=== PATIENT | male | born 1950 | race Caucasian/White ===

== ENCOUNTER 2018-04-30 07:44 | Outpatient (CLI) | payer MEDICARE, SELFPAY | END 2018-04-30 07:45 | PROVIDERS: PCP Family Medicine; Visit Provider Family Medicine | DX: Z47.81 Encounter for orthopedic aftercare following surgical amputation (principal); Z89.422 Acquired absence of other left toe(s); Z89.421 Acquired absence of other right toe(s); I73.9 Peripheral vascular disease, unspecified; I25.10 Atherosclerotic heart disease of native coronary artery without angina pectoris | CPT/HCPCS: 99305 ==

== ENCOUNTER 2018-05-03 16:43 | Outpatient (REF) | payer MEDICARE, SELFPAY ==
[2018-05-03 17:37] LABS: Anion Gap 10.6 mmol/L (3-11); BUN 41 mg/dL (7-18); CO2 25.4 mmol/L (21.0-32.0); CREATININE 2.85 mg/dL (0.70-1.30); Calcium 8.3 mg/dL (8.5-10.1); Chloride 103 mmol/L (98-107); Estimated GFR 22.32 (mL/min/1.73m2); Glucose 168 mg/dL (70-100); Potassium 4.8 mmol/L (3.5-5.1); Sodium 139 mmol/L (136-145)
== END 2018-05-03 16:44 ==
LOC: LBN 16:43
PROVIDERS: PCP Family Medicine; Visit Provider Family Medicine
DX: N18.9 Chronic kidney disease, unspecified (principal); I10 Essential (primary) hypertension; I25.10 Atherosclerotic heart disease of native coronary artery without angina pectoris; E11.9 Type 2 diabetes mellitus without complications; E78.5 Hyperlipidemia, unspecified
CPT/HCPCS: 80048

== ENCOUNTER 2018-06-05 12:42 | Outpatient (REF) | payer MEDICARE, SELFPAY ==
[2018-06-05 14:29] LABS: Anion Gap 7.8 mmol/L (3-11); BUN 31 mg/dL (7-18); CO2 29.2 mmol/L (21.0-32.0); CREATININE 1.83 mg/dL (0.70-1.30); Calcium 8.5 mg/dL (8.5-10.1); Chloride 101 mmol/L (98-107); Estimated GFR 37.22 (mL/min/1.73m2); Glucose 164 mg/dL (70-100); Potassium 4.5 mmol/L (3.5-5.1); Sodium 138 mmol/L (136-145)
[2018-06-05 14:30] LABS: Absolute Basophil Count 0.01 k/cumm (0.0-0.2); Absolute Lymphocyte Count 0.57 k/cumm (1.2-3.4); Absolute Monocyte Count 0.28 k/cumm (0.11-0.7); Basophils % 0.3; Eosinophils % 2.9; HCT 21.3 % (40.0-50.0); Lymphocytes % 16.5; Mean Corp. HGB Concentration 28.2 g/dL (32.0-36.0); Mean Corpuscular Hemoglobin 21.1 pg (27.0-33.0); Mean Platelet Volume 8.6 fL (8.0-11.0); Monocytes % 8.1; Neutrophils % 72.2; Platelet Count 292 x1000/uL (130-400); RBC 2.84 m/cumm (4.50-6.00); RBC Distribution Width 16.3 % (11.8-14.1); White Blood Cell Count 3.46 k/cumm (4.4-10.8)
[2018-06-05 15:04] LABS: Diff Comment RBC Morph Reviewed; Hypochromasia 2+; Polychromasia Present
== END 2018-06-05 13:02 ==
LOC: LBN 12:42
PROVIDERS: PCP Family Medicine; Visit Provider Family Medicine
DX: I10 Essential (primary) hypertension (principal); E78.5 Hyperlipidemia, unspecified; E11.9 Type 2 diabetes mellitus without complications; I48.91 Unspecified atrial fibrillation; N18.3 Chronic kidney disease, stage 3 (moderate)
CPT/HCPCS: 80048; 85025

== ENCOUNTER 2018-06-05 14:59 | Outpatient (CLI) | payer MEDICARE, SELFPAY ==
--- NOTE | 2018-06-05 14:04 | DI.RAD_ITS ---
SYMPTOMS/DIAGNOSIS: HYPOXEMIA, ? PNEUMONIA CHEST X-RAY, FRONTAL AND LATERAL VIEWS: Comparison is 03/13/18. There is increased opacity in the right lung base compared to the prior examination. In addition, there are linear opacities in the left lung base not present on the prior examination. These areas may represent atelectasis or pneumonia. No gross effusions are identified. The lungs are hyperinflated with flattened diaphragm suggesting underlying COPD. The heart size is within normal limits. Sternal wires are present. Degenerative changes are seen in the spine. IMPRESSION: Bilateral basilar infiltrates suspicious for atelectasis or pneumonia.
== END 2018-06-05 15:19 ==
PROVIDERS: PCP Family Medicine; Visit Provider Family Medicine
DX: R91.8 Other nonspecific abnormal finding of lung field (principal); R09.02 Hypoxemia; J44.9 Chronic obstructive pulmonary disease, unspecified
CPT/HCPCS: 71046

== ENCOUNTER 2018-06-05 16:07 | Inpatient (IN) | payer MEDICARE, MEDICAID, SELFPAY ==
[2018-06-05] VITALS (49 sets, daily range): BP systolic 107–188; BP diastolic 53–86; PULSE 58–73; RESP 13–22; TEMP 36–36.9; O2SAT 91–98
--- NOTE | 2018-06-05 16:27 | W.ED.GENAD ---
Discharge Plan Disposition Condition: Improving Discharge Details Chief Complaint: SOB Reason For Visit: ANEMIA, PNA Admit Date/Time: 06/05/18 18:52 Admit Provider: Cristian Mathis Attending Provider: Cristian Mathis Primary Care Provider: Kory Sierra ED Provider: Idania Warner Discharge Instructions Activity:: Activity as Tolerated Equipment/Supplies:: No Equipment Needed Diet:: Low-sodium, carbohydrate Discharge Orders Discharge Orders: Discharge Order (Routine); Ordered 06/10/18 Ordered By: Cristian Mathis Discharge Data Discharge Date/Time-TO BE ENTERED AT DEPARTURE: 06/05/18 20:09 Medical Decision Making MDM Narrative Medical decision making narrative: Manan Phillip is a 67 y/o man with h/o multiple medical problems who is currently living at [facility] presenting to the emergency department with cough and SOB for the past 5 days, found to have PNA and anemia with Hgb 6 on outpt studies. Pt is chronically-ill appearing with nl WOB on exam. Concern for symptomatic anemia, PNA. Exam/hx not c/w sepsis, PE at this time. Plan for EKG, HCAP abx, blood transfusion, labs drawn this am as outpt, will add blood cxs and further screening labs, plan for admission. Clinical Impression: PNA, anemia Disposition: [facility] inpatient Medical Records Medical records reviewed: Yes I reviewed the patient's medical records. Lab Data Lab results reviewed: Yes I reviewed the patient's lab results. ECG Data Attestation: I personally reviewed and interpreted this ECG (s) as follows: Interpretation: EKG shows NSR at 61 with left axis, RBBB and LAFB, PRWP, non-specific ST changes, no STEMI HPI - General Adult General Mode of arrival: EMS. Date/Time Provider Initiated Documentation: 06/05/18 16:15. Limitations to Documentation: no limitations. Information obtained by: patient, RN notes reviewed and old records reviewed. HPI Narrative: Manan Phillip is a 67 y/o man with h/o CKD, DM, pulm HTN, afib, CHF, HTN, PVD presenting to the emergency department with PNA and symptomatic anemia. Pt reports that he has been living in a healthcare facility more or less continuously since 10/11 for necrotic toes, b/l partial foot amputations and subsequent complications. Pt reports that he has had cough and SOB for the past five days, and [facility]. CXR showed PNA and labs showed Hgb 6. Pt denies new pain, fever, vomiting/diarrhea. Per physician at [facility], serial hemoccults negative, anemia thought 2/2 CKD. Related Data Home Medications Medication Instructions Recorded Confirmed amiodarone [Cordarone] 200 mg PO QAM 09/27/17 06/05/18 amlodipine 10 mg PO QAM 09/27/17 06/05/18 aspirin 81 mg PO QAM 09/27/17 06/05/18 atorvastatin [Lipitor] 40 mg PO HS 09/27/17 06/05/18 fluoxetine 40 mg PO BID 09/27/17 06/05/18 furosemide 120 mg PO BID 09/27/17 06/05/18 apixaban [Eliquis] 5 mg PO BID 03/07/18 06/05/18 insulin glargine [Lantus Solostar 10 unit SUB-Q HS 03/07/18 06/06/18 U-100 Insulin] potassium chloride 40 meq PO QAM 03/07/18 06/06/18 melatonin 6 mg PO HS 03/13/18 06/06/18 gabapentin 4 cap PO QID 03/14/18 06/05/18 glucagon (human recombinant) 1 mg IM Q15M PRN 03/14/18 06/05/18 [Glucagon Emergency Kit (human)] acetaminophen 650 mg PO Q6H 06/05/18 06/05/18 albuterol sulfate 2.5 mg INHALATION Q4H PRN 06/05/18 06/05/18 bisacodyl [Dulcolax (bisacodyl)] 10 mg MN DIRECTED PRN 06/05/18 06/05/18 hydromorphone 2 mg PO Q4H PRN 06/05/18 06/05/18 isosorbide mononitrate 30 mg PO DAILY 06/05/18 06/05/18 lorazepam 0.5 mg PO Q8H PRN PRN 06/05/18 06/05/18 losartan 25 mg PO DAILY 06/05/18 06/05/18 magnesium hydroxide [Milk of 30 ml PO PRN PRN 06/05/18 06/06/18 Magnesia] metoclopramide HCl [Reglan] 10 mg PO QID 06/05/18 06/05/18 multivitamin [Multiple Vitamins] 1 tab PO QAM 06/05/18 06/06/18 sodium phosphates [Fleet Enema] 197 ml MN DIRECTED PRN 06/05/18 06/05/18 Previous Rx's Medication Instructions Recorded carvedilol [Coreg] 50 mg PO BID #120 tab 06/10/18 hydralazine 100 mg PO TID #120 tab 06/10/18 omeprazole 40 mg PO DAILY #30 cap 06/10/18 sulfamethoxazole-trimethoprim 1 tab PO Q12H 7 Days #14 tab 06/10/18 Allergies Allergy/AdvReac Type Severity Reaction Status Date / Time enalaprilat [From Vasotec] Allergy Severe Hives Unverified 06/05/18 18:14 Latex, Natural Rubber Allergy Intermediate Skin Rash Unverified 06/05/18 18:14 sertraline AdvReac Severe pychosis Unverified 06/05/18 18:14 codeine AdvReac Nausea Unverified 06/05/18 18:14 General Stated Complaint: SOB VIKASH: 2 Review of Systems Review of Systems Constitutional: denies fevers, reports fatigue Eyes: denies eye pain ENT: denies facial pain, dental pain, sore throat Cardiovascular: denies chest pain, edema Respiratory: reports SOB, cough GI: denies abdominal pain, vomiting, diarrhea : denies flank pain MSK: denies back pain, neck pain, arthralgias, myalgias Skin: denies rash Neuro: denies headaches, lightheadedness, weakness PFSH Social History Smoking/Tobacco Use Status: Never Exam Narrative Exam Narrative: Constitutional: well and [id number], pleasant, conversing normally HENT: head atraumatic, normocephalic normal inspection, mucous membranes moist Eyes: conjunctiva normal, sclera normal, pupils 3mm b/l Neck: no stridor, normal ROM, trachea midline Chest: normal inspection Resp: normal work of breathing, b/l rales Cardio: normal rate, normal rhythm GI: abdomen soft, non-tender, non-distended Back: normal inspection, no rash Skin: warm, dry, normal color, no rash Neuro: alert, not altered, grossly non-focal, normal tone Ext: no edema, partial foot amputations b/l, dressed today, dressing clean and dry, removal of dressing deferred Psych: normal mood, normal affect, normal behavior Course Vital Signs Temperature 36.9 C 06/05/18 16:17 Pulse 60 06/05/18 16:17 Respiratory Rate 06/05/18 16:17 Blood Pressure 142/53 H 06/05/18 16:17 Pulse Oximetry 95 06/05/18 16:17 Temperature 36.9 C 06/05/18 16:17 Pulse 60 06/05/18 16:17 Respiratory Rate 06/05/18 16:17 Blood Pressure 142/53 H 06/05/18 16:17 Pulse Oximetry 95 06/05/18 16:17
[2018-06-05 16:59] LABS: Lactate-non-spesis 0.6 mmol/L (0.6-1.4)
[2018-06-05 17:17] LABS: Troponin I 0.05 ng/mL (0.00-0.06)
[2018-06-05] MEDS: CEFEPIME 2 GM in Normal Saline 100 ML IVPB (17:26)
[2018-06-05] MEDS: AZITHROMYCIN 500 MG in Normal Saline 250 ML 250 MG IVPB (18:07)
--- NOTE | 2018-06-05 19:06 | NUR.NOTE ---
unable to complete med reconciliation due to lack of MAR - 3 phone calls made to [facility]. Nursing Note:
[2018-06-05] MEDS: VANCOMYCIN 2,000 MG in Normal Saline 500 ML 250 MG IVPB (19:50)
[2018-06-05] MEDS: Normal Saline Flush 10 ML SYR IVP (19:53)
[2018-06-05 21:23] LABS: Troponin I 0.05 ng/mL (0.00-0.06)
--- NOTE | 2018-06-05 22:50 | HPE_ITS ---
Date of service: 06/05/18 Time of Service: 22:50 Assessment and Plan (1) Healthcare-associated pneumonia: Current visit: Yes Status: Acute cont. Cefepime and Vancomcyin; check blood cultures and sputum cultures; cont. aerosolized bronchodilators, use IS and Acapella to mobilize sputum (2) Chronic renal disease: Current visit: Yes Status: Chronic cont. iv fluid hydration; monitor U.O. and daily BMP; avoid NSAID's and adjust his meds for his CKD (3) Paroxysmal A-fib: Current visit: No Status: Chronic cont. amiodarone, apixaban (4) Anemia: Current visit: No Status: Chronic the presumption is that his anemia is that of his CKD and due to his chronic wound infections however he may need further GI workup. I did a digital rectal exam and he was heme negative. However he has significant anemia and had to be transfused during his last admission. I will repeat his CBC in the a.m. and if his Hb does not come up above 7 gm then he will need further transfusions. History of Present Illness Chief Complaint: Dyspnea Narrative: 67 yr old male w/ PMH of CAD (s/p 3 vessel CABG), CVA, severe PAD (s/ p bilateral transmetatarsal resection), CKD, HLD, PAF, anemia of chronic disease (baseline Hb 8.6 GM) who was undergoing rehabilitation at [facility] after bilateral transmetatarsal resection for gangrenous toes when he developed increased dyspnea over the past few days along w/ productive cough. Workup in the ER revealed that he has bibasilar lower lobe consolidation and worsening anemia (Hb 6.0) He denies any rigors but admits to some productive mucous. He is afebrile and has no leukocytosis. He also denies any melena nor any hematochezia. Workup in the ER included routine labs, CXR, EKG, and treatment consisted of transfusion of 1 unit of PRBC, and initiation of parenteral antibiotics per HCAP recommendations including cefepime, vancomycin and azithromycin. Cefepime and Vancomycin have been continued at renal adjusted doses. Because the patient is on amiodarone for afib, the azithromycin was not continued but he was put on doxycycline. Review of Systems Review of Systems All systems reviewed & are unremarkable except as noted in HPI and below Cardiovascular Reports as per HPI Respiratory Reports as per HPI Gastrointestinal Reports system reviewed and no additional complaints, except as docu Genitourinary Reports system reviewed and no additional complaints, except as docu Musculoskeletal Reports system reviewed and no additional complaints, except as docu Integumentary/Breasts Reports system reviewed and no additional complaints, except as docu Neurologic Reports system reviewed and no additional complaints, except as docu Psychiatric Reports system reviewed and no additional complaints, except as docu Endocrine Reports system reviewed and no additional complaints, except as docu Hematologic/Lymphatic Reports system reviewed and no additional complaints, except as docu Allergic/Immunologic Reports system reviewed and no additional complaints, except as docu PFS Social History Smoking/Tobacco Use Status: Never Meds Home Medications Medication Instructions Recorded Confirmed Type amiodarone [Cordarone] 200 mg PO QAM 09/27/17 06/05/18 History amlodipine 10 mg PO QAM 09/27/17 06/05/18 History aspirin 81 mg PO QAM 09/27/17 06/05/18 History atorvastatin [Lipitor] 40 mg PO HS 09/27/17 06/05/18 History fluoxetine 40 mg PO BID 09/27/17 06/05/18 History furosemide 120 mg PO BID 09/27/17 06/05/18 History apixaban [Eliquis] 5 mg PO BID 03/07/18 06/05/18 History insulin glargine [Lantus Solostar 10 unit SUB-Q HS 03/07/18 06/06/18 History U-100 Insulin] potassium chloride 40 meq PO QAM 03/07/18 06/06/18 History melatonin 6 mg PO HS 03/13/18 06/06/18 History carvedilol 12.5 mg PO BID 03/14/18 06/05/18 History gabapentin 4 cap PO QID 03/14/18 06/05/18 History glucagon (human recombinant) 1 mg IM Q15M PRN 03/14/18 06/05/18 History [Glucagon Emergency Kit (human)] hydralazine 3 tab PO TID 03/14/18 06/05/18 History acetaminophen 650 mg PO Q6H 06/05/18 06/05/18 History albuterol sulfate 2.5 mg INHALATION Q4H PRN 06/05/18 06/05/18 History bisacodyl [Dulcolax (bisacodyl)] 10 mg ME DIRECTED PRN 06/05/18 06/05/18 History hydromorphone 2 mg PO Q4H PRN 06/05/18 06/05/18 History isosorbide mononitrate 30 mg PO DAILY 06/05/18 06/05/18 History lorazepam 0.5 mg PO Q8H PRN PRN 06/05/18 06/05/18 History losartan 25 mg PO DAILY 06/05/18 06/05/18 History magnesium hydroxide [Milk of 30 ml PO PRN PRN 06/05/18 06/06/18 History Magnesia] metoclopramide HCl [Reglan] 10 mg PO QID 06/05/18 06/05/18 History multivitamin [Multiple Vitamins] 1 tab PO QAM 06/05/18 06/06/18 History sodium phosphates [Fleet Enema] 197 ml ME DIRECTED PRN 06/05/18 06/05/18 History Allergies Allergy/AdvReac Type Severity Reaction Status Date / Time enalaprilat [From Vasotec] Allergy Severe Hives Unverified 06/05/18 18:14 Latex, Natural Rubber Allergy Intermediate Skin Rash Unverified 06/05/18 18:14 sertraline AdvReac Severe pychosis Unverified 06/05/18 18:14 codeine AdvReac Nausea Unverified 06/05/18 18:14 Exam Narrative Exam Narrative: Middle age male who apears older than his stated age HEENT: AT/NC, PERRLA, EOMI, anicteric NECK: supple, no overt JVD, bilateral carotid bruits w/ brisk upstroke, no LN, nor thyromegaly Lungs: bibasilar rales; no wheezes or rhonchi Heart: regular w/ grade 2/6 systolic murmur over apex w/out thrill or gallop or rub Abd: soft, nontender, no HSM, no bruits, no masses Rectal: soft light brown stool in rectal vault w/out melena nor hematochezia; stool is heme negative extremities: poor pedal pulses w/out cyanosis; both feet bandaged over metatarsal amputation sites; no discharge or drainage on bandages Neuro: No focal deficits; reports residual decreased sensation in his left hand and has 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
[2018-06-06] VITALS (33 sets, daily range): BP systolic 110–207; BP diastolic 44–98; PULSE 59–79; RESP 1–22; TEMP 35.9–36.6; O2SAT 94–99
[2018-06-06] MEDS: Gabapentin 100 MG CAP 200 MG (00:58)
[2018-06-06] MEDS: Normal Saline Flush 10 ML SYR IVP ×6 (01:00→21:38)
[2018-06-06] MEDS: hydrALAZINE 25 MG TAB 75 MG (01:02)
[2018-06-06] MEDS: Melatonin 3 MG TAB 6 MG PO ×2 (01:03→21:39)
[2018-06-06] MEDS: Carvedilol 25 MG TAB (01:03)
[2018-06-06] MEDS: Apixaban 5 MG TAB (01:03)
[2018-06-06] MEDS: Atorvastatin 40 MG TAB PO ×2 (01:06→21:39)
[2018-06-06] MEDS: Albuterol/Ipratropium 3 ML UPD VIAL UPD ×4 (01:08→16:34)
[2018-06-06] MEDS: DOXYCYCLINE 100 MG in Normal Saline 100 ML IVPB ×2 (01:38→14:55)
[2018-06-06] MEDS: Insulin Glargine 300 UNITS/3 ML PEN 10 UNITS SC ×2 (01:45→21:48)
[2018-06-06] MEDS: oxyCODONE 5 MG TAB PO ×3 (02:17→17:49)
[2018-06-06] MEDS: Acetaminophen 325 MG TAB PO (02:44)
[2018-06-06 07:02] LABS: Anion Gap 7.6 mmol/L (3-11); BUN 31 mg/dL (7-18); CO2 29.4 mmol/L (21.0-32.0); CREATININE 1.77 mg/dL (0.70-1.30); Calcium 8.5 mg/dL (8.5-10.1); Chloride 99 mmol/L (98-107); Estimated GFR 38.68 (mL/min/1.73m2); Potassium 3.8 mmol/L (3.5-5.1); Sodium 136 mmol/L (136-145)
[2018-06-06 07:08] LABS: Absolute Basophil Count 0.02 k/cumm (0.0-0.2); Absolute Eosinophil Count 0.19 k/cumm (0.0-0.7); Absolute Lymphocyte Count 0.73 k/cumm (1.2-3.4); Absolute Monocyte Count 0.31 k/cumm (0.11-0.7); Absolute Neutrophil Count 2.35 k/cumm (1.2-6.7); Basophils % 0.6; Eosinophils % 5.3; Lymphocytes % 20.3; Mean Corp. HGB Concentration 28.7 g/dL (32.0-36.0); Mean Corpuscular Hemoglobin 21.8 pg (27.0-33.0); Mean Corpuscular Volume 75.9 fL (80-95); Mean Platelet Volume 8.5 fL (8.0-11.0); Monocytes % 8.6; Neutrophils % 65.2; Platelet Count 267 x1000/uL (130-400); RBC 3.03 m/cumm (4.50-6.00); RBC Distribution Width 17.1 % (11.8-14.1)
[2018-06-06 07:12] LABS: Glucose 93 mg/dL (70-100)
[2018-06-06 07:23] LABS: HGB 6.6 g/dL (13.5-17.5)
[2018-06-06] MEDS: Amiodarone 200 MG TAB PO (09:02)
[2018-06-06] MEDS: amLODIPine 10 MG TAB PO (09:02)
[2018-06-06] MEDS: Gabapentin 100 MG CAP 200 MG PO ×3 (09:02→19:39)
[2018-06-06] MEDS: hydrALAZINE 25 MG TAB 75 MG PO ×3 (09:02→19:39)
[2018-06-06] MEDS: FLUoxetine 20 MG CAP 40 MG PO ×2 (09:02→19:40)
[2018-06-06] MEDS: Aspirin E.C. 81 MG TABEC PO (09:02)
[2018-06-06] MEDS: Apixaban 5 MG TAB PO ×2 (09:03→19:40)
[2018-06-06] MEDS: CARVEDILOL 12.5 MG TAB PO ×2 (09:03→19:39)
[2018-06-06] MEDS: Insulin Aspart 300 UNITS/3 ML PEN SC ×3 (09:04→17:21)
[2018-06-06] MEDS: CEFEPIME 2 GM in Normal Saline 100 ML IVPB ×2 (09:05→21:10)
[2018-06-06] MEDS: VANCOMYCIN 1,000 MG in Normal Saline 250 ML 166.667 MG IV (10:15)
[2018-06-06] MEDS: Acetaminophen 325 MG TAB 650 MG PO (10:57)
[2018-06-06] MEDS: diphenhydrAMINE 25 MG CAP PO (10:58)
--- NOTE | 2018-06-06 11:23 | PHARADMIT ---
Addendum entered by Nerissa Vail 06/08/18 14:02: Pharmacy Note Subjective Objective BP-170/67 other VS okay SCr-1.70(down) h/h-8.5/28.0 Assessment doxycycline, cefepime and vanco continue apixaban and aspirin still on hold potassium chloride scheduled 40 mEq QAM and 20 mEq QPM Plan vanco trough tomorrow morning @0700 Original Note: Addendum entered by Nerissa Vail 06/07/18 16:09: Pharmacy Note Subjective possible GI bleed? aspirin and apixaban on hold Objective BP-174/71 other VS-okay K+3.2 WBC-4.26 SCr-1.83(up) h/h-8.4/28.0 Assessment doxycycline changed to PO, vanco and cefepime continue blood cultures no growth at 24 hours, MRSA negative, sputum prelim grew scant gram negative rods Plan watch for possible change to po abx tomorrow Original Note: Admission Pharmacy Clinical Review ANEMIA,PNA Code Status Full Code Current Weight 98.7 kg Renally Cleared and Narrow Therapeutic Index Meds CRCL ~42ML/MIN QTc Value / Action Taken BP Control, Fever 195/84 AFEBRILE Electrolytes reviewed OK DVT Prophylaxis pt on apixaban Opiate Usage / Scheduled Bowel Regimen Ordered prn/prn Plt/SCr for Heparin / Enoxaparin 267/1.77 INR for Warfarin na H/H stable, WBC/Bands 6.6/23.0 wbc 3.60 Antibiotic appropriateness cefepime, doxy IV(instead of azithromycin due to pt on amiodarone), vancomycin IV Cultures and Sensitivities BC and sputum pending Surgical ABX d/c within 24 hr na DM control / Insulin Dosing FS 115, insulin aspart and glargine Heart Failure (Check EF%) (LATASHA's, B-Block, Diuretics) carvdilol, furosemide(home med), amlodipine IV to PO Switch Home Meds Reviewed Home Meds Not Ordered furosemide 120 mg PO BID 09/27/17 [History Confirmed 06/05/18] potassium chloride 40 meq PO QAM 03/07/18 [History Confirmed 06/06/18] bisacodyl [Dulcolax (bisacodyl)] 10 mg AK DIRECTED PRN 06/05/18 hydromorphone 2 mg PO Q4H PRN 06/05/18 [History Confirmed 06/05/18] isosorbide mononitrate 30 mg PO DAILY 06/05/18 lorazepam 0.5 mg PO Q8H PRN PRN 06/05/18 [History Confirmed 06/05/18] losartan 25 mg PO DAILY 06/05/18 [History Confirmed 06/05/18] metoclopramide HCl [Reglan] 10 mg PO QID 06/05/18 multivitamin [Multiple Vitamins] 1 tab PO QAM 06/05/18 sodium phosphates [Fleet Enema] 197 ml AK DIRECTED PRN 06/05/18 Comments blood transfusion ordered
--- NOTE | 2018-06-06 11:32 | PDOC.CMIN ---
- If Service Date Differs Date of service: 06/06/18 Time of Service: 11:32 Care Management Initial Assess REASON FOR HOSPITALIZATION:: Dyspnea PAST MEDICAL HISTORY/PAST SURGICAL HISTORY:: CAD, CVA, Severe PAD, S/P bilateral transmetatarsal resection for gangrenous toes, CKD, HLD, PAF, Anemia of chronic disease PREVIOUS FUNCTIONAL STATUS/SOCIAL/FAMILY SUPPORTS:: Manan resides at [facility]. He previously resided in [place] and moved to [place] to be nearer his son Last and REVA Sykes. 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 CURRENT FUNCTIONAL STATUS:: Manan is lying in bed this morning. He is pleasant and open to discussion. ADVANCE DIRECTIVES:: none on file Has patient been provided with information about the portal?: Yes Did the patient sign up for the portal?: Yes (Already signed up) CODE STATUS:: Full Code INSURANCE COVERAGE / FINANCIAL ISSUES:: Medicare CURRENT HOME/COMMUNITY SERVICES/EQUIPMENT:: Currently receives all care through [facility]. Uses a W/C and is independent with W/C usage. PRIMARY CARE PHYSICIAN:: Dr. Sierra POTENTIAL DISCHARGE NEEDS:: Return to [facility]. Transportation - [facility]& w/c van PATIENT/FAMILY EDUCATION NEEDS:: Review DC instructions any limitations, and ongoing DC planning discussion. ANTICIPATED BARRIERS TO DISCHARGE:: None identified at this time. TRANSPORTATION:: Via [facility]& w/c van if available PLAN:: Manan will return to [facility] once medically cleared. He will transport via [facility]& w/c van if available.
--- NOTE | 2018-06-06 12:57 | INITIAL_ITS ---
- If Service Date Differs Date of service: 06/06/18 Time of Service: 11:32 Care Management Initial Assess REASON FOR HOSPITALIZATION:: Dyspnea PAST MEDICAL HISTORY/PAST SURGICAL HISTORY:: CAD, CVA, Severe PAD, S/P bilateral transmetatarsal resection for gangrenous toes, CKD, HLD, PAF, Anemia of chronic disease PREVIOUS FUNCTIONAL STATUS/SOCIAL/FAMILY SUPPORTS:: Manan resides at [facility]. He previously resided in [place] and moved to [place] to be nearer his son Last and REVA Sykes. 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 CURRENT FUNCTIONAL STATUS:: Manan is lying in bed this morning. He is pleasant and open to discussion. ADVANCE DIRECTIVES:: none on file Has patient been provided with information about the portal?: Yes Did the patient sign up for the portal?: Yes (Already signed up) CODE STATUS:: Full Code INSURANCE COVERAGE / FINANCIAL ISSUES:: Medicare CURRENT HOME/COMMUNITY SERVICES/EQUIPMENT:: Currently receives all care through [facility]. Uses a W/C and is independent with W/C usage. PRIMARY CARE PHYSICIAN:: Dr. Sierra POTENTIAL DISCHARGE NEEDS:: Return to [facility]. Transportation - [facility]& w/c van PATIENT/FAMILY EDUCATION NEEDS:: Review DC instructions any limitations, and ongoing DC planning discussion. ANTICIPATED BARRIERS TO DISCHARGE:: None identified at this time. TRANSPORTATION:: Via [facility]& w/c van if available PLAN:: Manan will return to [facility] once medically cleared. He will transport via [facility]& w/c van if available.
[2018-06-06] MEDS: Furosemide 100 MG/10 ML VIAL 80 MG IVP (17:31)
[2018-06-06 18:24] LABS: HCT 30.4 % (40.0-50.0); HGB 9.4 g/dL (13.5-17.5)
[2018-06-06] MEDS: LORazepam 1 MG TAB PO ×2 (18:59→23:15)
--- NOTE | 2018-06-06 19:04 | W.PM.PROGNOT ---
Date of service: 06/06/18 Time of Service: 19:04 Assessment and Plan (1) Heart failure with preserved ejection fraction: Current visit: Yes Status: Chronic Worsening dyspnea after the blood products were infused. As needed dose of furosemide seems to be helping with diuresis. Continue usual outpatient dose of furosemide 120 mg twice daily. (2) Diabetes mellitus: Current visit: No Status: Chronic Blood sugars well controlled. Continue present meds (3) Anxiety: Current visit: No Status: Chronic Increasing anxiety with dyspnea. Started lorazepam 1 mg 4 times daily as needed. Morphine available for dyspnea related discomfort. (4) Paroxysmal A-fib: Current visit: No Status: Chronic Continue anticoagulation. Rate well controlled currently. (5) Healthcare-associated pneumonia: Current visit: Yes Status: Acute On cefepime. (6) Anemia: Current visit: No Status: Chronic Required 3 units of packed red cells. Posttransfusion hemoglobin greater than 9. Monitor for any ongoing signs or symptoms of bleeding. (7) Discharge planning issues: Current visit: Yes Status: Acute Full code in acute care status. Continue to monitor. Possible discharge in the next 24-48 hours if improving. Subjective Interval history since last seen: Patient admitted overnight with anemia and hospital-acquired pneumonia. He received 1 unit of packed cells overnight and required 2 more units of packed red cells during the day today. At the end of the transfusion he was feeling short of breath and panicky. He got a dose of IV Lasix and some lorazepam. No problems with chest pain. Breathing has been otherwise stable. Exam Narrative Exam Narrative: He has been quite mobile today getting up to the side of the bed and to the chair. Minimal cough. His lung exam demonstrates some rales at the right base otherwise good air movement. Heart regular. Abdomen quite large soft nontender. Lower extremities trace edema. Objective Objective Clinical Data: Abnormal lab results 06/05/18 06/06/18 06/06/18 Range/Units 16:35 06:35 06:35 WBC 3.60 L (4.4-10.8) k/cumm RBC 3.03 L (4.50-6.00) m/cumm Hgb 6.6 L* (13.5-17.5) g/dL Hct 23.0 L (40.0-50.0) % MCV 75.9 L (80-95) fL MCH 21.8 L (27.0-33.0) pg MCHC 28.7 L (32.0-36.0) g/dL RDW 17.1 H (11.8-14.1) % Absolute Lymphocytes 0.73 L (1.2-3.4) k/cumm BUN 31 H (7-18) mg/dL Creatinine 1.77 H (0.70-1.30) mg/dL Crossmatch See Detail 06/06/18 Range/Units 18:15 WBC (4.4-10.8) k/cumm RBC (4.50-6.00) m/cumm Hgb 9.4 L D (13.5-17.5) g/dL Hct 30.4 L D (40.0-50.0) % MCV (80-95) fL MCH (27.0-33.0) pg MCHC (32.0-36.0) g/dL RDW (11.8-14.1) % Absolute Lymphocytes (1.2-3.4) k/cumm BUN (7-18) mg/dL Creatinine (0.70-1.30) mg/dL Crossmatch Vital Signs Temp 36.3 C L 06/06/18 15:59 Pulse 64 06/06/18 16:34 Resp 20 06/06/18 15:59 BP 189/82 H 06/06/18 15:59 Pulse Ox 94 L 06/06/18 16:34 Intake & Output 06/05/18 06/06/18 06/06/18 23:59 11:59 23:59 Intake Total 1450 / 1450 1470 / 1470 960 / 960 Output Total 475 / 475 1660 / 1660 2450 / 2450 Balance 975 / 975 -190 / -190 -1490 / -1490 Weight 97.7 kg 98.7 kg Intake: IV 750 / 750 240 / 240 250 / 250 Oral 1230 / 1230 360 / 360 Blood Product 700 / 700 350 / 350 Rbc Leuko Reduced Unit 700 / 700 [id number] Rbc Leuko Reduced Unit 350 / 350 [id number] Output: Urine 475 / 475 1660 / 1660 2450 / 2450 Other: Urine Color Yellow Yellow Pale Urine Appearance Clear Clear Clear Urine Odor Normal Normal None Voiding Methods Urinal Urinal Urinal Laboratory Results WBC 3.60 k/cumm (4.4-10.8) L 06/06/18 06:35 RBC 3.03 m/cumm (4.50-6.00) L 06/06/18 06:35 Hgb 9.4 g/dL (13.5-17.5) L D 06/06/18 18:15 Hct 30.4 % (40.0-50.0) L D 06/06/18 18:15 MCV 75.9 fL (80-95) L 06/06/18 06:35 MCH 21.8 pg (27.0-33.0) L 06/06/18 06:35 MCHC 28.7 g/dL (32.0-36.0) L 06/06/18 06:35 RDW 17.1 % (11.8-14.1) H 06/06/18 06:35 Plt Count 267 x1000/uL (130-400) 06/06/18 06:35 MPV 8.5 fL (8.0-11.0) 06/06/18 06:35 Immature Gran % 0.0 06/06/18 06:35 Neutrophils % 65.2 06/06/18 06:35 Lymphocytes % 20.3 06/06/18 06:35 Monocytes % 8.6 06/06/18 06:35 Eosinophils % 5.3 06/06/18 06:35 Basophils % 0.6 06/06/18 06:35 Absolute Neutrophils 2.35 k/cumm (1.2-6.7) 06/06/18 06:35 Absolute Lymphocytes 0.73 k/cumm (1.2-3.4) L 06/06/18 06:35 Absolute Monocytes 0.31 k/cumm (0.11-0.7) 06/06/18 06:35 Absolute Eosinophils 0.19 k/cumm (0.0-0.7) 06/06/18 06:35 Absolute Basophils 0.02 k/cumm (0.0-0.2) 06/06/18 06:35 Sodium 136 mmol/L (136-145) 06/06/18 06:35 Potassium 3.8 mmol/L (3.5-5.1) 06/06/18 06:35 Chloride 99 mmol/L (98-107) 06/06/18 06:35 Carbon Dioxide 29.4 mmol/L (21.0-32.0) 06/06/18 06:35 Anion Gap 7.6 mmol/L (3-11) 06/06/18 06:35 BUN 31 mg/dL (7-18) H 06/06/18 06:35 Creatinine 1.77 mg/dL (0.70-1.30) H 06/06/18 06:35 Estimated GFR/1.73 m2 38.68 (mL/min/1.73m2) 06/06/18 06:35 Glucose 93 mg/dL (70-100) D 06/06/18 06:35 Lactate 0.6 mmol/L (0.6-1.4) 06/05/18 16:35 Calcium 8.5 mg/dL (8.5-10.1) 06/06/18 06:35 Troponin I 0.05 ng/mL (0.00-0.06) 06/05/18 20:55 Patient ABO/Rh A Positive 06/05/18 16:35 Antibody Screen Negative 06/05/18 16:35 Crossmatch See Detail 06/05/18 16:35
--- NOTE | 2018-06-06 21:21 | NUR.NOTE ---
Reported BP's since 1899 and scheduled intervention with no result. Requested hospitalist be notified as pt has no prn medications on nov.
[2018-06-06] MEDS: Labetalol 100 MG/20 ML VIAL 20 MG IVP (22:32)
[2018-06-07] VITALS (8 sets, daily range): BP systolic 144–193; BP diastolic 67–78; PULSE 60–75; RESP 1–20; TEMP 36.4–37.3; O2SAT 92–98
[2018-06-07] MEDS: VANCOMYCIN 1,000 MG in Normal Saline 250 ML 166 MG IV ×2 (00:01→14:07)
[2018-06-07] MEDS: oxyCODONE 5 MG TAB PO (00:01)
[2018-06-07] MEDS: Albuterol/Ipratropium 3 ML UPD VIAL UPD ×4 (00:02→23:30)
[2018-06-07] MEDS: DOXYCYCLINE 100 MG in Normal Saline 100 ML IVPB (02:49)
[2018-06-07] MEDS: LORazepam 1 MG TAB PO (05:24)
[2018-06-07 07:09] LABS: Abs Immature Grans 0.01 k/cumm (0.0-0.09); Absolute Basophil Count 0.01 k/cumm (0.0-0.2); Absolute Eosinophil Count 0.13 k/cumm (0.0-0.7); Absolute Lymphocyte Count 0.53 k/cumm (1.2-3.4); Absolute Monocyte Count 0.38 k/cumm (0.11-0.7); Basophils % 0.2; Eosinophils % 3.1; HGB 8.4 g/dL (13.5-17.5); Immature Grans % 0.2; Lymphocytes % 12.4; Mean Corpuscular Volume 76.7 fL (80-95); Mean Platelet Volume 8.5 fL (8.0-11.0); Monocytes % 8.9; Neutrophils % 75.2; Platelet Count 264 x1000/uL (130-400); RBC 3.65 m/cumm (4.50-6.00); RBC Distribution Width 18.7 % (11.8-14.1); White Blood Cell Count 4.26 k/cumm (4.4-10.8)
[2018-06-07 07:13] LABS: Anion Gap 9.5 mmol/L (3-11); BUN 33 mg/dL (7-18); CO2 27.5 mmol/L (21.0-32.0); CREATININE 1.83 mg/dL (0.70-1.30); Calcium 8.5 mg/dL (8.5-10.1); Chloride 101 mmol/L (98-107); Estimated GFR 37.22 (mL/min/1.73m2); Glucose 83 mg/dL (70-100); Potassium 3.2 mmol/L (3.5-5.1); Sodium 138 mmol/L (136-145)
[2018-06-07] MEDS: amLODIPine 10 MG TAB PO (08:46)
[2018-06-07] MEDS: Amiodarone 200 MG TAB PO (08:46)
[2018-06-07] MEDS: Docusate Sodium 100 MG CAP PO (08:46)
[2018-06-07] MEDS: CARVEDILOL 12.5 MG TAB 25 MG PO ×2 (08:46→22:20)
[2018-06-07] MEDS: CEFEPIME 2 GM in Normal Saline 100 ML IVPB ×2 (08:46→22:20)
[2018-06-07] MEDS: Gabapentin 100 MG CAP 200 MG PO ×3 (08:46→22:22)
[2018-06-07] MEDS: FLUoxetine 20 MG CAP 40 MG PO ×2 (08:46→22:22)
[2018-06-07] MEDS: hydrALAZINE 25 MG TAB 75 MG PO ×3 (08:46→22:22)
[2018-06-07] MEDS: Insulin Aspart 300 UNITS/3 ML PEN SC ×2 (08:47→17:47)
--- NOTE | 2018-06-07 10:15 | PDOC.CMPRO ---
- If Service Date Differs Date of service: 06/07/18 Time of Service: 10:15 Care Management Progress Note S/O: Manan is lying in bed when this newspaper writer visits this morning. He is sleeping when this newspaper writer visits and easily arouses to name. Manan states he's doing pretty good when this newspaper writer discusses how his night was and how he is currently feeling. CM reviewed DC plan with Manan which remains unchanged at this time. A: 67 y/o male admitted 06/05/18 for Dyspnea P: Manan will return to [facility] once medically cleared. He will transport via [facility] w/c van if available. SNF forms on the front of the chart for completion.
--- NOTE | 2018-06-07 10:29 | CMPROGNOTE_ITS ---
- If Service Date Differs Date of service: 06/07/18 Time of Service: 10:15 Care Management Progress Note S/O: Manan is lying in bed when this bid writer visits this morning. He is sleeping when this bid writer visits and easily arouses to name. Manan states he' s doing pretty good when this bid writer discusses how his night was and how he is currently feeling. CM reviewed DC plan with Manan which remains unchanged at this time. A: 67 y/o male admitted 06/05/18 for Dyspnea P: Manan will return to [facility] once medically cleared. He will transport via [facility] w/c van if available. SNF forms on the front of the chart for completion.
--- NOTE | 2018-06-07 12:44 | W.PM.PROGNOT ---
Date of service: 06/07/18 Time of Service: 12:47 Assessment and Plan (1) Healthcare-associated pneumonia: Current visit: Yes Status: Acute He continues on cefepime, vancomycin, doxycycline. White count is normal. He has had no further fevers. Continues to have a modest O2 requirement. Continue IV antibiotics for 1 more day. (2) Anemia: Current visit: No Status: Chronic Unclear source for his anemia. There does not appear to be acute blood loss. He transfused up to a hemoglobin of 9.4 yesterday but it has dropped again to 8.4 today. It would seem if there was acute GI blood loss it would be more clinically apparent. He is requesting medication to help him have a bowel movement. Will check his stools for evidence of blood and continue to monitor for signs of ongoing bleeding. We will hold his anticoagulants, apixaban and aspirin. Recheck H&H at 4 PM and again in the AM. (3) Atrial fibrillation: Current visit: Yes Status: Chronic Rate control has been excellent. We are holding on anticoagulants because of ongoing problems with anemia. (4) CAD (coronary artery disease), bypass graft transplanted heart: Current visit: No Status: Chronic No evidence of acute coronary syndrome. No recurrent chest pain. (5) Discharge planning issues: Current visit: Yes Status: Acute He remains a full code. Continue IV antibiotics for another day. Continue to trend his labs and blood cell counts. Subjective Interval history since last seen: Patient's breathing is much better today. He was transferring from the bed to the chair independently today when he slipped and landed on his buttocks. No significant injury. He received 3 units of packed red cells yesterday. He received Lasix after the transfusions and had a significant diuresis. Denies any problems with chest pain he has not had a bowel movement since 06/04/2018. No source of bleeding that he is aware of. Exam Narrative Exam Narrative: He sitting up on the side of the bed. He looks overall comfortable. His lung exam is clear on the right and left. Heart rate is regular, no significant murmur. Abdomen quite rotund but soft and nontender. The lower extremities trace edema bilaterally Objective Objective Clinical Data: Abnormal lab results 06/05/18 06/06/18 06/07/18 Range/Units 16:35 18:15 06:12 WBC (4.4-10.8) k/cumm RBC (4.50-6.00) m/cumm Hgb 9.4 L D (13.5-17.5) g/dL Hct 30.4 L D (40.0-50.0) % MCV (80-95) fL MCH (27.0-33.0) pg MCHC (32.0-36.0) g/dL RDW (11.8-14.1) % Absolute Lymphocytes (1.2-3.4) k/cumm Potassium 3.2 L (3.5-5.1) mmol/L BUN 33 H (7-18) mg/dL Creatinine 1.83 H (0.70-1.30) mg/dL Crossmatch See Detail 06/07/18 Range/Units 06:12 WBC 4.26 L (4.4-10.8) k/cumm RBC 3.65 L (4.50-6.00) m/cumm Hgb 8.4 L (13.5-17.5) g/dL Hct 28.0 L (40.0-50.0) % MCV 76.7 L (80-95) fL MCH 23.0 L (27.0-33.0) pg MCHC 30.0 L (32.0-36.0) g/dL RDW 18.7 H (11.8-14.1) % Absolute Lymphocytes 0.53 L (1.2-3.4) k/cumm Potassium (3.5-5.1) mmol/L BUN (7-18) mg/dL Creatinine (0.70-1.30) mg/dL Crossmatch Vital Signs Temp 36.4 C L 06/07/18 10:04 Pulse 70 06/07/18 10:04 Resp 20 06/07/18 10:04 BP 185/70 H 06/07/18 10:04 Pulse Ox 98 06/07/18 10:04 Intake & Output 06/06/18 06/07/18 06/07/18 23:59 11:59 23:59 Intake Total 1160 / 1160 400 / 400 Output Total 2450 / 2450 1225 / 1225 Balance -1290 / -1290 -825 / -825 Intake: IV 450 / 450 Oral 360 / 360 400 / 400 Blood Product 350 / 350 Rbc Leuko Reduced Unit 350 / 350 [id number] Output: Urine 2450 / 2450 1225 / 1225 Other: Urine Color Pale Yellow Urine Appearance Clear Clear Urine Odor None None Comment pT stated half asleep, could not aim for urinal, spilled urinal over bed, floor. Bed linens changed at this time. Voiding Methods Urinal Urinal Laboratory Results WBC 4.26 k/cumm (4.4-10.8) L 06/07/18 06:12 RBC 3.65 m/cumm (4.50-6.00) L 06/07/18 06:12 Hgb 8.4 g/dL (13.5-17.5) L 06/07/18 06:12 Hct 28.0 % (40.0-50.0) L 06/07/18 06:12 MCV 76.7 fL (80-95) L 06/07/18 06:12 MCH 23.0 pg (27.0-33.0) L 06/07/18 06:12 MCHC 30.0 g/dL (32.0-36.0) L 06/07/18 06:12 RDW 18.7 % (11.8-14.1) H 06/07/18 06:12 Plt Count 264 x1000/uL (130-400) 06/07/18 06:12 MPV 8.5 fL (8.0-11.0) 06/07/18 06:12 Immature Gran % 0.2 06/07/18 06:12 Neutrophils % 75.2 06/07/18 06:12 Lymphocytes % 12.4 06/07/18 06:12 Monocytes % 8.9 06/07/18 06:12 Eosinophils % 3.1 06/07/18 06:12 Basophils % 0.2 06/07/18 06:12 Absolute Neutrophils 3.20 k/cumm (1.2-6.7) 06/07/18 06:12 Absolute Lymphocytes 0.53 k/cumm (1.2-3.4) L 06/07/18 06:12 Absolute Monocytes 0.38 k/cumm (0.11-0.7) 06/07/18 06:12 Absolute Eosinophils 0.13 k/cumm (0.0-0.7) 06/07/18 06:12 Absolute Basophils 0.01 k/cumm (0.0-0.2) 06/07/18 06:12 Sodium 138 mmol/L (136-145) 06/07/18 06:12 Potassium 3.2 mmol/L (3.5-5.1) L 06/07/18 06:12 Chloride 101 mmol/L (98-107) 06/07/18 06:12 Carbon Dioxide 27.5 mmol/L (21.0-32.0) 06/07/18 06:12 Anion Gap 9.5 mmol/L (3-11) 06/07/18 06:12 BUN 33 mg/dL (7-18) H 06/07/18 06:12 Creatinine 1.83 mg/dL (0.70-1.30) H 06/07/18 06:12 Estimated GFR/1.73 m2 37.22 (mL/min/1.73m2) 06/07/18 06:12 Glucose 83 mg/dL (70-100) 06/07/18 06:12 Lactate 0.6 mmol/L (0.6-1.4) 06/05/18 16:35 Calcium 8.5 mg/dL (8.5-10.1) 06/07/18 06:12 Troponin I 0.05 ng/mL (0.00-0.06) 06/05/18 20:55 Patient ABO/Rh A Positive 06/05/18 16:35 Antibody Screen Negative 06/05/18 16:35 Crossmatch See Detail 06/05/18 16:35
--- NOTE | 2018-06-07 13:28 | PT.INIE ---
Date of service: 06/07/18 Time of Service: 13:29 PT Notes Inpatient Physical Therapy Evaluation Date: 06/07/18 Referring Doctor: Delmy Francis PT Orders: PT CONSULT: PNA, anemia, generalized weakness, hx multiple toe amputations Precautions: Fall precautions Patient Profile/Admitting Diagnosis: Pt is a 67 yr old male admitted from [facility] with pneumonia PMHX: obesity, severe peripheral artery disease, s/p bilateral transmetatarsal resections, vascular neuropathy, diabetes with diabetic neuropathy, anemia, atrial fibrillation, coronary artery disease s/p coronary artery bypass graft x 3, cerebrovascular accident with left hemiparesis, hypertension, chronic obstructive pulmonary disease, chronic kidney disease, anxiety, depression, chronic pain Social History/Home Situation: Living with son, but currently a resident at [facility] after toe amputations. Pt states his baseline mobility is independent gait with FWW. Reports he has not been walking much at the rehab. Equipment Owned/DME: FWW, cane, wheelchair, shower chair Subjective: Pt lying in bed, agreeable to PT Consult. Reports frustration that he is not allowed to get up and walk in his room after falling on the floor this morning when he attempted to get up by himself. They don't want me to get up. Objective: General Observation: 2 liters 02 NC, telemetry Mental Status: A& O x3 Pain: no c/o pain Bed Mobility/Transfers: Supine-sit: HOB 40 degrees independent Sit-stand: CGA with FWW Stand-sit: SBA Sit-supine: HOB flat independent Gait: CGA with FWW 3 side steps right. Further gait witheld as patient does not have shoes or post op shoes in room for gait stability with toe amputations. Sp[facility] with RN [facility] patient was wearing post ooperatively. Pt positioned back in bed after standing and taking steps, once lying flat he wanted to sit up on the edge of the bed to use the urinal. Pt frustrated the therapist was in room and he was supervised for safety to prevent another fall. Pt refused to get back to bed after urinating, RAIL SWITCH OPERATOR called to room to sit with patient at end of session. Balance: Static Sitting: normal Dynamic Sitting: normal Static Standing: fair Dynamic Standing: fair Special Tests: Mobility Limitations Standardized Measure [facility] AM-PAC 6 clicks Basic Mobility Inpatient Short Form: Raw Score:18 Standardized Score: 43.63 CMS Score: 46.58% [facility] Modifier: CK Informed Consent/Education: Patient instructed in purpose of PT consult and plan of care. Assessment: Pt is a 67 yr old male admitted from [facility] with pneumonia in setting of obesity, severe peripheral artery disease, s/p bilateral transmetatarsal resections, vascular neuropathy, diabetes with diabetic neuropathy, anemia, atrial fibrillation, coronary artery disease s/p coronary artery bypass graft x 3, cerebrovascular accident with left hemiparesis, hypertension, chronic obstructive pulmonary disease, chronic kidney disease, anxiety, depression, chronic pain. Patient presents with the following impairment level findings: decreased static and dynamic standing balance due to bilateral toe resections putting him at high risk for falls, decreased strength with standing transfers, gait mobility requiring one person assist and FWW for gait stabiltiy. Pt needs post op shoes or diabetic shoes to safely perform ambulation. Recommend return to rehab facility when medically stable. Impairments are contributing to the following functional limitations: AMPAC score CMS Score: 46.58% Patient is assessed as a Moderate 25299 complexity based on the following: History: see above Examination: see above Presentation: evolving Decision Making: AMPAC score CMS Score: 46.58% Goals: Goals X1 week 1. Supine-Sit independent 2. Sit-Supine independent 3. Sit-Stand SBA with FWW 4. Stand-Sit SBA 5. Bed-Chair CGA with FWW 6. Chair-Bed CGA with FWW 7. Gait CGA with FWW [id number] Plan of Care/Treatment Plan: 1-2x/day, 7 days/week x 1 week. Plan of care has been reviewed with the STIFF LEG DERRICK OPERATOR providing the service under Physical Therapy direction. Initiate Physical Therapy intervention for strengthening, bed mobility, transfers, gait, stairs, balance training, use of assistive device. DISCHARGE RECOMMENDATIONS: Rerturn to [facility] TREATMENT CODE/TIME: 25min IE 1330 G Codes in the area mobility of walking and moving around: current status [id number] CK; projected status GP G8979 CK Discharge status (if discharging) GP G8980 CK based on AMPAC score CMS Score: 46.58% Netta Maya PT
[2018-06-07] MEDS: Potassium Chloride 20 MEQ TABCR 40 MEQ PO (14:07)
[2018-06-07] MEDS: Normal Saline Flush 10 ML SYR IVP ×2 (14:08→22:24)
[2018-06-07] MEDS: Furosemide 40 MG TAB 120 MG PO (15:55)
[2018-06-07 16:12] LABS: HCT 27.4 % (40.0-50.0); HGB 8.4 g/dL (13.5-17.5)
[2018-06-07] MEDS: LORazepam 0.5 MG TAB PO (17:47)
[2018-06-07] MEDS: Doxycycline Hyclate 100 MG CAP PO (22:21)
[2018-06-07] MEDS: Atorvastatin 40 MG TAB PO (22:22)
[2018-06-07] MEDS: Melatonin 3 MG TAB 6 MG PO (22:23)
[2018-06-07] MEDS: Insulin Glargine 300 UNITS/3 ML PEN 10 UNITS SC (22:23)
[2018-06-08] VITALS (11 sets, daily range): BP systolic 155–196; BP diastolic 55–84; PULSE 60–76; RESP 17–20; TEMP 36.2–37.4; O2SAT 93–97
[2018-06-08] MEDS: oxyCODONE 5 MG TAB PO ×3 (03:25→21:28)
[2018-06-08] MEDS: VANCOMYCIN 1,000 MG in Normal Saline 250 ML 167 MG IV ×2 (04:27→17:46)
[2018-06-08] MEDS: Normal Saline Flush 10 ML SYR IVP ×3 (04:28→20:03)
[2018-06-08 07:23] LABS: Absolute Basophil Count 0.01 k/cumm (0.0-0.2); Absolute Eosinophil Count 0.16 k/cumm (0.0-0.7); Absolute Lymphocyte Count 0.65 k/cumm (1.2-3.4); Absolute Neutrophil Count 2.76 k/cumm (1.2-6.7); Basophils % 0.3; HGB 8.5 g/dL (13.5-17.5); Lymphocytes % 16.3; Mean Corp. HGB Concentration 30.4 g/dL (32.0-36.0); Mean Corpuscular Hemoglobin 23.5 pg (27.0-33.0); Mean Corpuscular Volume 77.3 fL (80-95); Mean Platelet Volume 8.7 fL (8.0-11.0); Monocytes % 10.1; Neutrophils % 69.3; Platelet Count 249 x1000/uL (130-400); RBC 3.62 m/cumm (4.50-6.00); RBC Distribution Width 19.2 % (11.8-14.1); White Blood Cell Count 3.98 k/cumm (4.4-10.8)
[2018-06-08 07:31] LABS: BUN 34 mg/dL (7-18); CREATININE 1.64 mg/dL (0.70-1.30); Calcium 8.5 mg/dL (8.5-10.1); Chloride 101 mmol/L (98-107); Estimated GFR 42.24 (mL/min/1.73m2); Glucose 107 mg/dL (70-100); Potassium 3.4 mmol/L (3.5-5.1); Sodium 139 mmol/L (136-145)
[2018-06-08] MEDS: Gabapentin 100 MG CAP 200 MG PO ×3 (07:48→20:02)
[2018-06-08] MEDS: CEFEPIME 2 GM in Normal Saline 100 ML IVPB ×2 (07:48→20:11)
[2018-06-08] MEDS: hydrALAZINE 25 MG TAB 75 MG PO ×2 (07:49→13:30)
[2018-06-08] MEDS: Doxycycline Hyclate 100 MG CAP PO ×2 (07:49→20:02)
[2018-06-08] MEDS: FLUoxetine 20 MG CAP 40 MG PO ×2 (07:49→20:02)
[2018-06-08] MEDS: Potassium Chloride 20 MEQ TABCR 40 MEQ PO (07:49)
[2018-06-08] MEDS: Amiodarone 200 MG TAB PO (07:49)
[2018-06-08] MEDS: amLODIPine 10 MG TAB PO (07:49)
[2018-06-08] MEDS: CARVEDILOL 12.5 MG TAB 25 MG PO (07:49)
[2018-06-08] MEDS: Furosemide 40 MG TAB 120 MG PO ×2 (07:49→15:08)
[2018-06-08] MEDS: Insulin Aspart 300 UNITS/3 ML PEN SC ×4 (08:21→17:29)
--- NOTE | 2018-06-08 10:45 | DI.RAD_ITS ---
SYMPTOM/DIAGNOSIS: F/U PNEUMONIA AP AND LATERAL CHEST: Comparison is made with 06/05/18. Heart size is stable. Sternal wires are in place. There has been interval increase in size of the small to moderate sized right pleural effusion. There is an infiltrate in the right lung base. This may represent atelectasis or pneumonia. No other infiltrates are seen. No pneumothoraces are identified. Degenerative changes are seen in the spine. The lungs appear hyperinflated suggesting underlying COPD. IMPRESSION: Interval increase in size of the small to moderate sized right pleural effusion. Right basilar infiltrate which may represent atelectasis or pneumonia.
--- NOTE | 2018-06-08 11:23 | PT.INTREAT ---
Date of service: 06/08/18 Time of Service: 08:45 PT Notes Inpatient Physical Therapy Treatment Note Date: 06/08/18 SUBJECTIVE: Manan states that he is very tired. He feels like he has not slept in two days. OBJECTIVE: [] BED MOBILITY/TRANSFERS pt was sitting in recliner. He is due to go to xray later this AM, and he refused to move around too much. THEREX: performed a global LE strength and stabilization routine while seated in recliner. See flowsheet for details. ASSESSMENT: tolerated ex well. Had some difficulties staying alert in the beginning but came into it eventually. Pt still does not have shoes, which makes standing and transfers difficult. PLAN: need to get his shoes here to work on transfers safely. Will continue POC, progressing his strengthening as tolerated. TREATMENT CODE/TIME: 15 min TPx1.
[2018-06-08] MEDS: LORazepam 0.5 MG TAB PO ×2 (11:28→17:57)
--- NOTE | 2018-06-08 11:30 | PTTR_ITS ---
Date of service: 06/08/18 Time of Service: 08:45 PT Notes Inpatient Physical Therapy Treatment Note Date: 06/08/18 SUBJECTIVE: Manan states that he is very tired. He feels like he has not slept in two days. OBJECTIVE: [] BED MOBILITY/TRANSFERS pt was sitting in recliner. He is due to go to xray later this AM, and he refused to move around too much. THEREX: performed a global LE strength and stabilization routine while seated in recliner. See flowsheet for details. ASSESSMENT: tolerated ex well. Had some difficulties staying alert in the beginning but came into it eventually. Pt still does not have shoes, which makes standing and transfers difficult. PLAN: need to get his shoes here to work on transfers safely. Will continue POC , progressing his strengthening as tolerated. TREATMENT CODE/TIME: 15 min TPx1.
[2018-06-08 11:31] LABS: Anion Gap 7.4 mmol/L (3-11); BUN 35 mg/dL (7-18); CO2 30.6 mmol/L (21.0-32.0); Calcium 8.7 mg/dL (8.5-10.1); Chloride 101 mmol/L (98-107); Estimated GFR 40.53 (mL/min/1.73m2); Glucose 181 mg/dL (70-100); Potassium 3.5 mmol/L (3.5-5.1); Sodium 139 mmol/L (136-145)
--- NOTE | 2018-06-08 11:32 | DI.VRAD_ITS ---
EXAM: XR Chest, 2 Views CLINICAL HISTORY: 67 years old, male; Signs and symptoms; Other: Follow up pneumonia TECHNIQUE: Frontal and lateral views of the chest. COMPARISON: CR - XR CHEST 2V PA LATERAL 06/05/2018 1:54 PM FINDINGS: Interval increase in right pleural effusion which is still mild to moderate. Prior median sternotomy for coronary artery bypass grafting. Right basilar consolidation atelectasis versus pneumonia. Diffuse interstitial lung scarring. IMPRESSION: Interval slight increase in a right pleural effusion and right basilar consolidation atelectasis versus pneumonia. Dictated and Authenticated by: Brad Hair MD. Ordering:[facility] NINFA PALMA MD
[2018-06-08] MEDS: Albuterol/Ipratropium 3 ML UPD VIAL UPD ×3 (11:40→22:20)
--- NOTE | 2018-06-08 13:38 | PDOC.CMPRO ---
Care Management Progress Note S/O: Manan was sitting up in his chair when CM met with him. He was pleasant in interaction and fully engaged with this telegraphic typewriter operator chief. CM called [facility] to provide clinical update and faxed clinicals to [facility] for review. LJ spoke with Noel CORONA who reported she would reach out to her boiler house supervisor and respond to this telegraphic typewriter operator chief with determination regarding possibility of weekend admissions in the event Manan is ready to return to [facility]. [place] phoned this telegraphic typewriter operator chief shortly thereafter to notify the facility would be willing to accept Manan back today or tomorrow as long as he remained stable and updated clinicals were available for review. CM faxed clinical updates and will determine method of transportation in the event MD reports discharge readiness. A: 67 y/o male admitted 06/05/18 for Dyspnea P: [facility] when medically ready per provider. CM has faxed updated clinicals to service director at [facility], and will determine transportation when appropriate. CM to continue to provide support to patient and care team ongoing discharge planning.
--- NOTE | 2018-06-08 13:41 | CMPROGNOTE_ITS ---
Care Management Progress Note S/O: Manan was sitting up in his chair when CM met with him. He was pleasant in interaction and fully engaged with this technical report writer. CM called [facility] to provide clinical update and faxed clinicals to [facility] for review. LJ spoke with Noel CORONA who reported she would reach out to her foundry supervisor and respond to this technical report writer with determination regarding possibility of weekend admissions in the event Manan is ready to return to [facility]. [place] phoned this technical report writer shortly thereafter to notify the facility would be willing to accept Manan back today or tomorrow as long as he remained stable and updated clinicals were available for review. CM faxed clinical updates and will determine method of transportation in the event MD reports discharge readiness. A: 67 y/o male admitted 06/05/18 for Dyspnea P: Manan will return to [facility] when medically ready per provider. CM has faxed updated clinicals to activity director at [facility], and will determine transportation when appropriate. CM to continue to provide support to patient and care team ongoing discharge planning.
--- NOTE | 2018-06-08 15:36 | W.PM.PROGNOT ---
Date of service: 06/08/18 Time of Service: 15:37 Assessment and Plan (1) Healthcare-associated pneumonia: Current visit: No Status: Acute continue cefepime pending sputum c&s results, cont. bronchodilators and acapella and IS (2) Congestive heart failure (CHF): Current visit: No Status: Chronic lasix has been resumed (3) Discharge planning issues: Current visit: No Status: Acute (4) Diabetes mellitus: Current visit: No Status: Chronic glucose levels are fairly well controlled on his current regimen which includes Lantus 10 units nightly along w/ novolog sliding scale per moderate dose along w/ carb coverage at 1 unit per 10 grams of carbohydrates (5) Hypertension: Current visit: No Status: Chronic poorly controlled. currently is on amlodipine 10 mg daily and carvedilol 25 mg bid. I am going to incr. his carvedilol to 50 mg bid (6) Paroxysmal A-fib: Current visit: No Status: Chronic rate is well controlled. As his hemoglobin has been stable post transfusion, I am going to restart his Apixaban but withold his ASA for now. If he remains stable then consider restarting his ASA given his hx of CAD/ S/P CABG (7) Anemia: Current visit: No Status: Chronic currently stable w/ no overt signs of GI bleeding. However the etiology of his anemia remain cryptogenic. He ought to have upper and lower endoscopy to evaluate for any GI source. I will discuss w/ him further in the a.m. as to whether or not anyone has performed endoscopy at [facility]. If not then he ought to be set up w/ our surgeons for EGD and colonoscopy (8) Chronic renal disease: Current visit: No Status: Chronic stable. avoid nephrotoxins/NSAIDs. monitor u.o. and BMP Subjective Patient reports: no new complaints; denies shortness of breath Interval history since last seen: Patient has had no fevers and his anemia is stable and he has no leukocytosis. Last night he had three falls out of bed. Nursing reports that he rolls out of bed and lands on the floor. The patient states that he was not trying to get out of bed and that the bed rolled him out onto the floor. Other than some mild bruising on his arms and legs he has had no injuries. His cough is better and less productive. Currently he is not on any oxygen. Repeat CXR demonstrates worsening left pleural effusion and atelectasis. Sputum cultures are growing gram negative rods. I am going to withold transfer back to the [place] [facility] pending identification and sensitivity of his sputum culture. Exam Const General: cooperative and no acute distress Nutritional Appearance: average body habitus Orientation: alert, awake and oriented x3 Resp Effort & Inspection: normal respiratory effort and able to speak in complete sentences Auscultation: diminished lung sounds on the right Cardio Jugular venous pressure: JVD present Palpation: normal PMI Rate: regular rate Rhythm: regular rhythm Heart Sounds: S1 normal, S2 normal and murmur systolic early, soft, II/ and at the apex GI Inspection: normal to inspection Palpation: soft and nontender Auscultation: normal bowel sounds Psych Appearance: grossly normal Mental Status: mental status grossly normal Speech and Movement: speech and movement normal Mood: irritable mood Affect: irritable affect Attitude: cooperative Thought Process: normal Thought Content: normal Insight: limited Judgment: limited Objective Objective Clinical Data: Abnormal lab results 06/07/18 06/08/18 06/08/18 Range/Units 16:00 07:00 07:00 WBC 3.98 L (4.4-10.8) k/cumm RBC 3.62 L (4.50-6.00) m/cumm Hgb 8.4 L 8.5 L (13.5-17.5) g/dL Hct 27.4 L 28.0 L (40.0-50.0) % MCV 77.3 L (80-95) fL MCH 23.5 L (27.0-33.0) pg MCHC 30.4 L (32.0-36.0) g/dL RDW 19.2 H (11.8-14.1) % Absolute Lymphocytes 0.65 L (1.2-3.4) k/cumm Potassium 3.4 L (3.5-5.1) mmol/L BUN 34 H (7-18) mg/dL Creatinine 1.64 H (0.70-1.30) mg/dL Glucose 107 H (70-100) mg/dL 06/08/18 Range/Units 11:15 WBC (4.4-10.8) k/cumm RBC (4.50-6.00) m/cumm Hgb (13.5-17.5) g/dL Hct (40.0-50.0) % MCV (80-95) fL MCH (27.0-33.0) pg MCHC (32.0-36.0) g/dL RDW (11.8-14.1) % Absolute Lymphocytes (1.2-3.4) k/cumm Potassium (3.5-5.1) mmol/L BUN 35 H (7-18) mg/dL Creatinine 1.70 H (0.70-1.30) mg/dL Glucose 181 H (70-100) mg/dL Vital Signs Temp 36.4 C L 06/08/18 11:13 Pulse 60 06/08/18 11:13 Resp 17 06/08/18 11:13 BP 170/67 H 06/08/18 11:13 Pulse Ox 97 06/08/18 11:13 Intake & Output 06/07/18 06/08/18 06/08/18 23:59 11:59 23:59 Intake Total 1680 / 1680 720 / 720 Output Total 1500 / 1500 3050 / 3050 730 / 730 Balance 180 / 180 -2330 / -2330 -730 / -730 Intake: IV 600 / 600 360 / 360 Oral 1080 / 1080 360 / 360 Output: Urine 1500 / 1500 3050 / 3050 730 / 730 Other: Urine Color Pale Pale Pale Yellow Yellow Yellow Urine Appearance Clear Clear Clear Urine Odor Strong Normal Stool Size Large Stool Characteristics Formed Voiding Methods Urinal Urinal Urinal Laboratory Results WBC 3.98 k/cumm (4.4-10.8) L 06/08/18 07:00 RBC 3.62 m/cumm (4.50-6.00) L 06/08/18 07:00 Hgb 8.5 g/dL (13.5-17.5) L 06/08/18 07:00 Hct 28.0 % (40.0-50.0) L 06/08/18 07:00 MCV 77.3 fL (80-95) L 06/08/18 07:00 MCH 23.5 pg (27.0-33.0) L 06/08/18 07:00 MCHC 30.4 g/dL (32.0-36.0) L 06/08/18 07:00 RDW 19.2 % (11.8-14.1) H 06/08/18 07:00 Plt Count 249 x1000/uL (130-400) 06/08/18 07:00 MPV 8.7 fL (8.0-11.0) 06/08/18 07:00 Immature Gran % 0.0 06/08/18 07:00 Neutrophils % 69.3 06/08/18 07:00 Lymphocytes % 16.3 06/08/18 07:00 Monocytes % 10.1 06/08/18 07:00 Eosinophils % 4.0 06/08/18 07:00 Basophils % 0.3 06/08/18 07:00 Absolute Neutrophils 2.76 k/cumm (1.2-6.7) 06/08/18 07:00 Absolute Lymphocytes 0.65 k/cumm (1.2-3.4) L 06/08/18 07:00 Absolute Monocytes 0.40 k/cumm (0.11-0.7) 06/08/18 07:00 Absolute Eosinophils 0.16 k/cumm (0.0-0.7) 06/08/18 07:00 Absolute Basophils 0.01 k/cumm (0.0-0.2) 06/08/18 07:00 Sodium 139 mmol/L (136-145) 06/08/18 11:15 Potassium 3.5 mmol/L (3.5-5.1) 06/08/18 11:15 Chloride 101 mmol/L (98-107) 06/08/18 11:15 Carbon Dioxide 30.6 mmol/L (21.0-32.0) 06/08/18 11:15 Anion Gap 7.4 mmol/L (3-11) 06/08/18 11:15 BUN 35 mg/dL (7-18) H 06/08/18 11:15 Creatinine 1.70 mg/dL (0.70-1.30) H 06/08/18 11:15 Estimated GFR/1.73 m2 40.53 (mL/min/1.73m2) 06/08/18 11:15 Glucose 181 mg/dL (70-100) H 06/08/18 11:15 Lactate 0.6 mmol/L (0.6-1.4) 06/05/18 16:35 Calcium 8.7 mg/dL (8.5-10.1) 06/08/18 11:15 Magnesium 2.0 mg/dL (1.8-2.4) 06/08/18 07:00 Troponin I 0.05 ng/mL (0.00-0.06) 06/05/18 20:55 Patient ABO/Rh A Positive 06/05/18 16:35 Antibody Screen Negative 06/05/18 16:35 Crossmatch See Detail 06/05/18 16:35 chest xray from 06/08/2018 IMPRESSION: Interval slight increase in a right pleural effusion and right basilar consolidation atelectasis versus pneumonia.
[2018-06-08] MEDS: Potassium Chloride 10 MEQ CAPCR 20 MEQ PO (20:02)
[2018-06-08] MEDS: CARVEDILOL 12.5 MG TAB 50 MG PO (20:02)
[2018-06-08] MEDS: Apixaban 5 MG TAB PO (20:03)
[2018-06-08] MEDS: hydrALAZINE 25 MG TAB 100 MG PO (20:03)
[2018-06-08] MEDS: Acetaminophen 325 MG TAB 650 MG PO (21:27)
[2018-06-08] MEDS: Atorvastatin 40 MG TAB PO (21:34)
[2018-06-08] MEDS: Insulin Glargine 300 UNITS/3 ML PEN 10 UNITS SC (21:39)
[2018-06-08] MEDS: Melatonin 3 MG TAB 6 MG PO (22:20)
[2018-06-09] MEDS: Albuterol/Ipratropium 3 ML UPD VIAL UPD ×3 (06:07→22:00)
[2018-06-09 06:24] VITALS: BP 160/69; PULSE 55; RESP 16; TEMP 35.9; O2SAT 96
[2018-06-09 07:20] VITALS: BP 170/73; PULSE 55; RESP 19; TEMP 36.1; O2SAT 98
[2018-06-09 07:37] LABS: Vancomycin, Trough 26.5 ug/mL (10.0-20.0)
[2018-06-09] MEDS: CEFEPIME 2 GM in Normal Saline 100 ML IVPB (08:30)
[2018-06-09] MEDS: Normal Saline Flush 10 ML SYR IVP (08:30)
[2018-06-09] MEDS: Apixaban 5 MG TAB PO ×2 (08:31→20:00)
[2018-06-09] MEDS: hydrALAZINE 25 MG TAB 100 MG PO ×2 (08:31→13:24)
[2018-06-09] MEDS: Doxycycline Hyclate 100 MG CAP PO ×2 (08:31→20:00)
[2018-06-09] MEDS: Gabapentin 100 MG CAP 200 MG PO ×3 (08:31→20:02)
[2018-06-09] MEDS: CARVEDILOL 12.5 MG TAB 50 MG PO ×2 (08:31→19:59)
[2018-06-09] MEDS: Potassium Chloride 20 MEQ TABCR 40 MEQ PO (08:31)
[2018-06-09] MEDS: FLUoxetine 20 MG CAP 40 MG PO ×2 (08:31→20:01)
[2018-06-09] MEDS: Amiodarone 200 MG TAB PO (08:32)
[2018-06-09] MEDS: amLODIPine 10 MG TAB PO (08:32)
[2018-06-09] MEDS: Furosemide 40 MG TAB 120 MG PO ×2 (08:32→15:14)
[2018-06-09] MEDS: Insulin Aspart 300 UNITS/3 ML PEN SC ×5 (08:34→17:08)
--- NOTE | 2018-06-09 08:53 | CMPROGNOTE_ITS ---
Care Management Progress Note S/O: Manan was sitting up in his chair when CM met with him. He was pleasant in interaction and fully engaged with this press writer. Per MD, Manan is not yet medically ready for discharge-CM updated [facility], and will continue to follow. A: 67 y/o male admitted 06/05/18 for Dyspnea P: Manan will return to [facility] when medically ready per provider. CM has faxed updated clinicals to substance abuse services director at [facility], and will determine transportation when appropriate. CM to continue to provide support to patient and care team ongoing discharge planning.
[2018-06-09] MEDS: LORazepam 0.5 MG TAB PO ×2 (09:44→22:01)
--- NOTE | 2018-06-09 10:55 | PT.INTREAT ---
Date of service: 06/09/18 Time of Service: 09:40 PT Notes Inpatient Physical Therapy Treatment Note Date: 06/09/18 SUBJECTIVE: I'm not walking. I do not have permission from the doctor yet. My balance is not good, and I do not have my shoes. I'm getting really anxious about getting on my feet. OBJECTIVE: [] pt refused to work on sit to stand transfers due to reasons given in subjective column. THEREX: performed a global LE strength and stabilization routine while seated in recliner. Please refer to flowsheet for specific ex details. ASSESSMENT: tolerated ther ex well, but I was unable to get him to participate in working on sit to stand transfers. Talking about it increased his anxiety. PLAN: will continue PT POC. Possible d/c to [facility] tomorrow. TREATMENT CODE/TIME: 20 min TPx1.
[2018-06-09] MEDS: Sulfameth/Trimeth DS TAB 1 TAB PO ×2 (10:58→22:00)
[2018-06-09 11:30] VITALS: BP 162/70; PULSE 53; RESP 19; TEMP 36; O2SAT 98
--- NOTE | 2018-06-09 14:31 | W.PM.PROGNOT ---
Date of service: 06/09/18 Time of Service: 13:00 Assessment and Plan (1) Discharge planning issues: Current visit: No Status: Acute case management following, will likely be discharged to rehab tomorrow if he remains medically stable after downstep of antibiotics (2) Healthcare-associated pneumonia: Current visit: No Status: Acute respiratory status has been stable. will step down antibioitics based on sputum culture which grew serratia Marcescens sensitive to bactrim. continue bronchodilators acapella and IS (3) Chronic renal disease: Current visit: No Status: Chronic creatinine has been stable, will avoid nephrotoxic drugs and check kidney functions in am. (4) Atrial fibrillation: Current visit: No Status: Chronic rate is controlled. no active bleeding noted on apixaban, continue amiodarone, carvedolol, aspirin is on hold (5) Diabetes mellitus: Current visit: No Status: Chronic blood sugars controlled, continue diabetic diet and current regimen. no adjustments hemoglobin A1C in february 2018 7.6 (6) Congestive heart failure (CHF): Current visit: No Status: Chronic stable back on lasix, check electrolytes and kidney function in am echocardiogram November 2017: 1. Left ventricle: The cavity size was normal. Wall thickness was increased in a pattern of moderate LVH. Systolic function was normal. The estimated ejection fraction was 55-60%. Wall motion was normal; there were no regional wall motion abnormalities. Findings consistent with diastolic dysfunction. Doppler parameters are consistent with elevated mean left atrial filling pressure. 2. Mitral valve: Mildly calcified annulus. Mildly thickened leaflets. There was mild regurgitation. 3. Left atrium: The atrium was mildly dilated. 4. Right ventricle: The cavity size was normal. Wall thickness was normal. Systolic function was normal. 5. Right atrium: The atrium was moderately dilated. 6. Tricuspid valve: There was mild-moderate regurgitation. 7. Pulmonary arteries: Pulmonary systolic pressure was increased, in the range of 40mm Hg to 45mm Hg (7) Anemia: Current visit: No Status: Chronic stable h&H, recheck labs in am. no bleeding noted on apixaban, asa continues to be on hold. will need upper and lower endoscopy at some point. Subjective Patient reports: nausea, shortness of breath and other (malaise) Interval history since last seen: This is a 67 year old male patient who was admitted through the emergency department for health care associated pneumonia treated with cefepime and vancomycin. His sputum did grow serratia marcescens which is sensitive to bactrim. His blood cultures have been negative to date. He is oxgenating in high 90's on NC at 2L. He is reporting ongoing shortness of breath but does not have any signs of respiratory distress or compromise. He refused to ambulate with PT today, stating to staff he was not cleared by MD yet. His white count remains low, he has been afebrile and hemodynamically stable. Case management is following and plan is to discharge to rehab tomorrow if he remains medically stable. Exam Const General: cooperative, no acute distress, disheveled and frail appearing Nutritional Appearance: average body habitus Orientation: alert, awake and oriented x3 Limitations: behavioral limitations HENMT Head: normal to inspection and atraumatic Mouth: moist mucous membranes (slightly dry) Resp Effort & Inspection: normal respiratory effort, able to speak in complete sentences, normal respiratory pattern, cough, not labored and no respiratory distress Auscultation: diminished lung sounds bilaterally in the lower lung rubi, no rhonchi and no wheezes Cardio Rate: regular rate Rhythm: regular rhythm Skin General skin exam: ecchymosis (various small bruises to bilateral upper extremities) Rashes: rashes noted (left thigh, red rash consistent with contact dermatitis, from ? tape or dressing) Neuro General: alert, awake and oriented x3 Extrem General: normal to inspection, full ROM and no pedal edema Psych Speech and Movement: agitated Affect: labile affect and anxious affect Attitude: guarded Insight: limited Judgment: limited Objective Objective Clinical Data: Abnormal lab results 06/09/18 Range/Units 07:00 Vancomycin Trough 26.5 H* (10.0-20.0) ug/mL Vital Signs Temp 36 C L 06/09/18 11:30 Pulse 53 L 06/09/18 11:30 Resp 19 06/09/18 11:30 BP 162/70 H 06/09/18 11:30 Pulse Ox 98 06/09/18 11:30 Intake & Output 06/08/18 06/09/18 06/09/18 23:59 11:59 23:59 Intake Total 1080 / 1080 460 / 460 Output Total 2130 / 2130 500 / 500 Balance -1050 / -1050 -40 / -40 Intake: IV 360 / 360 110 / 110 Oral 720 / 720 350 / 350 Output: Urine 2130 / 2130 500 / 500 Other: Urine Color Yellow Yellow Urine Appearance Clear Clear Urine Odor Normal Normal Stool Size Copious Stool Characteristics Formed Brown Voiding Methods Urinal Urinal Laboratory Results WBC 3.98 k/cumm (4.4-10.8) L 06/08/18 07:00 RBC 3.62 m/cumm (4.50-6.00) L 06/08/18 07:00 Hgb 8.5 g/dL (13.5-17.5) L 06/08/18 07:00 Hct 28.0 % (40.0-50.0) L 06/08/18 07:00 MCV 77.3 fL (80-95) L 06/08/18 07:00 MCH 23.5 pg (27.0-33.0) L 06/08/18 07:00 MCHC 30.4 g/dL (32.0-36.0) L 06/08/18 07:00 RDW 19.2 % (11.8-14.1) H 06/08/18 07:00 Plt Count 249 x1000/uL (130-400) 06/08/18 07:00 MPV 8.7 fL (8.0-11.0) 06/08/18 07:00 Immature Gran % 0.0 06/08/18 07:00 Neutrophils % 69.3 06/08/18 07:00 Lymphocytes % 16.3 06/08/18 07:00 Monocytes % 10.1 06/08/18 07:00 Eosinophils % 4.0 06/08/18 07:00 Basophils % 0.3 06/08/18 07:00 Absolute Neutrophils 2.76 k/cumm (1.2-6.7) 06/08/18 07:00 Absolute Lymphocytes 0.65 k/cumm (1.2-3.4) L 06/08/18 07:00 Absolute Monocytes 0.40 k/cumm (0.11-0.7) 06/08/18 07:00 Absolute Eosinophils 0.16 k/cumm (0.0-0.7) 06/08/18 07:00 Absolute Basophils 0.01 k/cumm (0.0-0.2) 06/08/18 07:00 Sodium 139 mmol/L (136-145) 06/08/18 11:15 Potassium 3.5 mmol/L (3.5-5.1) 06/08/18 11:15 Chloride 101 mmol/L (98-107) 06/08/18 11:15 Carbon Dioxide 30.6 mmol/L (21.0-32.0) 06/08/18 11:15 Anion Gap 7.4 mmol/L (3-11) 06/08/18 11:15 BUN 35 mg/dL (7-18) H 06/08/18 11:15 Creatinine 1.70 mg/dL (0.70-1.30) H 06/08/18 11:15 Estimated GFR/1.73 m2 40.53 (mL/min/1.73m2) 06/08/18 11:15 Glucose 181 mg/dL (70-100) H 06/08/18 11:15 Lactate 0.6 mmol/L (0.6-1.4) 06/05/18 16:35 Calcium 8.7 mg/dL (8.5-10.1) 06/08/18 11:15 Magnesium 2.0 mg/dL (1.8-2.4) 06/08/18 07:00 Troponin I 0.05 ng/mL (0.00-0.06) 06/05/18 20:55 Vancomycin Trough 26.5 ug/mL (10.0-20.0) H* 06/09/18 07:00 Patient ABO/Rh A Positive 06/05/18 16:35 Antibody Screen Negative 06/05/18 16:35 Crossmatch See Detail 06/05/18 16:35
[2018-06-09 15:30] VITALS: BP 144/66; PULSE 53; RESP 20; TEMP 36.3; O2SAT 95
[2018-06-09] MEDS: oxyCODONE 5 MG TAB PO ×2 (16:28→22:01)
[2018-06-09] MEDS: hydrALAZINE 10 MG TAB 100 MG PO (19:58)
[2018-06-09] MEDS: Potassium Chloride 10 MEQ CAPCR 20 MEQ PO (20:01)
[2018-06-09] MEDS: Acetaminophen 325 MG TAB PO (20:01)
[2018-06-09 20:03] VITALS: BP 181/72; PULSE 60; RESP 18; TEMP 36.5; O2SAT 94
[2018-06-09] MEDS: Melatonin 3 MG TAB 6 MG PO (22:00)
[2018-06-09] MEDS: Atorvastatin 40 MG TAB PO (22:01)
[2018-06-09] MEDS: Insulin Glargine 300 UNITS/3 ML PEN 10 UNITS SC (22:05)
[2018-06-09 23:56] VITALS: BP 175/74; PULSE 61; RESP 18; TEMP 36.6; O2SAT 95
[2018-06-10 03:35] VITALS: BP 113/72; PULSE 62; RESP 20; TEMP 36.4; O2SAT 94
[2018-06-10] MEDS: oxyCODONE 5 MG TAB PO (04:07)
[2018-06-10] MEDS: LORazepam 0.5 MG TAB PO (04:07)
[2018-06-10] MEDS: Albuterol 2.5 MG/3 ML INH SOLN VIAL UPD (05:31)
[2018-06-10] MEDS: Albuterol/Ipratropium 3 ML UPD VIAL UPD ×2 (05:42→12:52)
[2018-06-10 07:02] LABS: Absolute Basophil Count 0.03 k/cumm (0.0-0.2); Absolute Eosinophil Count 0.22 k/cumm (0.0-0.7); Absolute Lymphocyte Count 0.96 k/cumm (1.2-3.4); Absolute Monocyte Count 0.42 k/cumm (0.11-0.7); Absolute Neutrophil Count 3.07 k/cumm (1.2-6.7); Basophils % 0.6; Eosinophils % 4.7; HCT 30.1 % (40.0-50.0); HGB 9.1 g/dL (13.5-17.5); Lymphocytes % 20.4; Mean Corp. HGB Concentration 30.2 g/dL (32.0-36.0); Mean Corpuscular Hemoglobin 23.5 pg (27.0-33.0); Mean Corpuscular Volume 77.8 fL (80-95); Mean Platelet Volume 8.8 fL (8.0-11.0); Monocytes % 8.9; Neutrophils % 65.4; Platelet Count 266 x1000/uL (130-400); RBC 3.87 m/cumm (4.50-6.00); RBC Distribution Width 19.9 % (11.8-14.1)
[2018-06-10 07:05] LABS: Anion Gap 6.1 mmol/L (3-11); BUN 39 mg/dL (7-18); CO2 31.9 mmol/L (21.0-32.0); Calcium 9.3 mg/dL (8.5-10.1); Chloride 99 mmol/L (98-107); Estimated GFR 37.94 (mL/min/1.73m2); Glucose 95 mg/dL (70-100); Potassium 3.8 mmol/L (3.5-5.1); Sodium 137 mmol/L (136-145)
[2018-06-10 07:29] LABS: Anisocytosis 1+; Basophilic Stippling Present; Diff Comment RBC Morph Reviewed; Hypochromasia 2+; Polychromasia Present
[2018-06-10 07:40] VITALS: BP 152/66; PULSE 56; RESP 18; TEMP 36.7; O2SAT 97
[2018-06-10] MEDS: hydrALAZINE 10 MG TAB 100 MG PO (07:41)
[2018-06-10] MEDS: Apixaban 5 MG TAB PO (07:41)
[2018-06-10] MEDS: amLODIPine 10 MG TAB PO (07:42)
[2018-06-10] MEDS: Potassium Chloride 20 MEQ TABCR 40 MEQ PO (07:42)
[2018-06-10] MEDS: Gabapentin 100 MG CAP 200 MG PO (07:42)
[2018-06-10] MEDS: Amiodarone 200 MG TAB PO (07:42)
[2018-06-10] MEDS: CARVEDILOL 12.5 MG TAB 50 MG PO (07:42)
[2018-06-10] MEDS: FLUoxetine 20 MG CAP 40 MG PO (07:42)
[2018-06-10] MEDS: Furosemide 40 MG TAB 120 MG PO (07:42)
[2018-06-10] MEDS: Doxycycline Hyclate 100 MG CAP PO (07:42)
--- NOTE | 2018-06-10 09:03 | PT.INDS ---
Date of service: 06/10/18 Time of Service: 09:03 PT Notes Inpatient Physical Therapy Discharge Summary Date: 06/10/18 Dates of Service: 06/07/18-06/09/18 SUBJECTIVE: NT OBJECTIVE: 06/07/18-06/09/18 Bed Mobility/Transfers: Supine-sit: independent Sit-stand: CGA with FWW Stand-sit: SBA Sit-supine: independent Gait: CGA with FWW 3 side steps right. Balance: Static Sitting: normal Dynamic Sitting: normal Static Standing: fair Dynamic Standing: fair Assessment: Pt is a 67 yr old male admitted from [facility] with pneumonia in setting of obesity, severe peripheral artery disease, s/p bilateral transmetatarsal resections, vascular neuropathy, diabetes with diabetic neuropathy, anemia, atrial fibrillation, coronary artery disease s/p coronary artery bypass graft x 3, cerebrovascular accident with left hemiparesis, hypertension, chronic obstructive pulmonary disease, chronic kidney disease, anxiety, depression, chronic pain. Patient was seen for 3 PT visits. Did not make progress with therapy intervention due to refusal to participate in functional mobility. Pt is being transferred back to rehab facility today, recommend continued therapy. Goals: Goals X1 week 1. Supine-Sit independent 2. Sit-Supine independent 3. Sit-Stand SBA with FWW 4. Stand-Sit SBA 5. Bed-Chair CGA with FWW 6. Chair-Bed CGA with FWW 7. Gait CGA with FWW 40ftx2 Pt did not meet therapy goals due to refusal to participate in therapy sessions and return to [facility] DISCHARGE RECOMMENDATIONS: Rerturn to [facility] G Codes in the area mobility of walking and moving around; projected status GP [id number] CK Discharge status (if discharging) GP G8980 CK based on AMPA score CMS Score: 46.58% Netta Maya PT
--- NOTE | 2018-06-10 09:06 | INDS_ITS ---
Date of service: 06/10/18 Time of Service: 09:03 PT Notes Inpatient Physical Therapy Discharge Summary Date: 06/10/18 Dates of Service: 06/07/18-06/09/18 SUBJECTIVE: NT OBJECTIVE: 06/07/18-06/09/18 Bed Mobility/Transfers: Supine-sit: independent Sit-stand: CGA with FWW Stand-sit: SBA Sit-supine: independent Gait: CGA with FWW 3 side steps right. Balance: Static Sitting: normal Dynamic Sitting: normal Static Standing: fair Dynamic Standing: fair Assessment: Pt is a 67 yr old male admitted from [facility] with pneumonia in setting of obesity, severe peripheral artery disease, s/p bilateral transmetatarsal resections, vascular neuropathy, diabetes with diabetic neuropathy, anemia, atrial fibrillation, coronary artery disease s/p coronary artery bypass graft x 3, cerebrovascular accident with left hemiparesis , hypertension, chronic obstructive pulmonary disease, chronic kidney disease, anxiety, depression, chronic pain. Patient was seen for 3 PT visits. Did not make progress with therapy intervention due to refusal to participate in functional mobility. Pt is being transferred back to rehab facility today, recommend continued therapy. Goals: Goals X1 week 1. Supine-Sit independent 2. Sit-Supine independent 3. Sit-Stand SBA with FWW 4. Stand-Sit SBA 5. Bed-Chair CGA with FWW 6. Chair-Bed CGA with FWW 7. Gait CGA with FWW 40ftx2 Pt did not meet therapy goals due to refusal to participate in therapy sessions and return to [facility] DISCHARGE RECOMMENDATIONS: Rerturn to [facility] G Codes in the area mobility of walking and moving around; projected status GP [id number] CK Discharge status (if discharging) GP G8980 CK based on AMPA score CMS Score: 46.58% Netta Maya PT
[2018-06-10] MEDS: Sulfameth/Trimeth DS TAB 1 TAB PO (09:44)
--- NOTE | 2018-06-10 10:09 | CMDISCH_ITS ---
- If Service Date Differs Date of service: 06/10/18 Time of Service: 10:07 LACE Index Scoring Tool - Questions: Length of Stay (in days): 4 - 6 Acuity (Admit via E.D.?): Yes E.D. Visits: 6 - Answers: Total Score: 11 Risk of Readmission: High Risk Care Management Discharge Reason for Hospitalization: Dyspnea Discharge Plan: Manan will return to [facility] today at 1300 via [facility] w/c van. LJ spoke with Mag ROACH to arrange transportation. LJ spoke with Elder [facility] , whom is aware of time and mode of transport. LJ also notified NICK, front office secretary, whom will notify RN CC and RN of time and mode of transport. Maria Victoria Sykes is aware of time and mode of transport. Patient/Family Education Needs: Review DC instructions, any limitations, and discuss Ask Me Three Services Needed at Discharge: Long-Term Facility ([facility]), Transportation (DOC w/c liz)
[2018-06-10 11:30] VITALS: BP 169/65; PULSE 51; RESP 20; TEMP 36; O2SAT 97
[2018-06-10] MEDS: Insulin Aspart 300 UNITS/3 ML PEN SC ×2 (12:06→12:07)
[2018-06-10 12:52] VITALS: O2SAT 98
--- NOTE | 2018-06-10 13:06 | DIABASSESS_ITS ---
DESCRIPTION/ASSESSMENT: Appreciate consult for diabetes for Mr. Phillip who is hospitalized with dyspnea. He has comprbidities of CVA and renal disease. He is managed with 10u Lantus and mealtime insulin at 1 unit covers 10grams carbohydrate and moderate insulin correction. Blood sugars 112-235, however elevated blood sugars are consistently before lunch and recovers by supper over the past few days. Last A1c 6.7 6 months ago. INTERVENTION: Given his reasonable glycemic control and desire to prevent hypoglycemia, with chronic renal condition, not intervention suggested at this time. PLAN: Follow blood sugars and f/u as indicated.
--- NOTE | 2018-06-10 13:15 | W.PM.DS.N ---
Date of service: 06/10/18 Time of Service: 13:05 DS: Diagnosis Discharge Diagnosis (1) Discharge planning issues: Status: Acute (2) Healthcare-associated pneumonia: Status: Acute Asessment and Plan: patient will continue Bactrim DS twice a day for another 7 days w/ monitoring of his CBC, bmp and a follow up CXR next week (3) Chronic renal disease: Status: Chronic Asessment and Plan: patients renal function should be closely monitored while on bactrim DS and follow up BMP done next week. His blood pressure needs tighter control in order to prevent worsening renal function (4) Atrial fibrillation: Status: Chronic Asessment and Plan: atrial fibrillation has remained under control in SR with use of amiodarone. His apixaban has been resumed however he needs close monitoring of his anemia (5) Diabetes mellitus: Status: Chronic Asessment and Plan: blood sugars have been under variable control but seems to have responded to adjustment in his insulin dosing. This will also require further adjustment on an outpatient basis. (6) Congestive heart failure (CHF): Status: Chronic Asessment and Plan: based upon his last echocardiogram he has diastolic LV dysfunction (echo 12/19/2017 showed moderate LVH w/ LVEF of 55-60%) (7) Anemia: Status: Chronic Asessment and Plan: patient presented w/ severe anemia w/ Hb of 6 gm and was transfused a total of 3 units w/ a rise of his Hb to 8.5 to 9 gm and this has remained steady over the last 4 days of his hospitalization Discharge Plan Disposition Patient Disposition: SNF (LEVEL [facility]) [facility] Condition: Improving Discharge Details Reason For Visit: ANEMIA, PNA Admit Date/Time: 06/05/18 20:33 Admit Provider: Cristian Mathis Attending Provider: Cristian Mathis Primary Care Provider: Kory [facility] Hospital Course: Mr. Doe presented to the hospital emergency room from [facility] with complaints of increasing shortness of breath along with a cough productive of purulent sputum. Admission CBC failed to show a leukocytosis. He had no fevers on admission but chest x-ray showed bibasilar atelectasis versus infiltrates. He was empirically started on broad-spectrum antibiotics for coverage of healthcare acquired pneumonia and was placed on cefepime, vancomycin, doxycycline. Sputum eventually was obtained and grew Serratia marcescens. After 4 days of broad-spectrum antibiotics he was de-escalated to Bactrim DS. He is remained afebrile. As part of his workup he was found to be severely anemic with a hemoglobin of 6 g on admission he was transfused 1 unit packed red cells on admission which only brought his hemoglobin up to 6.7 g. He was then given 2 more units of packed red blood cells and his anemia corrected To 9.4 g and is remained stable at around 9 g. He has had no evidence of acute GI bleeding during his hospitalization. It is recommended that he have further GI consultation as an outpatient for an elective EGD and colonoscopy. With transfusion of his blood his congestive heart failure worsened and he required IV Lasix to help him diurese afterwards he was put back on his usual dose of Lasix 120 mg twice a day. Follow-up chest x-ray showed worsening right-sided pleural effusion. It is recommended that he have a follow-up chest x-ray upon completion of his oral antibiotics. His blood pressures got out of control during his hospitalization probably secondary to volume overload and worsening CHF. Systolic blood pressures hiram to the 180-120 range. However with diuresis and adjustment of his carvedilol and losartan his blood pressures have improved and come down into the systolic readings in the 150s.Patient was switched the Bactrim DS on June 09, 2018. He should continue on another week's course of oral antibiotics afterwards he should have follow-up CBC, BMP, chest x-ray. Home Meds and New Rx's Prescriptions: New carvedilol [Coreg] 12.5 mg Tablet 50 mg PO BID Qty: 120 RF: 0 hydralazine 25 mg Tablet 100 mg PO TID Qty: 120 RF: 0 sulfamethoxazole-trimethoprim 800-160 mg Tablet 1 tab PO Q12H 7 Days Qty: 14 RF: 0 omeprazole 40 mg capsule,delayed release(DR/EC) 40 mg PO DAILY Qty: 30 RF: 0 Continue fluoxetine 40 MG capsule 40 mg PO BID RF: 0 furosemide 40 MG tablet 120 mg PO BID RF: 0 atorvastatin [Lipitor] 80 MG tablet 40 mg PO HS RF: 0 amiodarone [Cordarone] 200 MG tablet 200 mg PO QAM RF: 0 aspirin 81 MG tablet,delayed release (DR/EC) 81 mg PO QAM RF: 0 amlodipine 10 MG tablet 10 mg PO QAM RF: 0 acetaminophen 325 mg Tablet 650 mg PO Q6H RF: 0 albuterol sulfate 2.5 mg /3 mL (0.083 %) Solution For Nebulization 2.5 mg INHALATION Q4H PRNRF: 0 bisacodyl [Dulcolax (bisacodyl)] 10 mg Suppository 10 mg WA DIRECTED PRNRF: 0 sodium phosphates [Fleet Enema] 19-7 gram/118 mL Enema 197 ml WA DIRECTED PRNRF: 0 multivitamin [Multiple Vitamins] Tablet 1 tab PO QAM RF: 0 isosorbide mononitrate 30 mg Tablet Extended Release 24 Hr 30 mg PO DAILY RF: 0 hydromorphone 2 mg Tablet 2 mg PO Q4H PRNRF: 0 lorazepam 0.5 mg Tablet 0.5 mg PO Q8H PRN PRNRF: 0 magnesium hydroxide [Milk of Magnesia] 400 mg/5 mL Suspension 30 ml PO PRN PRNRF: 0 losartan 25 mg Tablet 25 mg PO DAILY RF: 0 metoclopramide HCl [Reglan] 10 mg Tablet 10 mg PO QID RF: 0 insulin glargine [Lantus Solostar U-100 Insulin] 100 UNIT/ML insulin pen 10 unit Sub-Q HS RF: 0 apixaban [Eliquis] 5 MG tablet 5 mg PO BID RF: 0 potassium chloride 20 MEQ tablet extended release 40 meq PO QAM RF: 0 melatonin 3 MG tablet 6 mg PO HS RF: 0 glucagon (human recombinant) [Glucagon Emergency Kit (human)] 1 MG kit 1 mg IM Q15M PRN (Reason: Severe hypoglycemia) RF: 0 gabapentin 100 MG capsule 4 cap PO QID RF: 0 Discontinued carvedilol 12.5 MG tablet 12.5 mg PO BID RF: 0 hydralazine 25 MG tablet 3 tab PO TID RF: 0 Discharge Instructions Instructions: Heart Failure (DC), Anemia (DC) Additional Instructions: Get a follow-up CBC, BMP labs in 1 week. Get a repeat chest x-ray in 1 week or upon completion of your antibiotics Stand Alone Forms: Nursing Discharge Form Activity:: Activity as Tolerated Equipment/Supplies:: No Equipment Needed Diet:: Low-sodium, carbohydrate Discharge Orders Discharge Orders: Discharge Order (Routine); Ordered 06/10/18 Ordered By: Cristian Mathis Other Ambulatory Orders: Basic Metabolic Panel (Routine) Timeframe: 1 Week Facility: [facility] - Location: Laboratory Ordered By: Cristian Mathis Complete Blood Count No Diff (Routine) Timeframe: 1 Week Location: Determined by Patient Ordered By: Cristian Mathis XR chest 2V PA & lateral (Routine) Timeframe: 1 Week Location: Determined by Patient Ordered By: Cristian Mathis Discharge Data Discharge Date/Time-TO BE ENTERED AT DEPARTURE: 06/10/18 13:25 DS: Summary Status at Discharge Cognitive/behavioral status at discharge: cognitively intact Functional status at discharge: uses cane/walker (CGA w/ FWW but did not meet P.T. goals d/t refusal to participate in prescribed therapy) Overall status at discharge: patient is progressing back to baseline Time Spent with Patient Greater than 30 minutes Exam Const General: cooperative, comfortable, well developed and well groomed Nutritional Appearance: average body habitus and obese Orientation: alert, awake and oriented x3 Eyes General: appearance normal, both eyes and all related structures Visual Gruber: normal visual gruber by confrontation Sclera: sclerae normal Cornea: corneas normal Pupils: PERRL EOM: EOM intact bilaterally Neck Neck: normal visual inspection, full ROM, no lymphadenopathy, trachea midline, supple and no JVD Thyroid: thyroid normal Carotids: normal carotid upstroke Lymphatic: no lymphadenopathy noted Chest Chest: normal inspection of the chest and normal palpation of entire chest wall Resp Effort & Inspection: normal respiratory effort and able to speak in complete sentences Auscultation: breath sounds absent (right base) on the right and crackles on the right at the base Cardio Jugular venous pressure: no JVD Rate: regular rate Rhythm: regular rhythm GI Inspection: normal to inspection Palpation: soft and no hepatosplenomegaly Percussion: normal to percussion Auscultation: normal bowel sounds Extrem Right lower extremity: foot Details: other (s/p transmetatarsal amputation) Left lower extremity: foot Details: other (s/p transmetatarsal amputation) Psych Appearance: grossly normal and well kempt Mental Status: mental status grossly normal Speech and Movement: speech and movement normal Mood: congruent mood Affect: normal affect Attitude: cooperative Thought Process: normal Thought Content: normal Insight: insight good Judgment: judgment good DS: Data Vitals/I&O Vitals and I&O: Vital Signs Temp 36.0 C L 06/10/18 11:30 Pulse 51 L 06/10/18 11:30 Resp 20 06/10/18 11:30 BP 169/65 H 06/10/18 11:30 Pulse Ox 98 06/10/18 12:52 Intake & Output 06/09/18 06/10/18 06/10/18 23:59 11:59 23:59 Intake Total 250 / 250 250 / 250 Output Total 775 / 775 1275 / 1275 Balance -775 / -775 -1025 / -1025 250 / 250 Weight 94.8 kg Intake: Oral 250 / 250 250 / 250 Output: Urine 775 / 775 1275 / 1275 Other: Urine Color Yellow Yellow Urine Appearance Clear Clear Urine Odor Normal None Voiding Methods Urinal Urinal Completed studies during hospitalization [Text1]: serial chest xrays 06/06 and 06/09 labs CMP, bmp, CBC Pending studies at discharge: none Labs on day of discharge: Labs from last 24 hours 06/10/18 06/10/18 06:30 06:30 WBC 4.70 RBC 3.87 L Hgb 9.1 L Hct 30.1 L MCV 77.8 L MCH 23.5 L MCHC 30.2 L RDW 19.9 H Plt Count 266 MPV 8.8 Immature Gran % 0.0 Neutrophils % 65.4 Lymphocytes % 20.4 Monocytes % 8.9 Eosinophils % 4.7 Basophils % 0.6 Absolute Neutrophils 3.07 Absolute Lymphocytes 0.96 L Absolute Monocytes 0.42 Absolute Eosinophils 0.22 Absolute Basophils 0.03 Differential Comment Rbc morph reviewed RBC Morphology See below Polychromasia Present Hypochromasia 2+ Basophilic Stippling Present Anisocytosis 1+ Sodium 137 Potassium 3.8 Chloride 99 Carbon Dioxide 31.9 Anion Gap 6.1 BUN 39 H Creatinine 1.80 H Estimated GFR/1.73 m2 37.94 Glucose 95 D Calcium 9.3 Preliminary micro results at discharge 06/05/18 17:30 Blood Culture - Preliminary Blood NO GROWTH 96 HOURS 06/05/18 16:35 Blood Culture - Preliminary Blood NO GROWTH 96 HOURS Imaging Chest x-ray: Radiologist's impression: Patient Name: MANNIE DOEUnit #: [id number]: MS Ordering Provider: Cristian Mathis : ADM IN Primary Care Provider: Kory Sierra Date of Exam: 06/08/18ex: M Admission Date: 06/05/18 : 1950 Age: 67 Exam(s) a RAD:XR chest 2V PA & lateral SYMPTOM/DIAGNOSIS: F/U PNEUMONIA AP AND LATERAL CHEST: Comparison is made with 06/05/18. Heart size is stable. Sternal wires are in place. There has been interval increase in size of the small to moderate sized right pleural effusion. There is an infiltrate in the right lung base. This may represent atelectasis or pneumonia. No other infiltrates are seen. No pneumothoraces are identified. Degenerative changes are seen in the spine. The lungs appear hyperinflated suggesting underlying COPD. IMPRESSION: Interval increase in size of the small to moderate sized right pleural effusion. Right basilar infiltrate which may represent atelectasis or pneumonia. Ordered By: Cristian Mathis CC: Dictated By: Ishan Tabor M.D. 06/09/18 0843 Transcribed By: Irene Brooke 06/09/18 1618 Lab and Radiology Reports: Patient Name: Capo DOE #: [id number]: DI Ordering Provider: Salma Mary : REG CLI Primary Care Provider: Kory Sierra Date of Exam: 06/05/18ex: M Admission Date: 06/05/18 : 1950 Age: 67 Exam(s) a RAD:XR chest 2V PA & lateral SYMPTOMS/DIAGNOSIS: HYPOXEMIA, ? PNEUMONIA CHEST X-RAY, FRONTAL AND LATERAL VIEWS: Comparison is 03/13/18. There is increased opacity in the right lung base compared to the prior examination. In addition, there are linear opacities in the left lung base not present on the prior examination. These areas may represent atelectasis or pneumonia. No gross effusions are identified. The lungs are hyperinflated with flattened diaphragm suggesting underlying COPD. The heart size is within normal limits. Sternal wires are present. Degenerative changes are seen in the spine. IMPRESSION: Bilateral basilar infiltrates suspicious for atelectasis or pneumonia. Ordered By: Salma Mary CC: [facility] Dictated By: Ishan Tabor M.D. 06/05/18 1416 <Electronically signed by Ishan Tabor M.D.> 06/06/18 1125 Transcribed By: Rambo Tapia 06/05/18 1448 Additional Comments repeat labs including CBC, BMP AND CXR should be done next week to monitor renal function, anemia and resolution of his pneumonia and chf
--- NOTE | 2018-06-10 13:24 | DSE_ITS ---
Date of service: 06/10/18 Time of Service: 13:05 DS: Diagnosis Discharge Diagnosis (1) Discharge planning issues: Status: Acute (2) Healthcare-associated pneumonia: Status: Acute Asessment and Plan: patient will continue Bactrim DS twice a day for another 7 days w/ monitoring of his CBC, bmp and a follow up CXR next week (3) Chronic renal disease: Status: Chronic Asessment and Plan: patients renal function should be closely monitored while on bactrim DS and follow up BMP done next week. His blood pressure needs tighter control in order to prevent worsening renal function (4) Atrial fibrillation: Status: Chronic Asessment and Plan: atrial fibrillation has remained under control in SR with use of amiodarone. His apixaban has been resumed however he needs close monitoring of his anemia (5) Diabetes mellitus: Status: Chronic Asessment and Plan: blood sugars have been under variable control but seems to have responded to adjustment in his insulin dosing. This will also require further adjustment on an outpatient basis. (6) Congestive heart failure (CHF): Status: Chronic Asessment and Plan: based upon his last echocardiogram he has diastolic LV dysfunction (echo 12/19/2017 showed moderate LVH w/ LVEF of 55-60%) (7) Anemia: Status: Chronic Asessment and Plan: patient presented w/ severe anemia w/ Hb of 6 gm and was transfused a total of 3 units w/ a rise of his Hb to 8.5 to 9 gm and this has remained steady over the last 4 days of his hospitalization Discharge Plan Disposition Patient Disposition: SNF (LEVEL 1) [facility] Condition: Improving Discharge Details Reason For Visit: ANEMIA, PNA Admit Date/Time: 06/05/18 20:33 Admit Provider: Cristian Mathis Attending Provider: Cristian Mathis Primary Care Provider: Kory Sierra [facility] Hospital Course: Mr. Doe presented to the hospital emergency room from [facility] with complaints of increasing shortness of breath along with a cough productive of purulent sputum. Admission CBC failed to show a leukocytosis. He had no fevers on admission but chest x-ray showed bibasilar atelectasis versus infiltrates. He was empirically started on broad-spectrum antibiotics for coverage of healthcare acquired pneumonia and was placed on cefepime, vancomycin, doxycycline. Sputum eventually was obtained and grew Serratia marcescens. After 4 days of broad-spectrum antibiotics he was de- escalated to Bactrim DS. He is remained afebrile. As part of his workup he was found to be severely anemic with a hemoglobin of 6 g on admission he was transfused 1 unit packed red cells on admission which only brought his hemoglobin up to 6.7 g. He was then given 2 more units of packed red blood cells and his anemia corrected To 9.4 g and is remained stable at around 9 g. He has had no evidence of acute GI bleeding during his hospitalization. It is recommended that he have further GI consultation as an outpatient for an elective EGD and colonoscopy. With transfusion of his blood his congestive heart failure worsened and he required IV Lasix to help him diurese afterwards he was put back on his usual dose of Lasix 120 mg twice a day. Follow-up chest x-ray showed worsening right- sided pleural effusion. It is recommended that he have a follow-up chest x-ray upon completion of his oral antibiotics. His blood pressures got out of control during his hospitalization probably secondary to volume overload and worsening CHF. Systolic blood pressures hiram to the 180-120 range. However with diuresis and adjustment of his carvedilol and losartan his blood pressures have improved and come down into the systolic readings in the 150s.Patient was switched the Bactrim DS on June 09, 2018. He should continue on another week's course of oral antibiotics afterwards he should have follow-up CBC, BMP, chest x-ray. Home Meds and New Rx's Prescriptions: New carvedilol [Coreg] 12.5 mg Tablet 50 mg PO BID Qty: 120 RF: 0 hydralazine 25 mg Tablet 100 mg PO TID Qty: 120 RF: 0 sulfamethoxazole-trimethoprim 800-160 mg Tablet 1 tab PO Q12H 7 Days Qty: 14 RF: 0 omeprazole 40 mg capsule,delayed release(DR/EC) 40 mg PO DAILY Qty: 30 RF: 0 Continue fluoxetine 40 MG capsule 40 mg PO BID RF: 0 furosemide 40 MG tablet 120 mg PO BID RF: 0 atorvastatin [Lipitor] 80 MG tablet 40 mg PO HS RF: 0 amiodarone [Cordarone] 200 MG tablet 200 mg PO QAM RF: 0 aspirin 81 MG tablet,delayed release (DR/EC) 81 mg PO QAM RF: 0 amlodipine 10 MG tablet 10 mg PO QAM RF: 0 acetaminophen 325 mg Tablet 650 mg PO Q6H RF: 0 albuterol sulfate 2.5 mg /3 mL (0.083 %) Solution For Nebulization 2.5 mg INHALATION Q4H PRNRF: 0 bisacodyl [Dulcolax (bisacodyl)] 10 mg Suppository 10 mg MT DIRECTED PRNRF: 0 sodium phosphates [Fleet Enema] 19-7 gram/118 mL Enema 197 ml MT DIRECTED PRNRF: 0 multivitamin [Multiple Vitamins] Tablet 1 tab PO QAM RF: 0 isosorbide mononitrate 30 mg Tablet Extended Release 24 Hr 30 mg PO DAILY RF: 0 hydromorphone 2 mg Tablet 2 mg PO Q4H PRNRF: 0 lorazepam 0.5 mg Tablet 0.5 mg PO Q8H PRN PRNRF: 0 magnesium hydroxide [Milk of Magnesia] 400 mg/5 mL Suspension 30 ml PO PRN PRNRF: 0 losartan 25 mg Tablet 25 mg PO DAILY RF: 0 metoclopramide HCl [Reglan] 10 mg Tablet 10 mg PO QID RF: 0 insulin glargine [Lantus Solostar U-100 Insulin] 100 UNIT/ML insulin pen 10 unit Sub-Q HS RF: 0 apixaban [Eliquis] 5 MG tablet 5 mg PO BID RF: 0 potassium chloride 20 MEQ tablet extended release 40 meq PO QAM RF: 0 melatonin 3 MG tablet 6 mg PO HS RF: 0 glucagon (human recombinant) [Glucagon Emergency Kit (human)] 1 MG kit 1 mg IM Q15M PRN (Reason: Severe hypoglycemia) RF: 0 gabapentin 100 MG capsule 4 cap PO QID RF: 0 Discontinued carvedilol 12.5 MG tablet 12.5 mg PO BID RF: 0 hydralazine 25 MG tablet 3 tab PO TID RF: 0 Discharge Instructions Instructions: Heart Failure (DC), Anemia (DC) Additional Instructions: Get a follow-up CBC, BMP labs in 1 week. Get a repeat chest x-ray in 1 week or upon completion of your antibiotics Stand Alone Forms: Nursing Discharge Form Activity:: Activity as Tolerated Equipment/Supplies:: No Equipment Needed Diet:: Low-sodium, carbohydrate Discharge Orders Discharge Orders: Discharge Order (Routine); Ordered 06/10/18 Ordered By: Cristian Mathis Other Ambulatory Orders: Basic Metabolic Panel (Routine) Timeframe: 1 Week Facility: [facility] - Location: Laboratory Ordered By: Cristian Mathis Complete Blood Count No Diff (Routine) Timeframe: 1 Week Location: Determined by Patient Ordered By: Cristian Mathis XR chest 2V PA & lateral (Routine) Timeframe: 1 Week Location: Determined by Patient Ordered By: Cristian Mathis Discharge Data Discharge Date/Time-TO BE ENTERED AT DEPARTURE: 06/10/18 13:25 DS: Summary Status at Discharge Cognitive/behavioral status at discharge: cognitively intact Functional status at discharge: uses cane/walker (CGA w/ FWW but did not meet P.T. goals d/t refusal to participate in prescribed therapy) Overall status at discharge: patient is progressing back to baseline Time Spent with Patient Greater than 30 minutes Exam Const General: cooperative, comfortable, well developed and well groomed Nutritional Appearance: average body habitus and obese Orientation: alert, awake and oriented x3 Eyes General: appearance normal, both eyes and all related structures Visual Gruber: normal visual gruber by confrontation Sclera: sclerae normal Cornea: corneas normal Pupils: PERRL EOM: EOM intact bilaterally Neck Neck: normal visual inspection, full ROM, no lymphadenopathy, trachea midline, supple and no JVD Thyroid: thyroid normal Carotids: normal carotid upstroke Lymphatic: no lymphadenopathy noted Chest Chest: normal inspection of the chest and normal palpation of entire chest wall Resp Effort & Inspection: normal respiratory effort and able to speak in complete sentences Auscultation: breath sounds absent (right base) on the right and crackles on the right at the base Cardio Jugular venous pressure: no JVD Rate: regular rate Rhythm: regular rhythm GI Inspection: normal to inspection Palpation: soft and no hepatosplenomegaly Percussion: normal to percussion Auscultation: normal bowel sounds Extrem Right lower extremity: foot Details: other (s/p transmetatarsal amputation) Left lower extremity: foot Details: other (s/p transmetatarsal amputation) Psych Appearance: grossly normal and well kempt Mental Status: mental status grossly normal Speech and Movement: speech and movement normal Mood: congruent mood Affect: normal affect Attitude: cooperative Thought Process: normal Thought Content: normal Insight: insight good Judgment: judgment good DS: Data Vitals/I&O Vitals and I&O: Vital Signs Temp 36.0 C L 06/10/18 11:30 Pulse 51 L 06/10/18 11:30 Resp 20 06/10/18 11:30 BP 169/65 H 06/10/18 11:30 Pulse Ox 98 06/10/18 12:52 Intake & Output 06/09/18 06/10/18 06/10/18 23:59 11:59 23:59 Intake Total 250 / 250 250 / 250 Output Total 775 / 775 1275 / 1275 Balance -775 / -775 -1025 / -1025 250 / 250 Weight 94.8 kg Intake: Oral 250 / 250 250 / 250 Output: Urine 775 / 775 1275 / 1275 Other: Urine Color Yellow Yellow Urine Appearance Clear Clear Urine Odor Normal None Voiding Methods Urinal Urinal Completed studies during hospitalization [Text1]: serial chest xrays 06/06 and labs CMP, bmp, CBC Pending studies at discharge: none Labs on day of discharge: Labs from last 24 hours 06/10/18 06/10/18 06:30 06:30 WBC 4.70 RBC 3.87 L Hgb 9.1 L Hct 30.1 L MCV 77.8 L MCH 23.5 L MCHC 30.2 L RDW 19.9 H Plt Count 266 MPV 8.8 Immature Gran % 0.0 Neutrophils % 65.4 Lymphocytes % 20.4 Monocytes % 8.9 Eosinophils % 4.7 Basophils % 0.6 Absolute Neutrophils 3.07 Absolute Lymphocytes 0.96 L Absolute Monocytes 0.42 Absolute Eosinophils 0.22 Absolute Basophils 0.03 Differential Comment Rbc morph reviewed RBC Morphology See below Polychromasia Present Hypochromasia 2+ Basophilic Stippling Present Anisocytosis 1+ Sodium 137 Potassium 3.8 Chloride 99 Carbon Dioxide 31.9 Anion Gap 6.1 BUN 39 H Creatinine 1.80 H Estimated GFR/1.73 m2 37.94 Glucose 95 D Calcium 9.3 Preliminary micro results at discharge 06/05/18 17:30 Blood Culture - Preliminary Blood NO GROWTH 96 HOURS 06/05/18 16:35 Blood Culture - Preliminary Blood NO GROWTH 96 HOURS Imaging Chest x-ray: Radiologist's impression: Patient Name: MANNIE DOEUnit #: [id number] : MS Ordering Provider: Cristian Mathis : ADM IN Primary Care Provider: Kory Sierra Date of Exam: 06/08/18ex: M Admission Date: 06/05/18 : 1950 Age: 67 Exam(s) a RAD:XR chest 2V PA & lateral SYMPTOM/DIAGNOSIS: F/U PNEUMONIA AP AND LATERAL CHEST: Comparison is made with 06/05/18. Heart size is stable. Sternal wires are in place. There has been interval increase in size of the small to moderate sized right pleural effusion. There is an infiltrate in the right lung base. This may represent atelectasis or pneumonia. No other infiltrates are seen. No pneumothoraces are identified. Degenerative changes are seen in the spine. The lungs appear hyperinflated suggesting underlying COPD. IMPRESSION: Interval increase in size of the small to moderate sized right pleural effusion. Right basilar infiltrate which may represent atelectasis or pneumonia. Ordered By: Cristian Mathis CC: Dictated By: Ishan Tabor M.D. 06/09/18 0843 Transcribed By: Irene Brooke 06/09/18 1618 Lab and Radiology Reports: Patient Name: Capo DOE #: [id number] : DI Ordering Provider: Salma Mary : REG CLI Primary Care Provider: Kory Sierra Date of Exam: 06/05/18ex: M Admission Date: 06/05/18 : 1950 Age: 67 Exam(s) a RAD:XR chest 2V PA & lateral SYMPTOMS/DIAGNOSIS: HYPOXEMIA, ? PNEUMONIA CHEST X-RAY, FRONTAL AND LATERAL VIEWS: Comparison is 03/13/18. There is increased opacity in the right lung base compared to the prior examination. In addition, there are linear opacities in the left lung base not present on the prior examination. These areas may represent atelectasis or pneumonia. No gross effusions are identified. The lungs are hyperinflated with flattened diaphragm suggesting underlying COPD. The heart size is within normal limits. Sternal wires are present. Degenerative changes are seen in the spine. IMPRESSION: Bilateral basilar infiltrates suspicious for atelectasis or pneumonia. Ordered By: Salma Mary CC: [facility] Dictated By: Ishan Tabor M.D. 06/05/18 1416 <Electronically signed by Ishan Tabor M.D.> 06/06/18 1125 Transcribed By: Rambo Tapia 06/05/18 1443 Additional Comments repeat labs including CBC, BMP AND CXR should be done next week to monitor renal function, anemia and resolution of his pneumonia and chf
--- NOTE | 2018-06-11 10:35 | ED.GENADUL_ITS ---
Discharge Plan Disposition Condition: Improving Discharge Details Chief Complaint: SOB Reason For Visit: ANEMIA, PNA Admit Date/Time: 06/05/18 18:52 Admit Provider: Cristian Mathis Attending Provider: Cristian Mathis Primary Care Provider: Kory Sierra ED Provider: Idania Warner Discharge Instructions Activity:: Activity as Tolerated Equipment/Supplies:: No Equipment Needed Diet:: Low-sodium, carbohydrate Discharge Orders Discharge Orders: Discharge Order (Routine); Ordered 06/10/18 Ordered By: Cristian Mathis Discharge Data Discharge Date/Time-TO BE ENTERED AT DEPARTURE: 06/05/18 20:09 Medical Decision Making MDM Narrative Medical decision making narrative: Manan Phillip is a 67 y/o man with h/o multiple medical problems who is currently living at [facility] presenting to the emergency department with cough and SOB for the past 5 days, found to have PNA and anemia with Hgb 6 on outpt studies. Pt is chronically-ill appearing with nl WOB on exam. Concern for symptomatic anemia, PNA. Exam/hx not c/w sepsis, PE at this time. Plan for EKG, HCAP abx, blood transfusion, labs drawn this am as outpt, will add blood cxs and further screening labs, plan for admission. Clinical Impression: PNA, anemia Disposition: [facility] inpatient Medical Records Medical records reviewed: Yes I reviewed the patient's medical records. Lab Data Lab results reviewed: Yes I reviewed the patient's lab results. ECG Data Attestation: I personally reviewed and interpreted this ECG (s) as follows: Interpretation: EKG shows NSR at 61 with left axis, RBBB and LAFB, PRWP, non- specific ST changes, no STEMI HPI - General Adult General Mode of arrival: EMS . Date/Time Provider Initiated Documentation: 06/05/18 16:15 . Limitations to Documentation: no limitations . Information obtained by: patient, RN notes reviewed and old records reviewed . HPI Narrative: Manan Phillip is a 67 y/o man with h/o CKD, DM, pulm HTN, afib , CHF, HTN, PVD presenting to the emergency department with PNA and symptomatic anemia. Pt reports that he has been living in a healthcare facility more or less continuously since 10/11 for necrotic toes, b/l partial foot amputations and subsequent complications. Pt reports that he has had cough and SOB for the past five days, and had [facility]. CXR showed PNA and labs showed Hgb 6. Pt denies new pain, fever, vomiting/diarrhea. Per physician at [facility], serial hemoccults negative, anemia thought 2/2 CKD. Related Data Home Medications Medication Instructions Recorded Confirmed amiodarone [Cordarone] 200 mg PO QAM 09/27/17 06/05/18 amlodipine 10 mg PO QAM 09/27/17 06/05/18 aspirin 81 mg PO QAM 09/27/17 06/05/18 atorvastatin [Lipitor] 40 mg PO HS 09/27/17 06/05/18 fluoxetine 40 mg PO BID 09/27/17 06/05/18 furosemide 120 mg PO BID 09/27/17 06/05/18 apixaban [Eliquis] 5 mg PO BID 03/07/18 06/05/18 insulin glargine [Lantus Solostar 10 unit SUB-Q HS 03/07/18 06/06/18 U-100 Insulin] potassium chloride 40 meq PO QAM 03/07/18 06/06/18 melatonin 6 mg PO HS 03/13/18 06/06/18 gabapentin 4 cap PO QID 03/14/18 06/05/18 glucagon (human recombinant) 1 mg IM Q15M PRN 03/14/18 06/05/18 [Glucagon Emergency Kit (human)] acetaminophen 650 mg PO Q6H 06/05/18 06/05/18 albuterol sulfate 2.5 mg INHALATION Q4H PRN 06/05/18 06/05/18 bisacodyl [Dulcolax (bisacodyl)] 10 mg MA DIRECTED PRN 06/05/18 06/05/18 hydromorphone 2 mg PO Q4H PRN 06/05/18 06/05/18 isosorbide mononitrate 30 mg PO DAILY 06/05/18 06/05/18 lorazepam 0.5 mg PO Q8H PRN PRN 06/05/18 06/05/18 losartan 25 mg PO DAILY 06/05/18 06/05/18 magnesium hydroxide [Milk of 30 ml PO PRN PRN 06/05/18 06/06/18 Magnesia] metoclopramide HCl [Reglan] 10 mg PO QID 06/05/18 06/05/18 multivitamin [Multiple Vitamins] 1 tab PO QAM 06/05/18 06/06/18 sodium phosphates [Fleet Enema] 197 ml MA DIRECTED PRN 06/05/18 06/05/18 Previous Rx's Medication Instructions Recorded carvedilol [Coreg] 50 mg PO BID #120 tab 06/10/18 hydralazine 100 mg PO TID #120 tab 06/10/18 omeprazole 40 mg PO DAILY #30 cap 06/10/18 sulfamethoxazole-trimethoprim 1 tab PO Q12H 7 Days #14 tab 06/10/18 Allergies Allergy/AdvReac Type Severity Reaction Status Date / Time enalaprilat [From Vasotec] Allergy Severe Hives Unverified 06/05/18 18:14 Latex, Natural Rubber Allergy Intermediate Skin Rash Unverified 06/05/18 18:14 sertraline AdvReac Severe pychosis Unverified 06/05/18 18:14 codeine AdvReac Nausea Unverified 06/05/18 18:14 General Stated Complaint: SOB VIKASH: 2 Review of Systems Review of Systems Constitutional: denies fevers, reports fatigue Eyes: denies eye pain ENT: denies facial pain, dental pain, sore throat Cardiovascular: denies chest pain, edema Respiratory: reports SOB, cough GI: denies abdominal pain, vomiting, diarrhea : denies flank pain MSK: denies back pain, neck pain, arthralgias, myalgias Skin: denies rash Neuro: denies headaches, lightheadedness, weakness PFSH Social History Smoking/Tobacco Use Status: Never Exam Narrative Exam Narrative: Constitutional: well and [id number], pleasant, conversing normally HENT: head atraumatic, normocephalic normal inspection, mucous membranes moist Eyes: conjunctiva normal, sclera normal, pupils 3mm b/l Neck: no stridor, normal ROM, trachea midline Chest: normal inspection Resp: normal work of breathing, b/l rales Cardio: normal rate, normal rhythm GI: abdomen soft, non-tender, non-distended Back: normal inspection, no rash Skin: warm, dry, normal color, no rash Neuro: alert, not altered, grossly non-focal, normal tone Ext: no edema, partial foot amputations b/l, dressed today, dressing clean and dry, removal of dressing deferred Psych: normal mood, normal affect, normal behavior Course Vital Signs Temperature 36.9 C 06/05/18 16:17 Pulse 60 06/05/18 16:17 Respiratory Rate 06/05/18 16:17 Blood Pressure 142/53 H 06/05/18 16:17 Pulse Oximetry 95 06/05/18 16:17 Temperature 36.9 C 06/05/18 16:17 Pulse 60 06/05/18 16:17 Respiratory Rate 06/05/18 16:17 Blood Pressure 142/53 H 06/05/18 16:17 Pulse Oximetry 95 06/05/18 16:17
== END 2018-06-10 13:25 | disposition skilled nursing facility (03) | DRG 177 ==
LOC: ER 19:21 → MS 06-06 08:58
PROVIDERS: Family Medicine; Admitting Provider Internal Medicine; Emergency Provider Student in an Organized Health Care Education/Training Program; PCP Family Medicine; Visit Provider Internal Medicine
DX: J15.6 Pneumonia due to other Gram-negative bacteria (principal); I50.33 Acute on chronic diastolic (congestive) heart failure; I13.0 Hypertensive heart and chronic kidney disease with heart failure and stage 1 through stage 4 chronic kidney disease, or unspecified chronic kidney disease; I25.810 Atherosclerosis of coronary artery bypass graft(s) without angina pectoris; I69.354 Hemiplegia and hemiparesis following cerebral infarction affecting left non-dominant side; Y95 Nosocomial condition; N18.9 Chronic kidney disease, unspecified; E11.22 Type 2 diabetes mellitus with diabetic chronic kidney disease; Z79.4 Long term (current) use of insulin; I48.0 Paroxysmal atrial fibrillation; D64.9 Anemia, unspecified; Z79.01 Long term (current) use of anticoagulants; Z47.81 Encounter for orthopedic aftercare following surgical amputation; Z89.422 Acquired absence of other left toe(s); Z89.421 Acquired absence of other right toe(s); I25.10 Atherosclerotic heart disease of native coronary artery without angina pectoris; E11.51 Type 2 diabetes mellitus with diabetic peripheral angiopathy without gangrene; Z16.19 Resistance to other specified beta lactam antibiotics; F41.9 Anxiety disorder, unspecified
CPT/HCPCS: 36415; 36430; 80048; 86850; 86900; 86901; 86920; 87040; 87077; 87081; 94640; 96365; 96367; 97110; 97162; 99222; 99232; 99233; 99239; 99285; 71046; 80202; 83605; 83735; 84484; 85014; 85018; 85025; 87070; 87186; 87205; 99284; J0456; J1940; J3490; J7613; J7620; P9016

== ENCOUNTER → 2018-06-17 00:18 | Outpatient (CLI) | payer MEDICARE, SELFPAY ==
--- NOTE | 2018-06-17 08:08 | DI.RAD_ITS ---
SYMPTOM/DIAGNOSIS: F/U PNEUMONIA, J18.9, HEART FAILURE, I50.30 PA AND LATERAL CHEST: Comparison is made with 03/06/18 and 06/08/18. Heart size and pulmonary vasculature appear stable. Sternal wires are in place. There is a persistent small right pleural effusion. No infiltrates are seen. No pneumothorax is identified. The lungs are hyperinflated consistent with underlying COPD. IMPRESSION: Persistent very small right pleural effusion.
== END ==
PROVIDERS: PCP Family Medicine; Visit Provider Internal Medicine
DX: J18.9 Pneumonia, unspecified organism (principal); J90 Pleural effusion, not elsewhere classified; I50.9 Heart failure, unspecified; J44.9 Chronic obstructive pulmonary disease, unspecified
CPT/HCPCS: 71046

== ENCOUNTER 2018-06-17 16:30 | Outpatient (REF) | payer MEDICARE, SELFPAY ==
[2018-06-17 17:29] LABS: Anion Gap 8.5 mmol/L (3-11); BUN 45 mg/dL (7-18); CO2 30.5 mmol/L (21.0-32.0); CREATININE 2.37 mg/dL (0.70-1.30); Calcium 8.6 mg/dL (8.5-10.1); Chloride 102 mmol/L (98-107); Estimated GFR 27.62 (mL/min/1.73m2); Glucose 121 mg/dL (70-100); Potassium 4.6 mmol/L (3.5-5.1); Sodium 141 mmol/L (136-145)
[2018-06-17 17:36] LABS: HCT 26.2 % (40.0-50.0); HGB 7.7 g/dL (13.5-17.5); Mean Corp. HGB Concentration 29.4 g/dL (32.0-36.0); Mean Corpuscular Hemoglobin 23.3 pg (27.0-33.0); Mean Corpuscular Volume 79.2 fL (80-95); Platelet Count 277 x1000/uL (130-400); RBC 3.31 m/cumm (4.50-6.00); RBC Distribution Width 19.4 % (11.8-14.1); White Blood Cell Count 3.73 k/cumm (4.4-10.8)
== END 2018-06-17 16:50 ==
LOC: LBN 16:30
PROVIDERS: PCP Family Medicine; Visit Provider Family Medicine
DX: D64.9 Anemia, unspecified (principal); J18.9 Pneumonia, unspecified organism; E11.9 Type 2 diabetes mellitus without complications; E78.5 Hyperlipidemia, unspecified; I10 Essential (primary) hypertension; I25.10 Atherosclerotic heart disease of native coronary artery without angina pectoris
CPT/HCPCS: 80048; 85027

== ENCOUNTER 2018-06-18 13:29 | Outpatient (CLI) | payer MEDICARE, SELFPAY | END 2018-06-18 13:49 | PROVIDERS: PCP Family Medicine; Visit Provider Family Medicine | DX: N18.3 Chronic kidney disease, stage 3 (moderate) (principal); D64.9 Anemia, unspecified; I13.0 Hypertensive heart and chronic kidney disease with heart failure and stage 1 through stage 4 chronic kidney disease, or unspecified chronic kidney disease; E11.9 Type 2 diabetes mellitus without complications; I10 Essential (primary) hypertension | CPT/HCPCS: 36415; 86850; 86900; 86901; 86920 ==

== ENCOUNTER 2018-06-19 02:15 | Outpatient (RCR) | payer MEDICARE, SELFPAY ==
[2018-06-19] MEDS: Acetaminophen 325 MG TAB 650 MG PO (08:26)
[2018-06-19 08:30] VITALS: BP 140/57; PULSE 67; RESP 18; TEMP 36.9; O2SAT 99
[2018-06-19 08:58] VITALS: BP 140/52; PULSE 63; RESP 18; TEMP 37.2; O2SAT 95
[2018-06-19 09:13] VITALS: BP 139/54; PULSE 60; RESP 18; TEMP 37.1; O2SAT 95
[2018-06-19 09:43] VITALS: BP 151/64; PULSE 62; RESP 18; TEMP 37.3; O2SAT 100
[2018-06-19 10:43] VITALS: BP 158/69; PULSE 61; RESP 18; TEMP 37.1; O2SAT 96
[2018-06-19 11:49] VITALS: BP 143/54; PULSE 69; RESP 17; TEMP 37; O2SAT 95
== END 2018-06-23 23:59 | disposition home or self-care (01) ==
LOC: INF 02:15
PROVIDERS: PCP Family Medicine; Visit Provider Family Medicine
DX: N18.9 Chronic kidney disease, unspecified (principal); D64.9 Anemia, unspecified
CPT/HCPCS: 36415; 36430; 86850; 86900; 86901; 86920; P9016

== ENCOUNTER 2018-06-23 15:03 | Outpatient (REF) | payer MEDICARE, SELFPAY ==
[2018-06-23 15:21] LABS: Abs Immature Grans 0.01 k/cumm (0.0-0.09); Absolute Basophil Count 0.02 k/cumm (0.0-0.2); Absolute Eosinophil Count 0.15 k/cumm (0.0-0.7); Absolute Lymphocyte Count 1.08 k/cumm (1.2-3.4); Absolute Monocyte Count 0.49 k/cumm (0.11-0.7); Basophils % 0.4; Eosinophils % 2.9; HCT 27.9 % (40.0-50.0); HGB 8.4 g/dL (13.5-17.5); Immature Grans % 0.2; Mean Corp. HGB Concentration 30.1 g/dL (32.0-36.0); Mean Corpuscular Hemoglobin 23.7 pg (27.0-33.0); Mean Corpuscular Volume 78.6 fL (80-95); Mean Platelet Volume 8.7 fL (8.0-11.0); Monocytes % 9.5; Platelet Count 303 x1000/uL (130-400); RBC 3.55 m/cumm (4.50-6.00); RBC Distribution Width 19.7 % (11.8-14.1); White Blood Cell Count 5.15 k/cumm (4.4-10.8)
[2018-06-23 15:33] LABS: Anion Gap 7.9 mmol/L (3-11); BUN 51 mg/dL (7-18); CO2 29.1 mmol/L (21.0-32.0); Calcium 7.9 mg/dL (8.5-10.1); Chloride 100 mmol/L (98-107); Estimated GFR 22.79 (mL/min/1.73m2); Glucose 173 mg/dL (70-100); Potassium 4.5 mmol/L (3.5-5.1); Sodium 137 mmol/L (136-145)
[2018-06-23 16:02] LABS: Anisocytosis 1+; Diff Comment RBC Morph Reviewed; Hypochromasia 2+; Microcytosis 1+; Polychromasia Present
== END 2018-06-23 15:23 ==
LOC: LBN 15:03
PROVIDERS: PCP Family Medicine; Visit Provider Family Medicine
DX: D64.9 Anemia, unspecified (principal)
CPT/HCPCS: 80048; 85025

== ENCOUNTER 2018-06-27 13:58 | Outpatient (REF) | payer MEDICARE, SELFPAY ==
[2018-06-27 14:19] LABS: Absolute Basophil Count 0.02 k/cumm (0.0-0.2); Absolute Eosinophil Count 0.13 k/cumm (0.0-0.7); Absolute Lymphocyte Count 0.68 k/cumm (1.2-3.4); Basophils % 0.5; Eosinophils % 3.1; HCT 30.3 % (40.0-50.0); HGB 9.1 g/dL (13.5-17.5); Lymphocytes % 16.1; Mean Corpuscular Hemoglobin 23.8 pg (27.0-33.0); Mean Corpuscular Volume 79.1 fL (80-95); Mean Platelet Volume 9.2 fL (8.0-11.0); Monocytes % 9.5; Neutrophils % 70.8; Platelet Count 265 x1000/uL (130-400); RBC 3.83 m/cumm (4.50-6.00); RBC Distribution Width 18.5 % (11.8-14.1); White Blood Cell Count 4.23 k/cumm (4.4-10.8)
[2018-06-27 14:22] LABS: Anion Gap 9.2 mmol/L (3-11); BUN 32 mg/dL (7-18); CO2 26.8 mmol/L (21.0-32.0); CREATININE 1.56 mg/dL (0.70-1.30); Calcium 8.3 mg/dL (8.5-10.1); Chloride 101 mmol/L (98-107); Estimated GFR 44.75 (mL/min/1.73m2); Glucose 206 mg/dL (70-100); Potassium 4.3 mmol/L (3.5-5.1); Sodium 137 mmol/L (136-145)
[2018-06-27 14:23] LABS: Absolute Neutrophil Count 2.99 k/cumm (1.2-6.7)
[2018-06-27 14:41] LABS: Diff Comment RBC Morph Reviewed
[2018-06-27 14:42] LABS: Anisocytosis 2+; Hypochromasia 2+; Microcytosis 2+; Poikilocytes 1+
== END 2018-06-27 14:18 ==
LOC: LBN 13:58
PROVIDERS: PCP Family Medicine; Visit Provider Family Medicine
DX: D64.9 Anemia, unspecified (principal); I10 Essential (primary) hypertension; N18.9 Chronic kidney disease, unspecified; E11.9 Type 2 diabetes mellitus without complications; E78.5 Hyperlipidemia, unspecified
CPT/HCPCS: 80048; 85025

== ENCOUNTER 2018-07-02 10:58 | Inpatient (IN) | payer MEDICARE, MEDICAID, SELFPAY ==
[2018-07-02] VITALS (26 sets, daily range): BP systolic 136–188; BP diastolic 57–79; PULSE 63–72; RESP 8–22; TEMP 35.9–36.8; O2SAT 93–99
--- NOTE | 2018-07-02 11:16 | DI.RAD_ITS ---
SYMPTOMS/DIAGNOSIS: CHEST PAIN CHEST X-RAY, AP AND LATERAL: Comparison is 06/17/18. The heart is mildly enlarged but stable. Pulmonary vasculature is within normal limits. There are small bilateral pleural effusions present. The lungs are otherwise clear. No pneumothorax is identified. Sternal wires are in place. 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 Degenerative changes are seen in the spine. The lungs appear hyperinflated with flattened diaphragm suggesting underlying COPD. IMPRESSION: 1. Small bilateral pleural effusions. 2. COPD.
--- NOTE | 2018-07-02 11:19 | W.ED.GENAD ---
Discharge Plan Disposition Patient Disposition: [facility] INPATIENT Condition: Serious Discharge Details Chief Complaint: Chest Pain Clinical Impression: Anemia, Chest pain Reason For Visit: ANEMIA, CHEST PAIN,CHF Admit Date/Time: 07/02/18 13:18 Admit Provider: Daria Griffin Attending Provider: Daria Griffin Primary Care Provider: Kory Sierra ED Provider: [place] [facility] Decision Making 11:25 --67-year-old male with multiple medical problems including prior history of coronary artery disease status post CABG, recently treated for healthcare acquired pneumonia and anemia with positive Hemoccult requiring transfusion, here from senior living with right central chest pain intermittent over the past 2 days and more constant today, also with vague generalized weakness and discomfort. Differential is broad at this point. Consider ACS. Consider worsening pneumonia or CHF. Consider worsening anemia. ECG reviewed and interpreted by me: Sinus rhythm 71 bpm, right bundle branch block is present, left axis noted no STEMI, nondiagnostic. Plan to check trop. -- Consider gerd or ulcer. Will give pepcid. 13:15 --CT of the chest interpreted by radiology: No pulmonary embolus him, no dissection, bilateral small pleural effusions with adjacent infiltrates thought to be atelectasis versus pneumonia. Patient is afebrile without cough. Labs reviewed. BNP elevated. Consider CHF. Hb low. Not critical but given dizziness, will give PRBC 1U. Hemoccult positive again today with melena on exam - no BRBPR or bleeding. Spoke with Dr. Griffin. Plan to admit to floor as observation. Bridging orders to be placed as requested. 14:00 -- Updated Dr. Griffin re: course. She request lasix 20mg IV be administered post blood transfusion - I will place this bridging order. HPI General Date/Time Provider Initiated Documentation: 07/02/18 11:01. Limitations to Documentation: other (poor historian). Information obtained by: patient and RN notes reviewed. HPI Narrative: 67-year-old male with multiple medical problems including history of CVA with residual left-sided weakness, coronary artery disease status post CABG, atrial fibrillation, CHF, diabetes, chronic kidney disease, COPD, recently diagnosed and treated inpatient for healthcare associate pneumonia and anemia with positive stool guaiac, presents today from [facility] facility with chief complaint of chest pain. Patient notes that he has had intermittent chest pain over the past couple days. Pain is been more constant and present for the past 1 hour today. Pain feels like heartburn. Pain is localized to his right parasternal area. He also notes some associated pain in his right arm. He did have some shortness of breath this morning but that has resolved. Patient also states that some increased pain in his left hand which has been chronically affected by prior CVA. PAtient has been dizzy recently. Related Data Home Medications Medication Instructions Recorded Confirmed amiodarone [Cordarone] 200 mg PO QAM 09/27/17 07/02/18 amlodipine 10 mg PO QAM 09/27/17 07/02/18 aspirin 81 mg PO QAM 09/27/17 07/02/18 atorvastatin [Lipitor] 40 mg PO HS 09/27/17 07/02/18 fluoxetine 40 mg PO BID 09/27/17 07/02/18 furosemide 40 mg PO DAILY 09/27/17 07/02/18 apixaban [Eliquis] 5 mg PO BID 03/07/18 07/02/18 insulin glargine [Lantus Solostar 10 unit SUB-Q HS 03/07/18 07/02/18 U-100 Insulin] potassium chloride 40 meq PO QAM 03/07/18 07/02/18 melatonin 3 mg PO HS 03/13/18 07/02/18 gabapentin 4 cap PO QID 03/14/18 07/02/18 glucagon (human recombinant) 1 mg IM Q15M PRN 03/14/18 07/02/18 [Glucagon Emergency Kit (human)] acetaminophen 650 mg PO Q6H 06/05/18 07/02/18 albuterol sulfate 2.5 mg INHALATION Q4H PRN 06/05/18 07/02/18 bisacodyl [Dulcolax (bisacodyl)] 10 mg MS DIRECTED PRN 06/05/18 07/02/18 hydromorphone 2 mg PO Q4H PRN 06/05/18 07/02/18 isosorbide mononitrate 30 mg PO DAILY 06/05/18 07/02/18 lorazepam 0.5 mg PO Q8H PRN PRN 06/05/18 07/02/18 losartan 25 mg PO DAILY 06/05/18 07/02/18 magnesium hydroxide [Milk of 30 ml PO PRN PRN 06/05/18 07/02/18 Magnesia] metoclopramide HCl [Reglan] 10 mg PO QID 06/05/18 07/02/18 multivitamin [Multiple Vitamins] 1 tab PO QAM 06/05/18 07/02/18 sodium phosphates [Fleet Enema] 197 ml MS DIRECTED PRN 06/05/18 07/02/18 omeprazole 40 mg PO DAILY #30 cap 06/10/18 07/02/18 alum-mag hydroxide-simeth [Maalox 30 ml PO QID PRN 07/02/18 07/02/18 Advanced] carvedilol [Coreg] 12.5 mg PO BID 07/02/18 07/02/18 hydralazine 75 mg PO TID 07/02/18 07/02/18 Previous Rx's Medication Instructions Recorded omeprazole 40 mg PO DAILY #30 cap 06/10/18 Allergies Allergy/AdvReac Type Severity Reaction Status Date / Time enalaprilat [From Vasotec] Allergy Severe Hives Unverified 06/05/18 18:14 Latex, Natural Rubber Allergy Intermediate Skin Rash Unverified 06/05/18 18:14 sertraline AdvReac Severe pychosis Unverified 06/05/18 18:14 codeine AdvReac Nausea Unverified 06/05/18 18:14 General Stated Complaint: Chest Pain VIKASH: 2 Review of Systems Review of Systems All systems reviewed & are unremarkable except as noted in HPI and below Constitutional Reports weakness (Generally more weak than usual) Cardiovascular Reports as per HPI Respiratory Reports as per HPI Neurologic Reports focal weakness (Chronic left ) and Reports weakness (Generally more weak than usual) Exam Const General: cooperative and no acute distress Orientation: alert and awake [facility] Head: normocephalic and atraumatic Mouth: moist mucous membranes Eyes Conjunctivae: conjunctivae normal EOM: EOM intact bilaterally Neck Neck: normal visual inspection, trachea midline and No JVD Chest Chest: no tenderness Resp Effort & Inspection: normal respiratory effort Auscultation: diminished lung sounds on the left in the lower lung rubi, no rales, no rhonchi and no wheezes Cardio Rate: regular rate Rhythm: regular rhythm Heart Sounds: no gallops, no murmurs and no rubs GI Palpation: soft and nontender Auscultation: normal bowel sounds Skin General skin exam: dry skin Other: warm Neuro General: alert, awake, tone normal and other (Weak left upper) Extrem General: no calf tenderness bilaterally and other Psych Appearance: grossly normal Mental Status: mental status grossly normal Affect: normal affect Course Vital Signs Temperature 36.5 C 07/02/18 11:11 Pulse 68 07/02/18 11:11 Respiratory Rate 16 07/02/18 11:11 Pulse Oximetry 99 07/02/18 11:11 Temperature 36.5 C 07/02/18 11:11 Temperature Source Skin 07/02/18 11:11 Pulse 68 07/02/18 11:11 Respiratory Rate 18 07/02/18 11:16 Respiratory Effort 07/02/18 11:16 Pulse Oximetry 99 07/02/18 11:11 Oxygen Delivery Method Room Air 07/02/18 11:11 Oxygen Flow Rate 0 07/02/18 11:11 Pain Level 6 07/02/18 11:11
--- NOTE | 2018-07-02 11:27 | ED.GENADUL_ITS ---
Discharge Plan Disposition Patient Disposition: [facility] INPATIENT Condition: Serious Discharge Details Chief Complaint: Chest Pain Clinical Impression: Anemia, Chest pain Reason For Visit: ANEMIA, CHEST PAIN,CHF Admit Date/Time: 07/02/18 13:18 Admit Provider: Daria Griffin Attending Provider: Daria Griffin Primary Care Provider: Kory Sierra ED Provider: [place] [facility] Medical Decision Making 11:25 --67-year-old male with multiple medical problems including prior history of coronary artery disease status post CABG, recently treated for healthcare acquired pneumonia and anemia with positive Hemoccult requiring transfusion, here from long term with right central chest pain intermittent over the past 2 days and more constant today, also with vague generalized weakness and discomfort. Differential is broad at this point. Consider ACS. Consider worsening pneumonia or CHF. Consider worsening anemia. ECG reviewed and interpreted by me: Sinus rhythm 71 bpm, right bundle branch block is present, left axis noted no STEMI, nondiagnostic. Plan to check trop. -- Consider gerd or ulcer. Will give pepcid. 13:15 --CT of the chest interpreted by radiology: No pulmonary embolus him, no dissection, bilateral small pleural effusions with adjacent infiltrates thought to be atelectasis versus pneumonia. Patient is afebrile without cough. Labs reviewed. BNP elevated. Consider CHF. Hb low. Not critical but given dizziness, will give PRBC 1U. Hemoccult positive again today with melena on exam - no BRBPR or bleeding. Spoke with Dr. Griffin. Plan to admit to floor as observation. Bridging orders to be placed as requested. 14:00 -- Updated Dr. Griffin re: course. She request lasix 20mg IV be administered post blood transfusion - I will place this bridging order. HPI General Date/Time Provider Initiated Documentation: 07/02/18 11:01 . Limitations to Documentation: other (poor historian) . Information obtained by: patient and RN notes reviewed . HPI Narrative: 67-year-old male with multiple medical problems including history of CVA with residual left-sided weakness, coronary artery disease status post CABG, atrial fibrillation, CHF, diabetes, chronic kidney disease, COPD, recently diagnosed and treated inpatient for healthcare associate pneumonia and anemia with positive stool guaiac, presents today from [facility] facility with chief complaint of chest pain. Patient notes that he has had intermittent chest pain over the past couple days. Pain is been more constant and present for the past 1 hour today. Pain feels like heartburn. Pain is localized to his right parasternal area. He also notes some associated pain in his right arm. He did have some shortness of breath this morning but that has resolved. Patient also states that some increased pain in his left hand which has been chronically affected by prior CVA. PAtient has been dizzy recently. Related Data Home Medications Medication Instructions Recorded Confirmed amiodarone [Cordarone] 200 mg PO QAM 09/27/17 07/02/18 amlodipine 10 mg PO QAM 09/27/17 07/02/18 aspirin 81 mg PO QAM 09/27/17 07/02/18 atorvastatin [Lipitor] 40 mg PO HS 09/27/17 07/02/18 fluoxetine 40 mg PO BID 09/27/17 07/02/18 furosemide 40 mg PO DAILY 09/27/17 07/02/18 apixaban [Eliquis] 5 mg PO BID 03/07/18 07/02/18 insulin glargine [Lantus Solostar 10 unit SUB-Q HS 03/07/18 07/02/18 U-100 Insulin] potassium chloride 40 meq PO QAM 03/07/18 07/02/18 melatonin 3 mg PO HS 03/13/18 07/02/18 gabapentin 4 cap PO QID 03/14/18 07/02/18 glucagon (human recombinant) 1 mg IM Q15M PRN 03/14/18 07/02/18 [Glucagon Emergency Kit (human)] acetaminophen 650 mg PO Q6H 06/05/18 07/02/18 albuterol sulfate 2.5 mg INHALATION Q4H PRN 06/05/18 07/02/18 bisacodyl [Dulcolax (bisacodyl)] 10 mg [place] DIRECTED PRN 06/05/18 07/02/18 hydromorphone 2 mg PO Q4H PRN 06/05/18 07/02/18 isosorbide mononitrate 30 mg PO DAILY 06/05/18 07/02/18 lorazepam 0.5 mg PO Q8H PRN PRN 06/05/18 07/02/18 losartan 25 mg PO DAILY 06/05/18 07/02/18 magnesium hydroxide [Milk of 30 ml PO PRN PRN 06/05/18 07/02/18 Magnesia] metoclopramide HCl [Reglan] 10 mg PO QID 06/05/18 07/02/18 multivitamin [Multiple Vitamins] 1 tab PO QAM 06/05/18 07/02/18 sodium phosphates [Fleet Enema] 197 ml [place] DIRECTED PRN 06/05/18 07/02/18 omeprazole 40 mg PO DAILY #30 cap 06/10/18 07/02/18 alum-mag hydroxide-simeth [Maalox 30 ml PO QID PRN 07/02/18 07/02/18 Advanced] carvedilol [Coreg] 12.5 mg PO BID 07/02/18 07/02/18 hydralazine 75 mg PO TID 07/02/18 07/02/18 Previous Rx's Medication Instructions Recorded omeprazole 40 mg PO DAILY #30 cap 06/10/18 Allergies Allergy/AdvReac Type Severity Reaction Status Date / Time enalaprilat [From Vasotec] Allergy Severe Hives Unverified 06/05/18 18:14 Latex, Natural Rubber Allergy Intermediate Skin Rash Unverified 06/05/18 18:14 sertraline AdvReac Severe pychosis Unverified 06/05/18 18:14 codeine AdvReac Nausea Unverified 06/05/18 18:14 General Stated Complaint: Chest Pain VIKASH: 2 Review of Systems Review of Systems All systems reviewed & are unremarkable except as noted in HPI and below Constitutional Reports weakness (Generally more weak than usual) Cardiovascular Reports as per HPI Respiratory Reports as per HPI Neurologic Reports focal weakness (Chronic left ) and Reports weakness (Generally more weak than usual) Exam Const General: cooperative and no acute distress Orientation: alert and awake [facility] Head: normocephalic and atraumatic Mouth: moist mucous membranes Eyes Conjunctivae: conjunctivae normal EOM: EOM intact bilaterally Neck Neck: normal visual inspection, trachea midline and No JVD Chest Chest: no tenderness Resp Effort & Inspection: normal respiratory effort Auscultation: diminished lung sounds on the left in the lower lung rubi, no rales, no rhonchi and no wheezes Cardio Rate: regular rate Rhythm: regular rhythm Heart Sounds: no gallops, no murmurs and no rubs GI Palpation: soft and nontender Auscultation: normal bowel sounds Skin General skin exam: dry skin Other: warm Neuro General: alert, awake, tone normal and other (Weak left upper) Extrem General: no calf tenderness bilaterally and other Psych Appearance: grossly normal Mental Status: mental status grossly normal Affect: normal affect Course Vital Signs Temperature 36.5 C 07/02/18 11:11 Pulse 68 07/02/18 11:11 Respiratory Rate 16 07/02/18 11:11 Pulse Oximetry 99 07/02/18 11:11 Temperature 36.5 C 07/02/18 11:11 Temperature Source Skin 07/02/18 11:11 Pulse 68 07/02/18 11:11 Respiratory Rate 18 07/02/18 11:16 Respiratory Effort 07/02/18 11:16 Pulse Oximetry 99 07/02/18 11:11 Oxygen Delivery Method Room Air 07/02/18 11:11 Oxygen Flow Rate 0 07/02/18 11:11 Pain Level 6 07/02/18 11:11
[2018-07-02 11:36] LABS: Abs Immature Grans 0.01 k/cumm (0.0-0.09); Absolute Basophil Count 0.01 k/cumm (0.0-0.2); Absolute Eosinophil Count 0.08 k/cumm (0.0-0.7); Absolute Lymphocyte Count 0.74 k/cumm (1.2-3.4); Absolute Monocyte Count 0.31 k/cumm (0.11-0.7); Absolute Neutrophil Count 3.14 k/cumm (1.2-6.7); Basophils % 0.2; Eosinophils % 1.9; HCT 25.3 % (40.0-50.0); HGB 7.7 g/dL (13.5-17.5); Immature Grans % 0.2; Lymphocytes % 17.2; Mean Corp. HGB Concentration 30.4 g/dL (32.0-36.0); Mean Corpuscular Hemoglobin 23.8 pg (27.0-33.0); Mean Corpuscular Volume 78.3 fL (80-95); Mean Platelet Volume 8.2 fL (8.0-11.0); Monocytes % 7.2; Neutrophils % 73.3; Platelet Count 254 x1000/uL (130-400); RBC 3.23 m/cumm (4.50-6.00); RBC Distribution Width 18.6 % (11.8-14.1); White Blood Cell Count 4.29 k/cumm (4.4-10.8)
[2018-07-02 11:45] LABS: Prothrombin Time 10.1 sec (9.3-10.8)
[2018-07-02 11:55] LABS: ALT 33 U/L (12-78); AST 19 U/L (15-37); Alkaline Phosphatase 107 U/L (46-116); Anion Gap 9.1 mmol/L (3-11); BUN 31 mg/dL (7-18); Bilirubin, Direct 0.08 mg/dL (0.00-0.20); Bilirubin, Total 0.3 mg/dL (0.2-1.0); CO2 27.9 mmol/L (21.0-32.0); CREATININE 1.53 mg/dL (0.70-1.30); Calcium 8.2 mg/dL (8.5-10.1); Chloride 102 mmol/L (98-107); Estimated GFR 45.77 (mL/min/1.73m2); Glucose 171 mg/dL (70-100); Magnesium 2.2 mg/dL (1.8-2.4); NT-proBNP 2857 pg/mL; Potassium 4.1 mmol/L (3.5-5.1); Sodium 139 mmol/L (136-145); Total Protein 6.5 g/dL (6.4-8.2); Troponin I 0.06 ng/mL (0.00-0.06)
--- NOTE | 2018-07-02 12:07 | DI.CT_ITS ---
SYMPTOMS/DIAGNOSIS: CHEST PAIN, SHORTNESS OF BREATH, IMMOBILE CT SCAN OF THE CHEST: CT angiography was performed with multi slice acquisition and multi planar and 3D reconstruction. CT scan of the chest was performed according to the pulmonary embolus protocol. There is no evidence of a pulmonary embolus. There is atherosclerosis of the thoracic aorta but no aneurysmal dissection is seen. The heart is at the upper limits of normal in size, but no pericardial effusion is seen. No findings to suggest right ventricular dysfunction are present. Sternal wires are in place. No significant mediastinal or hilar adenopathy is present. There are bilateral moderate pleural effusions with subjacent infiltrates, which may represent atelectasis or pneumonia. The tracheobronchial tree is unremarkable. No pneumothorax is identified. There are degenerative changes seen in the spine. IMPRESSION: 1. No evidence of a pulmonary embolus, thoracic aortic dissection or aneurysm. 2. Moderate bilateral pleural effusions with subjacent infiltrates, which may represent atelectasis or pneumonia. 3. Mild cardiomegaly. These findings were discussed with the Emergency Department on the date of the examination.
[2018-07-02] MEDS: Omnipaque 350 MG/ML 100 ML BTL IJ (12:33)
--- NOTE | 2018-07-02 14:08 | NUR.NOTE ---
Nursing Note: verbal handoff given to CJ Go from med surg and pt was transported to inpatient unit.
[2018-07-02] MEDS: FAMOTIDINE 20 MG/50 ML BAG 100 MG IVPB (16:40)
[2018-07-02] MEDS: Furosemide 20 MG/2 ML VIAL IVP (17:12)
[2018-07-02] MEDS: Normal Saline Flush 10 ML SYR (17:12)
--- NOTE | 2018-07-02 18:17 | HPE_ITS ---
Date of service: 07/02/18 Time of Service: 18:16 Assessment and Plan (1) Chest pain: Current visit: Yes Status: Acute R/o ACS. Repeat EKG, perform serial troponins, monitor on tele. Possibly due to demand ischemia due to anemia. No antiplatelet tx at this time due to GI bleeding. (2) Bilateral pleural effusion: Current visit: Yes Status: Acute Diurese, monitoring strict I/O's, daily weights. Likely due to Acute exacerbation of CHF (3) Congestive heart failure (CHF): Current visit: No Status: Chronic EF 55-60% on echo 11/2017, Diastolic dysfunction. As above - diurese, monitoring kidney function, strict I/O's, daily weights. (4) Symptomatic anemia: Current visit: Yes Status: Acute Transfused 1 unit pRBC's - awaiting repeat H/H. Hold anticoagluation for Afib. Needs investigation of GI bleed. (5) GI bleed: Current visit: Yes Status: Chronic IV PPI BID ordered. Surgery consulted for EGD and colonoscopy. (6) Atrial fibrillation: Current visit: No Status: Chronic Continue outpatient management with the exception of anticoagulation. (7) CVA, old, alterations of sensations: Current visit: No Status: Chronic Stable. Will be evaluated by PT/OT when here. (8) CAD (coronary artery disease), bypass graft transplanted heart: Current visit: No Status: Chronic r/o ACS (9) Insulin dependent diabetes mellitus: Current visit: Yes Status: Chronic Continue outpatient glargine; add SSI for now (10) Urinary frequency: Current visit: Yes Status: Acute r/o UTI and urinary retention History of Present Illness Chief Complaint: Shortness of breath and chest pain; dark stools Narrative: Mr Phillip is a 67 year old with PMHx of CAD s/p ND/CABG x3, CVA with residual L-sided facial and extremity weakness, Chronic Afib on eliquis, Anemia, previously requiring transfusions, who was brought to [facility] ED from [facility] facility with complains of chest pain and shortness of breath. The patient states that the chest pain started on Sunday, feels like heartburn, and has been going on all weekend. It feels better now. Patient felt short of breath this morning. He has been dizzy for a week, even when sitting up. He gets nauseated every time he lays down, but has not had any vomiting. He denies any abdominal pain. His nausea and dizziness are not associated with each other, he thinks. He noticed a dark bowel movement two days ago. He reports urinary frequency but low volumes when he urinates. He complains of insomnia. In the ED, he was found to be anemic with Hgb of 7.7. He was written for 1 unit of pRBC's. Review of Systems Review of Systems 12 systems were reviewed. Pertinent positives and negatives are as per HPI. Additionally, patient describes his normal cough. Meds Home Medications Medication Instructions Recorded Confirmed Type amiodarone [Cordarone] 200 mg PO QAM 09/27/17 07/02/18 History amlodipine 10 mg PO QAM 09/27/17 07/02/18 History aspirin 81 mg PO QAM 09/27/17 07/02/18 History atorvastatin [Lipitor] 40 mg PO HS 09/27/17 07/02/18 History fluoxetine 40 mg PO BID 09/27/17 07/02/18 History furosemide 40 mg PO DAILY 09/27/17 07/02/18 History apixaban [Eliquis] 5 mg PO BID 03/07/18 07/02/18 History insulin glargine [Lantus Solostar 10 unit SUB-Q HS 03/07/18 07/02/18 History U-100 Insulin] potassium chloride 40 meq PO QAM 03/07/18 07/02/18 History melatonin 3 mg PO HS 03/13/18 07/02/18 History gabapentin 4 cap PO QID 03/14/18 07/02/18 History glucagon (human recombinant) 1 mg IM Q15M PRN 03/14/18 07/02/18 History [Glucagon Emergency Kit (human)] acetaminophen 650 mg PO Q6H 06/05/18 07/02/18 History albuterol sulfate 2.5 mg INHALATION Q4H PRN 06/05/18 07/02/18 History bisacodyl [Dulcolax (bisacodyl)] 10 mg [place] DIRECTED PRN 06/05/18 07/02/18 History hydromorphone 2 mg PO Q4H PRN 06/05/18 07/02/18 History isosorbide mononitrate 30 mg PO DAILY 06/05/18 07/02/18 History lorazepam 0.5 mg PO Q8H PRN PRN 06/05/18 07/02/18 History losartan 25 mg PO DAILY 06/05/18 07/02/18 History magnesium hydroxide [Milk of 30 ml PO PRN PRN 06/05/18 07/02/18 History Magnesia] metoclopramide HCl [Reglan] 10 mg PO QID 06/05/18 07/02/18 History multivitamin [Multiple Vitamins] 1 tab PO QAM 06/05/18 07/02/18 History sodium phosphates [Fleet Enema] 197 ml [place] DIRECTED PRN 06/05/18 07/02/18 History omeprazole 40 mg PO DAILY #30 cap 06/10/18 07/02/18 Rx alum-mag hydroxide-simeth [Maalox 30 ml PO QID PRN 07/02/18 07/02/18 History Advanced] carvedilol [Coreg] 12.5 mg PO BID 07/02/18 07/02/18 History hydralazine 75 mg PO TID 07/02/18 07/02/18 History Allergies Allergy/AdvReac Type Severity Reaction Status Date / Time enalaprilat [From Vasotec] Allergy Severe Hives Unverified 06/05/18 18:14 Latex, Natural Rubber Allergy Intermediate Skin Rash Unverified 06/05/18 18:14 sertraline AdvReac Severe pychosis Unverified 06/05/18 18:14 codeine AdvReac Nausea Unverified 06/05/18 18:14 Exam Narrative Exam Narrative: General: Very pleasant elderly male, pale, sitting at the side of the bed, does not appear to be in acute distress, but looks uncomfortable Neurological: A&Ox3, L-sided facial weakness and hemiparesis Psychiatric: Appropriate speech pattern and content Skin: B feet (s/p amputation of all toes) dressed, dressing is clean, dry, intact; venous stasis dermatitis. HEENT: EOMI, MMM, clear oropharyns, no submandibular or cervical lymphadenopathy ; no goiter or JVD Cardiovascular: Regularly regular rhythm Lungs: coughing; breath sounds coarse, but no wheezing/rhonchi - clear Gastrointestinal: Abdomen soft, nontender, nondistended Extremities: +1 edema in BLE's; B feet s/p ampuation of all digits; dressed - clean, dry intact, unable to palpate pulses in feet due to dressings Results Labs : 07/02/18 11:25 07/02/18 11:25 Laboratory Results - last 24 hr 07/02/18 07/02/18 07/02/18 11:25 11:25 11:25 WBC 4.29 L RBC 3.23 L Hgb 7.7 L Hct 25.3 L MCV 78.3 L MCH 23.8 L MCHC 30.4 L RDW 18.6 H Plt Count 254 MPV 8.2 Immature Gran % 0.2 Neutrophils % 73.3 Lymphocytes % 17.2 Monocytes % 7.2 Eosinophils % 1.9 Basophils % 0.2 Absolute Neutrophils 3.14 Absolute Lymphocytes 0.74 L Absolute Monocytes 0.31 Absolute Eosinophils 0.08 Absolute Basophils 0.01 PT 10.1 INR 1.0 Sodium 139 Potassium 4.1 Chloride 102 Carbon Dioxide 27.9 Anion Gap 9.1 BUN 31 H Creatinine 1.53 H Estimated GFR/1.73 m2 45.77 Glucose 171 H Calcium 8.2 L Magnesium 2.2 Total Bilirubin 0.3 Conjugated Bilirubin 0.08 AST 19 ALT 33 Alkaline Phosphatase 107 Troponin I 0.06 NT-Pro-B Natriuret Pep 2857 H Total Protein 6.5 Albumin 3.0 L Patient ABO/Rh Antibody Screen Crossmatch 07/02/18 11:25 WBC RBC Hgb Hct MCV MCH MCHC RDW Plt Count MPV Immature Gran % Neutrophils % Lymphocytes % Monocytes % Eosinophils % Basophils % Absolute Neutrophils Absolute Lymphocytes Absolute Monocytes Absolute Eosinophils Absolute Basophils PT INR Sodium Potassium Chloride Carbon Dioxide Anion Gap BUN Creatinine Estimated GFR/1.73 m2 Glucose Calcium Magnesium Total Bilirubin Conjugated Bilirubin AST ALT Alkaline Phosphatase Troponin I NT-Pro-B Natriuret Pep Total Protein Albumin Patient ABO/Rh A Positive Antibody Screen Negative Crossmatch See Detail Last Vital Signs Temp 36.1 C L 07/02/18 17:15 Pulse 65 07/02/18 17:15 Resp 18 07/02/18 17:15 BP 188/79 H 07/02/18 17:15 Pulse Ox 95 07/02/18 17:15 CXR: Small Bilateral Pleural effusions; COPD. CTA chest: 1. No evidence of a pulmonary embolus, thoracic aortic dissection or aneurysm. 2. Moderate bilateral pleural effusions with subjacent infiltrates, which may represent atelectasis or pneumonia. 3. Mild cardiomegaly.
[2018-07-02] MEDS: Pantoprazole 40 MG VIAL IVP (18:45)
[2018-07-02] MEDS: Normal Saline Flush 10 ML SYR IVP ×2 (18:45→20:19)
[2018-07-02] MEDS: Carvedilol 6.25 MG TAB 12.5 MG PO (20:18)
[2018-07-02] MEDS: Metoclopramide 10 MG TAB PO (20:19)
[2018-07-02] MEDS: hydrALAZINE 25 MG TAB 75 MG PO (20:19)
[2018-07-02] MEDS: Gabapentin 400 MG CAP PO (20:19)
[2018-07-02] MEDS: FLUoxetine 20 MG CAP 40 MG PO (20:19)
[2018-07-02] MEDS: LORazepam 0.5 MG TAB PO (20:19)
[2018-07-02 20:32] LABS: HCT 27.3 % (40.0-50.0); HGB 8.3 g/dL (13.5-17.5)
[2018-07-02 20:57] LABS: Troponin I 0.05 ng/mL (0.00-0.06)
[2018-07-02] MEDS: Zolpidem 5 MG TAB PO (22:26)
[2018-07-02] MEDS: Atorvastatin 40 MG TAB PO (22:26)
[2018-07-02] MEDS: Melatonin 3 MG TAB PO (22:26)
[2018-07-02] MEDS: Insulin Glargine 300 UNITS/3 ML PEN 10 UNITS SC (22:28)
[2018-07-03] VITALS (20 sets, daily range): BP systolic 127–192; BP diastolic 55–88; PULSE 34–68; RESP 16–22; TEMP 36–36.6; O2SAT 92–97
[2018-07-03 01:20] LABS: Bilirubin Negative (Negative); Blood Moderate (Negative); Clarity Sl Cloudy; Glucose Negative (Negative); Ketones Negative (Negative); Leukocyte Esterase Negative (Negative); Nitrite Negative (Negative); Specific Gravity 1.015 (1.005-1.025)
[2018-07-03 01:26] LABS: Bacteria Rare HPF (Negative); C & S Indicated? No; Casts Negative LPF (Negative); Crystals Negative HPF (Negative); Epithelial Cells Rare HPF (Negative); Mucus Negative (Negative); RBC >50 (0-2); WBC 0-2 HPF (0-5)
[2018-07-03] MEDS: Metoprolol 5 MG/5 ML VIAL IVP (03:38)
[2018-07-03] MEDS: Pantoprazole 40 MG VIAL IVP ×2 (06:24→18:37)
[2018-07-03] MEDS: Normal Saline Flush 10 ML SYR IVP ×4 (06:25→21:14)
[2018-07-03 06:56] LABS: HCT 28.9 % (40.0-50.0); HGB 8.9 g/dL (13.5-17.5); Mean Corp. HGB Concentration 30.8 g/dL (32.0-36.0); Mean Corpuscular Volume 77.9 fL (80-95); Mean Platelet Volume 8.4 fL (8.0-11.0); Platelet Count 275 x1000/uL (130-400); RBC 3.71 m/cumm (4.50-6.00); RBC Distribution Width 18.2 % (11.8-14.1); White Blood Cell Count 3.87 k/cumm (4.4-10.8)
[2018-07-03 07:15] LABS: ALT 29 U/L (12-78); AST 23 U/L (15-37); Albumin 3.1 g/dL (3.4-5.0); Alkaline Phosphatase 115 U/L (46-116); Bilirubin, Direct 0.15 mg/dL (0.00-0.20); Bilirubin, Total 0.5 mg/dL (0.2-1.0); Total Protein 6.5 g/dL (6.4-8.2)
[2018-07-03 07:22] LABS: Anion Gap 7.4 mmol/L (3-11); BUN 26 mg/dL (7-18); CO2 30.6 mmol/L (21.0-32.0); CREATININE 1.53 mg/dL (0.70-1.30); Calcium 9.1 mg/dL (8.5-10.1); Chloride 100 mmol/L (98-107); Estimated GFR 45.77 (mL/min/1.73m2); Glucose 106 mg/dL (70-100); Magnesium 2.2 mg/dL (1.8-2.4); Potassium 3.6 mmol/L (3.5-5.1); Sodium 138 mmol/L (136-145); Troponin I 0.06 ng/mL (0.00-0.06)
[2018-07-03 07:41] LABS: FREE T4 0.95 ng/dL (0.76-1.46)
[2018-07-03] MEDS: Mylanta Suspension 30 ML CUP PO (08:09)
--- NOTE | 2018-07-03 09:07 | SCONE_ITS ---
Date of service: 07/03/18 Time of Service: 08:56 Assessment and Plan (1) GI bleed: Current visit: Yes Status: Acute Recommend upper endoscopy after patient medically stabilized in regards to his comorbidities. Symptoms strongly suggestive of upper GI bleed and will proceed with this first, if nothing is found on upper endoscopy then can bowel prep patient for colonoscopy in the near future. Further recommendations be pending clinical diagnostic findings. History of Present Illness Chief Complaint: GI bleed Narrative: 67-year-old male resident of [facility] rehab brought to the ER yesterday for chest pain with associated shortness of breath and melanotic stools. He is found to have a hemoglobin 7.7 and was transfused 1 unit of packed cells, and admitted for further workup for his anemia. He has a history of coronary artery disease status post CABG, and A. fib with other comorbidities also. He is on Eliquis for his atrial fibrillation. He reports several days of heartburn over the last weekend that has since improved, but was worse the day of admission. He reports the pain was worse when lying flat. Also had associated nausea this. He reports lightheadedness dizziness when he stands up. Consults Consult date: 07/03/18 Requesting physician: Daria Griffin Review of Systems Review of Systems All systems reviewed & are unremarkable except as noted in HPI and below Exam Const General: cooperative, no acute distress, disheveled, frail appearing and ill appearing Nutritional Appearance: average body habitus Orientation: alert, awake and oriented x3 HENMT Head: normal to inspection, normocephalic and atraumatic General nose exam: external nose normal Face and sinus: normal facial exam Eyes General: appearance normal, both eyes and all related structures Sclera: sclerae normal Pupils: PERRL EOM: EOM intact bilaterally Neck Neck: normal visual inspection, trachea midline and supple Chest Chest: deferred Resp Effort & Inspection: normal respiratory effort, no audible wheezes and not labored Cardio Rate: regular rate Rhythm: abnormal rhythm irregularly irregular GI Inspection: non-distended Palpation: no hernias and nontender Rectal Exam: deferred Neuro General: alert, awake, oriented x3 and moves all extremities Psych Appearance: grossly normal and disheveled Mental Status: mental status grossly normal Judgment: judgment good Results Last Vital Signs Temp 36.2 C L 07/03/18 08:10 Pulse 34 L 07/03/18 08:10 Resp 21 07/03/18 08:10 BP 190/87 H 07/03/18 08:10 Pulse Ox 95 07/03/18 08:10 Labs : 07/03/18 06:25 07/03/18 06:25 Laboratory Results - last 24 hr 07/02/18 07/02/18 07/02/18 08:17 08:17 11:25 WBC RBC Hgb 8.3 L Hct 27.3 L MCV MCH MCHC RDW Plt Count MPV Immature Gran % Neutrophils % Lymphocytes % Monocytes % Eosinophils % Basophils % Absolute Neutrophils Absolute Lymphocytes Absolute Monocytes Absolute Eosinophils Absolute Basophils PT INR Sodium 139 Potassium 4.1 Chloride 102 Carbon Dioxide 27.9 Anion Gap 9.1 BUN 31 H Creatinine 1.53 H Estimated GFR/1.73 m2 45.77 Glucose 171 H Calcium 8.2 L Magnesium 2.2 Total Bilirubin 0.3 Conjugated Bilirubin 0.08 AST 19 ALT 33 Alkaline Phosphatase 107 Troponin I 0.05 0.06 NT-Pro-B Natriuret Pep 2857 H Total Protein 6.5 Albumin 3.0 L TSH Free T4 Urine Color Urine Clarity Urine pH Ur Specific [place] Urine Protein Urine Ketones Urine Blood Urine Nitrite Urine Bilirubin Urine Urobilinogen Ur Leukocyte Esterase Urine RBC Urine WBC Ur Epithelial Cells Urine Crystals Urine Bacteria Urine Casts Urine Mucus Ur Culture Indicated? Urine Glucose Patient ABO/Rh Antibody Screen Crossmatch 07/02/18 07/02/18 07/02/18 11:25 11:25 11:25 WBC 4.29 L RBC 3.23 L Hgb 7.7 L Hct 25.3 L MCV 78.3 L MCH 23.8 L MCHC 30.4 L RDW 18.6 H Plt Count 254 MPV 8.2 Immature Gran % 0.2 Neutrophils % 73.3 Lymphocytes % 17.2 Monocytes % 7.2 Eosinophils % 1.9 Basophils % 0.2 Absolute Neutrophils 3.14 Absolute Lymphocytes 0.74 L Absolute Monocytes 0.31 Absolute Eosinophils 0.08 Absolute Basophils 0.01 PT 10.1 INR 1.0 Sodium Potassium Chloride Carbon Dioxide Anion Gap BUN Creatinine Estimated GFR/1.73 m2 Glucose Calcium Magnesium Total Bilirubin Conjugated Bilirubin AST ALT Alkaline Phosphatase Troponin I NT-Pro-B Natriuret Pep Total Protein Albumin TSH Free T4 Urine Color Urine Clarity Urine pH Ur Specific [place] Urine Protein Urine Ketones Urine Blood Urine Nitrite Urine Bilirubin Urine Urobilinogen Ur Leukocyte Esterase Urine RBC Urine WBC Ur Epithelial Cells Urine Crystals Urine Bacteria Urine Casts Urine Mucus Ur Culture Indicated? Urine Glucose Patient ABO/Rh A Positive Antibody Screen Negative Crossmatch See Detail 07/03/18 07/03/18 07/03/18 00:55 06:25 06:25 WBC 3.87 L RBC 3.71 L Hgb 8.9 L Hct 28.9 L MCV 77.9 L MCH 24.0 L MCHC 30.8 L RDW 18.2 H Plt Count 275 MPV 8.4 Immature Gran % Neutrophils % Lymphocytes % Monocytes % Eosinophils % Basophils % Absolute Neutrophils Absolute Lymphocytes Absolute Monocytes Absolute Eosinophils Absolute Basophils PT INR Sodium 138 Potassium 3.6 Chloride 100 Carbon Dioxide 30.6 Anion Gap 7.4 BUN 26 H Creatinine 1.53 H Estimated GFR/1.73 m2 45.77 Glucose 106 H D Calcium 9.1 Magnesium 2.2 Total Bilirubin Conjugated Bilirubin AST ALT Alkaline Phosphatase Troponin I 0.06 NT-Pro-B Natriuret Pep Total Protein Albumin TSH 4.80 H Free T4 0.95 Urine Color Yellow Urine Clarity Sl cloudy Urine pH 7.[address] [place] 1.015 Urine Protein Trace H Urine Ketones Negative Urine Blood Moderate H Urine Nitrite Negative Urine Bilirubin Negative Urine Urobilinogen 1.0 H Ur Leukocyte Esterase Negative Urine RBC >50 H Urine WBC 0-2 Ur Epithelial Cells Rare Urine Crystals Negative Urine Bacteria Rare Urine Casts Negative Urine Mucus Negative Ur Culture Indicated? No Urine Glucose Negative Patient ABO/Rh Antibody Screen Crossmatch 07/03/18 06:25 WBC RBC Hgb Hct MCV MCH MCHC RDW Plt Count MPV Immature Gran % Neutrophils % Lymphocytes % Monocytes % Eosinophils % Basophils % Absolute Neutrophils Absolute Lymphocytes Absolute Monocytes Absolute Eosinophils Absolute Basophils PT INR Sodium Potassium Chloride Carbon Dioxide Anion Gap BUN Creatinine Estimated GFR/1.73 m2 Glucose Calcium Magnesium Total Bilirubin 0.5 Conjugated Bilirubin 0.15 AST 23 ALT 29 Alkaline Phosphatase 115 Troponin I NT-Pro-B Natriuret Pep Total Protein 6.5 Albumin 3.1 L TSH Free T4 Urine Color Urine Clarity Urine pH Ur Specific [place] Urine Protein Urine Ketones Urine Blood Urine Nitrite Urine Bilirubin Urine Urobilinogen Ur Leukocyte Esterase Urine RBC Urine WBC Ur Epithelial Cells Urine Crystals Urine Bacteria Urine Casts Urine Mucus Ur Culture Indicated? Urine Glucose Patient ABO/Rh Antibody Screen Crossmatch a RAD:XR chest 2V PA & lateral SYMPTOMS/DIAGNOSIS: CHEST PAIN CHEST X-RAY, AP AND LATERAL: Comparison is 06/17/18. The heart is mildly enlarged but stable. Pulmonary vasculature is within normal limits. There are small bilateral pleural effusions present. The lungs are otherwise clear. No pneumothorax is identified. Sternal wires are in place. 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 Degenerative changes are seen in the spine. The lungs appear hyperinflated with flattened diaphragm suggesting underlying COPD. IMPRESSION: 1. Small bilateral pleural effusions. 2. COPD. a CT:CT chest PE CTA SYMPTOMS/DIAGNOSIS: CHEST PAIN, SHORTNESS OF BREATH, IMMOBILE CT SCAN OF THE CHEST: CT angiography was performed with multi slice acquisition and multi planar and 3D reconstruction. CT scan of the chest was performed according to the pulmonary embolus protocol. There is no evidence of a pulmonary embolus. There is atherosclerosis of the thoracic aorta but no aneurysmal dissection is seen. The heart is at the upper limits of normal in size, but no pericardial effusion is seen. No findings to suggest right ventricular dysfunction are present. Sternal wires are in place. No significant mediastinal or hilar adenopathy is present. There are bilateral moderate pleural effusions with subjacent infiltrates, which may represent atelectasis or pneumonia. The tracheobronchial tree is unremarkable. No pneumothorax is identified. There are degenerative changes seen in the spine. IMPRESSION: 1. No evidence of a pulmonary embolus, thoracic aortic dissection or aneurysm. 2. Moderate bilateral pleural effusions with subjacent infiltrates, which may represent atelectasis or pneumonia. 3. Mild cardiomegaly.
[2018-07-03] MEDS: Gabapentin 400 MG CAP PO ×3 (09:15→19:34)
[2018-07-03] MEDS: Losartan 25 MG TAB PO ×2 (09:15→20:33)
[2018-07-03] MEDS: Carvedilol 6.25 MG TAB 12.5 MG PO ×2 (09:15→19:36)
[2018-07-03] MEDS: Amiodarone 200 MG TAB PO (09:15)
[2018-07-03] MEDS: hydrALAZINE 25 MG TAB 75 MG PO ×2 (09:15→19:35)
[2018-07-03] MEDS: Potassium Chloride 20 MEQ TABCR 40 MEQ PO (09:15)
[2018-07-03] MEDS: Multivitamin TAB 1 TAB PO (09:15)
[2018-07-03] MEDS: Isosorbide Mononitrate 30 MG TABCR PO (09:15)
[2018-07-03] MEDS: FLUoxetine 20 MG CAP 40 MG PO ×2 (09:15→19:35)
[2018-07-03] MEDS: Metoclopramide 10 MG TAB PO ×3 (09:15→19:34)
[2018-07-03] MEDS: Aspirin E.C. 81 MG TABEC PO (09:16)
[2018-07-03] MEDS: amLODIPine 10 MG TAB PO (09:16)
[2018-07-03] MEDS: Furosemide 40 MG/4 ML VIAL IV ×2 (09:16→16:24)
[2018-07-03 10:04] LABS: Troponin I 0.05 ng/mL (0.00-0.06)
--- NOTE | 2018-07-03 10:47 | IN_ITS ---
Date of service: 07/03/18 Time of Service: 09:51 PT Notes Date: 07/03/18 Referring Doctor: Daria Griffin PT Orders: PT CONSULT: L hemiparesis Precautions: Fall precautions Patient Profile/Admitting Diagnosis: Pt is a 67 yr old male admitted from [facility] with chest pain, bilateral pleural effusion, anemia PMHX: obesity, severe peripheral artery disease, s/p bilateral transmetatarsal resections, vascular neuropathy, diabetes with diabetic neuropathy, anemia, atrial fibrillation, coronary artery disease s/p coronary artery bypass graft x 3, cerebrovascular accident with left hemiparesis, hypertension, chronic obstructive pulmonary disease, chronic kidney disease, anxiety, depression, chronic pain Social History/Home Situation: Living with son, but currently a resident at [facility] after toe amputations. Pt states his baseline mobility is independent gait with FWW. Reports he has been gait training up to 90ft with therapists at rehab. States he has post op shoes for his feet but left them at the rehab. Equipment Owned/DME: FWW, cane, wheelchair, shower chair, postop shoes bilateral feet Subjective: Pt sitting at edge of bed, reports feeling nauseous. Agreeable to PT Consult. Objective: General Observation: telemetry Mental Status: A& O x3 Pain: no c/o pain Bed Mobility/Transfers: * pt does not have post op shoes in hospital, wanting to wear hospital socks bilateral feet Sit-stand: CGA with FWW Bed-chair: CGA with FWW Stand-sit: SBA Gait: CGA with FWW 20ftx2. Slow step through gait pattern with decreased stride and [place]. Pt demonstrated good strength with use of FWW. Reports mild foot pain but nothing like right after the surgery. Pt wanting to sit up in chair, fall alarm activated. Balance: Static Sitting: normal Dynamic Sitting: normal Static Standing: fair Dynamic Standing: poor requiring FWW for stability Special Tests: Mobility Limitations Standardized Measure [facility] AM-PAC 6 clicks Basic Mobility Inpatient Short Form: Raw Score: 19 Standardized Score: 45.44 CMS Score: 41.77% CMS Modifier: CK Informed Consent/Education: Patient instructed in purpose of PT consult and plan of care. Assessment: Pt is a 67 yr old male admitted from [facility] with chest pain, bilateral pleural effusion, anemia in setting of obesity, severe peripheral artery disease, s/p bilateral transmetatarsal resections, vascular neuropathy, diabetes with diabetic neuropathy, anemia, atrial fibrillation, coronary artery disease s/p coronary artery bypass graft x 3, cerebrovascular accident with left hemiparesis, hypertension, chronic obstructive pulmonary disease, chronic kidney disease, anxiety, depression, chronic pain. Patient presents with the following impairment level findings: decreased static and dynamic standing balance due to bilateral toe resections putting him at high risk for falls, decreased strength with standing transfers, gait mobility requiring FWW for stability. Pt was able to perform transfers to chair today and initiate gait in room with FWW, mobility limited by reported feelings of nausea, RN notified. Recommend return to rehab facility when medically stable. Impairments are contributing to the following functional limitations: AMPAC score CMS Score: 41.77% Patient is assessed as a Moderate [id number] complexity based on the following: History: see above Examination: see above Presentation: evolving Decision Making: AMPAC score CMS Score: 41.77% Goals: Goals X1 week 1. Supine-Sit independent 2. Sit-Supine independent 3. Sit-Stand SBA with FWW 4. Stand-Sit SBA 5. Bed-Chair CGA with FWW 6. Chair-Bed CGA with FWW 7. Gait CGA with FWW 20ftx2 Plan of Care/Treatment Plan: 1-2x/day, 7 days/week x 1 week. Plan of care has been reviewed with the [employer] [facility] providing the service under Physical Therapy direction. Initiate Physical Therapy intervention for strengthening, bed mobility, transfers, gait, stairs, balance training, use of assistive device. DISCHARGE RECOMMENDATIONS: Return to [facility] TREATMENT CODE/TIME: 26min IE 9:50 G Codes in the area mobility of walking and moving around: current status [id number] CK; projected status GP [id number] CK Discharge status (if discharging) GP [id number] CK based on AMPAC score CMS Score: 41.77% Netta Maya PT
--- NOTE | 2018-07-03 11:30 | OT.INIE ---
Occupational Therapy Notes Inpatient Occupational Therapy Evaluation Date: 07/03/18 Referring Doctor:Daria Griffin MD OT Orders: L hemiparesis Precautions: Fall precautions PATIENT PROFILE/ADMITTING DIAGNOSIS: : Pt is a 67 year old male admitted from the [facility] with chest pain, bilateral pleural effusion and anemia. Past Medical History: obesity, severe peripheral artery disease, s/p bilateral transmetatarsal resections, vascular neuropathy, diabetes with diabetic neuropathy, anemia, atrial fibrillation,s/p coronary artery bypass graft x 3, cerebrovascular accident with left hemiparesis, hypertension, chronic obstructive pulmonary disease, chronic kidney disease, anxiety, depression and chronic pain. Social History/Home Situation: Pt reports that he was previously living with son but plans did not work out as planned. Currently a resident at [facility] after multiple toe amputations. Pt states his baseline ADL performance is (I) and receives OT services at the [facility]. Equipment owned/DME: FWW, cane, wheelchair, shower chair SUBJECTIVE: Pt sitting in chair when OT arrived. Pt reports that he isn't feeling well and states, I feel like crap and am not getting better. Pt agreeable to OT session however after performing grooming pt reports that he is (I) in all ADLs and doesn't need OT services, it is what it is. OBJECTIVE: General Observation: Telemetry Mental Status: A&Ox3 Pain: no c/o pain ROM: RUE WFL L UE WFL STRENGTH: RUE 5/5 throughout LUE 5/5 throughout SENSATION: Pt reports no UE numbness or tingling. GROOMING sitting in chair with set up (A) pt able to perform teeth brushing routine (I). BALANCE: Static sitting Normal SPECIAL TESTS: Daily Activity Limitations Standardized Measure [facility] AM -PAC ?6 clicks? Daily Activity Inpatient Short Form: Raw score: 22 Standardized score: 47.10 CMS score: 25.80% CMS modifier: CJ INFORMED CONSENT/EDUCATION: Pt instructed in purpose of OT Consult and plan of care. ASSESSMENT: Patient is a 67-year-old male male admitted from [facility] with chest pain, bilateral pleural effusion, anemia in setting of obesity, severe peripheral artery disease, s/p bilateral transmetatarsal resections, vascular neuropathy, diabetes with diabetic neuropathy, anemia, atrial fibrillation, coronary artery disease s/p coronary artery bypass graft x 3, cerebrovascular accident with left hemiparesis, hypertension, chronic obstructive pulmonary disease, chronic kidney disease, anxiety, depression, chronic pain. Pt denies the need for OT services post OT consult. Recommend that pt be discharged to [facility]. D/C pt from skilled OT services at this time. [facility] score 22, CMS score 25.80% Patient is assessed as a Moderate [id number] complexity based on the following: History: See above Examination: See above Presentation: Evolving Decision Making: [facility] CMS score 25.80% GOALS N/A PLAN OF CARE/TREATMENT PLAN: D/C from skilled OT services at this time. DISCHARGE RECOMMENDATIONS to [facility] when medically cleared. TREATMENT TIME/MINUTES/CODES 19 min, IE, 10:00 G Codes in the area of self- : washing oneself, toileting, dressing, eating and drinking, current status [id number] CJ projected status GP [id number]. Discharge status GP [id number].
--- NOTE | 2018-07-03 12:58 | PHARADMIT ---
Addendum entered by Laura Kaur 07/07/18 13:48: Pharmacy Note Subjective d/c telemetry, on oxygen Objective BP 173/75, no weight, I/O look positive, H/H up 10.5/33.8, Lytes good, SCr 1.75 Assessment Heparin drip stopped, converted to Eliquis today Terazosin added @ low dose 1mg po BID, many other BP meds Lasix daily @ 10am because it interferes w/Sucralfate Last BM 07/03...nursing aware, many bowel med choices SCr creaping up Plan Likely discharge Sunday to [facility] Will need patient weight since starting Lasix, watch SCr, H/H, BP coverage MD mentioned H.Pylori test pending but sample not collected wound consult for biltateral toe amputation Original Note: Addendum entered by Alfredo Herzog III 07/05/18 15:29: Pharmacy Note Subjective Patient complains of dizzzzines and ringing in his ears, Dicesion was may to keep him here over the weekend. Objective VS-OK K+3.2 SCr-1.56 H&H,Plts,WBC-OK, last BM 07/03 Assessment No medication changes Plan Plan was for discharge back to [facility] today, now he is here for the weekend. Original Note: Addendum entered by Laura Kaur 07/04/18 16:04: Pharmacy Note Subjective Observation to acute, Tele sinus in 60's, fell onto floor last evening from chair, no injury Objective VS ok, lyltes good Assessment EGD today for ? GI bleed...results state no active bleeding, duodenitis w/ulcer remains on BID dosing of Protonix IV and Carafate Did receive blood today @ 0300 Plan ? asks for possible sitter if staff permits to prevent falls no anticoagulation at this time Original Note: Admission Pharmacy Clinical Review ANEMIA, CHEST PAIN, CHF (From [facility]) Code Status Full Code Current Weight Wgt_ 101.4 kg Renally Cleared and Narrow Therapeutic Index Meds CrCl~ 49 mL/min Meds-OK QTc Value / Action Taken na BP Control, Fever BP- 190/87 Tmax- 36.4C Electrolytes reviewed Na- 138 K+3.6 Mag-2.2 DVT Prophylaxis ASA-ec, Opiate Usage / Scheduled Bowel Regimen Ordered Yes Yes Plt/SCr for Heparin / Enoxaparin Plts-275 SCr-1.53 INR for Warfarin inr-1.0 H/H stable, WBC/Bands H&H- 8.9/28.9 WBC-3.87 Antibiotic appropriateness none Cultures and Sensitivities Nose: for MRSDA (pennding) Surgical ABX d/c within 24 hr NA DM control / Insulin Dosing BG--106 Aspart Glargine Heart Failure (Check EF%) (LATASHA's, B-Block, Diuretics) Norvasc, Amiodarone, Coeg, Lasix, Hydralazine, Imdur, Losartan, Lopressor IV (prn), NTG IV to PO Switch no Home Meds Reviewed Yes Home Meds Not Ordered Apixaban, Comments
[2018-07-03 13:36] LABS: Troponin I 0.06 ng/mL (0.00-0.06)
[2018-07-03] MEDS: Bacitracin 1 PACKET 2 PACKET (15:10)
--- NOTE | 2018-07-03 15:32 | WOUNDCARE ---
Wound Care Report Pt seen at bedside, agreeable to wound consult. A&Ox3. Vital Signs 07/03/18 08:05 07/03/18 08:10 07/03/18 11:12 Temperature 36.2 C L 36.2 C L 36.1 C L Pulse 64 34 L 52 L Respiratory Rate 21 21 20 Blood Pressure 190/87 H 190/87 H 146/75 H Pulse Oximetry 95 95 94 L Pt has large medical Hx with many factors effecting wound healing including diabetes. Please refer to H&P for complete history. Currently there are no open areas/active wounds on Pt's amputation sites, however there are areas of yellow scabs/escar noted. Sites are healing well, tissue soft and pink. Palpable pedal and tibial pulses. Please refer to pictures for better visual. Call placed to [facility] nursing staff to discuss Pt's current Tx to amputation site. Nurse Diallo reported Pt receiving daily feet washed, bacitracin application to scabbed areas, non-adherent pad to amputation site, secure with gauze roll, per [facility] vascular services. Pt was last seen by vascular services at [facility] on June 20, where Pt was given the go ahead to start ambulating. Nurse Diallo reports they have seen healing progress with current treatment. Recommendation is to continue current treatment based on documented forward progress. Wash bilateral feet with soap and water daily. Apply bacitracin to scabbed areas, cover with telfa, wrap with gauze roll daily. No follow-up appointment scheduled for Pt at [facility] at this time per [facility].
[2018-07-03] MEDS: Insulin Aspart 300 UNITS/3 ML PEN SC (17:31)
[2018-07-03] MEDS: Atorvastatin 40 MG TAB PO (19:34)
[2018-07-03] MEDS: Melatonin 3 MG TAB PO (19:36)
--- NOTE | 2018-07-03 19:44 | W.PM.PROGNOT ---
Assessment and Plan (1) Chest pain: Current visit: Yes Status: Acute Evaluated by cardiology and is felt to be due to symptomatic anemia. 2nd unit of pRBC's is being transfused. No antiplatelet tx at this time due to GI bleeding. (2) Bilateral pleural effusion: Current visit: Yes Status: Acute Continue diuresis. (3) Congestive heart failure (CHF): Current visit: No Status: Chronic EF 55-60% on echo 11/2017, Diastolic dysfunction. Continue to diurese, monitoring kidney function, strict I/O's, daily weights. (4) Symptomatic anemia: Current visit: Yes Status: Acute Transfusing 2nd unit pRBC's today. Continue to monitor H/H. (5) GI bleed: Current visit: Yes Status: Acute Appreicate surgical help - for EGD tomorrow. Continue IV PPI BID; carafate added. (6) Atrial fibrillation: Current visit: No Status: Chronic Paroxysmal, presently in SR. Continue outpatient management with the exception of anticoagulation. (7) CVA, old, alterations of sensations: Current visit: No Status: Chronic Stable. Will be evaluated by PT/OT when here. (8) CAD (coronary artery disease), bypass graft transplanted heart: Current visit: No Status: Chronic No ACS - but target for Hgb is closer to 10 - transfuse 1 more unit. (9) Insulin dependent diabetes mellitus: Current visit: Yes Status: Chronic Continue outpatient glargine; add SSI for now (10) Urinary frequency: Current visit: Yes Status: Acute Monitoring for urinary retention. (11) Hypertensive urgency: Current visit: Yes Status: Acute Increase ARB, hydralazine. Consider increaing imdur as might help with anginal symptoms as well. Subjective Interval history since last seen: The patient complained of chest pain this morning - R-sided with radiation to his R arm. He descirbed it as burning. He denies any dizziness, shortness of breath, nausea, vomiting. It was not at all like the pain he had when he was having a heart attack. Exam Narrative Exam Narrative: General: Very pleasant elderly male, pale, sitting at the side of the bed, uncomfortable Neurological: A&Ox3, L-sided facial weakness and hemiparesis Psychiatric: Appropriate speech pattern and content Skin: B feet (s/p amputation of all toes) dressed, dressing is clean, dry, intact; venous stasis dermatitis. HEENT: EOMI, MMM, clear oropharyns, no submandibular or cervical lymphadenopathy; no goiter or JVD Cardiovascular: Regularly regular rhythm Lungs: coughing; breath sounds coarse, but no wheezing/rhonchi - clear Gastrointestinal: Abdomen soft, nontender, nondistended Extremities: +1 edema in BLE's; B feet s/p ampuation of all digits; dressed - clean, dry intact, unable to palpate pulses in feet due to dressings Objective Objective Clinical Data: Abnormal lab results 07/02/18 07/02/18 07/03/18 Range/Units 08:17 11:25 00:55 WBC (4.4-10.8) k/cumm RBC (4.50-6.00) m/cumm Hgb 8.3 L (13.5-17.5) g/dL Hct 27.3 L (40.0-50.0) % MCV (80-95) fL MCH (27.0-33.0) pg MCHC (32.0-36.0) g/dL RDW (11.8-14.1) % BUN (7-18) mg/dL Creatinine (0.70-1.30) mg/dL Glucose (70-100) mg/dL Albumin (3.4-5.0) g/dL TSH (0.358-3.74) uIU/mL Urine Protein Trace H (Negative) mg/dL Urine Blood Moderate H (Negative) Urine Urobilinogen 1.0 H (Up TO 0.2) EU/dL Urine RBC >50 H (0-2) Crossmatch See Detail 07/03/18 07/03/18 07/03/18 Range/Units 06:25 06:25 06:25 WBC 3.87 L (4.4-10.8) k/cumm RBC 3.71 L (4.50-6.00) m/cumm Hgb 8.9 L (13.5-17.5) g/dL Hct 28.9 L (40.0-50.0) % MCV 77.9 L (80-95) fL MCH 24.0 L (27.0-33.0) pg MCHC 30.8 L (32.0-36.0) g/dL RDW 18.2 H (11.8-14.1) % BUN 26 H (7-18) mg/dL Creatinine 1.53 H (0.70-1.30) mg/dL Glucose 106 H D (70-100) mg/dL Albumin 3.1 L (3.4-5.0) g/dL TSH 4.80 H (0.358-3.74) uIU/mL Urine Protein (Negative) mg/dL Urine Blood (Negative) Urine Urobilinogen (Up TO 0.2) EU/dL Urine RBC (0-2) Crossmatch Vital Signs Temperature 36 C L 07/03/18 15:49 Temperature Source Tympanic 07/03/18 15:49 Pulse 62 07/03/18 15:49 Pulse Rhythm Regular 07/03/18 08:00 Pulse 67 07/02/18 13:20 Respiratory Rate 19 07/03/18 15:49 Respiratory Effort Non-Labored 07/03/18 16:42 Respiratory Depth Normal 07/03/18 16:42 Respiratory Pattern Normal 07/03/18 16:42 Blood Pressure 188/80 H 07/03/18 15:49 Blood Pressure Mean 79 07/02/18 13:18 Pulse Oximetry 96 07/03/18 15:49 Oxygen Delivery Method Room Air 07/03/18 15:49 Oxygen Flow Rate 0 07/03/18 15:49 Pain Level 0 07/03/18 11:12 Comment 07/03/18 08:10 Intake & Output 07/02/18 07/03/18 07/03/18 23:59 11:59 23:59 Intake Total 621 / 621 840 / 840 810 / 810 Output Total 600 / 600 200 / 200 850 / 850 Balance 640 / 640 -40 / -40 Weight 101.4 kg Intake: IV Oral 300 / 300 830 / 830 810 / 810 Blood Product 321 / 321 Rbc Leuko Reduced Unit 321 / 321 [id number] Output: Urine 600 / 600 200 / 200 850 / 850 Other: Urine Color Yellow Yellow Yellow Urine Appearance Clear Clear Clear Urine Odor Normal Normal Comment straight cath soaked the diaper and the bed. then used urinal Stool Size Large Stool Characteristics Soft Formed Voiding Methods Diaper Diaper Urinal Incontinent Incontinent Laboratory Results WBC 3.87 k/cumm (4.4-10.8) L 07/03/18 06:25 RBC 3.71 m/cumm (4.50-6.00) L 07/03/18 06:25 Hgb 8.9 g/dL (13.5-17.5) L 07/03/18 06:25 Hct 28.9 % (40.0-50.0) L 07/03/18 06:25 MCV 77.9 fL (80-95) L 07/03/18 06:25 MCH 24.0 pg (27.0-33.0) L 07/03/18 06:25 MCHC 30.8 g/dL (32.0-36.0) L 07/03/18 06:25 RDW 18.2 % (11.8-14.1) H 07/03/18 06:25 Plt Count 275 x1000/uL (130-400) 07/03/18 06:25 MPV 8.4 fL (8.0-11.0) 07/03/18 06:25 Immature Gran % 0.2 07/02/18 11:25 Neutrophils % 73.3 07/02/18 11:25 Lymphocytes % 17.2 07/02/18 11:25 Monocytes % 7.2 07/02/18 11:25 Eosinophils % 1.9 07/02/18 11:25 Basophils % 0.2 07/02/18 11:25 Absolute Neutrophils 3.14 k/cumm (1.2-6.7) 07/02/18 11:25 Absolute Lymphocytes 0.74 k/cumm (1.2-3.4) L 07/02/18 11:25 Absolute Monocytes 0.31 k/cumm (0.11-0.7) 07/02/18 11:25 Absolute Eosinophils 0.08 k/cumm (0.0-0.7) 07/02/18 11:25 Absolute Basophils 0.01 k/cumm (0.0-0.2) 07/02/18 11:25 PT 10.1 sec (9.3-10.8) 07/02/18 11:25 INR 1.0 (1.0-3.5) 07/02/18 11:25 Sodium 138 mmol/L (136-145) 07/03/18 06:25 Potassium 3.6 mmol/L (3.5-5.1) 07/03/18 06:25 Chloride 100 mmol/L (98-107) 07/03/18 06:25 Carbon Dioxide 30.6 mmol/L (21.0-32.0) 07/03/18 06:25 Anion Gap 7.4 mmol/L (3-11) 07/03/18 06:25 BUN 26 mg/dL (7-18) H 07/03/18 06:25 Creatinine 1.53 mg/dL (0.70-1.30) H 07/03/18 06:25 Estimated GFR/1.73 m2 45.77 (mL/min/1.73m2) 07/03/18 06:25 Glucose 106 mg/dL (70-100) H D 07/03/18 06:25 Calcium 9.1 mg/dL (8.5-10.1) 07/03/18 06:25 Magnesium 2.2 mg/dL (1.8-2.4) 07/03/18 06:25 Total Bilirubin 0.5 mg/dL (0.2-1.0) 07/03/18 06:25 Conjugated Bilirubin 0.15 mg/dL (0.00-0.20) 07/03/18 06:25 AST 23 U/L (15-37) 07/03/18 06:25 ALT 29 U/L (12-78) 07/03/18 06:25 Alkaline Phosphatase 115 U/L (46-116) 07/03/18 06:25 Troponin I 0.06 ng/mL (0.00-0.06) 07/03/18 13:15 NT-Pro-B Natriuret Pep 2857 pg/mL (-299) H 07/02/18 11:25 Total Protein 6.5 g/dL (6.4-8.2) 07/03/18 06:25 Albumin 3.1 g/dL (3.4-5.0) L 07/03/18 06:25 TSH 4.80 uIU/mL (0.358-3.74) H 07/03/18 06:25 Free T4 0.95 ng/dL (0.76-1.46) 07/03/18 06:25 Urine Color Yellow (Yellow) 07/03/18 00:55 Urine Clarity Sl cloudy 07/03/18 00:55 Urine pH 7.0 (5-8) 07/03/18 00:55 Ur Specific [place] 1.015 (1.005-1.025) 07/03/18 00:55 Urine Protein Trace mg/dL (Negative) H 07/03/18 00:55 Urine Ketones Negative mg/dL (Negative) 07/03/18 00:55 Urine Blood Moderate (Negative) H 07/03/18 00:55 Urine Nitrite Negative (Negative) 07/03/18 00:55 Urine Bilirubin Negative (Negative) 07/03/18 00:55 Urine Urobilinogen 1.0 EU/dL (Up TO 0.2) H 07/03/18 00:55 Ur Leukocyte Esterase Negative (Negative) 07/03/18 00:55 Urine RBC >50 (0-2) H 07/03/18 00:55 Urine WBC 0-2 HPF (0-5) 07/03/18 00:55 Ur Epithelial Cells Rare HPF (Negative) 07/03/18 00:55 Urine Crystals Negative HPF (Negative) 07/03/18 00:55 Urine Bacteria Rare HPF (Negative) 07/03/18 00:55 Urine Casts Negative LPF (Negative) 07/03/18 00:55 Urine Mucus Negative (Negative) 07/03/18 00:55 Ur Culture Indicated? No 07/03/18 00:55 Urine Glucose Negative mg/dL (Negative) 07/03/18 00:55 Patient ABO/Rh A Positive 07/02/18 11:25 Antibody Screen Negative 07/02/18 11:25 Crossmatch See Detail 07/02/18 11:25 EKG: HR 65, RBBB with L bifascicular block, dynamic changes with direction of QRS complexes in leads V3-V6.
--- NOTE | 2018-07-03 20:31 | PDOC.CMIN ---
Care Management Initial Assess REASON FOR HOSPITALIZATION:: Anemia, chest pain, CHF PAST MEDICAL HISTORY/PAST SURGICAL HISTORY:: Abdominal aortic aneurysm, bilat foot amputation, AFIB, bilat [place], chronic pain, CAD, chronic renal disease, COPD, CVA, Depression, dystrophic nail, folate deficiency anemia, former smoker, heart failure with preserved ejection fraction, hemiparesis, renal stent(s), mitral regurgitation, peripheral angiopathy due to DM, pneumonia, HCAP, pulmonary hypertension, PVD, recurrent falls, renal artery stenosis, tricuspid regurgitation, Type 2 DM, CABG x3 PREVIOUS FUNCTIONAL STATUS/SOCIAL/FAMILY SUPPORTS:: Manan resides at [facility]. He previously resided in [place] and moved to [place] to be nearer his son Last and REVA Sykes. 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 CURRENT FUNCTIONAL STATUS:: Manan is sitting up in his chair, pleasant in interaction. He is well known to [facility] and has had multiple admissions this year. ADVANCE DIRECTIVES:: On file at [facility]. Has patient been provided with information about the portal?: Yes Did the patient sign up for the portal?: Yes (previously) CODE STATUS:: Full Code INSURANCE COVERAGE / FINANCIAL ISSUES:: Medicare CURRENT HOME/COMMUNITY SERVICES/EQUIPMENT:: Current resident at [facility]; the facility manages his current service and equipment needs. Manan is also followed by Palliative Care. PRIMARY CARE PHYSICIAN:: Kory Sierra M.D. POTENTIAL DISCHARGE NEEDS:: Coordinated return to [facility]&. PATIENT/FAMILY EDUCATION NEEDS:: Review of instructions. ANTICIPATED BARRIERS TO DISCHARGE:: None identified. TRANSPORTATION:: [facility] and [facility] w/c van. PLAN:: Manan will continue to be closely monitored and may have upper endoscopy when medically stable to r/o upper GI bleed. He will return to [facility] when medically ready per MD. He will transport via W/C van provided by the facility. Readmission - Within the Past 30 Days Yes or No: Y - Date of First Admission Date of 1st Admission: 06/05/18 - Date of this Admission Date of Admission: 07/02/18 - Assessment for Readmission Summary of readmission circumstances, based upon interviews: Likely unrelated to previous admission; admitted from [facility] for chest pain with associated shortness of breath and melanotic stools. He was found to have a hemoglobin 7.7 and was transfused 1 unit of packed cells, and admitted for further workup for his anemia. His previous admission was central to HCAP and Anemia; he is chronically anemic, with multiple medical conditions.
[2018-07-03] MEDS: diphenhydrAMINE 25 MG CAP PO (20:32)
[2018-07-03] MEDS: Acetaminophen 325 MG TAB 650 MG PO (20:32)
--- NOTE | 2018-07-03 20:57 | INITIAL_ITS ---
Care Management Initial Assess REASON FOR HOSPITALIZATION:: Anemia, chest pain, CHF PAST MEDICAL HISTORY/PAST SURGICAL HISTORY:: Abdominal aortic aneurysm, bilat foot amputation, AFIB, bilat [place], chronic pain, CAD, chronic renal disease, COPD , CVA, Depression, dystrophic nail, folate deficiency anemia, former smoker, heart failure with preserved ejection fraction, hemiparesis, renal stent(s), mitral regurgitation, peripheral angiopathy due to DM, pneumonia, HCAP, pulmonary hypertension, PVD, recurrent falls, renal artery stenosis, tricuspid regurgitation, Type 2 DM, CABG x3 PREVIOUS FUNCTIONAL STATUS/SOCIAL/FAMILY SUPPORTS:: Manan resides at [facility]. He previously resided in [place] and moved to [place] to be nearer his son Last and REVA Sykes. 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 CURRENT FUNCTIONAL STATUS:: Manan is sitting up in his chair, pleasant in interaction. He is well known to [facility] and has had multiple admissions this year. ADVANCE DIRECTIVES:: On file at [facility]. Has patient been provided with information about the portal?: Yes Did the patient sign up for the portal?: Yes (previously) CODE STATUS:: Full Code INSURANCE COVERAGE / FINANCIAL ISSUES:: Medicare CURRENT HOME/COMMUNITY SERVICES/EQUIPMENT:: Current resident at [facility]; the facility manages his current service and equipment needs. Manan is also followed by Palliative Care. PRIMARY CARE PHYSICIAN:: Kory Sierra M.D. POTENTIAL DISCHARGE NEEDS:: Coordinated return to [facility]&. PATIENT/FAMILY EDUCATION NEEDS:: Review of instructions. ANTICIPATED BARRIERS TO DISCHARGE:: None identified. TRANSPORTATION:: [facility] w[facility]c van. PLAN:: Manan will continue to be closely monitored and may have upper endoscopy when medically stable to r/o upper GI bleed. He will return to [facility] when medically ready per MD. He will transport via W/C van provided by the facility. Readmission - Within the Past 30 Days Yes or No: Y - Date of First Admission Date of 1st Admission: 06/05/18 - Date of this Admission Date of Admission: 07/02/18 - Assessment for Readmission Summary of readmission circumstances, based upon interviews: Likely unrelated to previous admission; admitted from [facility] for chest pain with associated shortness of breath and melanotic stools. He was found to have a hemoglobin 7.7 and was transfused 1 unit of packed cells, and admitted for further workup for his anemia. His previous admission was central to HCAP and Anemia; he is chronically anemic, with multiple medical conditions.
[2018-07-03] MEDS: Insulin Glargine 300 UNITS/3 ML PEN 10 UNITS SC (21:14)
--- NOTE | 2018-07-03 23:39 | W.CARDCONSUL ---
Date of service: 07/03/18 Time of Service: 16:30 Assessment and Plan (1) Chest pain: Current visit: Yes Status: Acute (2) Symptomatic anemia: Current visit: Yes Status: Acute (3) Atrial fibrillation: Current visit: No Status: Chronic (4) Hypertension: Current visit: No Status: Chronic (5) Diabetes mellitus: Current visit: No Status: Chronic (6) CAD (coronary artery disease): Current visit: Yes Status: Chronic (7) GI bleed: Current visit: Yes Status: Acute (8) Epigastric pain: Current visit: Yes Status: Acute 67-year-old man with CAD s/p MD/CABG x3 08/2017 (at [place], [place], Dr. 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 Now presented with acute onset R chest pain/epigastric pain and shortness of breath. Found to have significant anemia with a hemoglobin of 7.7. Troponin remained negative x3. Shortness of breath and subtle T wave changes on EKG resolved with transfusion of 1 unit PRBC. Taken together, this is more consistent with demand ischemia caused by severe anemia rather than an acute coronary syndrome. While part of his chest pain could have been caused by demand ischemia, the persistence of a heartburn-like chest/epigastric discomfort today appears to be more consistent with a GI pathology like erosive gastritis or gastric/duodenal ulcer. In view of his acute bleeding situation, I would recommend holding his Eliquis and also avoid other forms of anticoagulation until the source of his bleeding has been elucidated. In the meantime I would recommend to transfuse at least 1 more unit of PRBC. He appears stable enough to undergo EGD without further cardiac risk stratification. Discussed with Dr. Griffin. 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 He was brought to the [facility] ED from [facility] with acute onset chest pain and shortness of breath. A cardiology consult was requested by Dr. Daria Griffin for management of chest pain. The patient reports that he woke up with chest pain and increased SOB on Sunday, felt like heartburn, which lingered all weekend. Pain is described as achy and burning, R parasternal and epigastric, with some radiation to the R shoulder. Lying down made it worse. He had been recurrently dizzy in the previous week. He also gets nauseated when he lays down, denies vomiting or any abdominal pain. He remembers one dark bowel movement a few days ago. Workup in the ED found him to be anemic with a hemoglobin of 7.7. Troponin was negative. EKG showed sinus rhythm with right bundle branch block, left anterior fascicular block and biphasic T waves in I, V4-V6. He received a transfusion of 1 unit of pRBCs. Troponins remain negative and follow-up EKGs showed normalization of the previously described T wave changes. On evaluation today, he feels much better, with reduced shortness of breath. However, he still has lingering epigastric and right parasternal pain. He points out that this feels quite different from the situation in August 2017, when he had his MD which felt like an elephant falling on my chest. He denies palpitations, syncope, orthopnea, PND, edema, fevers, chills. He reports that his toes turned black a few months after his CABG surgery and required amputation. Subsequent wound healing difficulties required follow-up amputation of metatarsals. Data review: Echocardiogram 11/2017: Normal LVEF, 55-60%, moderate LVH, no regional wall motion abnormalities, findings consistent with diastolic dysfunction and elevated filling pressures, mild MR, mild to moderate TR, mildly elevated PA pressure. Review of Systems Review of Systems All systems reviewed & are unremarkable except as noted in HPI and below [facility] Medical History Chronic renal disease (Chronic) Abdominal aortic aneurysm (Chronic) Peripheral angiopathy due to DM (Chronic) CVA, old, alterations of sensations (Chronic) Pulmonary hypertension (Chronic) Tricuspid regurgitation (Chronic) Mitral regurgitation (Chronic) Atrial fibrillation (Chronic) Heart failure with preserved ejection fraction (Chronic) Anticoagulant long-term use (Acute) Bilateral hearing loss (Acute) Dystrophic nail (Acute) Folate deficiency anemia (Acute) Former smoker (Acute) Hemiparesis affecting left side as late effect of cerebrovascular accident (Acute) History of amputation of great toe of both feet (Acute) Recurrent falls (Acute) CAD (coronary artery disease) (Chronic) COPD (chronic obstructive pulmonary disease) (Chronic) CVA (cerebral vascular accident) (Chronic) Chronic pain (Chronic) Depression (Chronic) PVD (peripheral vascular disease) (Chronic) Renal artery stenosis (Chronic) 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) Amputation foot, bilat (Resolved) History of stent insertion of renal artery (Resolved) Pneumonia (Resolved) Social History 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 Smoking/Tobacco Use Status: Former Tobacco Use how long ago did patient quit smokin alcohol intake: former details: Heavy alcohol use in the past, quit a few years ago substance use type: does not use Surgical History History of amputation of great toe of both feet (Resolved) Hx of CABG (Chronic 2017) S/P CABG x 3 (Resolved) Exam Const General: cooperative, comfortable and no acute distress Orientation: alert, awake and oriented x3 HENMT Head: normal to inspection, normocephalic and atraumatic Ears: hearing grossly normal bilaterally and external ears normal General nose exam: external nose normal Mouth: moist mucous membranes Teeth and gingiva: poor dentition Eyes Eyelids: eyelids normal Conjunctivae: conjunctivae normal Sclera: sclerae normal Neck Neck: normal visual inspection, supple and no JVD Carotids: normal carotid upstroke and no bruits Chest Chest: other Resp Effort & Inspection: normal respiratory effort Auscultation: clear to auscultation bilaterally Cardio Rate: regular rate Rhythm: regular rhythm Heart Sounds: S1 normal, S2 normal, no gallops, no murmurs and no rubs Bruits: no abdominal aortic bruits and no renal bruits Pulses: radial pulses present, popliteal pulses present and posterior tibial pulses present GI Inspection: non-distended Palpation: soft, no guarding, no hepatomegaly and tender in the epigastrum Auscultation: normal bowel sounds Skin General skin exam: no rashes or lesions noted and dry skin Neuro General: alert, awake, oriented x3 and gait normal Cognition: normal cognition Speech: speech normal Extrem General: no clubbing, cyanosis or edema Right lower extremity: foot Details: other (Status post transmetatarsal amputation) Left lower extremity: foot Details: other (Status post transmetatarsal amputation) Psych Mental Status: mental status grossly normal Mood: congruent mood Affect: normal affect Attitude: cooperative Thought Process: normal Thought Content: normal Insight: insight good Results Last Vital Signs Temp 36.1 C L 07/03/18 23:36 Pulse 68 07/03/18 23:36 Resp 21 07/03/18 23:36 BP 142/62 H 07/03/18 23:36 Pulse Ox 96 07/03/18 23:36 Labs : 07/04/18 06:30 07/04/18 06:30 Laboratory Results - last 24 hr 07/02/18 07/03/18 07/03/18 11:25 00:55 06:25 WBC RBC Hgb Hct MCV MCH MCHC RDW Plt Count MPV Sodium 138 Potassium 3.6 Chloride 100 Carbon Dioxide 30.6 Anion Gap 7.4 BUN 26 H Creatinine 1.53 H Estimated GFR/1.73 m2 45.77 Glucose 106 H D Calcium 9.1 Magnesium 2.2 Total Bilirubin Conjugated Bilirubin AST ALT Alkaline Phosphatase Troponin I 0.06 Total Protein Albumin TSH 4.80 H Free T4 0.95 Urine Color Yellow Urine Clarity Sl cloudy Urine pH 7.0 Ur Specific [place] 1.015 Urine Protein Trace H Urine Ketones Negative Urine Blood Moderate H Urine Nitrite Negative Urine Bilirubin Negative Urine Urobilinogen 1.0 H Ur Leukocyte Esterase Negative Urine RBC >50 H Urine WBC 0-2 Ur Epithelial Cells Rare Urine Crystals Negative Urine Bacteria Rare Urine Casts Negative Urine Mucus Negative Ur Culture Indicated? No Urine Glucose Negative Patient ABO/Rh A Positive Antibody Screen Negative Crossmatch See Detail 07/03/18 07/03/18 07/03/18 06:25 06:25 09:38 WBC 3.87 L RBC 3.71 L Hgb 8.9 L Hct 28.9 L MCV 77.9 L MCH 24.0 L MCHC 30.8 L RDW 18.2 H Plt Count 275 MPV 8.4 Sodium Potassium Chloride Carbon Dioxide Anion Gap BUN Creatinine Estimated GFR/1.73 m2 Glucose Calcium Magnesium Total Bilirubin 0.5 Conjugated Bilirubin 0.15 AST 23 ALT 29 Alkaline Phosphatase 115 Troponin I 0.05 Total Protein 6.5 Albumin 3.1 L TSH Free T4 Urine Color Urine Clarity Urine pH Ur Specific [place] Urine Protein Urine Ketones Urine Blood Urine Nitrite Urine Bilirubin Urine Urobilinogen Ur Leukocyte Esterase Urine RBC Urine WBC Ur Epithelial Cells Urine Crystals Urine Bacteria Urine Casts Urine Mucus Ur Culture Indicated? Urine Glucose Patient ABO/Rh Antibody Screen Crossmatch 07/03/18 13:15 WBC RBC Hgb Hct MCV MCH MCHC RDW Plt Count MPV Sodium Potassium Chloride Carbon Dioxide Anion Gap BUN Creatinine Estimated GFR/1.73 m2 Glucose Calcium Magnesium Total Bilirubin Conjugated Bilirubin AST ALT Alkaline Phosphatase Troponin I 0.06 Total Protein Albumin TSH Free T4 Urine Color Urine Clarity Urine pH Ur Specific [place] Urine Protein Urine Ketones Urine Blood Urine Nitrite Urine Bilirubin Urine Urobilinogen Ur Leukocyte Esterase Urine RBC Urine WBC Ur Epithelial Cells Urine Crystals Urine Bacteria Urine Casts Urine Mucus Ur Culture Indicated? Urine Glucose Patient ABO/Rh Antibody Screen Crossmatch Meds Home Medications Medication Instructions Recorded Confirmed Type amiodarone [Cordarone] 200 mg PO QAM 09/27/17 07/02/18 History amlodipine 10 mg PO QAM 09/27/17 07/02/18 History aspirin 81 mg PO QAM 09/27/17 07/02/18 History atorvastatin [Lipitor] 40 mg PO HS 09/27/17 07/02/18 History fluoxetine 40 mg PO BID 09/27/17 07/02/18 History furosemide 40 mg PO DAILY 09/27/17 07/02/18 History apixaban [Eliquis] 5 mg PO BID 03/07/18 07/02/18 History insulin glargine [Lantus Solostar 10 unit SUB-Q HS 03/07/18 07/02/18 History U-100 Insulin] potassium chloride 40 meq PO QAM 03/07/18 07/02/18 History melatonin 3 mg PO HS 03/13/18 07/02/18 History gabapentin 4 cap PO QID 03/14/18 07/02/18 History glucagon (human recombinant) 1 mg IM Q15M PRN 03/14/18 07/02/18 History [Glucagon Emergency Kit (human)] acetaminophen 650 mg PO Q6H 06/05/18 07/02/18 History albuterol sulfate 2.5 mg INHALATION Q4H PRN 06/05/18 07/02/18 History bisacodyl [Dulcolax (bisacodyl)] 10 mg VT DIRECTED PRN 06/05/18 07/02/18 History hydromorphone 2 mg PO Q4H PRN 06/05/18 07/02/18 History isosorbide mononitrate 30 mg PO DAILY 06/05/18 07/02/18 History lorazepam 0.5 mg PO Q8H PRN PRN 06/05/18 07/02/18 History losartan 25 mg PO DAILY 06/05/18 07/02/18 History magnesium hydroxide [Milk of 30 ml PO PRN PRN 06/05/18 07/02/18 History Magnesia] metoclopramide HCl [Reglan] 10 mg PO QID 06/05/18 07/02/18 History multivitamin [Multiple Vitamins] 1 tab PO QAM 06/05/18 07/02/18 History sodium phosphates [Fleet Enema] 197 ml VT DIRECTED PRN 06/05/18 07/02/18 History omeprazole 40 mg PO DAILY #30 cap 06/10/18 07/02/18 Rx alum-mag hydroxide-simeth [Maalox 30 ml PO QID PRN 07/02/18 07/02/18 History Advanced] carvedilol [Coreg] 12.5 mg PO BID 07/02/18 07/02/18 History hydralazine 75 mg PO TID 07/02/18 07/02/18 History Allergies Allergy/AdvReac Type Severity Reaction Status Date / Time enalaprilat [From Vasotec] Allergy Severe Hives Unverified 06/05/18 18:14 Latex, Natural Rubber Allergy Intermediate Skin Rash Unverified 06/05/18 18:14 sertraline AdvReac Severe pychosis Unverified 06/05/18 18:14 codeine AdvReac Nausea Unverified 06/05/18 18:14
[2018-07-04] VITALS (15 sets, daily range): BP systolic 146–184; BP diastolic 58–81; PULSE 60–67; RESP 14–19; TEMP 36.2–37.3; O2SAT 88–99
[2018-07-04] MEDS: hydrALAZINE 25 MG TAB 100 MG PO ×2 (00:17→17:36)
[2018-07-04] MEDS: Normal Saline Flush 10 ML SYR IVP ×7 (02:28→17:35)
[2018-07-04] MEDS: Pantoprazole 40 MG VIAL IVP ×2 (07:29→17:36)
[2018-07-04 07:32] LABS: Anion Gap 5.7 mmol/L (3-11); BUN 25 mg/dL (7-18); CO2 30.3 mmol/L (21.0-32.0); CREATININE 1.56 mg/dL (0.70-1.30); Calcium 8.7 mg/dL (8.5-10.1); Chloride 104 mmol/L (98-107); Estimated GFR 44.75 (mL/min/1.73m2); Glucose 108 mg/dL (70-100); HCT 34.3 % (40.0-50.0); HGB 10.7 g/dL (13.5-17.5); Magnesium 2.2 mg/dL (1.8-2.4); Mean Corp. HGB Concentration 31.2 g/dL (32.0-36.0); Mean Corpuscular Hemoglobin 24.6 pg (27.0-33.0); Mean Corpuscular Volume 78.9 fL (80-95); Mean Platelet Volume 8.7 fL (8.0-11.0); Platelet Count 265 x1000/uL (130-400); Potassium 3.7 mmol/L (3.5-5.1); RBC 4.35 m/cumm (4.50-6.00); RBC Distribution Width 18.4 % (11.8-14.1); Sodium 140 mmol/L (136-145); White Blood Cell Count 3.77 k/cumm (4.4-10.8)
[2018-07-04] MEDS: Metoprolol 5 MG/5 ML VIAL IVP (07:50)
--- NOTE | 2018-07-04 08:40 | DM INPTCON_ITS ---
DESCRIPTION/ASSESSMENT: Appreciate diabetes consult for Mr. Phillip who is hospitalized with GI Bleed. He resides at [facility]. A1c 7.6 BMI 32 GFR 45 Mr. Phillip is medically managed for diabetes with 10u glargine which is continued here. In addition, he is receiving insulin correction at the sensitive level. Blood sugars 115-308. Blood sugars elevated at bedtime, recovered by morning. He was NPO yesterday until supper when he had 48grams carbohydrate. Blood sugars steady at goal of 140-180 during the day on 1 unit insulin. INTERVENTION: Given that he resides at [facility] who oversee his diet and medications, no intervention suggested at this time. If blood sugars increase consistently after a meal, adding mealtime insulin would be prudent at 1 unit to cover 15 grams carbohydrate. PLAN: Will follow blood sugars
[2018-07-04] MEDS: Insulin Aspart 300 UNITS/3 ML PEN SC ×2 (09:01→17:35)
[2018-07-04] MEDS: Bacitracin 1 PACKET TP (09:24)
[2018-07-04] MEDS: Furosemide 40 MG/4 ML VIAL IV ×2 (09:45→17:00)
--- NOTE | 2018-07-04 10:54 | W.PM.PROGNOT ---
Assessment and Plan (1) GI bleed: Current visit: Yes Status: Acute Patient seen by Cardiology. No note in the computer. Per Hospitalist patient cleared by Cardiology for EGD. A\\ High risk patient for EGD today. He has hx of heart burn/GERD. Pain on admission was RUQ/Epigastric. P\\ EGD under MAC sedation Risks, benefits and complications were reviewed with the patient. Complications include but are not limited to bleeding, pain, perforation, aspiration, sore throat, heart attack and . Questions were entertained and answered to the patient's satisfaction and he wished to proceed. No guarantees were given or implied. Subjective Interval history since last seen: Mr. Phillip tells me that he is not feeling well. He feels tired and weak. He denies any chest pain at this time. He is hungry and is asking for food. Exam Const General: comfortable Resp Effort & Inspection: normal respiratory effort Auscultation: diminished lung sounds (bilateral bases) Cardio Rate: regular rate Rhythm: regular rhythm GI Palpation: soft and nontender Objective Objective Clinical Data: Abnormal lab results 07/02/18 07/04/18 07/04/18 Range/Units 11:25 06:30 06:30 WBC 3.77 L (4.4-10.8) k/cumm RBC 4.35 L (4.50-6.00) m/cumm Hgb 10.7 L (13.5-17.5) g/dL Hct 34.3 L (40.0-50.0) % MCV 78.9 L (80-95) fL MCH 24.6 L (27.0-33.0) pg MCHC 31.2 L (32.0-36.0) g/dL RDW 18.4 H (11.8-14.1) % BUN 25 H (7-18) mg/dL Creatinine 1.56 H (0.70-1.30) mg/dL Glucose 108 H (70-100) mg/dL Crossmatch See Detail Vital Signs Temperature 99.1 F 07/04/18 08:07 Temperature Source Tympanic 07/04/18 08:07 Pulse 62 07/04/18 08:20 Pulse Rhythm Regular 07/04/18 09:05 Pulse 67 07/02/18 13:20 Respiratory Rate 19 07/04/18 08:07 Respiratory Effort 07/04/18 09:05 Respiratory Depth Normal 07/04/18 09:05 Respiratory Pattern Normal 07/04/18 09:05 Blood Pressure 168/75 H 07/04/18 08:20 Blood Pressure Mean 79 07/02/18 13:18 Pulse Oximetry 92 L 07/04/18 08:07 Oxygen Delivery Method Nasal Cannula 07/04/18 08:07 Oxygen Flow Rate 1 07/04/18 08:07 Fraction of Inspired Oxygen (FIO2) 91 07/04/18 02:56 Pain Level 0 07/03/18 11:12 Comment 07/03/18 08:10 Intake & Output 07/03/18 07/03/18 07/04/18 11:59 23:59 11:59 Intake Total 840 / 840 1136 / 1136 325 / 325 Output Total 200 / 200 1050 / 1050 700 / 700 Balance 640 / 640 86 / 86 -375 / -375 Weight 211 lb 13.828 oz Intake: IV Oral 830 / 830 810 / 810 Blood Product 326 / 326 315 / 315 Rbc Leuko Reduced Unit 315 / 315 [id number] Rbc Leuko Reduced Unit 326 / 326 [id number] Output: Urine 200 / 200 1050 / 1050 700 / 700 Other: Urine Color Yellow Yellow Pale Yellow Urine Appearance Clear Clear Clear Urine Odor Normal Normal None Comment soaked the diaper and the bed. then used urinal Stool Size Large Stool Characteristics Soft Formed Voiding Methods Diaper Urinal Urinal Incontinent Laboratory Results WBC 3.77 k/cumm (4.4-10.8) L 07/04/18 06:30 RBC 4.35 m/cumm (4.50-6.00) L 07/04/18 06:30 Hgb 10.7 g/dL (13.5-17.5) L 07/04/18 06:30 Hct 34.3 % (40.0-50.0) L 07/04/18 06:30 MCV 78.9 fL (80-95) L 07/04/18 06:30 MCH 24.6 pg (27.0-33.0) L 07/04/18 06:30 MCHC 31.2 g/dL (32.0-36.0) L 07/04/18 06:30 RDW 18.4 % (11.8-14.1) H 07/04/18 06:30 Plt Count 265 x1000/uL (130-400) 07/04/18 06:30 MPV 8.7 fL (8.0-11.0) 07/04/18 06:30 Immature Gran % 0.2 07/02/18 11:25 Neutrophils % 73.3 07/02/18 11:25 Lymphocytes % 17.2 07/02/18 11:25 Monocytes % 7.2 07/02/18 11:25 Eosinophils % 1.9 07/02/18 11:25 Basophils % 0.2 07/02/18 11:25 Absolute Neutrophils 3.14 k/cumm (1.2-6.7) 07/02/18 11:25 Absolute Lymphocytes 0.74 k/cumm (1.2-3.4) L 07/02/18 11:25 Absolute Monocytes 0.31 k/cumm (0.11-0.7) 07/02/18 11:25 Absolute Eosinophils 0.08 k/cumm (0.0-0.7) 07/02/18 11:25 Absolute Basophils 0.01 k/cumm (0.0-0.2) 07/02/18 11:25 PT 10.1 sec (9.3-10.8) 07/02/18 11:25 INR 1.0 (1.0-3.5) 07/02/18 11:25 Sodium 140 mmol/L (136-145) 07/04/18 06:30 Potassium 3.7 mmol/L (3.5-5.1) 07/04/18 06:30 Chloride 104 mmol/L (98-107) 07/04/18 06:30 Carbon Dioxide 30.3 mmol/L (21.0-32.0) 07/04/18 06:30 Anion Gap 5.7 mmol/L (3-11) 07/04/18 06:30 BUN 25 mg/dL (7-18) H 07/04/18 06:30 Creatinine 1.56 mg/dL (0.70-1.30) H 07/04/18 06:30 Estimated GFR/1.73 m2 44.75 (mL/min/1.73m2) 07/04/18 06:30 Glucose 108 mg/dL (70-100) H 07/04/18 06:30 Calcium 8.7 mg/dL (8.5-10.1) 07/04/18 06:30 Magnesium 2.2 mg/dL (1.8-2.4) 07/04/18 06:30 Total Bilirubin 0.5 mg/dL (0.2-1.0) 07/03/18 06:25 Conjugated Bilirubin 0.15 mg/dL (0.00-0.20) 07/03/18 06:25 AST 23 U/L (15-37) 07/03/18 06:25 ALT 29 U/L (12-78) 07/03/18 06:25 Alkaline Phosphatase 115 U/L (46-116) 07/03/18 06:25 Troponin I 0.06 ng/mL (0.00-0.06) 07/03/18 13:15 NT-Pro-B Natriuret Pep 2857 pg/mL (-299) H 07/02/18 11:25 Total Protein 6.5 g/dL (6.4-8.2) 07/03/18 06:25 Albumin 3.1 g/dL (3.4-5.0) L 07/03/18 06:25 TSH 4.80 uIU/mL (0.358-3.74) H 07/03/18 06:25 Free T4 0.95 ng/dL (0.76-1.46) 07/03/18 06:25 Urine Color Yellow (Yellow) 07/03/18 00:55 Urine Clarity Sl cloudy 07/03/18 00:55 Urine pH 7.0 (5-8) 07/03/18 00:55 Ur Specific [place] 1.015 (1.005-1.025) 07/03/18 00:55 Urine Protein Trace mg/dL (Negative) H 07/03/18 00:55 Urine Ketones Negative mg/dL (Negative) 07/03/18 00:55 Urine Blood Moderate (Negative) H 07/03/18 00:55 Urine Nitrite Negative (Negative) 07/03/18 00:55 Urine Bilirubin Negative (Negative) 07/03/18 00:55 Urine Urobilinogen 1.0 EU/dL (Up TO 0.2) H 07/03/18 00:55 Ur Leukocyte Esterase Negative (Negative) 07/03/18 00:55 Urine RBC >50 (0-2) H 07/03/18 00:55 Urine WBC 0-2 HPF (0-5) 07/03/18 00:55 Ur Epithelial Cells Rare HPF (Negative) 07/03/18 00:55 Urine Crystals Negative HPF (Negative) 07/03/18 00:55 Urine Bacteria Rare HPF (Negative) 07/03/18 00:55 Urine Casts Negative LPF (Negative) 07/03/18 00:55 Urine Mucus Negative (Negative) 07/03/18 00:55 Ur Culture Indicated? No 07/03/18 00:55 Urine Glucose Negative mg/dL (Negative) 07/03/18 00:55 Patient ABO/Rh A Positive 07/02/18 11:25 Antibody Screen Negative 07/02/18 11:25 Crossmatch See Detail 07/02/18 11:25
--- NOTE | 2018-07-04 11:20 | PDOC.CMPRO ---
- If Service Date Differs Date of service: 07/04/18 Time of Service: 11:20 Care Management Progress Note S/O: Manan is sitting up in his chair this morning when this narrative writer visits. He is scheduled for an EGD today with Dr. Flores and is NPO at this time. Manan states that he is hungry and wanting to eat. No change in DC plan at this time. A: 67 y/o male admitted 07/02/18 for anemia, chest pain. P: EGD today. Manan will return to [facility] once medically cleared. He will transport via [facility] w/c van.
--- NOTE | 2018-07-04 11:41 | PT.INTREAT ---
Date of service: 07/04/18 Time of Service: 09:31 PT Notes Inpatient Physical Therapy Treatment Note Date: 07/04/18 PRECAUTIONS: Fall precautions SUBJECTIVE: Pt wanting to get up to chair. OBJECTIVE: Pain: no c/o pain Bed Mobility/Transfers: * pt does not have post op shoes in hospital, wanting to wear hospital socks bilateral feet Supine-sit: independent Sit-stand: SBA with FWW Bed-chair: SBA with FWW Stand-sit: SBA Gait: CGA with FWW 15ft. Slow step through gait pattern with decreased stride and [place]. Gait belt used for safety as patient does not have post op shoes at hospital. Pt left up in chair with legs elevated. Balance: Static Sitting: normal Dynamic Sitting: normal Static Standing: fair Dynamic Standing: poor/ fair with FWW ASSESSMENT: Pt with good strength with transfers and gait with FWW short distances. Could progress gait distance, will need to obtain post op shoes for protecting feet to progress gait mobility. PLAN: Progress transfers Progress gait TREATMENT CODE/TIME: 10min TAx1 9:30 Netta Maya PT
--- NOTE | 2018-07-04 11:42 | CMPROGNOTE_ITS ---
- If Service Date Differs Date of service: 07/04/18 Time of Service: 11:20 Care Management Progress Note S/O: Manan is sitting up in his chair this morning when this clinical writer visits. He is scheduled for an EGD today with Dr. Flores and is NPO at this time. Manan states that he is hungry and wanting to eat. No change in DC plan at this time. A: 67 y/o male admitted 07/02/18 for anemia, chest pain. P: EGD today. Manan will return to [facility] once medically cleared. He will transport via [facility] w/c van.
[2018-07-04] MEDS: Lactated Ringers 1,000 ML 100 ML IV ×2 (13:41→22:23)
--- NOTE | 2018-07-04 14:20 | ROE_ITS ---
Operative Note DATE OF PROCEDURE: 07/04/18 PRE-OP DIAGNOSIS: GI bleed on anticoagulation POST-OP DIAGNOSIS: other (Duodnitis with duodenal ulcer, no active bleeding) PROCEDURE: EGD SURGEON: Melyssa Flores ANESTHESIA: MAC ESTIMATED BLOOD LOSS: 0 PATHOLOGY: none sent COMPLICATIONS: None Patient was transported to: PACU Patient's condition: stable Indications: Mr. Phillip was admitted with chest pain and history of dark stool. HAs a history of GERD. EGD was requested and patient was cleared by anesthesia. Findings: peptic duodenitis and small duodenal ulcers. No active bleeding Procedure Description: After informed consent was obtained the patient was taken to the procedure room and monitors were applied. The patients name, , allergies, metal in his body, procedure to be done, fire risk and patient co- morbidities and anesthesia concerns were reviewed. A bit block was placed and the patient was sedated. Once sedated and comfortable the gastroscope was introduced and advanced through the oropharyn which was grossly intact into the esophagus. The esophagus was normal. Z line was at 35 cm. There was no hiatal hernia noted. The scope was advanced into the stomach, through the pylori to the 3rd portion of the duodenum. The 3rd and 2nd portion were normal. In the 1st portion there was inflammation as well as 2 small ulcers. There was no active bleeding. The scope was retracted into the stomach. There was minimal inflammation of the stomach. No ulcers noted in the stomach. The scope was retroflexed and the cardia and fundus were normal. There again was no hiatal hernia noted. The scope was straightened and retracted and removed. The patient was woken up and taken back to recovery before going back to Med/Surg in stable condition. The duodenal ulcers are the suspected area of bleeding. recommend patient continue on BID omeprazole and Carafate QID.
--- NOTE | 2018-07-04 14:20 | NUR.NOTE ---
Patient returned from EGD procedure. No events reported from [employer], patient drowsy but awake. Per verbal report, patient scoped, no biopsy taken, duodenitis and duodenal ulcer observed, no active bleeding. Patient VSS at this time, NC titrated down to 2L NC. Nursing Note:
--- NOTE | 2018-07-04 14:42 | PT.INNT ---
Date of service: 07/04/18 Time of Service: 14:42 PT Notes 07/04/18 Pt reports that he is just waking up right now and he doesn't feel like participating in PT this afternoon.
[2018-07-04] MEDS: Metoclopramide 10 MG TAB PO ×2 (17:00→19:48)
[2018-07-04] MEDS: Gabapentin 400 MG CAP PO ×2 (17:00→19:49)
[2018-07-04] MEDS: Sucralfate 1 GM TAB PO ×2 (17:00→22:07)
--- NOTE | 2018-07-04 18:00 | PGE_ITS ---
Assessment and Plan (1) GI bleed: Current visit: Yes Status: Acute EGD reveals a duodenal ulcer which likely bled. I switched PPI to PO BID; continue carafate. Will need to be off anticoagulation/asa at least temporarily while ulcer is healing. (2) Symptomatic anemia: Current visit: Yes Status: Acute S/p transfusion of a total of 3 units of pRBC's . H/H stable; symptoms resolved. Continue to monitor H/H. (3) Chest pain: Current visit: Yes Status: Acute due to symptomatic anemia. No antiplatelet tx at this time due to GI bleeding. (4) Bilateral pleural effusion: Current visit: Yes Status: Acute Continue diuresis. Asymptomatic at this time. (5) Congestive heart failure (CHF): Current visit: No Status: Chronic EF 55-60% on echo 11/2017, Diastolic dysfunction. Continue to diurese, monitoring kidney function, strict I/O's, daily weights. (6) Atrial fibrillation: Current visit: No Status: Chronic Paroxysmal, presently in SR. Continue outpatient management with the exception of anticoagulation. (7) CVA, old, alterations of sensations: Current visit: No Status: Chronic Continue PT/OT (8) CAD (coronary artery disease), bypass graft transplanted heart: Current visit: No Status: Chronic No ACS. Continue montioring H/H. Target Hgb 10. (9) Insulin dependent diabetes mellitus: Current visit: Yes Status: Chronic Continue outpatient glargine; add SSI for now (10) Urinary frequency: Current visit: Yes Status: Acute Monitoring for urinary retention. (11) Hypertensive urgency: Current visit: Yes Status: Acute BP's remain labile. If again this way tomorrow, increase imdur. Subjective Interval history since last seen: The patient is s/p EGD today, which revealed a nonbleading duodenal ulcer and duodenitis. He denies dizziness, chest pain, shortness of breath, nausea, vomiting. He is very hungry. Exam Narrative Exam Narrative: General: Very pleasant elderly male, pale, laying flat in bed Neurological: A&Ox3, L-sided facial weakness and hemiparesis Psychiatric: Appropriate speech pattern and content Skin: B feet (s/p amputation of all toes) dressed, dressing is clean, dry, intact; venous stasis dermatitis. HEENT: EOMI, MMM, clear oropharyns, no submandibular or cervical lymphadenopathy ; no goiter or JVD Cardiovascular: Regularly regular rhythm Lungs: coughing; breath sounds coarse, but no wheezing/rhonchi - clear Gastrointestinal: Abdomen soft, nontender, nondistended Extremities: +1 edema in BLE's; B feet s/p ampuation of all digits; dressed - clean, dry intact Objective Objective Clinical Data: Abnormal lab results 07/02/18 07/04/18 07/04/18 Range/Units 11:25 06:30 06:30 WBC 3.77 L (4.4-10.8) k/cumm RBC 4.35 L (4.50-6.00) m/cumm Hgb 10.7 L (13.5-17.5) g/dL Hct 34.3 L (40.0-50.0) % MCV 78.9 L (80-95) fL MCH 24.6 L (27.0-33.0) pg MCHC 31.2 L (32.0-36.0) g/dL RDW 18.4 H (11.8-14.1) % BUN 25 H (7-18) mg/dL Creatinine 1.56 H (0.70-1.30) mg/dL Glucose 108 H (70-100) mg/dL Crossmatch See Detail Vital Signs Temperature 36.2 C L 07/04/18 14:19 Temperature Source Temporal Artery Scan 07/04/18 14:19 Pulse 65 07/04/18 16:00 Pulse Rhythm Regular 07/04/18 09:05 Pulse 67 07/02/18 13:20 Respiratory Rate 19 07/04/18 14:19 Respiratory Effort 07/04/18 09:05 Respiratory Depth Normal 07/04/18 09:05 Respiratory Pattern Normal 07/04/18 09:05 Blood Pressure 146/76 H 07/04/18 14:19 Blood Pressure Mean 79 07/02/18 13:18 Pulse Oximetry 96 07/04/18 14:22 Oxygen Delivery Method Nasal Cannula 07/04/18 14:22 Oxygen Flow Rate 2 07/04/18 14:22 Fraction of Inspired Oxygen (FIO2) 91 07/04/18 02:56 Pain Level 0 07/03/18 11:12 Comment 07/03/18 08:10 Intake & Output 07/03/18 07/04/18 07/04/18 23:59 11:59 23:59 Intake Total 1136 / 1136 325 / 325 1280 / 1280 Output Total 1050 / 1050 1100 / 1100 700 / 700 Balance 86 / 86 -775 / -775 580 / 580 Weight 96.1 kg Intake: IV 100 / 100 Oral 810 / 810 1180 / 1180 Blood Product 326 / 326 315 / 315 Rbc Leuko Reduced Unit 315 / 315 [id number] Rbc Leuko Reduced Unit 326 / 326 [id number] Output: Urine 1050 / 1050 1100 / 1100 700 / 700 Other: Urine Color Yellow Pale Yellow Yellow Urine Appearance Clear Clear Clear Urine Odor Normal None Normal Stool Size Large Stool Characteristics Soft Formed Voiding Methods Urinal Urinal Urinal Laboratory Results WBC 3.77 k/cumm (4.4-10.8) L 07/04/18 06:30 RBC 4.35 m/cumm (4.50-6.00) L 07/04/18 06:30 Hgb 10.7 g/dL (13.5-17.5) L 07/04/18 06:30 Hct 34.3 % (40.0-50.0) L 07/04/18 06:30 MCV 78.9 fL (80-95) L 07/04/18 06:30 MCH 24.6 pg (27.0-33.0) L 07/04/18 06:30 MCHC 31.2 g/dL (32.0-36.0) L 07/04/18 06:30 RDW 18.4 % (11.8-14.1) H 07/04/18 06:30 Plt Count 265 x1000/uL (130-400) 07/04/18 06:30 MPV 8.7 fL (8.0-11.0) 07/04/18 06:30 Immature Gran % 0.2 07/02/18 11:25 Neutrophils % 73.3 07/02/18 11:25 Lymphocytes % 17.2 07/02/18 11:25 Monocytes % 7.2 07/02/18 11:25 Eosinophils % 1.9 07/02/18 11:25 Basophils % 0.2 07/02/18 11:25 Absolute Neutrophils 3.14 k/cumm (1.2-6.7) 07/02/18 11:25 Absolute Lymphocytes 0.74 k/cumm (1.2-3.4) L 07/02/18 11:25 Absolute Monocytes 0.31 k/cumm (0.11-0.7) 07/02/18 11:25 Absolute Eosinophils 0.08 k/cumm (0.0-0.7) 07/02/18 11:25 Absolute Basophils 0.01 k/cumm (0.0-0.2) 07/02/18 11:25 PT 10.1 sec (9.3-10.8) 07/02/18 11:25 INR 1.0 (1.0-3.5) 07/02/18 11:25 Sodium 140 mmol/L (136-145) 07/04/18 06:30 Potassium 3.7 mmol/L (3.5-5.1) 07/04/18 06:30 Chloride 104 mmol/L (98-107) 07/04/18 06:30 Carbon Dioxide 30.3 mmol/L (21.0-32.0) 07/04/18 06:30 Anion Gap 5.7 mmol/L (3-11) 07/04/18 06:30 BUN 25 mg/dL (7-18) H 07/04/18 06:30 Creatinine 1.56 mg/dL (0.70-1.30) H 07/04/18 06:30 Estimated GFR/1.73 m2 44.75 (mL/min/1.73m2) 07/04/18 06:30 Glucose 108 mg/dL (70-100) H 07/04/18 06:30 Calcium 8.7 mg/dL (8.5-10.1) 07/04/18 06:30 Magnesium 2.2 mg/dL (1.8-2.4) 07/04/18 06:30 Total Bilirubin 0.5 mg/dL (0.2-1.0) 07/03/18 06:25 Conjugated Bilirubin 0.15 mg/dL (0.00-0.20) 07/03/18 06:25 AST 23 U/L (15-37) 07/03/18 06:25 ALT 29 U/L (12-78) 07/03/18 06:25 Alkaline Phosphatase 115 U/L (46-116) 07/03/18 06:25 Troponin I 0.06 ng/mL (0.00-0.06) 07/03/18 13:15 NT-Pro-B Natriuret Pep 2857 pg/mL (-299) H 07/02/18 11:25 Total Protein 6.5 g/dL (6.4-8.2) 07/03/18 06:25 Albumin 3.1 g/dL (3.4-5.0) L 07/03/18 06:25 TSH 4.80 uIU/mL (0.358-3.74) H 07/03/18 06:25 Free T4 0.95 ng/dL (0.76-1.46) 07/03/18 06:25 Urine Color Yellow (Yellow) 07/03/18 00:55 Urine Clarity Sl cloudy 07/03/18 00:55 Urine pH 7.0 (5-8) 07/03/18 00:55 Ur Specific [place] 1.015 (1.005-1.025) 07/03/18 00:55 Urine Protein Trace mg/dL (Negative) H 07/03/18 00:55 Urine Ketones Negative mg/dL (Negative) 07/03/18 00:55 Urine Blood Moderate (Negative) H 07/03/18 00:55 Urine Nitrite Negative (Negative) 07/03/18 00:55 Urine Bilirubin Negative (Negative) 07/03/18 00:55 Urine Urobilinogen 1.0 EU/dL (Up TO 0.2) H 07/03/18 00:55 Ur Leukocyte Esterase Negative (Negative) 07/03/18 00:55 Urine RBC >50 (0-2) H 07/03/18 00:55 Urine WBC 0-2 HPF (0-5) 07/03/18 00:55 Ur Epithelial Cells Rare HPF (Negative) 07/03/18 00:55 Urine Crystals Negative HPF (Negative) 07/03/18 00:55 Urine Bacteria Rare HPF (Negative) 07/03/18 00:55 Urine Casts Negative LPF (Negative) 07/03/18 00:55 Urine Mucus Negative (Negative) 07/03/18 00:55 Ur Culture Indicated? No 07/03/18 00:55 Urine Glucose Negative mg/dL (Negative) 07/03/18 00:55 Patient ABO/Rh A Positive 07/02/18 11:25 Antibody Screen Negative 07/02/18 11:25 Crossmatch See Detail 07/02/18 11:25
[2018-07-04] MEDS: Carvedilol 6.25 MG TAB 12.5 MG PO (19:48)
[2018-07-04] MEDS: Pantoprazole 40 MG TABCR PO (19:49)
[2018-07-04] MEDS: FLUoxetine 20 MG CAP 40 MG PO (19:49)
[2018-07-04] MEDS: Melatonin 3 MG TAB PO (22:07)
[2018-07-04] MEDS: Atorvastatin 40 MG TAB PO (22:07)
[2018-07-04] MEDS: Insulin Glargine 300 UNITS/3 ML PEN 10 UNITS SC (22:08)
[2018-07-05] VITALS (13 sets, daily range): BP systolic 107–182; BP diastolic 51–71; PULSE 55–68; RESP 17–20; TEMP 36.4–37; O2SAT 87–97
[2018-07-05] MEDS: hydrALAZINE 25 MG TAB 100 MG PO ×3 (00:32→19:34)
[2018-07-05 07:30] LABS: HCT 33.8 % (40.0-50.0); HGB 10.6 g/dL (13.5-17.5); Mean Corp. HGB Concentration 31.4 g/dL (32.0-36.0); Mean Corpuscular Hemoglobin 24.7 pg (27.0-33.0); Mean Corpuscular Volume 78.6 fL (80-95); Mean Platelet Volume 8.7 fL (8.0-11.0); Platelet Count 278 x1000/uL (130-400); RBC Distribution Width 18.4 % (11.8-14.1); White Blood Cell Count 4.27 k/cumm (4.4-10.8)
[2018-07-05] MEDS: Lactated Ringers 1,000 ML 100 ML IV (07:30)
[2018-07-05 07:40] LABS: Anion Gap 9.5 mmol/L (3-11); BUN 20 mg/dL (7-18); CO2 29.5 mmol/L (21.0-32.0); CREATININE 1.56 mg/dL (0.70-1.30); Calcium 8.3 mg/dL (8.5-10.1); Chloride 103 mmol/L (98-107); Estimated GFR 44.75 (mL/min/1.73m2); Glucose 91 mg/dL (70-100); Potassium 3.2 mmol/L (3.5-5.1); Sodium 142 mmol/L (136-145)
[2018-07-05] MEDS: Potassium Chloride 20 MEQ TABCR 40 MEQ PO ×2 (09:08→10:47)
[2018-07-05] MEDS: Metoclopramide 10 MG TAB PO ×4 (09:08→19:34)
[2018-07-05] MEDS: Gabapentin 400 MG CAP PO ×4 (09:08→19:34)
[2018-07-05] MEDS: Pantoprazole 40 MG TABCR PO ×2 (09:09→19:35)
[2018-07-05] MEDS: amLODIPine 10 MG TAB PO (09:09)
[2018-07-05] MEDS: Carvedilol 6.25 MG TAB 12.5 MG PO ×2 (09:09→19:37)
[2018-07-05] MEDS: FLUoxetine 20 MG CAP 40 MG PO ×2 (09:09→19:33)
[2018-07-05] MEDS: Multivitamin TAB 1 TAB PO (09:09)
[2018-07-05] MEDS: Losartan 25 MG TAB 50 MG PO (09:09)
[2018-07-05] MEDS: Isosorbide Mononitrate 30 MG TABCR PO (09:09)
[2018-07-05] MEDS: Amiodarone 200 MG TAB PO (09:09)
[2018-07-05] MEDS: Sucralfate 1 GM TAB PO ×4 (09:10→22:00)
[2018-07-05] MEDS: Furosemide 40 MG/4 ML VIAL IV (09:10)
[2018-07-05] MEDS: Normal Saline Flush 10 ML SYR IVP (09:10)
--- NOTE | 2018-07-05 10:28 | PT.INDS ---
Date of service: 07/05/18 Time of Service: 10:28 PT Notes Inpatient Physical Therapy Discharge Summary Date: 07/05/18 Dates of Service: 07/03/18-07/04/18 SUBJECTIVE: NT OBJECTIVE: 07/03/18-07/04/18 Bed Mobility/Transfers: Supine-sit: independent Sit-stand: SBA with FWW Bed-chair: SBA with FWW Stand-sit: SBA Gait: CGA with FWW 15ft-20ftx2. Balance: Static Sitting: normal Dynamic Sitting: normal Static Standing: fair Dynamic Standing: poor Assessment: Pt is a 67 yr old male admitted [facility] with chest pain, bilateral pleural effusion, anemia in setting of obesity, severe peripheral artery disease, s/p bilateral transmetatarsal resections, vascular neuropathy, diabetes with diabetic neuropathy, anemia, atrial fibrillation, coronary artery disease s/p coronary artery bypass graft x 3, cerebrovascular accident with left hemiparesis, hypertension, chronic obstructive pulmonary disease, chronic kidney disease, anxiety, depression, chronic pain. Patient was seen for 2 PT visits. Progressed from CGA standing tranfers to SBA, from CGA bed-chair transfers to SBA, is CGA with FWW gait up to 20ftx2. Pt is being discharged today back to rehab facility, recommend continued PT at that settting. Goals: Goals X1 week 1. Supine-Sit independent 2. Sit-Supine independent 3. Sit-Stand SBA with FWW 4. Stand-Sit SBA 5. Bed-Chair CGA with FWW 6. Chair-Bed CGA with FWW 7. Gait CGA with FWW 20ftx2 Pt met goals # 1, 3, 4, 7 DISCHARGE RECOMMENDATIONS: Return to [facility] G Codes in the area mobility of walking and moving around: projected status GP [id number] CK Discharge status (if discharging) GP [id number] CK Netta Maya PT
--- NOTE | 2018-07-05 10:32 | INDS_ITS ---
Date of service: 07/05/18 Time of Service: 10:28 PT Notes Inpatient Physical Therapy Discharge Summary Date: 07/05/18 Dates of Service: 07/03/18-07/04/18 SUBJECTIVE: NT OBJECTIVE: 07/03/18-07/04/18 Bed Mobility/Transfers: Supine-sit: independent Sit-stand: SBA with FWW Bed-chair: SBA with FWW Stand-sit: SBA Gait: CGA with FWW 15ft-20ftx2. Balance: Static Sitting: normal Dynamic Sitting: normal Static Standing: fair Dynamic Standing: poor Assessment: Pt is a 67 yr old male admitted [facility] with chest pain, bilateral pleural effusion, anemia in setting of obesity, severe peripheral artery disease, s/p bilateral transmetatarsal resections, vascular neuropathy, diabetes with diabetic neuropathy, anemia, atrial fibrillation, coronary artery disease s/p coronary artery bypass graft x 3, cerebrovascular accident with left hemiparesis, hypertension, chronic obstructive pulmonary disease, chronic kidney disease, anxiety, depression, chronic pain. Patient was seen for 2 PT visits. Progressed from CGA standing tranfers to SBA, from CGA bed-chair transfers to SBA, is CGA with FWW gait up to 20ftx2. Pt is being discharged today back to rehab facility, recommend continued PT at that settting. Goals: Goals X1 week 1. Supine-Sit independent 2. Sit-Supine independent 3. Sit-Stand SBA with FWW 4. Stand-Sit SBA 5. Bed-Chair CGA with FWW 6. Chair-Bed CGA with FWW 7. Gait CGA with FWW 20ftx2 Pt met goals # 1, 3, 4, 7 DISCHARGE RECOMMENDATIONS: Return to [facility] G Codes in the area mobility of walking and moving around: projected status GP [id number] CK Discharge status (if discharging) GP [id number] CK Netta Maya PT
[2018-07-05] MEDS: Bacitracin 1 PACKET TP (10:47)
--- NOTE | 2018-07-05 10:47 | PDOC.CMDIS ---
- If Service Date Differs Date of service: 07/05/18 Time of Service: 10:47 LACE Index Scoring Tool - Questions: Length of Stay (in days): 2 Acuity (Admit via E.D.?): Yes Comorbidities: Congestive Heart Failure, Chronic Pulmonary Disease E.D. Visits: 7 - Answers: Total Score: 14 Risk of Readmission: High Risk Care Management Discharge Reason for Hospitalization: Anemia, chest pain, CHF Discharge Plan: Manan will return to [facility] when medically ready per MD. Anticipate patient will discharge with no services and follow up with MD at [facility]. Manan will transport via [facility] w/c van. Patient/Family Education Needs: Discharge education, any limitations, and follow up plan of care. Ask Me Three discussion.
--- NOTE | 2018-07-05 10:51 | CMDISCH_ITS ---
- If Service Date Differs Date of service: 07/05/18 Time of Service: 10:47 LACE Index Scoring Tool - Questions: Length of Stay (in days): 2 Acuity (Admit via E.D.?): Yes Comorbidities: Congestive Heart Failure, Chronic Pulmonary Disease E.D. Visits: 7 - Answers: Total Score: 14 Risk of Readmission: High Risk Care Management Discharge Reason for Hospitalization: Anemia, chest pain, CHF Discharge Plan: Manan will return to [facility] when medically ready per MD. Anticipate patient will discharge with no services and follow up with MD at [facility]. Manan will transport via [facility] w/c van. Patient/Family Education Needs: Discharge education, any limitations, and follow up plan of care. Ask Me Three discussion.
[2018-07-05] MEDS: Insulin Aspart 300 UNITS/3 ML PEN SC (12:10)
[2018-07-05] MEDS: Normal Saline 250 ML IV (14:54)
--- NOTE | 2018-07-05 15:00 | PDOC.CMPRO ---
- If Service Date Differs Date of service: 07/05/18 Time of Service: 15:00 Care Management Progress Note S/O: Manan is sitting up in his chair this morning when CM visits this afternoon. Manan denies pain but reports that he is dizzy and having ringing in his ears. CJ Ardon made aware. Manan reports that he was able to tolerate his advanced diet at lunch and is having no abdominal discomfort at this time. There was discussion of Manan returning to [facility] today, however determination was made to keep him inpatient for the weekend. A: 67 y/o male admitted 07/02/18 for anemia, chest pain. P: Manan will discharge back to [facility] when medically ready per MD. Anticipate patient will discharge with no services and follow up with MD at [facility]. Manan will transport via w/c van. CM will continue to offer support to patient and care team regarding discharge planning and disposition.
--- NOTE | 2018-07-05 18:49 | PGE_ITS ---
Assessment and Plan (1) GI bleed: Current visit: Yes Status: Acute EGD reveals a duodenal ulcer which likely bled (not bleeding during procedure). Continue BID PPI PO; continue carafate. Discussed with Dr Flores - as patient is a very high risk of stroke and cannot stay off of anticoagluation for very long, he could be tried on heparin gtt over the weekend to make sure he does not rebleed prior to transitioning to a DOAC. (2) Symptomatic anemia: Current visit: Yes Status: Acute S/p transfusion of a total of 3 units of pRBC's . H/H stable; symptoms resolved. Continue to monitor H/H. (3) Chest pain: Current visit: Yes Status: Resolved Resolved. Due to symptomatic anemia. No antiplatelet tx at this time due to GI bleeding. (4) Bilateral pleural effusion: Current visit: Yes Status: Acute Diuretics held today due to dizziness. (5) Congestive heart failure (CHF): Current visit: No Status: Chronic EF 55-60% on echo 11/2017, Diastolic dysfunction. Holding diuresis today. Continue to monitor volume status. (6) Atrial fibrillation: Current visit: No Status: Chronic Paroxysmal, presently in SR. Trial heparin gtt over the weekend to ensure the patient can tolerate anticoagulation on discharge. (7) CVA, old, alterations of sensations: Current visit: No Status: Chronic Continue PT/OT. Read discussion re anticoagulation above (8) CAD (coronary artery disease), bypass graft transplanted heart: Current visit: No Status: Chronic No ACS. Continue montioring H/H. Target Hgb 10. (9) Insulin dependent diabetes mellitus: Current visit: Yes Status: Chronic Continue basal bolus insulin (10) Urinary frequency: Current visit: Yes Status: Acute Monitoring for urinary retention. (11) Hypertensive urgency: Current visit: Yes Status: Acute patient does not tolerate BP's lower than 140's without symptoms - placing holding parameters on all BP meds. Subjective Interval history since last seen: Patient seen during episode of ringing in his ear and dizziness while sitting in the chair. His BP at the time was 107/60. He felt better with a bolus of IV fluids. He denied any chest pain, shortness of breath, nausea, vomiting. Exam Narrative Exam Narrative: General: Very pleasant elderly male, sitting in a chair Neurological: A&Ox3, L-sided facial weakness and hemiparesis Psychiatric: Appropriate speech pattern and content Skin: B feet (s/p amputation of all toes) dressed, dressing is clean, dry, intact; venous stasis dermatitis. HEENT: EOMI, MMM, clear oropharyns, no submandibular or cervical lymphadenopathy ; no goiter or JVD Cardiovascular: Regularly regular rhythm Lungs: coughing; breath sounds coarse, but no wheezing/rhonchi - clear Gastrointestinal: Abdomen soft, nontender, nondistended Extremities: +1 edema in BLE's; B feet s/p ampuation of all digits; dressed - clean, dry intact Objective Objective Clinical Data: Abnormal lab results 07/05/18 07/05/18 Range/Units 06:32 06:32 WBC 4.27 L (4.4-10.8) k/cumm RBC 4.30 L (4.50-6.00) m/cumm Hgb 10.6 L (13.5-17.5) g/dL Hct 33.8 L (40.0-50.0) % MCV 78.6 L (80-95) fL MCH 24.7 L (27.0-33.0) pg MCHC 31.4 L (32.0-36.0) g/dL RDW 18.4 H (11.8-14.1) % Potassium 3.2 L (3.5-5.1) mmol/L BUN 20 H (7-18) mg/dL Creatinine 1.56 H (0.70-1.30) mg/dL Calcium 8.3 L (8.5-10.1) mg/dL Vital Signs Temperature 37.0 C 07/05/18 16:35 Temperature Source Tympanic 07/05/18 16:35 Pulse 60 07/05/18 18:02 Pulse Rhythm Regular 07/05/18 07:49 Pulse 67 07/02/18 13:20 Respiratory Rate 18 07/05/18 16:35 Respiratory Effort Non-Labored 07/05/18 07:49 Respiratory Depth Normal 07/05/18 07:49 Respiratory Pattern Normal 07/05/18 07:49 Blood Pressure 150/56 H 07/05/18 18:02 Blood Pressure Mean 79 07/02/18 13:18 Pulse Oximetry 96 07/05/18 16:35 Oxygen Delivery Method Nasal Cannula 07/05/18 16:35 Oxygen Flow Rate 2 07/05/18 16:35 Fraction of Inspired Oxygen (FIO2) 91 07/04/18 02:56 Pain Level 0 07/05/18 11:00 Comment 07/05/18 13:26 Intake & Output 07/04/18 07/05/18 07/05/18 23:59 11:59 23:59 Intake Total 2106.667 / 2106.667 1645.000 / 0036.936 9326 / 1870 Output Total 1900 / 1900 1425 / 1425 500 / 500 Balance 206.667 / 206.667 220.000 / 280.543 3322 / 1370 Weight 92.4 kg Intake: IV 926.667 / 510.439 0311.000 / 1195.000 250 / 250 Oral 1180 / 1180 450 / 450 1620 / 1620 Output: Urine 1900 / 1900 1425 / 1425 500 / 500 Other: Urine Color Straw Yellow Yellow Urine Appearance Clear Clear Clear Urine Odor Normal None None Comment Void x1 in the urinal. Highest 54, lowest 23 Voiding Methods Urinal Urinal Urinal Laboratory Results WBC 4.27 k/cumm (4.4-10.8) L 07/05/18 06:32 RBC 4.30 m/cumm (4.50-6.00) L 07/05/18 06:32 Hgb 10.6 g/dL (13.5-17.5) L 07/05/18 06:32 Hct 33.8 % (40.0-50.0) L 07/05/18 06:32 MCV 78.6 fL (80-95) L 07/05/18 06:32 MCH 24.7 pg (27.0-33.0) L 07/05/18 06:32 MCHC 31.4 g/dL (32.0-36.0) L 07/05/18 06:32 RDW 18.4 % (11.8-14.1) H 07/05/18 06:32 Plt Count 278 x1000/uL (130-400) 07/05/18 06:32 MPV 8.7 fL (8.0-11.0) 07/05/18 06:32 Immature Gran % 0.2 07/02/18 11:25 Neutrophils % 73.3 07/02/18 11:25 Lymphocytes % 17.2 07/02/18 11:25 Monocytes % 7.2 07/02/18 11:25 Eosinophils % 1.9 07/02/18 11:25 Basophils % 0.2 07/02/18 11:25 Absolute Neutrophils 3.14 k/cumm (1.2-6.7) 07/02/18 11:25 Absolute Lymphocytes 0.74 k/cumm (1.2-3.4) L 07/02/18 11:25 Absolute Monocytes 0.31 k/cumm (0.11-0.7) 07/02/18 11:25 Absolute Eosinophils 0.08 k/cumm (0.0-0.7) 07/02/18 11:25 Absolute Basophils 0.01 k/cumm (0.0-0.2) 07/02/18 11:25 PT 10.1 sec (9.3-10.8) 07/02/18 11:25 INR 1.0 (1.0-3.5) 07/02/18 11:25 Sodium 142 mmol/L (136-145) 07/05/18 06:32 Potassium 3.2 mmol/L (3.5-5.1) L 07/05/18 06:32 Chloride 103 mmol/L (98-107) 07/05/18 06:32 Carbon Dioxide 29.5 mmol/L (21.0-32.0) 07/05/18 06:32 Anion Gap 9.5 mmol/L (3-11) 07/05/18 06:32 BUN 20 mg/dL (7-18) H 07/05/18 06:32 Creatinine 1.56 mg/dL (0.70-1.30) H 07/05/18 06:32 Estimated GFR/1.73 m2 44.75 (mL/min/1.73m2) 07/05/18 06:32 Glucose 91 mg/dL (70-100) 07/05/18 06:32 Calcium 8.3 mg/dL (8.5-10.1) L 07/05/18 06:32 Magnesium 2.0 mg/dL (1.8-2.4) 07/05/18 06:32 Total Bilirubin 0.5 mg/dL (0.2-1.0) 07/03/18 06:25 Conjugated Bilirubin 0.15 mg/dL (0.00-0.20) 07/03/18 06:25 AST 23 U/L (15-37) 07/03/18 06:25 ALT 29 U/L (12-78) 07/03/18 06:25 Alkaline Phosphatase 115 U/L (46-116) 07/03/18 06:25 Troponin I 0.06 ng/mL (0.00-0.06) 07/03/18 13:15 NT-Pro-B Natriuret Pep 2857 pg/mL (-299) H 07/02/18 11:25 Total Protein 6.5 g/dL (6.4-8.2) 07/03/18 06:25 Albumin 3.1 g/dL (3.4-5.0) L 07/03/18 06:25 TSH 4.80 uIU/mL (0.358-3.74) H 07/03/18 06:25 Free T4 0.95 ng/dL (0.76-1.46) 07/03/18 06:25 Urine Color Yellow (Yellow) 07/03/18 00:55 Urine Clarity Sl cloudy 07/03/18 00:55 Urine pH 7.0 (5-8) 07/03/18 00:55 Ur Specific [place] 1.015 (1.005-1.025) 07/03/18 00:55 Urine Protein Trace mg/dL (Negative) H 07/03/18 00:55 Urine Ketones Negative mg/dL (Negative) 07/03/18 00:55 Urine Blood Moderate (Negative) H 07/03/18 00:55 Urine Nitrite Negative (Negative) 07/03/18 00:55 Urine Bilirubin Negative (Negative) 07/03/18 00:55 Urine Urobilinogen 1.0 EU/dL (Up TO 0.2) H 07/03/18 00:55 Ur Leukocyte Esterase Negative (Negative) 07/03/18 00:55 Urine RBC >50 (0-2) H 07/03/18 00:55 Urine WBC 0-2 HPF (0-5) 07/03/18 00:55 Ur Epithelial Cells Rare HPF (Negative) 07/03/18 00:55 Urine Crystals Negative HPF (Negative) 07/03/18 00:55 Urine Bacteria Rare HPF (Negative) 07/03/18 00:55 Urine Casts Negative LPF (Negative) 07/03/18 00:55 Urine Mucus Negative (Negative) 07/03/18 00:55 Ur Culture Indicated? No 07/03/18 00:55 Urine Glucose Negative mg/dL (Negative) 07/03/18 00:55 Patient ABO/Rh A Positive 07/02/18 11:25 Antibody Screen Negative 07/02/18 11:25 Crossmatch See Detail 07/02/18 11:25
[2018-07-05] MEDS: Insulin Glargine 300 UNITS/3 ML PEN 10 UNITS SC (22:00)
[2018-07-05] MEDS: Melatonin 3 MG TAB PO (22:00)
[2018-07-05] MEDS: Atorvastatin 40 MG TAB PO (22:00)
[2018-07-06] VITALS (13 sets, daily range): BP systolic 100–188; BP diastolic 50–76; PULSE 57–89; RESP 16–20; TEMP 36.5–37.5; O2SAT 94–98
[2018-07-06] MEDS: hydrALAZINE 25 MG TAB 100 MG PO ×3 (03:10→20:06)
[2018-07-06 06:17] LABS: BUN 27 mg/dL (7-18); CREATININE 1.71 mg/dL (0.70-1.30); Calcium 8.6 mg/dL (8.5-10.1); Chloride 102 mmol/L (98-107); Estimated GFR 40.25 (mL/min/1.73m2); Glucose 109 mg/dL (70-100); Potassium 3.8 mmol/L (3.5-5.1); Sodium 138 mmol/L (136-145)
[2018-07-06 06:25] LABS: HCT 33.8 % (40.0-50.0); HGB 10.4 g/dL (13.5-17.5); Mean Corp. HGB Concentration 30.8 g/dL (32.0-36.0); Mean Corpuscular Hemoglobin 24.5 pg (27.0-33.0); Mean Corpuscular Volume 79.7 fL (80-95); Mean Platelet Volume 8.8 fL (8.0-11.0); Platelet Count 260 x1000/uL (130-400); RBC 4.24 m/cumm (4.50-6.00); RBC Distribution Width 18.7 % (11.8-14.1); White Blood Cell Count 4.71 k/cumm (4.4-10.8)
[2018-07-06] MEDS: Potassium Chloride 20 MEQ TABCR 40 MEQ PO (09:06)
[2018-07-06] MEDS: Isosorbide Mononitrate 30 MG TABCR PO (09:06)
[2018-07-06] MEDS: Sucralfate 1 GM TAB PO ×4 (09:06→22:08)
[2018-07-06] MEDS: Metoclopramide 10 MG TAB PO ×4 (09:06→20:07)
[2018-07-06] MEDS: FLUoxetine 20 MG CAP 40 MG PO ×2 (09:06→20:07)
[2018-07-06] MEDS: amLODIPine 10 MG TAB PO (09:06)
[2018-07-06] MEDS: Multivitamin TAB 1 TAB PO (09:06)
[2018-07-06] MEDS: Pantoprazole 40 MG TABCR PO ×2 (09:06→20:06)
[2018-07-06] MEDS: Amiodarone 200 MG TAB PO (09:06)
[2018-07-06] MEDS: Losartan 50 MG TAB PO (09:06)
[2018-07-06] MEDS: Carvedilol 6.25 MG TAB 12.5 MG PO ×2 (09:07→20:06)
[2018-07-06] MEDS: Gabapentin 400 MG CAP PO ×4 (09:07→20:07)
[2018-07-06] MEDS: Bacitracin 1 PACKET TP (10:40)
[2018-07-06] MEDS: Insulin Aspart 300 UNITS/3 ML PEN SC (12:01)
--- NOTE | 2018-07-06 13:44 | PDOC.CMPRO ---
- If Service Date Differs Date of service: 07/06/18 Time of Service: 13:44 Care Management Progress Note S?o: [facility]an [facility] no change in status today. Continues to tolerate his diet. Manan was reviewed at interdisciplinary rounds, MD will not start the heparin drip at this time, Manan continues on telemetry. A: 67 y/o male admitted 07/02/18 for anemia, chest pain. P: Manan will discharge back to [facility] when medically ready per MD. Anticipate patient will discharge on Sunday and return to [facility]. Manan will transport via w/c van. CM will continue to offer support to patient and care team regarding discharge planning and disposition.
--- NOTE | 2018-07-06 13:47 | CMPROGNOTE_ITS ---
- If Service Date Differs Date of service: 07/06/18 Time of Service: 13:44 Care Management Progress Note S?o: [facility]an [facility] no change in status today. Continues to tolerate his diet. Manan was reviewed at interdisciplinary rounds, MD will not start the heparin drip at this time, Manan continues on telemetry. A: 67 y/o male admitted 07/02/18 for anemia, chest pain. P: Manan will discharge back to [facility] when medically ready per MD. Anticipate patient will discharge on Sunday and return to [facility]. Manan will transport via w /c van. CM will continue to offer support to patient and care team regarding discharge planning and disposition.
[2018-07-06 14:09] LABS: HCT 30.9 % (40.0-50.0); HGB 9.6 g/dL (13.5-17.5)
--- NOTE | 2018-07-06 16:23 | W.PM.PROGNOT ---
Assessment and Plan (1) GI bleed: Current visit: Yes Status: Acute EGD performed 07/04 with Duodenitis and Duodenal Ulcer without active bleeding as likely source for GIB. Currently with AC and ASA on hold. Continue BID PPI, Carafate. Mr. Phillip has a history of prior CVA and PAF - would benefit from anticoagulation. Start heparin gtt, and consider reinitiation of Apixaban soon if tolerated - okay with surgery as per discussion earlier today. Continue to trend H/H. (2) Symptomatic anemia: Current visit: Yes Status: Acute S/p transfusion of a total of 3 units of pRBC's . H/H stable; symptoms resolved. Continue to monitor H/H. (3) Chest pain: Current visit: Yes Status: Resolved Resolved. Due to symptomatic anemia. No antiplatelet tx at this time due to GI bleeding. Patient with known history of CAD. (4) Bilateral pleural effusion: Current visit: Yes Status: Acute Diuretic therapy currently on hold. Will plan on reinitiating Furosemide once blood pressure is more reasonable. (5) Congestive heart failure (CHF): Current visit: Yes Status: Chronic LVEF 55-60% on echo 11/2017, Diastolic dysfunction. Holding diuresis again today. Continue to monitor volume status. (6) Atrial fibrillation: Current visit: No Status: Chronic Paroxysmal, presently in SR. Trial of heparin gtt today to ensure patient can tolerate anticoagulation on discharge. (7) CVA, old, alterations of sensations: Current visit: No Status: Chronic Continue PT/OT. Possibly thromboembolic in setting of PAF - anticoagulation as above. Continue BB therapy - patient also on anti-arrhythmic therapy with Amiodarone. (8) CAD (coronary artery disease), bypass graft transplanted heart: Current visit: Yes Status: Chronic No ACS. Continue montioring H/H. Target Hgb 10 per cardiology. Continue high potency statin, BB, Imdur, and prn NTG. Aspirin on hold currently. (9) Insulin dependent diabetes mellitus: Current visit: Yes Status: Chronic Continue basal insulin. Also on sliding scale coverage, ADA diet. (10) Hypertensive urgency: Current visit: Yes Status: Acute Improved and now hypotensive with addition of low dose alpha-rod. Continue ARB, CCB, BB, and hydralazine. Patient also on imdur. Plan on reinitiation of lasix tomorrow. (11) DVT prophylaxis: Current visit: Yes Status: Acute Heparin gtt as above. Subjective Interval history since last seen: 67 year old gentleman with a Past Medical History significant for CAD s/p DC/CABG x3, CVA with residual L-sided facial and extremity weakness, Chronic Afib on anticoagulation with Apixaban, and anemia requiring transfusion in the past, admitted from [facility] Emergency Department from [facility] facility with a diagnosis of Anemia. Mr. Phillip was initially evaluated for chest pain that lea like 'heartburn', as well as subjective short of breath . He had also been dizzy for a week and had noted a dark bowel movement two days prior to admission. Upon presentation he was noted to be anemic with a hemoglobin of 7.7, and subsequent EGD showed evidence of a nonbleeding duodenal ulcer. This morning the patient reports improvement in his overall symptoms. His blood pressure had been elevated again following mild but symptomatic hypotension previously with aggressive attempts at control of significant prior hypertension. No other events reported. Remains afebrile. Exam Narrative Exam Narrative: General: Sitting up out of bed in chair, NAD. AAOX3 Neck: Supple Cardiovascular: Regular, no overt Rubs, murmurs, or gallops. Lungs: CTAB without crackles, rhonchi, or wheezing. Gastrointestinal: +BS, soft, nontender, nondistended Extremities: +1 edema in BLE's; B feet s/p ampuation of all digits. Dressing in place. Objective Objective Clinical Data: Abnormal lab results 07/06/18 07/06/18 07/06/18 Range/Units 05:43 05:43 13:55 RBC 4.24 L (4.50-6.00) m/cumm Hgb 10.4 L 9.6 L (13.5-17.5) g/dL Hct 33.8 L 30.9 L (40.0-50.0) % MCV 79.7 L (80-95) fL MCH 24.5 L (27.0-33.0) pg MCHC 30.8 L (32.0-36.0) g/dL RDW 18.7 H (11.8-14.1) % BUN 27 H (7-18) mg/dL Creatinine 1.71 H (0.70-1.30) mg/dL Glucose 109 H (70-100) mg/dL Vital Signs Temperature 36.5 C 07/06/18 16:19 Temperature Source Tympanic 07/06/18 16:19 Pulse 60 07/06/18 16:19 Pulse Rhythm Regular 07/05/18 19:30 Pulse 67 07/02/18 13:20 Respiratory Rate 20 07/06/18 16:19 Respiratory Effort Non-Labored 07/05/18 19:30 Respiratory Depth Normal 07/05/18 19:30 Respiratory Pattern Normal 07/05/18 19:30 Blood Pressure 106/72 07/06/18 16:19 Blood Pressure Mean 79 07/02/18 13:18 Pulse Oximetry 97 07/06/18 16:19 Oxygen Delivery Method Nasal Cannula 07/06/18 16:19 Oxygen Flow Rate 2 07/06/18 16:19 Fraction of Inspired Oxygen (FIO2) 91 07/04/18 02:56 Pain Level 0 07/06/18 07:46 Comment 07/06/18 13:45 Intake & Output 07/05/18 07/06/18 07/06/18 23:59 11:59 23:59 Intake Total 1870 / 1870 1120 / 1120 240 / 240 Output Total 800 / 800 650 / 650 Balance 1070 / 1070 470 / 470 240 / 240 Intake: IV 250 / 250 Oral 1620 / 1620 1120 / 1120 240 / 240 Output: Urine 800 / 800 650 / 650 Other: Urine Color Yellow Yellow Urine Appearance Clear Clear Urine Odor Normal None Comment missed urinal, unmeasurable Void x1 in the urinal. Voiding Methods Urinal Urinal Laboratory Results WBC 4.71 k/cumm (4.4-10.8) 07/06/18 05:43 RBC 4.24 m/cumm (4.50-6.00) L 07/06/18 05:43 Hgb 9.6 g/dL (13.5-17.5) L 07/06/18 13:55 Hct 30.9 % (40.0-50.0) L 07/06/18 13:55 MCV 79.7 fL (80-95) L 07/06/18 05:43 MCH 24.5 pg (27.0-33.0) L 07/06/18 05:43 MCHC 30.8 g/dL (32.0-36.0) L 07/06/18 05:43 RDW 18.7 % (11.8-14.1) H 07/06/18 05:43 Plt Count 260 x1000/uL (130-400) 07/06/18 05:43 MPV 8.8 fL (8.0-11.0) 07/06/18 05:43 Immature Gran % 0.2 07/02/18 11:25 Neutrophils % 73.3 07/02/18 11:25 Lymphocytes % 17.2 07/02/18 11:25 Monocytes % 7.2 07/02/18 11:25 Eosinophils % 1.9 07/02/18 11:25 Basophils % 0.2 07/02/18 11:25 Absolute Neutrophils 3.14 k/cumm (1.2-6.7) 07/02/18 11:25 Absolute Lymphocytes 0.74 k/cumm (1.2-3.4) L 07/02/18 11:25 Absolute Monocytes 0.31 k/cumm (0.11-0.7) 07/02/18 11:25 Absolute Eosinophils 0.08 k/cumm (0.0-0.7) 07/02/18 11:25 Absolute Basophils 0.01 k/cumm (0.0-0.2) 07/02/18 11:25 PT 10.1 sec (9.3-10.8) 07/02/18 11:25 INR 1.0 (1.0-3.5) 07/02/18 11:25 Sodium 138 mmol/L (136-145) 07/06/18 05:43 Potassium 3.8 mmol/L (3.5-5.1) 07/06/18 05:43 Chloride 102 mmol/L (98-107) 07/06/18 05:43 Carbon Dioxide 28.0 mmol/L (21.0-32.0) 07/06/18 05:43 Anion Gap 8.0 mmol/L (3-11) 07/06/18 05:43 BUN 27 mg/dL (7-18) H 07/06/18 05:43 Creatinine 1.71 mg/dL (0.70-1.30) H 07/06/18 05:43 Estimated GFR/1.73 m2 40.25 (mL/min/1.73m2) 07/06/18 05:43 Glucose 109 mg/dL (70-100) H 07/06/18 05:43 Calcium 8.6 mg/dL (8.5-10.1) 07/06/18 05:43 Magnesium 2.0 mg/dL (1.8-2.4) 07/06/18 05:43 Total Bilirubin 0.5 mg/dL (0.2-1.0) 07/03/18 06:25 Conjugated Bilirubin 0.15 mg/dL (0.00-0.20) 07/03/18 06:25 AST 23 U/L (15-37) 07/03/18 06:25 ALT 29 U/L (12-78) 07/03/18 06:25 Alkaline Phosphatase 115 U/L (46-116) 07/03/18 06:25 Troponin I 0.06 ng/mL (0.00-0.06) 07/03/18 13:15 NT-Pro-B Natriuret Pep 2857 pg/mL (-299) H 07/02/18 11:25 Total Protein 6.5 g/dL (6.4-8.2) 07/03/18 06:25 Albumin 3.1 g/dL (3.4-5.0) L 07/03/18 06:25 TSH 4.80 uIU/mL (0.358-3.74) H 07/03/18 06:25 Free T4 0.95 ng/dL (0.76-1.46) 07/03/18 06:25 Urine Color Yellow (Yellow) 07/03/18 00:55 Urine Clarity Sl cloudy 07/03/18 00:55 Urine pH 7.0 (5-8) 07/03/18 00:55 Ur Specific [place] 1.015 (1.005-1.025) 07/03/18 00:55 Urine Protein Trace mg/dL (Negative) H 07/03/18 00:55 Urine Ketones Negative mg/dL (Negative) 07/03/18 00:55 Urine Blood Moderate (Negative) H 07/03/18 00:55 Urine Nitrite Negative (Negative) 07/03/18 00:55 Urine Bilirubin Negative (Negative) 07/03/18 00:55 Urine Urobilinogen 1.0 EU/dL (Up TO 0.2) H 07/03/18 00:55 Ur Leukocyte Esterase Negative (Negative) 07/03/18 00:55 Urine RBC >50 (0-2) H 07/03/18 00:55 Urine WBC 0-2 HPF (0-5) 07/03/18 00:55 Ur Epithelial Cells Rare HPF (Negative) 07/03/18 00:55 Urine Crystals Negative HPF (Negative) 07/03/18 00:55 Urine Bacteria Rare HPF (Negative) 07/03/18 00:55 Urine Casts Negative LPF (Negative) 07/03/18 00:55 Urine Mucus Negative (Negative) 07/03/18 00:55 Ur Culture Indicated? No 07/03/18 00:55 Urine Glucose Negative mg/dL (Negative) 07/03/18 00:55 Patient ABO/Rh A Positive 07/02/18 11:25 Antibody Screen Negative 07/02/18 11:25 Crossmatch See Detail 07/02/18 11:25
[2018-07-06 17:22] LABS: PTT Activated 24.7 sec (21.0-31.4)
[2018-07-06 21:15] LABS: HCT 30.7 % (40.0-50.0); HGB 9.6 g/dL (13.5-17.5)
[2018-07-06] MEDS: Insulin Glargine 300 UNITS/3 ML PEN 10 UNITS SC (22:08)
[2018-07-06] MEDS: Melatonin 3 MG TAB PO (22:08)
[2018-07-06] MEDS: Atorvastatin 40 MG TAB PO (22:08)
[2018-07-06] MEDS: LORazepam 0.5 MG TAB PO (22:12)
[2018-07-07] VITALS (10 sets, daily range): BP systolic 145–183; BP diastolic 65–77; PULSE 59–69; RESP 17–20; TEMP 36–37.1; O2SAT 94–99
[2018-07-07 00:55] LABS: PTT Activated 29.5 sec (21.0-31.4)
[2018-07-07] MEDS: hydrALAZINE 25 MG TAB 100 MG PO ×3 (03:11→21:03)
[2018-07-07 07:30] LABS: Abs Immature Grans 0.01 k/cumm (0.0-0.09); Absolute Basophil Count 0.01 k/cumm (0.0-0.2); Absolute Eosinophil Count 0.18 k/cumm (0.0-0.7); Absolute Lymphocyte Count 0.84 k/cumm (1.2-3.4); Absolute Monocyte Count 0.31 k/cumm (0.11-0.7); Absolute Neutrophil Count 3.13 k/cumm (1.2-6.7); Basophils % 0.2; HCT 33.8 % (40.0-50.0); HGB 10.5 g/dL (13.5-17.5); Immature Grans % 0.2; Lymphocytes % 18.8; Mean Corp. HGB Concentration 31.1 g/dL (32.0-36.0); Mean Corpuscular Hemoglobin 24.8 pg (27.0-33.0); Mean Corpuscular Volume 79.7 fL (80-95); Mean Platelet Volume 8.3 fL (8.0-11.0); Monocytes % 6.9; Neutrophils % 69.9; Platelet Count 228 x1000/uL (130-400); RBC 4.24 m/cumm (4.50-6.00); RBC Distribution Width 18.7 % (11.8-14.1); White Blood Cell Count 4.48 k/cumm (4.4-10.8)
[2018-07-07 07:38] LABS: PTT Activated 35.9 sec (21.0-31.4)
[2018-07-07 08:26] LABS: Anion Gap 9.2 mmol/L (3-11); BUN 35 mg/dL (7-18); CO2 27.8 mmol/L (21.0-32.0); CREATININE 1.75 mg/dL (0.70-1.30); Calcium 8.6 mg/dL (8.5-10.1); Chloride 103 mmol/L (98-107); Estimated GFR 39.19 (mL/min/1.73m2); Glucose 114 mg/dL (70-100); Sodium 140 mmol/L (136-145)
[2018-07-07] MEDS: Pantoprazole 40 MG TABCR PO ×2 (09:24→21:05)
[2018-07-07] MEDS: amLODIPine 10 MG TAB PO (09:24)
[2018-07-07] MEDS: Gabapentin 400 MG CAP PO ×4 (09:24→21:04)
[2018-07-07] MEDS: Multivitamin TAB 1 TAB PO (09:24)
[2018-07-07] MEDS: Metoclopramide 10 MG TAB PO ×4 (09:25→21:05)
[2018-07-07] MEDS: Sucralfate 1 GM TAB PO ×4 (09:25→21:04)
[2018-07-07] MEDS: Isosorbide Mononitrate 30 MG TABCR PO (09:25)
[2018-07-07] MEDS: Amiodarone 200 MG TAB PO (09:25)
[2018-07-07] MEDS: Losartan 50 MG TAB PO (09:25)
[2018-07-07] MEDS: Carvedilol 6.25 MG TAB 12.5 MG PO ×2 (09:25→21:04)
[2018-07-07] MEDS: Potassium Chloride 20 MEQ TABCR 40 MEQ PO (09:25)
[2018-07-07] MEDS: FLUoxetine 20 MG CAP 40 MG PO ×2 (09:25→21:04)
[2018-07-07] MEDS: Furosemide 40 MG TAB PO (11:08)
[2018-07-07] MEDS: Apixaban 5 MG TAB PO ×2 (11:08→21:04)
[2018-07-07] MEDS: Insulin Aspart 300 UNITS/3 ML PEN SC (11:48)
--- NOTE | 2018-07-07 12:04 | PDOC.CMPRO ---
- If Service Date Differs Date of service: 07/07/18 Time of Service: 12:04 Care Management Progress Note S/O: Manan will transition to [facility] no change in status today. Continues to tolerate his diet. Manan was reviewed at interdisciplinary rounds. He was restarted on his Eliquis. Manan states he is feeling improved since his admission and is looking forward to returning to [facility]. CM spoke with Manan at length about his recovery and staying at [facility]. He states he likes it over at the rehab he feels that it is a home. He would like to be well enough to return to [place] he states that he does not have anyone here in [place]. He and his son had a falling out and are not speaking to one another. A: 67 y/o male admitted 07/02/18 for anemia, chest pain. P: Manan will discharge back to [facility] when medically ready per MD. Anticipate patient will discharge on Sunday and return to [facility]. Manan will transport via w/c van. LJ will continue to offer support to patient and care team regarding discharge planning and disposition.
--- NOTE | 2018-07-07 12:12 | CMPROGNOTE_ITS ---
- If Service Date Differs Date of service: 07/07/18 Time of Service: 12:04 Care Management Progress Note S/O: Manan will transition to [facility] on Sunday no change in status today. Continues to tolerate his diet. Manan was reviewed at interdisciplinary rounds. He was restarted on his Eliquis. Manan states he is feeling improved since his admission and is looking forward to returning to [facility]. CM spoke with Manan at length about his recovery and staying at [facility]. He states he likes it over at the rehab he feels that it is a home. He would like to be well enough to return to [place] he states that he does not have anyone here in [place]. He and his son had a falling out and are not speaking to one another. A: 67 y/o male admitted 07/02/18 for anemia, chest pain. P: Manan will discharge back to [facility] when medically ready per MD. Anticipate patient will discharge on Sunday and return to [facility]. Manan will transport via w /c van. LJ will continue to offer support to patient and care team regarding discharge planning and disposition.
[2018-07-07 15:09] LABS: HCT 31.8 % (40.0-50.0); HGB 9.8 g/dL (13.5-17.5)
--- NOTE | 2018-07-07 15:22 | PGE_ITS ---
Assessment and Plan (1) GI bleed: Current visit: Yes Status: Acute EGD performed 07/04 with Duodenitis and Duodenal Ulcer without active bleeding as likely source for GIB. Currently with AC and ASA on hold. Continue BID PPI, Carafate. Mr. Phillip has a history of prior CVA and PAF - would benefit from anticoagulation. Was started initially on heparin gtt, then transitioned back to Apixaban. Continue to trend H/H - current hemoglobin appears stable. (2) Symptomatic anemia: Current visit: Yes Status: Acute S/p transfusion of a total of 3 units of pRBC's . H/H stable; symptoms resolved. Continue to monitor H/H. (3) Chest pain: Current visit: Yes Status: Resolved Resolved. Due to symptomatic anemia. No antiplatelet tx at this time due to GI bleeding. Patient with known history of CAD. (4) Bilateral pleural effusion: Current visit: Yes Status: Acute With Diuretic therapy on hold. Restart Furosemide today. (5) Congestive heart failure (CHF): Current visit: Yes Status: Chronic LVEF 55-60% on echo 11/2017, Diastolic dysfunction. Restart diuretic therapy as above. Continue to monitor volume status. (6) Atrial fibrillation: Current visit: No Status: Chronic Paroxysmal, presently in Sinus Rhythm on anti-arrhythmic therapy. Continue BB, reinitiated Apixaban. (7) CVA, old, alterations of sensations: Current visit: No Status: Chronic Continue PT/OT. Possibly thromboembolic in setting of PAF - anticoagulation as above. Continue BB therapy - patient also on anti-arrhythmic therapy with Amiodarone. (8) CAD (coronary artery disease), bypass graft transplanted heart: Current visit: Yes Status: Chronic No ACS. Continue montioring H/H. Target Hgb 10 per cardiology. Continue high potency statin, BB, Imdur, and prn NTG. Aspirin on hold currently. (9) Insulin dependent diabetes mellitus: Current visit: Yes Status: Chronic Continue basal insulin. Also on sliding scale coverage, ADA diet. (10) Hypertensive urgency: Current visit: Yes Status: Acute Improved but still elevated. Continue ARB, CCB, BB, and hydralazine - all either maxed or uptitrated. Patient also on imdur. Restart low dose a-rod, as well as daily furosemide as above. (11) DVT prophylaxis: Current visit: Yes Status: Acute Apixaban as above. Subjective Interval history since last seen: 67 year old gentleman with a Past Medical History significant for CAD s/p DC/CABG x3, CVA with residual L-sided facial and extremity weakness, Chronic Afib on anticoagulation with Apixaban, and anemia requiring transfusion in the past, admitted from [facility] Emergency Department from [facility] facility with a diagnosis of Anemia. Mr. Phillip was initially evaluated for chest pain that lea like 'heartburn', as well as subjective short of breath . He had also been dizzy for a week and had noted a dark bowel movement two days prior to admission. Upon presentation he was noted to be anemic with a hemoglobin of 7.7, and subsequent EGD showed evidence of a nonbleeding duodenal ulcer. This morning the patient reports continued improvement in his overall symptoms. His blood pressure had been elevated again following mild but symptomatic hypotension previously with aggressive attempts at control of significant prior hypertension. No other events reported. Remains afebrile. Exam Narrative Exam Narrative: General: Sitting up out of bed in chair, NAD. AAOX3 Neck: Supple Cardiovascular: Regular, no overt Rubs, murmurs, or gallops. Lungs: CTAB without crackles, rhonchi, or wheezing. Gastrointestinal: +BS, soft, nontender, nondistended Extremities: +1 edema in BLE's; B feet s/p ampuation of all digits. Dressing in place. Objective Objective Clinical Data: Abnormal lab results 07/06/18 07/07/18 07/07/18 Range/Units 20:55 07:15 07:15 RBC 4.24 L (4.50-6.00) m/cumm Hgb 9.6 L 10.5 L (13.5-17.5) g/dL Hct 30.7 L 33.8 L (40.0-50.0) % MCV 79.7 L (80-95) fL MCH 24.8 L (27.0-33.0) pg MCHC 31.1 L (32.0-36.0) g/dL RDW 18.7 H (11.8-14.1) % Absolute Lymphocytes 0.84 L (1.2-3.4) k/cumm APTT 35.9 H D (21.0-31.4) sec BUN (7-18) mg/dL Creatinine (0.70-1.30) mg/dL Glucose (70-100) mg/dL 07/07/18 07/07/18 Range/Units 07:15 14:38 RBC (4.50-6.00) m/cumm Hgb 9.8 L (13.5-17.5) g/dL Hct 31.8 L (40.0-50.0) % MCV (80-95) fL MCH (27.0-33.0) pg MCHC (32.0-36.0) g/dL RDW (11.8-14.1) % Absolute Lymphocytes (1.2-3.4) k/cumm APTT (21.0-31.4) sec BUN 35 H (7-18) mg/dL Creatinine 1.75 H (0.70-1.30) mg/dL Glucose 114 H (70-100) mg/dL Vital Signs Temperature 36 C L 07/07/18 11:10 Temperature Source Tympanic 07/07/18 11:10 Pulse 62 07/07/18 11:10 Pulse Rhythm Regular 07/06/18 20:00 Pulse 67 07/02/18 13:20 Respiratory Rate 20 07/07/18 11:10 Respiratory Effort Non-Labored 07/06/18 20:00 Respiratory Depth Normal 07/06/18 20:00 Respiratory Pattern Normal 07/06/18 20:00 Blood Pressure 173/75 H 07/07/18 11:10 Blood Pressure Mean 79 07/02/18 13:18 Pulse Oximetry 97 07/07/18 11:54 Oxygen Delivery Method Nasal Cannula 07/07/18 11:54 Oxygen Flow Rate 2 07/07/18 11:54 Fraction of Inspired Oxygen (FIO2) 91 07/04/18 02:56 Pain Level 0 07/07/18 07:46 Comment 07/06/18 13:45 Intake & Output 07/06/18 07/07/18 07/07/18 23:59 11:59 23:59 Intake Total 850 / 850 642 / 642 720 / 720 Output Total 400 / 400 500 / 500 Balance 450 / 450 142 / 142 720 / 720 Intake: IV 152 / 152 Oral 840 / 840 490 / 490 720 / 720 Output: Urine 400 / 400 500 / 500 Other: Urine Color Yellow Yellow Urine Appearance Clear Clear Urine Odor None Comment Void x1 in the toilet. Void x1 in the urinal. Voiding Methods Urinal Urinal Laboratory Results WBC 4.48 k/cumm (4.4-10.8) 07/07/18 07:15 RBC 4.24 m/cumm (4.50-6.00) L 07/07/18 07:15 Hgb 9.8 g/dL (13.5-17.5) L 07/07/18 14:38 Hct 31.8 % (40.0-50.0) L 07/07/18 14:38 MCV 79.7 fL (80-95) L 07/07/18 07:15 MCH 24.8 pg (27.0-33.0) L 07/07/18 07:15 MCHC 31.1 g/dL (32.0-36.0) L 07/07/18 07:15 RDW 18.7 % (11.8-14.1) H 07/07/18 07:15 Plt Count 228 x1000/uL (130-400) 07/07/18 07:15 MPV 8.3 fL (8.0-11.0) 07/07/18 07:15 Immature Gran % 0.2 07/07/18 07:15 Neutrophils % 69.9 07/07/18 07:15 Lymphocytes % 18.8 07/07/18 07:15 Monocytes % 6.9 07/07/18 07:15 Eosinophils % 4.0 07/07/18 07:15 Basophils % 0.2 07/07/18 07:15 Absolute Neutrophils 3.13 k/cumm (1.2-6.7) 07/07/18 07:15 Absolute Lymphocytes 0.84 k/cumm (1.2-3.4) L 07/07/18 07:15 Absolute Monocytes 0.31 k/cumm (0.11-0.7) 07/07/18 07:15 Absolute Eosinophils 0.18 k/cumm (0.0-0.7) 07/07/18 07:15 Absolute Basophils 0.01 k/cumm (0.0-0.2) 07/07/18 07:15 PT 10.1 sec (9.3-10.8) 07/02/18 11:25 INR 1.0 (1.0-3.5) 07/02/18 11:25 APTT 35.9 sec (21.0-31.4) H D 07/07/18 07:15 Sodium 140 mmol/L (136-145) 07/07/18 07:15 Potassium 4.0 mmol/L (3.5-5.1) 07/07/18 07:15 Chloride 103 mmol/L (98-107) 07/07/18 07:15 Carbon Dioxide 27.8 mmol/L (21.0-32.0) 07/07/18 07:15 Anion Gap 9.2 mmol/L (3-11) 07/07/18 07:15 BUN 35 mg/dL (7-18) H 07/07/18 07:15 Creatinine 1.75 mg/dL (0.70-1.30) H 07/07/18 07:15 Estimated GFR/1.73 m2 39.19 (mL/min/1.73m2) 07/07/18 07:15 Glucose 114 mg/dL (70-100) H 07/07/18 07:15 Calcium 8.6 mg/dL (8.5-10.1) 07/07/18 07:15 Magnesium 2.0 mg/dL (1.8-2.4) 07/06/18 05:43 Total Bilirubin 0.5 mg/dL (0.2-1.0) 07/03/18 06:25 Conjugated Bilirubin 0.15 mg/dL (0.00-0.20) 07/03/18 06:25 AST 23 U/L (15-37) 07/03/18 06:25 ALT 29 U/L (12-78) 07/03/18 06:25 Alkaline Phosphatase 115 U/L (46-116) 07/03/18 06:25 Troponin I 0.06 ng/mL (0.00-0.06) 07/03/18 13:15 NT-Pro-B Natriuret Pep 2857 pg/mL (-299) H 07/02/18 11:25 Total Protein 6.5 g/dL (6.4-8.2) 07/03/18 06:25 Albumin 3.1 g/dL (3.4-5.0) L 07/03/18 06:25 TSH 4.80 uIU/mL (0.358-3.74) H 07/03/18 06:25 Free T4 0.95 ng/dL (0.76-1.46) 07/03/18 06:25 Urine Color Yellow (Yellow) 07/03/18 00:55 Urine Clarity Sl cloudy 07/03/18 00:55 Urine pH 7.0 (5-8) 07/03/18 00:55 Ur Specific [place] 1.015 (1.005-1.025) 07/03/18 00:55 Urine Protein Trace mg/dL (Negative) H 07/03/18 00:55 Urine Ketones Negative mg/dL (Negative) 07/03/18 00:55 Urine Blood Moderate (Negative) H 07/03/18 00:55 Urine Nitrite Negative (Negative) 07/03/18 00:55 Urine Bilirubin Negative (Negative) 07/03/18 00:55 Urine Urobilinogen 1.0 EU/dL (Up TO 0.2) H 07/03/18 00:55 Ur Leukocyte Esterase Negative (Negative) 07/03/18 00:55 Urine RBC >50 (0-2) H 07/03/18 00:55 Urine WBC 0-2 HPF (0-5) 07/03/18 00:55 Ur Epithelial Cells Rare HPF (Negative) 07/03/18 00:55 Urine Crystals Negative HPF (Negative) 07/03/18 00:55 Urine Bacteria Rare HPF (Negative) 07/03/18 00:55 Urine Casts Negative LPF (Negative) 07/03/18 00:55 Urine Mucus Negative (Negative) 07/03/18 00:55 Ur Culture Indicated? No 07/03/18 00:55 Urine Glucose Negative mg/dL (Negative) 07/03/18 00:55 Patient ABO/Rh A Positive 07/02/18 11:25 Antibody Screen Negative 07/02/18 11:25 Crossmatch See Detail 07/02/18 11:25
[2018-07-07] MEDS: LORazepam 0.5 MG TAB PO (18:14)
[2018-07-07] MEDS: Melatonin 3 MG TAB PO (21:04)
[2018-07-07] MEDS: Atorvastatin 40 MG TAB PO (21:05)
[2018-07-07] MEDS: Insulin Glargine 300 UNITS/3 ML PEN 10 UNITS SC (21:43)
[2018-07-08 00:28] VITALS: BP 167/74; PULSE 66; RESP 17; TEMP 36.9; O2SAT 92
[2018-07-08 03:15] VITALS: BP 165/74; PULSE 65; RESP 18; TEMP 36.6; O2SAT 93
[2018-07-08] MEDS: hydrALAZINE 25 MG TAB 100 MG PO ×2 (03:19→12:08)
[2018-07-08 07:27] LABS: Abs Immature Grans 0.01 k/cumm (0.0-0.09); Absolute Basophil Count 0.01 k/cumm (0.0-0.2); Absolute Eosinophil Count 0.15 k/cumm (0.0-0.7); Absolute Lymphocyte Count 0.84 k/cumm (1.2-3.4); Absolute Monocyte Count 0.26 k/cumm (0.11-0.7); Basophils % 0.2; Eosinophils % 3.5; HCT 32.6 % (40.0-50.0); HGB 10.1 g/dL (13.5-17.5); Immature Grans % 0.2; Lymphocytes % 19.9; Mean Corpuscular Hemoglobin 24.9 pg (27.0-33.0); Mean Corpuscular Volume 80.3 fL (80-95); Mean Platelet Volume 8.5 fL (8.0-11.0); Monocytes % 6.1; Neutrophils % 70.1; Platelet Count 218 x1000/uL (130-400); RBC 4.06 m/cumm (4.50-6.00); RBC Distribution Width 19.3 % (11.8-14.1); White Blood Cell Count 4.23 k/cumm (4.4-10.8)
[2018-07-08 07:28] LABS: Absolute Neutrophil Count 2.97 k/cumm (1.2-6.7)
[2018-07-08 07:33] LABS: Anion Gap 8.6 mmol/L (3-11); BUN 34 mg/dL (7-18); CO2 27.4 mmol/L (21.0-32.0); CREATININE 1.79 mg/dL (0.70-1.30); Calcium 8.5 mg/dL (8.5-10.1); Chloride 103 mmol/L (98-107); Estimated GFR 38.18 (mL/min/1.73m2); Glucose 134 mg/dL (70-100); Sodium 139 mmol/L (136-145)
[2018-07-08 08:20] VITALS: BP 163/74; PULSE 64; RESP 19; TEMP 36.1; O2SAT 98
[2018-07-08] MEDS: Bacitracin 1 PACKET TP (08:37)
[2018-07-08] MEDS: FLUoxetine 20 MG CAP 40 MG PO (08:37)
[2018-07-08] MEDS: Apixaban 5 MG TAB PO (08:37)
[2018-07-08] MEDS: amLODIPine 10 MG TAB PO (08:37)
[2018-07-08] MEDS: Metoclopramide 10 MG TAB PO ×2 (08:37→12:09)
[2018-07-08] MEDS: Losartan 50 MG TAB PO (08:37)
[2018-07-08] MEDS: Gabapentin 400 MG CAP PO ×2 (08:38→12:09)
[2018-07-08] MEDS: Amiodarone 200 MG TAB PO (08:38)
[2018-07-08] MEDS: Carvedilol 6.25 MG TAB 12.5 MG PO (08:38)
[2018-07-08] MEDS: Multivitamin TAB 1 TAB PO (08:38)
[2018-07-08] MEDS: Potassium Chloride 20 MEQ TABCR 40 MEQ PO (08:38)
[2018-07-08] MEDS: Isosorbide Mononitrate 30 MG TABCR PO (08:38)
[2018-07-08] MEDS: Sucralfate 1 GM TAB PO ×2 (08:38→12:09)
[2018-07-08] MEDS: Pantoprazole 40 MG TABCR PO (08:38)
[2018-07-08] MEDS: Insulin Aspart 300 UNITS/3 ML PEN SC (09:00)
[2018-07-08] MEDS: Furosemide 40 MG TAB PO (09:48)
--- NOTE | 2018-07-08 10:29 | PDOC.CMDIS ---
- If Service Date Differs Date of service: 07/08/18 Time of Service: 10:30 LACE Index Scoring Tool - Questions: Length of Stay (in days): 4 - 6 Acuity (Admit via E.D.?): Yes Comorbidities: Diabetes w/o Complication, Congestive Heart Failure, Mild Liver/Renal Disease E.D. Visits: 7 - Answers: Total Score: 16 Risk of Readmission: High Risk Care Management Discharge Reason for Hospitalization: Anemia, chest pain, CHF Discharge Plan: Manan will discharge back to [facility] when medically ready per MD. Anticipate patient will follow up with plan and medical care at [facility]. Manan will transport via [facility] w/c van. Patient/Family Education Needs: Discharge education, any limitations, and follow up plan of care. Ask Me Three discussion. Services Needed [facility] Discharge: [facility] ([facility]. )
--- NOTE | 2018-07-08 10:38 | CMDISCH_ITS ---
- If Service Date Differs Date of service: 07/08/18 Time of Service: 10:30 LACE Index Scoring Tool - Questions: Length of Stay (in days): 4 - 6 Acuity (Admit via E.D.?): Yes Comorbidities: Diabetes w/o Complication, Congestive Heart Failure, Mild Liver/ Renal Disease E.D. Visits: 7 - Answers: Total Score: 16 Risk of Readmission: High Risk Care Management Discharge Reason for Hospitalization: Anemia, chest pain, CHF Discharge Plan: Manan will discharge back to [facility] when medically ready per MD. Anticipate patient will follow up with plan and medical care at [facility]. Manan will transport via [facility] van. Patient/Family Education Needs: Discharge education, any limitations, and follow up plan of care. Ask Me Three discussion. Services Needed at Discharge: [facility] ([facility]. )
[2018-07-08 11:30] VITALS: BP 148/68; PULSE 68
--- NOTE | 2018-07-08 11:58 | DSE_ITS ---
Date of service: 07/08/18 Time of Service: 11:55 DS: Diagnosis Discharge Diagnosis (1) GI bleed: Status: Acute (2) Symptomatic anemia: Status: Acute (3) Chest pain: Status: Resolved (4) Bilateral pleural effusion: Status: Acute (5) Congestive heart failure (CHF): Status: Chronic (6) Atrial fibrillation: Status: Chronic (7) CVA, old, alterations of sensations: Status: Chronic (8) CAD (coronary artery disease), bypass graft transplanted heart: Status: Chronic (9) Insulin dependent diabetes mellitus: Status: Chronic (10) Hypertensive urgency: Status: Acute (11) DVT prophylaxis: Status: Acute Discharge Plan Disposition Patient Disposition: SNF (LEVEL 1) [facility] Condition: Stable Discharge Details Reason For Visit: ANEMIA, CHEST PAIN,CHF Admit Date/Time: 07/04/18 10:00 Admit Provider: Daria Griffin Attending Provider: Daria Griffin [facility]: Mr. Phillip is a 67 yo gentleman with hx CAD s/p TX resulting in CABG x3, CVA with L hemiparesis, permanent AF on eliquis, hx anemia requiring transfusion in the past who was brought to [facility] from [facility] due to complaints of CP and SOB. Roughly 2 days prior to his admission he did experience dark stool with associated weakness and nausea but no abdominal discomfort. He was found to be quite anemic with a Hgb of 7.7 in the ER. He was transfused 1 unit of PRBC and admitted for further management. Surgery was consulted and performed an EGD on 07/04/18 which showed duodenitis and small, non-bleeding duodenal ulcers. Mr. Phillip was initiated on BID omeprazole in addition to Carafate QID. He had no further bleeding or reports of CP. Indeterminate troponin peaked at 0.06, however immediately down trended. Stool sample obtained to check for H. pylori, however is still pending at time of dictation. Anti-coagulation was resumed on 07/07/18 and he tolerated this well. Became hypertensive during hospitalization so terazosin was added to his anti-hypertensive regimen with good reduction of BP. Hgb/Hct has remained stable and he is ready to return to [facility]. Home Meds and New Rx's Prescriptions: New sucralfate 1 gram Tablet 1 g PO AC & HS 30 Days Qty: 120 RF: 0 terazosin 1 mg Capsule 2 mg PO BID 30 Days Qty: 120 RF: 0 pantoprazole 40 mg Tablet,Delayed Release (Dr/Ec) 40 mg PO BID@729,1999 30 Days Qty: 60 RF: 0 nitroglycerin [Nitrostat] 0.4 mg Tablet, Sublingual 0.4 mg Sublingual Q5 MIN PRN X3 PRN30 Days Qty: 15 RF: 0 docusate sodium [Colace] 100 mg Capsule 100 mg PO TID PRN PRN30 Days Qty: 90 RF: 0 Continue fluoxetine 40 MG capsule 40 mg PO BID RF: 0 furosemide 40 MG tablet 40 mg PO DAILY RF: 0 atorvastatin [Lipitor] 80 MG tablet 40 mg PO HS RF: 0 amiodarone [Cordarone] 200 MG tablet 200 mg PO QAM RF: 0 aspirin 81 MG tablet,delayed release (DR/EC) 81 mg PO QAM RF: 0 amlodipine 10 MG tablet 10 mg PO QAM RF: 0 acetaminophen 325 mg Tablet 650 mg PO Q6H RF: 0 albuterol sulfate 2.5 mg /3 mL (0.083 %) Solution For Nebulization 2.5 mg INHALATION Q4H PRNRF: 0 bisacodyl [Dulcolax (bisacodyl)] 10 mg Suppository 10 mg [place] DIRECTED PRNRF: 0 sodium phosphates [Fleet Enema] 19-7 gram/118 mL Enema 197 ml [place] DIRECTED PRNRF: 0 multivitamin [Multiple Vitamins] Tablet 1 tab PO QAM RF: 0 isosorbide mononitrate 30 mg Tablet Extended Release 24 Hr 30 mg PO DAILY RF: 0 hydromorphone 2 mg Tablet 2 mg PO Q4H PRNRF: 0 lorazepam 0.5 mg Tablet 0.5 mg PO Q8H PRN PRNRF: 0 magnesium hydroxide [Milk of Magnesia] 400 mg/5 mL Suspension 30 ml PO PRN PRNRF: 0 losartan 25 mg Tablet 25 mg PO DAILY RF: 0 metoclopramide HCl [Reglan] 10 mg Tablet 10 mg PO QID RF: 0 alum-mag hydroxide-simeth [Maalox Advanced] 200-200-20 mg/5 mL Suspension 30 ml PO QID PRNRF: 0 carvedilol [Coreg] 12.5 mg tablet 12.5 mg PO BID RF: 0 hydralazine 25 mg tablet 75 mg PO TID RF: 0 insulin glargine [Lantus Solostar U-100 Insulin] 100 UNIT/ML insulin pen 10 unit Sub-Q HS RF: 0 apixaban [Eliquis] 5 MG tablet 5 mg PO BID RF: 0 potassium chloride 20 MEQ tablet extended release 40 meq PO QAM RF: 0 melatonin 3 MG tablet 3 mg PO HS RF: 0 glucagon (human recombinant) [Glucagon Emergency Kit (human)] 1 MG kit 1 mg IM Q15M PRN (Reason: Severe hypoglycemia) RF: 0 gabapentin 100 MG capsule 4 cap PO QID RF: 0 Discontinued omeprazole 40 mg capsule,delayed release(DR/EC) 40 mg PO DAILY Qty: 30 RF: 0 Discharge Instructions Instructions: Peptic Ulcer (DC) Activity:: Activity as Tolerated Equipment/Supplies:: No Equipment Needed Diet:: As Tolerated Discharge Orders Discharge Orders: Discharge Order (Routine); Ordered 07/08/18 Ordered By: Dena Delaney Exam Const General: cooperative, comfortable, no acute distress, disheveled, frail appearing and ill appearing Nutritional Appearance: average body habitus Orientation: alert, awake and oriented x3 HENMT Head: normal to inspection, normocephalic and atraumatic Ears: hearing grossly normal bilaterally and external ears normal General nose exam: external nose normal Face and sinus: normal facial exam Mouth: moist mucous membranes Teeth and gingiva: poor dentition Eyes General: appearance normal, both eyes and all related structures Eyelids: eyelids normal Conjunctivae: conjunctivae normal Sclera: sclerae normal Pupils: PERRL EOM: EOM intact bilaterally Neck Neck: normal visual inspection, trachea midline, supple, No JVD and no JVD Carotids: normal carotid upstroke and no bruits Chest Chest: deferred, no tenderness and other Resp Effort & Inspection: normal respiratory effort, no audible wheezes and not labored Auscultation: clear to auscultation bilaterally, diminished lung sounds ( bilateral bases) on the left, no rales, no rhonchi and no wheezes Cardio Rate: regular rate Rhythm: abnormal rhythm irregularly irregular Heart Sounds: S1 normal, S2 normal, no gallops, no murmurs and no rubs Bruits: no abdominal aortic bruits and no renal bruits Pulses: radial pulses present, popliteal pulses present and posterior tibial pulses present GI Inspection: non-distended Palpation: soft, no guarding, no hepatomegaly, no hernias and tender in the epigastrum Auscultation: normal bowel sounds Rectal Exam: deferred Skin General skin exam: no rashes or lesions noted and dry skin Neuro General: alert, awake, oriented x3, gait normal, tone normal, moves all extremities and other (Weak left upper) Cognition: normal cognition Speech: speech normal Extrem General: no clubbing, cyanosis or edema, no calf tenderness bilaterally and other Right lower extremity: foot Details: other (Status post transmetatarsal amputation) Left lower extremity: foot Details: other (Status post transmetatarsal amputation) Psych Appearance: grossly normal and disheveled Mental Status: mental status grossly normal Mood: congruent mood Affect: normal affect Attitude: cooperative Thought Process: normal Thought Content: normal Insight: insight good Judgment: judgment good DS: Data Vitals/I&O Vitals and I&O: Vital Signs Temperature 36.6 C 07/08/18 03:15 Temperature Source Tympanic 07/08/18 03:15 Pulse 65 07/08/18 03:15 Pulse Rhythm Regular 07/08/18 08:15 Pulse 67 07/02/18 13:20 Respiratory Rate 18 07/08/18 03:15 Respiratory Effort Non-Labored 07/08/18 08:15 Respiratory Depth Normal 07/08/18 08:15 Respiratory Pattern Normal 07/08/18 08:15 Blood Pressure 165/74 H 07/08/18 03:15 Blood Pressure Mean 79 07/02/18 13:18 Pulse Oximetry 93 L 07/08/18 03:15 Oxygen Delivery Method Room Air 07/08/18 03:15 Oxygen Flow Rate 0 07/08/18 03:15 Fraction of Inspired Oxygen (FIO2) 91 07/04/18 02:56 Pain Level 0 07/07/18 07:46 Comment 07/06/18 13:45 Intake & Output 07/07/18 07/07/18 07/08/18 11:59 23:59 11:59 Intake Total 642 / 642 820 / 820 370 / 370 Output Total 500 / 500 400 / 400 1050 / 1050 Balance 142 / 142 420 / 420 -680 / -680 Intake: IV 152 / 152 Oral 490 / 490 820 / 820 370 / 370 Output: Urine 500 / 500 400 / 400 1050 / 1050 Other: Urine Color Yellow Yellow Yellow Urine Appearance Clear Clear Clear Urine Odor None None Normal Comment Void x1 in the urinal. Void x1 in the toilet. Stool Occult Blood Positive Stool Size Large Stool Characteristics Soft Formed Brown Voiding Methods Urinal Toilet Urinal Labs on day of discharge: Labs from last 24 hours 07/08/18 07/08/18 07/07/18 07:00 07:00 18:03 WBC 4.23 L RBC 4.06 L Hgb 10.1 L Hct 32.6 L MCV 80.3 MCH 24.9 L MCHC 31.0 L RDW 19.3 H Plt Count 218 MPV 8.5 Immature Gran % 0.2 Neutrophils % 70.1 Lymphocytes % 19.9 Monocytes % 6.1 Eosinophils % 3.5 Basophils % 0.2 Absolute Neutrophils 2.97 Absolute Lymphocytes 0.84 L Absolute Monocytes 0.26 Absolute Eosinophils 0.15 Absolute Basophils 0.01 Sodium 139 Potassium 4.0 Chloride 103 Carbon Dioxide 27.4 Anion Gap 8.6 BUN 34 H Creatinine 1.79 H Estimated GFR/1.73 m2 38.18 Glucose 134 H Calcium 8.5 Stool H. pylori Ag Pending 07/07/18 14:38 WBC RBC Hgb 9.8 L Hct 31.8 L MCV MCH MCHC RDW Plt Count MPV Immature Gran % Neutrophils % Lymphocytes % Monocytes % Eosinophils % Basophils % Absolute Neutrophils Absolute Lymphocytes Absolute Monocytes Absolute Eosinophils Absolute Basophils Sodium Potassium Chloride Carbon Dioxide Anion Gap BUN Creatinine Estimated GFR/1.73 m2 Glucose Calcium Stool H. pylori Ag
[2018-07-09 13:17] LABS: Helicobacter pylori Ag, Feces Negative (NEGAT)
== END 2018-07-08 13:49 | disposition skilled nursing facility (03) | DRG 377 ==
LOC: ER 13:37 → MS 14:00
PROVIDERS: Internal Medicine; Surgery; Admitting Provider Internal Medicine; Emergency Provider Student in an Organized Health Care Education/Training Program; PCP Family Medicine; Visit Provider Internal Medicine
PROC: 0DJ68ZZ Inspection of Stomach, Via Natural or Artificial Opening Endoscopic (ICD-10-PCS; CPT 43235; principal; 2018-07-04 13:50)
DX: K92.2 Gastrointestinal hemorrhage, unspecified (principal); I50.33 Acute on chronic diastolic (congestive) heart failure; D62 Acute posthemorrhagic anemia; I69.354 Hemiplegia and hemiparesis following cerebral infarction affecting left non-dominant side; I24.8 Other forms of acute ischemic heart disease; D68.32 Hemorrhagic disorder due to extrinsic circulating anticoagulants; I16.0 Hypertensive urgency; I48.91 Unspecified atrial fibrillation; I69.398 Other sequelae of cerebral infarction; R20.8 Other disturbances of skin sensation; T45.515A Adverse effect of anticoagulants, initial encounter; K29.80 Duodenitis without bleeding; K26.9 Duodenal ulcer, unspecified as acute or chronic, without hemorrhage or perforation; I11.0 Hypertensive heart disease with heart failure; I25.10 Atherosclerotic heart disease of native coronary artery without angina pectoris; E11.9 Type 2 diabetes mellitus without complications; Z79.4 Long term (current) use of insulin; Z79.01 Long term (current) use of anticoagulants; R35.0 Frequency of micturition; R42 Dizziness and giddiness; Z23 Encounter for immunization
CPT/HCPCS: 43235; 36415; 36430; 71275; 80048; 80053; 80076; 85027; 86850; 86900; 86901; 86920; 87081; 87338; 93005; 97162; 97166; 97530; 99215; 99223; 99232; 99233; 99239; 99252; 99255; 99285; 71046; 81003; 81015; 83735; 83880; 84439; 84443; 84484; 85014; 85018; 85025; 85610; 85730; 93010; 99220; 99226; G0378; G8978; J1940; J1941; J3490; P9016

== ENCOUNTER 2018-07-11 10:50 | Inpatient (IN) | payer MEDICARE, SELFPAY ==
[2018-07-11] VITALS (56 sets, daily range): BP systolic 139–199; BP diastolic 48–82; PULSE 53–66; RESP 12–27; TEMP 36.4–36.8; O2SAT 93–99
--- NOTE | 2018-07-11 12:45 | ED.GENADUL_ITS ---
Discharge Plan Disposition Patient Disposition: [facility] INPATIENT Discharge Details Chief Complaint: Dizzy/Sync Clinical Impression: GI bleed, Weakness Reason For Visit: GI BLEED Admit Date/Time: 07/11/18 15:40 Admit Provider: bIrahima Soto Attending Provider: Ibrahima Soto Primary Care Provider: Kory Sierra ED Provider: [place] Discharge Data Discharge Date/Time-TO BE ENTERED AT DEPARTURE: 07/11/18 16:54 Medical Decision Making Medical Records 67yo m with history of duodenitis and duodenal ulcers, on Eliquis here from nursing facility with generalized weakness. Melena, heme positive on exam. ECG reviewed and interpreted by me: Sinus bradycardia 58 bpm, right bundle branch block, nondiagnostic. Will give protonix bolus. Labs reviewed and Hb stable. Hemodynamically stable. Spoke with Dr. Soto - discussed presentation and ED course - Dr. Soto to admit. HPI General Mode of arrival: ambulatory . Date/Time Provider Initiated Documentation: 07/11/18 12:01 . Limitations to Documentation: no limitations . Information obtained by: patient . HPI Narrative: 67-year-old male with multiple medical problems including atrial fibrillation, on Eliquis, CVA, coronary artery disease, diabetes, recently seen here in the emergency department, transfused and admitted for GI bleed, found to have duodenal ulcers that were not bleeding on endoscopy as well as duodenitis, returns here with generalized weakness. Weakness is moderate to severe. Worse with exertion. He has no associated chest pain. No abdominal pain. He does not know if he has had bloody or black stool. Symptoms started this am. Related Data Home Medications Medication Instructions Recorded Confirmed amiodarone [Cordarone] 200 mg PO QAM 09/27/17 07/11/18 amlodipine 10 mg PO QAM 09/27/17 07/11/18 aspirin 81 mg PO QAM 09/27/17 07/11/18 atorvastatin [Lipitor] 40 mg PO HS 09/27/17 07/11/18 fluoxetine 40 mg PO BID 09/27/17 07/11/18 furosemide 40 mg PO DAILY 09/27/17 07/11/18 apixaban [Eliquis] 5 mg PO BID 03/07/18 07/11/18 insulin glargine [Lantus Solostar 10 unit SUB-Q HS 03/07/18 07/11/18 U-100 Insulin] potassium chloride 40 meq PO QAM 03/07/18 07/11/18 melatonin 3 mg PO HS 03/13/18 07/11/18 gabapentin 4 cap PO QID 03/14/18 07/11/18 glucagon (human recombinant) 1 mg IM Q15M PRN 03/14/18 07/11/18 [Glucagon Emergency Kit (human)] acetaminophen 650 mg PO Q6H 06/05/18 07/11/18 albuterol sulfate 2.5 mg INHALATION Q4H PRN 06/05/18 07/11/18 bisacodyl [Dulcolax (bisacodyl)] 10 mg [place] DIRECTED PRN 06/05/18 07/11/18 hydromorphone 2 mg PO Q4H PRN 06/05/18 07/11/18 isosorbide mononitrate 30 mg PO DAILY 06/05/18 07/11/18 lorazepam 0.5 mg PO Q8H PRN PRN 06/05/18 07/11/18 losartan 25 mg PO DAILY 06/05/18 07/11/18 magnesium hydroxide [Milk of 30 ml PO PRN PRN 06/05/18 07/11/18 Magnesia] metoclopramide HCl [Reglan] 10 mg PO QID 06/05/18 07/11/18 multivitamin [Multiple Vitamins] 1 tab PO QAM 06/05/18 07/11/18 sodium phosphates [Fleet Enema] 197 ml TN DIRECTED PRN 06/05/18 07/11/18 alum-mag hydroxide-simeth [Maalox 30 ml PO QID PRN 07/02/18 07/11/18 Advanced] carvedilol [Coreg] 12.5 mg PO BID 07/02/18 07/11/18 hydralazine 75 mg PO TID 07/02/18 07/11/18 docusate sodium [Colace] 100 mg PO TID PRN PRN 30 Days #90 07/08/18 07/11/18 cap nitroglycerin [Nitrostat] 0.4 mg SUBLINGUAL Q5 MIN PRN X3 07/08/18 07/11/18 PRN 30 Days #15 tab pantoprazole 40 mg PO BID@0730,2000 30 Days #60 07/08/18 07/11/18 tab sucralfate 1 g PO AC & HS 30 Days #120 tab 07/08/18 07/11/18 terazosin 2 mg PO BID 30 Days #120 cap 07/08/18 07/11/18 Previous Rx's Medication Instructions Recorded docusate sodium [Colace] 100 mg PO TID PRN PRN 30 Days #90 07/08/18 cap nitroglycerin [Nitrostat] 0.4 mg SUBLINGUAL Q5 MIN PRN X3 07/08/18 PRN 30 Days #15 tab pantoprazole 40 mg PO BID@0730,1999 30 Days #60 07/08/18 tab sucralfate 1 g PO AC & HS 30 Days #120 tab 07/08/18 terazosin 2 mg PO BID 30 Days #120 cap 07/08/18 Allergies Allergy/AdvReac Type Severity Reaction Status Date / Time enalaprilat [From Vasotec] Allergy Severe Hives Unverified 07/11/18 11:38 Latex, Natural Rubber Allergy Intermediate Skin Rash Unverified 07/11/18 11:38 sertraline AdvReac Severe pychosis Unverified 07/11/18 11:38 codeine AdvReac Nausea Unverified 07/11/18 11:38 General Stated Complaint: GenMedical VIKASH: 3 Review of Systems Review of Systems All systems reviewed & are unremarkable except as noted in HPI and below Cardiovascular Denies chest pain and Denies syncope Gastrointestinal Reports as per HPI Neurologic Denies syncope PFSH Medical History CAD (coronary artery disease) (Chronic) Insulin dependent diabetes mellitus (Chronic) GI bleed (Acute) Chronic renal disease (Chronic) Abdominal aortic aneurysm (Chronic) Peripheral angiopathy due to DM (Chronic) CVA, old, alterations of sensations (Chronic) Pulmonary hypertension (Chronic) Tricuspid regurgitation (Chronic) Mitral regurgitation (Chronic) Atrial fibrillation (Chronic) Heart failure with preserved ejection fraction (Chronic) Congestive heart failure (CHF) (Chronic) CAD (coronary artery disease), bypass graft transplanted heart (Chronic) Diabetes mellitus (Chronic) Hypertension (Chronic) Diabetic neuropathy (Chronic) Anxiety (Chronic) Paroxysmal A-fib (Chronic) Anemia (Chronic) Anticoagulant long-term use (Acute) Bilateral hearing loss (Acute) Dystrophic nail (Acute) Folate deficiency anemia (Acute) Former smoker (Acute) Hemiparesis affecting left side as late effect of cerebrovascular accident ( Acute) History of amputation of great toe of both feet (Acute) Recurrent falls (Acute) CAD (coronary artery disease) (Chronic) COPD (chronic obstructive pulmonary disease) (Chronic) CVA (cerebral vascular accident) (Chronic) Depression (Chronic) PVD (peripheral vascular disease) (Chronic) Renal artery stenosis (Chronic) 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) Amputation foot, bilat (Resolved) History of stent insertion of renal artery (Resolved) Pneumonia (Resolved) Social History 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 occupational status: 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 Smoking/Tobacco Use Status: Former Tobacco Use how long ago did patient quit smokin alcohol intake: former details: Heavy alcohol use in the past, quit a few years ago substance use type: does not use Surgical History Chronic pain (Chronic ~07/04/18) History of esophagogastroduodenoscopy (EGD) (Chronic) Hx of CABG (Chronic 2017) History of amputation of great toe of both feet (Resolved) S/P CABG x 3 (Resolved) Exam Const General: cooperative and no acute distress HENMT Head: normocephalic and atraumatic Mouth: moist mucous membranes Eyes Conjunctivae: normal conjunctivae Sclera: normal sclerae Neck Neck: trachea midline and supple Resp Auscultation: clear to auscultation bilaterally, no rales, no rhonchi and no wheezes Cardio Jugular venous pressure: no JVD Rate: regular rate and not tachycardic Rhythm: regular rhythm GI Palpation: soft, not firm, no guarding, no masses, not rigid and nontender Rectal Exam: heme positive stool and other (melena) Skin General skin exam: no rashes or lesions noted Neuro General: alert, awake, oriented x3 and tone normal Extrem General: no edema Psych Appearance: grossly normal Mental Status: mental status grossly normal Speech and Movement: speech and movement normal Course Vital Signs Temperature 36.8 C 07/11/18 11:35 Pulse 56 L 07/11/18 11:35 Respiratory Rate 18 07/11/18 11:35 Blood Pressure 157/71 H 07/11/18 11:35 Pulse Oximetry 97 07/11/18 11:35 Temperature 36.8 C 07/11/18 11:35 Temperature Source Skin 07/11/18 11:35 Pulse 56 L 07/11/18 11:35 Respiratory Rate 24 07/11/18 12:30 Respiratory Effort Non-Labored 07/11/18 12:30 Blood Pressure 157/71 H 07/11/18 11:35 Blood Pressure Position Sitting 07/11/18 11:35 Pulse Oximetry 97 07/11/18 11:35 Oxygen Delivery Method Room Air 07/11/18 11:35 Oxygen Flow Rate 0 07/11/18 11:35 Pain Level 5 07/11/18 11:35
[2018-07-11] MEDS: Acetaminophen 325 MG TAB 650 MG (13:01)
[2018-07-11 13:06] LABS: Abs Immature Grans 0.01 k/cumm (0.0-0.09); Absolute Basophil Count 0.02 k/cumm (0.0-0.2); Absolute Eosinophil Count 0.13 k/cumm (0.0-0.7); Absolute Lymphocyte Count 0.57 k/cumm (1.2-3.4); Absolute Monocyte Count 0.24 k/cumm (0.11-0.7); Absolute Neutrophil Count 2.65 k/cumm (1.2-6.7); Basophils % 0.6; Eosinophils % 3.6; HCT 33.5 % (40.0-50.0); HGB 10.2 g/dL (13.5-17.5); Immature Grans % 0.3; Lymphocytes % 15.7; Mean Corp. HGB Concentration 30.4 g/dL (32.0-36.0); Mean Corpuscular Hemoglobin 24.3 pg (27.0-33.0); Monocytes % 6.6; Neutrophils % 73.2; Platelet Count 221 x1000/uL (130-400); RBC 4.19 m/cumm (4.50-6.00); RBC Distribution Width 19.4 % (11.8-14.1); White Blood Cell Count 3.62 k/cumm (4.4-10.8)
[2018-07-11 13:20] LABS: Bilirubin Negative (Negative); Blood Negative (Negative); Clarity Clear; Glucose Negative (Negative); Ketones Negative (Negative); Leukocyte Esterase Negative (Negative); Nitrite Negative (Negative); Urobilinogen 0.2 EU/dL (Up TO 0.2)
[2018-07-11 13:26] LABS: ALT 32 U/L (12-78); AST 18 U/L (15-37); Albumin 3.1 g/dL (3.4-5.0); Alkaline Phosphatase 108 U/L (46-116); Anion Gap 9.3 mmol/L (3-11); BUN 30 mg/dL (7-18); Bilirubin, Total 0.3 mg/dL (0.2-1.0); CO2 26.7 mmol/L (21.0-32.0); CREATININE 1.63 mg/dL (0.70-1.30); Calcium 8.6 mg/dL (8.5-10.1); Chloride 102 mmol/L (98-107); Diff Comment RBC Morph Reviewed; Estimated GFR 42.54 (mL/min/1.73m2); Glucose 176 mg/dL (70-100); Hypochromasia 2+; Microcytosis 2+; NT-proBNP 2038 pg/mL; Ovalocytes 2+; Potassium 4.1 mmol/L (3.5-5.1); Sodium 138 mmol/L (136-145); Total Protein 6.4 g/dL (6.4-8.2); Troponin I 0.05 ng/mL (0.00-0.06)
[2018-07-11 13:27] LABS: Poikilocytes 1+
--- NOTE | 2018-07-11 17:38 | HPE_ITS ---
Date of service: 07/11/18 Time of Service: 17:31 Assessment and Plan (1) GI bleed: Current visit: No Status: Acute EGD performed 07/04/2018 with Duodenitis and Duodenal Ulcer without active bleeding as likely source for GIB. Currently with AC and ASA on hold. Continue BID PPI but change to IV. Continue QID Carafate. Maintain on clear fluids only. Type and Screen in place. Check serial H/H - surgery aware. (2) Hypertension: Current visit: Yes Status: Chronic Significant current systolic blood pressure. Continue ARB, CCB, BB, and hydralazine - all either maxed or uptitrated last visit. Patient also on imdur and low dose a-rod. Furosemide on hold. All antihypertensives with hold orders in place. (3) CAD (coronary artery disease): Current visit: No Status: Chronic Troponin normal, EKG unchanged, and patient asymptomatic. Monitor H/H. Target Hgb 10 per cardiology during patient's last visit, as he was symptomatic below this value. (4) Insulin dependent diabetes mellitus: Current visit: No Status: Chronic Continue basal insulin at half dose given reduced oral intake currently, and maintain on sliding scale coverage, ADA diet. (5) Chronic renal disease: Current visit: No Status: Chronic Creatinine appears at or near baseline. Avoid nephrotoxins and renally dose medications when appropriate. Monitor. (6) CVA, old, alterations of sensations: Current visit: No Status: Chronic With residual left sided deficits. In setting of history of Afib. Will need to remain off anticoagulation in setting of GI Bleed. (7) Paroxysmal A-fib: Current visit: No Status: Chronic Continue BB and maintain on telemetry. Currently in sinus rhythm. Off AC as above. (8) DVT prophylaxis: Current visit: No Status: Acute Ensure SCD's. (9) Discharge planning issues: Current visit: No Status: Acute Full Code. Chronic resident at [facility]. History of Present Illness Chief Complaint: Weakness, GI Bleed Narrative: 67 year old gentleman with a Past Medical History significant for CAD s/p LA/CABG x3, CVA with residual L-sided facial and extremity weakness, Chronic Afib on anticoagulation with Apixaban, and anemia requiring transfusion in the past, admitted from [facility] Emergency Department from [facility] facility with a diagnosis of Weakness and Dizziness in the setting of Heme positive stool. Mr. Phillip was initially evaluated for chest pain that lea like 'heartburn' prior to his last hospitalization. He was noted to be anemic with a hemoglobin of 7.7, and subsequent EGD showed evidence of a nonbleeding duodenal ulcer. He was ultimately transfused, treated for duodenitis and duodenal ulcers, had his blood pressure regimen optimized, reinitiated on anticoagulation given his history of CVA, and then discharged back to his rehab. He was initially rechallenged with a heparin drip prior to being changed to Apixaban, and he tolerated this well. The patient reports onset of weakness and dizziness at breakfast, prompting reevaluation at the emergency room. His Hgb was stable and unchanged from time of discharge 3 days prior, but he was noted to be strongly heme positive on exam. He is being admitted for further evaluation of a suspected recurrence of Upper GI Bleed. Review of Systems Review of Systems All systems reviewed & are unremarkable except as noted in HPI and below and Unobtainable due to (Denies epigastric pain, nausea, dark stools, melena, chest pain, or dyspnea.) Meds Home Medications Medication Instructions Recorded Confirmed Type amiodarone [Cordarone] 200 mg PO QAM 09/27/17 07/11/18 History amlodipine 10 mg PO QAM 09/27/17 07/11/18 History aspirin 81 mg PO QAM 09/27/17 07/11/18 History atorvastatin [Lipitor] 40 mg PO HS 09/27/17 07/11/18 History fluoxetine 40 mg PO BID 09/27/17 07/11/18 History furosemide 40 mg PO DAILY 09/27/17 07/11/18 History apixaban [Eliquis] 5 mg PO BID 03/07/18 07/11/18 History insulin glargine [Lantus Solostar 10 unit SUB-Q HS 03/07/18 07/11/18 History U-100 Insulin] potassium chloride 40 meq PO QAM 03/07/18 07/11/18 History melatonin 3 mg PO HS 03/13/18 07/11/18 History gabapentin 4 cap PO QID 03/14/18 07/11/18 History glucagon (human recombinant) 1 mg IM Q15M PRN 03/14/18 07/11/18 History [Glucagon Emergency Kit (human)] acetaminophen 650 mg PO Q6H 06/05/18 07/11/18 History albuterol sulfate 2.5 mg INHALATION Q4H PRN 06/05/18 07/11/18 History bisacodyl [Dulcolax (bisacodyl)] 10 mg CO DIRECTED PRN 06/05/18 07/11/18 History hydromorphone 2 mg PO Q4H PRN 06/05/18 07/11/18 History isosorbide mononitrate 30 mg PO DAILY 06/05/18 07/11/18 History lorazepam 0.5 mg PO Q8H PRN PRN 06/05/18 07/11/18 History losartan 25 mg PO DAILY 06/05/18 07/11/18 History magnesium hydroxide [Milk of 30 ml PO PRN PRN 06/05/18 07/11/18 History Magnesia] metoclopramide HCl [Reglan] 10 mg PO QID 06/05/18 07/11/18 History multivitamin [Multiple Vitamins] 1 tab PO QAM 06/05/18 07/11/18 History sodium phosphates [Fleet Enema] 197 ml CO DIRECTED PRN 06/05/18 07/11/18 History alum-mag hydroxide-simeth [Maalox 30 ml PO QID PRN 07/02/18 07/11/18 History Advanced] carvedilol [Coreg] 12.5 mg PO BID 07/02/18 07/11/18 History hydralazine 75 mg PO TID 07/02/18 07/11/18 History docusate sodium [Colace] 100 mg PO TID PRN PRN 30 Days #90 07/08/18 07/11/18 Rx cap nitroglycerin [Nitrostat] 0.4 mg SUBLINGUAL Q5 MIN PRN X3 07/08/18 07/11/18 Rx PRN 30 Days #15 tab pantoprazole 40 mg PO BID@0730,1999 30 Days #60 07/08/18 07/11/18 Rx tab sucralfate 1 g PO AC & HS 30 Days #120 tab 07/08/18 07/11/18 Rx terazosin 2 mg PO BID 30 Days #120 cap 07/08/18 07/11/18 Rx Allergies Allergy/AdvReac Type Severity Reaction Status Date / Time enalaprilat [From Vasotec] Allergy Severe Hives Unverified 07/11/18 11:38 Latex, Natural Rubber Allergy Intermediate Skin Rash Unverified 07/11/18 11:38 sertraline AdvReac Severe pychosis Unverified 07/11/18 11:38 codeine AdvReac Nausea Unverified 07/11/18 11:38 Exam Narrative Exam Narrative: General: Patient appears comfortable, AAOX3, NAD Neck: Supple CV: Regular, nontachycardic, S1S2, No rubs, murmurs, or gallops. Pulmonary: Clear to auscultation bilaterally, no crackles, wheezing, or rhonchi Abdomen: + Bowel Sounds, soft, obese in contour, nontender, nondistended Vascular: b/l lower extremity edema Psych: Normal mood and affect. Results Labs : 07/11/18 12:30 07/11/18 12:30 Laboratory Results - last 24 hr 07/11/18 07/11/18 07/11/18 12:30 12:30 12:30 WBC 3.62 L RBC 4.19 L Hgb 10.2 L Hct 33.5 L MCV 80.0 MCH 24.3 L MCHC 30.4 L RDW 19.4 H Plt Count 221 MPV 9.0 Immature Gran % 0.3 Neutrophils % 73.2 Lymphocytes % 15.7 Monocytes % 6.6 Eosinophils % 3.6 Basophils % 0.6 Absolute Neutrophils 2.65 Absolute Lymphocytes 0.57 L Absolute Monocytes 0.24 Absolute Eosinophils 0.13 Absolute Basophils 0.02 Differential Comment Rbc morph reviewed RBC Morphology See below Hypochromasia 2+ Poikilocytosis 1+ Microcytosis 2+ Ovalocytes 2+ Sodium 138 Potassium 4.1 Chloride 102 Carbon Dioxide 26.7 Anion Gap 9.3 BUN 30 H Creatinine 1.63 H Estimated GFR/1.73 m2 42.54 Glucose 176 H Calcium 8.6 Magnesium 2.0 Total Bilirubin 0.3 AST 18 ALT 32 Alkaline Phosphatase 108 Troponin I 0.05 NT-Pro-B Natriuret Pep 2038 H Total Protein 6.4 Albumin 3.1 L Urine Color Yellow Urine Clarity Clear Urine pH 6.0 Ur Specific [place] 1.010 Urine Protein Negative Urine Ketones Negative Urine Blood Negative Urine Nitrite Negative Urine Bilirubin Negative Urine Urobilinogen 0.2 Ur Leukocyte Esterase Negative Urine Glucose Negative Patient ABO/Rh Antibody Screen 07/11/18 07/11/18 12:30 15:43 WBC RBC Hgb Hct MCV MCH MCHC RDW Plt Count MPV Immature Gran % Neutrophils % Lymphocytes % Monocytes % Eosinophils % Basophils % Absolute Neutrophils Absolute Lymphocytes Absolute Monocytes Absolute Eosinophils Absolute Basophils Differential Comment RBC Morphology Hypochromasia Poikilocytosis Microcytosis Ovalocytes Sodium Potassium Chloride Carbon Dioxide Anion Gap BUN Creatinine Estimated GFR/1.73 m2 Glucose Calcium Magnesium Total Bilirubin AST ALT Alkaline Phosphatase Troponin I NT-Pro-B Natriuret Pep Total Protein Albumin Urine Color Urine Clarity Urine pH Ur Specific [place] Urine Protein Urine Ketones Urine Blood Urine Nitrite Urine Bilirubin Urine Urobilinogen Ur Leukocyte Esterase Urine Glucose Patient ABO/Rh A Positive Cancelled Antibody Screen Negative Last Vital Signs Temp 36.6 C 07/11/18 17:00 Pulse 58 L 07/11/18 17:00 Resp 20 07/11/18 17:00 BP 199/82 H 07/11/18 17:00 Pulse Ox 96 07/11/18 17:00
[2018-07-11] MEDS: Gabapentin 400 MG CAP PO ×2 (18:21→21:38)
[2018-07-11] MEDS: Metoclopramide 10 MG TAB PO ×2 (18:22→21:37)
[2018-07-11] MEDS: Sucralfate 1 GM TAB PO ×2 (18:22→21:38)
[2018-07-11] MEDS: HYDROmorphone 2 MG TAB PO (18:23)
[2018-07-11] MEDS: SODIUM CHLORIDE 0.45% 1,000 ML 125 ML IV (18:24)
[2018-07-11] MEDS: Carvedilol 6.25 MG TAB 12.5 MG PO (21:37)
[2018-07-11] MEDS: Acetaminophen 325 MG TAB 650 MG PO (21:37)
[2018-07-11] MEDS: hydrALAZINE 25 MG TAB 75 MG PO (21:38)
[2018-07-11] MEDS: Atorvastatin 40 MG TAB PO (21:38)
[2018-07-11] MEDS: Terazosin 2 MG CAP PO (21:39)
[2018-07-11] MEDS: Melatonin 3 MG TAB PO (21:39)
[2018-07-11] MEDS: Normal Saline Flush 10 ML SYR IVP (21:40)
[2018-07-11] MEDS: Normal Saline Flush 10 ML SYR 20 ML (21:41)
[2018-07-11] MEDS: Insulin Glargine 300 UNITS/3 ML PEN SC (21:42)
[2018-07-11] MEDS: Pantoprazole 40 MG VIAL IVP (21:44)
[2018-07-11 22:14] LABS: HCT 30.8 % (40.0-50.0); HGB 9.7 g/dL (13.5-17.5)
[2018-07-12] MEDS: HYDROmorphone 2 MG TAB PO ×3 (00:51→12:56)
[2018-07-12] MEDS: SODIUM CHLORIDE 0.45% 1,000 ML 125 ML IV ×2 (02:20→10:38)
[2018-07-12] MEDS: Acetaminophen 325 MG TAB 650 MG PO ×2 (04:19→09:08)
[2018-07-12 07:07] VITALS: PULSE 63
[2018-07-12 07:18] LABS: Abs Immature Grans 0.01 k/cumm (0.0-0.09); Absolute Basophil Count 0.02 k/cumm (0.0-0.2); Absolute Eosinophil Count 0.15 k/cumm (0.0-0.7); Absolute Lymphocyte Count 0.81 k/cumm (1.2-3.4); Absolute Monocyte Count 0.27 k/cumm (0.11-0.7); Absolute Neutrophil Count 1.94 k/cumm (1.2-6.7); Basophils % 0.6; Eosinophils % 4.7; HCT 31.8 % (40.0-50.0); HGB 9.9 g/dL (13.5-17.5); Immature Grans % 0.3; Lymphocytes % 25.3; Mean Corp. HGB Concentration 31.1 g/dL (32.0-36.0); Mean Corpuscular Hemoglobin 24.9 pg (27.0-33.0); Mean Corpuscular Volume 79.9 fL (80-95); Mean Platelet Volume 8.8 fL (8.0-11.0); Monocytes % 8.4; Neutrophils % 60.7; Platelet Count 191 x1000/uL (130-400); RBC 3.98 m/cumm (4.50-6.00); RBC Distribution Width 19.4 % (11.8-14.1)
[2018-07-12 07:30] LABS: Anion Gap 7.6 mmol/L (3-11); BUN 21 mg/dL (7-18); CO2 28.4 mmol/L (21.0-32.0); CREATININE 1.45 mg/dL (0.70-1.30); Calcium 8.8 mg/dL (8.5-10.1); Chloride 103 mmol/L (98-107); Estimated GFR 48.69 (mL/min/1.73m2); Glucose 99 mg/dL (70-100); Potassium 3.6 mmol/L (3.5-5.1); Sodium 139 mmol/L (136-145)
--- NOTE | 2018-07-12 07:35 | PDOC.CMIN ---
- If Service Date Differs Date of service: 07/12/18 Time of Service: 07:35 Care Management Initial Assess REASON FOR HOSPITALIZATION:: GI Bleed. PAST MEDICAL HISTORY/PAST SURGICAL HISTORY:: Abdominal aortic aneurysm, bilat foot amputation, AFIB, bilat YUHAAVIATAM, chronic pain, CAD, chronic renal disease, COPD, CVA, Depression, dystrophic nail, folate deficiency anemia, former smoker, heart failure with preserved ejection fraction, hemiparesis, renal stent(s), mitral regurgitation, peripheral angiopathy due to DM, pneumonia, HCAP, pulmonary hypertension, PVD, recurrent falls, renal artery stenosis, tricuspid regurgitation, Type 2 DM, CABG x3 PREVIOUS FUNCTIONAL STATUS/SOCIAL/FAMILY SUPPORTS:: Manan resides at [facility]. He previously resided in [place] and moved to [place] to be nearer his son Starr Sykes. 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 Mnaan was discharged from [facility] last week following an admission for anemia, chest pain, and CHF. CURRENT FUNCTIONAL STATUS:: Manan is lying in bed when CM visits this morning. He is well known to [facility] and has had multiple admissions this year. Manan is not open to communication and does not want to review his prior admission (a week ago) with CM. He reports that he feels crappy all over and is waiting to hear from the MD regarding 'next steps'. ADVANCE DIRECTIVES:: On file at [facility]. Has patient been provided with information about the portal?: Yes Did the patient sign up for the portal?: Yes CODE STATUS:: Full Code INSURANCE COVERAGE / FINANCIAL ISSUES:: Medicare. CURRENT HOME/COMMUNITY SERVICES/EQUIPMENT:: Current resident at [facility]; the facility manages his current service and equipment needs. Manan is also followed by Palliative Care. PRIMARY CARE PHYSICIAN:: Kory Sierra MD. POTENTIAL DISCHARGE NEEDS:: Coordinated return to [facility]. PATIENT/FAMILY EDUCATION NEEDS:: Discharge education, any limitations, and follow up plan of care. ANTICIPATED BARRIERS TO DISCHARGE:: No anticipated barriers to discharge. TRANSPORTATION:: Manan will transport via [facility] w/c van. PLAN:: Manan will return to [facility] when medically ready per MD. He will transport via W/C van provided by the facility. CM will continue to offer support to patient and care team regarding discharge planning and disposition. Readmission - Within the Past 30 Days Yes or No: Y - Date of First Admission Date of 1st Admission: 07/02/18 - Date of this Admission Date of Admission: 07/11/18 This admission was: Through ED - Office Visit Since 1st Admission Have you seen your PCP in the office since discharge?: Yes Date of PCP Appointment: At [facility] Had an appointment Been Scheduled?: Yes Date of Scheduled Appointment: At [facility] Describe barriers for scheduling or getting an appointment: No barriers for scheduling. - I. Interview patient and/or Family Difficulty reaching your doctor or getting an office appt?: No Have you had trouble purchasing/ or taking medication?: No Describe barriers fpr purchasing or taking medication: No barriers. Patient resides at [facility] How do you take your medications and set up your pills?: Nursing staff administer medications. Have you had trouble with getting meals at home?: No Did you feel ready for discharge when you left the last time: Yes Were services received that you thought were set up on disch: Yes What were the barriers for not receiving services?: No barriers to receiving services. Did you call your physician beore you came to the ED?: Yes (Sent by staff at [facility] ) Did your physician tell you to come in?: Yes How do you think you became sick enough to come back?: Manan is unsure as to why he is continually sick. - If the patient had a VNA ordered Did the patient have a VNA order?: No - ED visits How many ED visits in the past 12 months: 8
--- NOTE | 2018-07-12 07:50 | INITIAL_ITS ---
- If Service Date Differs Date of service: 07/12/18 Time of Service: 07:35 Care Management Initial Assess REASON FOR HOSPITALIZATION:: GI Bleed. PAST MEDICAL HISTORY/PAST SURGICAL HISTORY:: Abdominal aortic aneurysm, bilat foot amputation, AFIB, bilat SALAMATOF, chronic pain, CAD, chronic renal disease, COPD , CVA, Depression, dystrophic nail, folate deficiency anemia, former smoker, heart failure with preserved ejection fraction, hemiparesis, renal stent(s), mitral regurgitation, peripheral angiopathy due to DM, pneumonia, HCAP, pulmonary hypertension, PVD, recurrent falls, renal artery stenosis, tricuspid regurgitation, Type 2 DM, CABG x3 PREVIOUS FUNCTIONAL STATUS/SOCIAL/FAMILY SUPPORTS:: Manan resides at [facility]. He previously resided in [place] and moved to [place] to be nearer his son Starr Sykes. 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 Manan was discharged from [facility] last week following an admission for anemia, chest pain, and CHF. CURRENT FUNCTIONAL STATUS:: Manan is lying in bed when CM visits this morning. He is well known to [facility] and has had multiple admissions this year. Manan is not open to communication and does not want to review his prior admission (a week ago) with CM. He reports that he feels crappy all over and is waiting to hear from the MD regarding 'next steps'. ADVANCE DIRECTIVES:: On file at [facility]. Has patient been provided with information about the portal?: Yes Did the patient sign up for the portal?: Yes CODE STATUS:: Full Code INSURANCE COVERAGE / FINANCIAL ISSUES:: Medicare. CURRENT HOME/COMMUNITY SERVICES/EQUIPMENT:: Current resident at [facility]; the facility manages his current service and equipment needs. Manan is also followed by Palliative Care. PRIMARY CARE PHYSICIAN:: Kory Sierra MD. POTENTIAL DISCHARGE NEEDS:: Coordinated return to [facility]. PATIENT/FAMILY EDUCATION NEEDS:: Discharge education, any limitations, and follow up plan of care. ANTICIPATED BARRIERS TO DISCHARGE:: No anticipated barriers to discharge. TRANSPORTATION:: Manan will transport via [facility] w/c van. PLAN:: Manan will return to [facility] when medically ready per MD. He will transport via W/C van provided by the facility. CM will continue to offer support to patient and care team regarding discharge planning and disposition. Readmission - Within the Past 30 Days Yes or No: Y - Date of First Admission Date of 1st Admission: 07/02/18 - Date of this Admission Date of Admission: 07/11/18 This admission was: Through ED - Office Visit Since 1st Admission Have you seen your PCP in the office since discharge?: Yes Date of PCP Appointment: At [facility] Had an appointment Been Scheduled?: Yes Date of Scheduled Appointment: At [facility] Describe barriers for scheduling or getting an appointment: No barriers for scheduling. - I. Interview patient and/or Family Difficulty reaching your doctor or getting an office appt?: No Have you had trouble purchasing/ or taking medication?: No Describe barriers fpr purchasing or taking medication: No barriers. Patient resides at [facility] How do you take your medications and set up your pills?: Nursing staff administer medications. Have you had trouble with getting meals at home?: No Did you feel ready for discharge when you left the last time: Yes Were services received that you thought were set up on disch: Yes What were the barriers for not receiving services?: No barriers to receiving services. Did you call your physician beore you came to the ED?: Yes (Sent by staff at [facility] ) Did your physician tell you to come in?: Yes How do you think you became sick enough to come back?: Manan is unsure as to why he is continually sick. - If the patient had a VNA ordered Did the patient have a VNA order?: No - ED visits How many ED visits in the past 12 months: 8
[2018-07-12] MEDS: hydrALAZINE 25 MG TAB 75 MG PO ×2 (08:04→13:31)
[2018-07-12] MEDS: Multivitamin TAB 1 TAB PO (08:05)
[2018-07-12] MEDS: Potassium Chloride 20 MEQ TABCR 40 MEQ PO ×2 (08:05→09:07)
[2018-07-12] MEDS: Gabapentin 400 MG CAP PO ×2 (08:05→12:57)
[2018-07-12] MEDS: Carvedilol 6.25 MG TAB 12.5 MG PO (08:06)
[2018-07-12] MEDS: Amiodarone 200 MG TAB PO (08:06)
[2018-07-12] MEDS: Metoclopramide 10 MG TAB PO ×2 (08:06→12:57)
[2018-07-12] MEDS: Losartan 25 MG TAB PO (08:07)
[2018-07-12] MEDS: Terazosin 2 MG CAP PO (08:07)
[2018-07-12] MEDS: Isosorbide Mononitrate 30 MG TABCR PO (08:07)
[2018-07-12] MEDS: FLUoxetine 20 MG CAP 40 MG PO (08:07)
[2018-07-12] MEDS: Pantoprazole 40 MG VIAL IVP (08:08)
[2018-07-12] MEDS: Sucralfate 1 GM TAB PO ×2 (08:08→10:38)
[2018-07-12] MEDS: LORazepam 0.5 MG TAB PO (08:08)
[2018-07-12] MEDS: amLODIPine 10 MG TAB PO (08:08)
[2018-07-12] MEDS: Normal Saline Flush 10 ML SYR IVP (08:09)
[2018-07-12 08:20] VITALS: BP 197/72; PULSE 59; RESP 20; TEMP 36.9; O2SAT 94
[2018-07-12 09:30] VITALS: O2SAT 94
[2018-07-12 11:45] VITALS: BP 156/77; PULSE 54; RESP 18; TEMP 36.7; O2SAT 97
[2018-07-12 13:16] LABS: HCT 31.5 % (40.0-50.0); HGB 9.8 g/dL (13.5-17.5)
[2018-07-12 13:30] VITALS: BP 145/72; PULSE 51
--- NOTE | 2018-07-12 13:30 | W.PM.DS.N ---
Date of service: 07/12/18 Time of Service: 13:31 DS: Diagnosis Discharge Diagnosis (1) GI bleed: Status: Acute (2) Hypertension: Status: Chronic (3) CAD (coronary artery disease): Status: Chronic (4) Insulin dependent diabetes mellitus: Status: Chronic (5) Chronic renal disease: Status: Chronic (6) CVA, old, alterations of sensations: Status: Chronic (7) Paroxysmal A-fib: Status: Chronic Discharge Plan Disposition Patient Disposition: SNF (LEVEL 1) [facility] Condition: Stable Discharge Details Reason For Visit: GI BLEED Admit Date/Time: 07/11/18 15:40 Admit Provider: Ibrahima Soto Attending Provider: Ibrahima Soto Primary Care Provider: [facility] Course Hospital Course: Chief Complaint: Weakness, GI Bleed HPI: 67 year old gentleman with a Past Medical History significant for CAD s/p ID/CABG x3, 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 Mr. Phillip was initially evaluated for chest pain that lea like 'heartburn' prior to his last hospitalization. He was noted to be anemic with a hemoglobin of 7.7, and subsequent EGD showed evidence of a nonbleeding duodenal ulcer. He was ultimately transfused, treated for duodenitis and duodenal ulcers, had his blood pressure regimen optimized, reinitiated on anticoagulation given his history of CVA, and then discharged back to his rehab. He was initially rechallenged with a heparin drip prior to being changed to Apixaban, and he tolerated this well. The patient reported onset of weakness and dizziness at breakfast, prompting reevaluation at the emergency room. His Hgb was stable and unchanged from time of discharge 3 days prior, but he was noted to be strongly heme positive on exam. He was admitted for further evaluation of a suspected recurrence of Upper GI Bleed. Hospital Course: (1) GI bleed: EGD performed 07/04/2018 with Duodenitis and Duodenal Ulcer without active bleeding as likely source for GIB. He was restarted on anticoagulation following treatment of his underlying ulcer and duodenitis with a heparin drip during his last hospitalization, which he tolerated, prior to reinitiation of Apixaban. This was done as it was felt that he was at an increased risk for CVA due to his prior history of CVA in the setting of PAF, from which he has permanent residual deficits. At time of admission his Eliquis and ASA were held. His PPI was continued but changed to IV, and he was maintained on QID dosing of Carafate. He was initially maintained on clears, then advanced to a regular diet. His admission, repeat, am, and recheck Hemoglobin over the last 24 hours have been essentially unchanged from his discharge hemoglobin. He has been hemodynamically stable. Recommendation for repeat Hgb over the next few days to ensure stability, and holding anticoagulation and antiplatelet therapy for now - see below. (2) Hypertension: Significant initial systolic blood pressure elevation, more reasonable at time of dishcarge. Continue ARB, CCB, BB, and hydralazine - all either maxed or uptitrated last visit. Patient also on imdur and low dose a-rod. Furosemide will be restarted. (3) CAD (coronary artery disease): Troponin normal, EKG unchanged, and patient asymptomatic. (4) Insulin dependent diabetes mellitus: Continued on basal insulin. (5) Chronic renal disease: Creatinine appears at or near baseline. (6) CVA, old, alterations of sensations: With residual left sided deficits. In setting of history of Afib. Will need to remain off anticoagulation in setting of GI Bleed. Recommend rechecking hemoglobin tomorrow and then in a few days to ensure stability, with close monitoring, reinitiation of aspirin in 5-7 days, and reinitiation of Apixaban in a few weeks. Patient does have a history of Paroxysmal Afib, but is currently on antiarrhythmic therapy and is in sinus rhythm. (7) Paroxysmal A-fib: Continue BB - currently in sinus rhythm and on antiarrhythmic therapy with Amiodarone. Off AC as above. (8) Disposition Discharge back to [facility] . Home Meds and New Rx's Prescriptions: Continue fluoxetine 40 MG capsule 40 mg PO BID RF: 0 furosemide 40 MG tablet 40 mg PO DAILY RF: 0 atorvastatin [Lipitor] 80 MG tablet 40 mg PO HS RF: 0 amiodarone [Cordarone] 200 MG tablet 200 mg PO QAM RF: 0 amlodipine 10 MG tablet 10 mg PO QAM RF: 0 acetaminophen 325 mg Tablet 650 mg PO Q6H RF: 0 albuterol sulfate 2.5 mg /3 mL (0.083 %) Solution For Nebulization 2.5 mg INHALATION Q4H PRNRF: 0 bisacodyl [Dulcolax (bisacodyl)] 10 mg Suppository 10 mg SC DIRECTED PRNRF: 0 sodium phosphates [Fleet Enema] 19-7 gram/118 mL Enema 197 ml SC DIRECTED PRNRF: 0 multivitamin [Multiple Vitamins] Tablet 1 tab PO QAM RF: 0 isosorbide mononitrate 30 mg Tablet Extended Release 24 Hr 30 mg PO DAILY RF: 0 hydromorphone 2 mg Tablet 2 mg PO Q4H PRNRF: 0 lorazepam 0.5 mg Tablet 0.5 mg PO Q8H PRN PRNRF: 0 magnesium hydroxide [Milk of Magnesia] 400 mg/5 mL Suspension 30 ml PO PRN PRNRF: 0 losartan 25 mg Tablet 25 mg PO DAILY RF: 0 metoclopramide HCl [Reglan] 10 mg Tablet 10 mg PO QID RF: 0 alum-mag hydroxide-simeth [Maalox Advanced] 200-200-20 mg/5 mL Suspension 30 ml PO QID PRNRF: 0 carvedilol [Coreg] 12.5 mg tablet 12.5 mg PO BID RF: 0 hydralazine 25 mg tablet 75 mg PO TID RF: 0 sucralfate 1 gram Tablet 1 g PO AC & HS 30 Days Qty: 120 RF: 0 terazosin 1 mg Capsule 2 mg PO BID 30 Days Qty: 120 RF: 0 pantoprazole 40 mg Tablet,Delayed Release (Dr/Ec) 40 mg PO BID@729,1999 30 Days Qty: 60 RF: 0 nitroglycerin [Nitrostat] 0.4 mg Tablet, Sublingual 0.4 mg Sublingual Q5 MIN PRN X3 PRN30 Days Qty: 15 RF: 0 docusate sodium [Colace] 100 mg Capsule 100 mg PO TID PRN PRN30 Days Qty: 90 RF: 0 insulin glargine [Lantus Solostar U-100 Insulin] 100 UNIT/ML insulin pen 10 unit Sub-Q HS RF: 0 potassium chloride 20 MEQ tablet extended release 40 meq PO QAM RF: 0 melatonin 3 MG tablet 3 mg PO HS RF: 0 glucagon (human recombinant) [Glucagon Emergency Kit (human)] 1 MG kit 1 mg IM Q15M PRN (Reason: Severe hypoglycemia) RF: 0 gabapentin 100 MG capsule 4 cap PO QID RF: 0 Discontinued aspirin 81 MG tablet,delayed release (DR/EC) 81 mg PO QAM RF: 0 apixaban [Eliquis] 5 MG tablet 5 mg PO BID RF: 0 Discharge Instructions Activity:: No Strenuous Activity Equipment/Supplies:: No Equipment Needed Diet:: Carb Counting Discharge Orders Discharge Orders: Discharge Order (Routine); Ordered 07/12/18 Ordered By: bIrahima Soto Discharge Data Discharge Date/Time-TO BE ENTERED AT DEPARTURE: 07/12/18 13:50 DS: Data Vitals/I&O Vitals and I&O: Vital Signs Temperature 36.7 C 07/12/18 11:45 Temperature Source Tympanic 07/12/18 11:45 Pulse 51 L 07/12/18 13:30 Pulse Rhythm Regular 07/12/18 07:50 Pulse 58 L 07/11/18 16:32 Respiratory Rate 18 07/12/18 11:45 Respiratory Effort Non-Labored 07/12/18 07:50 Respiratory Depth Normal 07/12/18 07:50 Respiratory Pattern Normal 07/12/18 07:50 Blood Pressure 145/72 H 07/12/18 13:30 Blood Pressure Mean 93 07/11/18 16:32 Blood Pressure Position Sitting 07/11/18 11:35 Pulse Oximetry 97 07/12/18 11:45 Oxygen Delivery Method Room Air 07/12/18 11:45 Oxygen Flow Rate 0 07/12/18 11:45 Pain Level 7 07/12/18 12:56 Comment 07/12/18 08:20 Intake & Output 07/11/18 07/12/18 07/12/18 23:59 11:59 23:59 Intake Total 260 / 260 2831.667 / 2831.667 740 / 740 Output Total 1350 / 1350 1400 / 1400 Balance -1090 / -1090 1431.667 / 1431.667 740 / 740 Weight 97.069 kg Intake: IV 667 / Oral 260 / 260 840 / 840 740 / 740 Output: Urine 1350 / 1350 1400 / 1400 Other: Urine Color Yellow Yellow Urine Appearance Clear Clear Urine Odor None Normal Stool Size Small Stool Characteristics Brown Voiding Methods Urinal Incontinent Labs on day of discharge: Labs from last 24 hours 07/12/18 07/12/18 07/12/18 14:00 13:00 06:50 WBC 3.20 L RBC 3.98 L Hgb Cancelled 9.8 L 9.9 L Hct Cancelled 31.5 L 31.8 L MCV 79.9 L MCH 24.9 L MCHC 31.1 L RDW 19.4 H Plt Count 191 MPV 8.8 Immature Gran % 0.3 Neutrophils % 60.7 Lymphocytes % 25.3 Monocytes % 8.4 Eosinophils % 4.7 Basophils % 0.6 Absolute Neutrophils 1.94 Absolute Lymphocytes 0.81 L Absolute Monocytes 0.27 Absolute Eosinophils 0.15 Absolute Basophils 0.02 Sodium Potassium Chloride Carbon Dioxide Anion Gap BUN Creatinine Estimated GFR/1.73 m2 Glucose Calcium Magnesium Patient ABO/Rh Antibody Screen 07/12/18 07/11/18 07/11/18 06:50 22:08 15:43 WBC RBC Hgb 9.7 L Hct 30.8 L MCV MCH MCHC RDW Plt Count MPV Immature Gran % Neutrophils % Lymphocytes % Monocytes % Eosinophils % Basophils % Absolute Neutrophils Absolute Lymphocytes Absolute Monocytes Absolute Eosinophils Absolute Basophils Sodium 139 Potassium 3.6 Chloride 103 Carbon Dioxide 28.4 Anion Gap 7.6 BUN 21 H D Creatinine 1.45 H Estimated GFR/1.73 m2 48.69 Glucose 99 D Calcium 8.8 Magnesium 2.0 Patient ABO/Rh Cancelled Antibody Screen 07/11/18 12:30 WBC RBC Hgb Hct MCV MCH MCHC RDW Plt Count MPV Immature Gran % Neutrophils % Lymphocytes % Monocytes % Eosinophils % Basophils % Absolute Neutrophils Absolute Lymphocytes Absolute Monocytes Absolute Eosinophils Absolute Basophils Sodium Potassium Chloride Carbon Dioxide Anion Gap BUN Creatinine Estimated GFR/1.73 m2 Glucose Calcium Magnesium Patient ABO/Rh A Positive Antibody Screen Negative 07/12/18 05:30 Nose MRSA Screen - Pending Preliminary micro results at discharge 07/12/18 05:30 MRSA Screen - Pending Nose
--- NOTE | 2018-07-12 13:45 | PDOC.CMDIS ---
- If Service Date Differs Date of service: 07/12/18 Time of Service: 13:45 LACE Index Scoring Tool - Questions: Length of Stay (in days): 2 Comorbidities: Diabetes w/o Complication, Congestive Heart Failure E.D. Visits: 8 Care Management Discharge Reason for Hospitalization: GI Bleed. Discharge Plan: Manan will discharge home when medically ready per MD. Anticipate patient will return to the [facility] and follow up with rehab MD. Manan will transport via w/c van. Patient/Family Education Needs: Discharge education, any limitations, and follow up plan of care. Ask Me Three discussion. Services Needed at Discharge: [facility]Way Facility ([facility])
--- NOTE | 2018-07-12 13:51 | CMDISCH_ITS ---
- If Service Date Differs Date of service: 07/12/18 Time of Service: 13:45 LACE Index Scoring Tool - Questions: Length of Stay (in days): 2 Comorbidities: Diabetes w/o Complication, Congestive Heart Failure E.D. Visits: 8 Care Management Discharge Reason for Hospitalization: GI Bleed. Discharge Plan: Manan will discharge home when medically ready per MD. Anticipate patient will return to the [facility] and follow up with rehab MD. Manan will transport via w/c van. Patient/Family Education Needs: Discharge education, any limitations, and follow up plan of care. Ask Me Three discussion. Services Needed at Discharge: [facility] Facility ([facility])
[2018-07-12 13:54] VITALS: PULSE 56
== END 2018-07-12 14:29 | disposition skilled nursing facility (03) | DRG 378 ==
LOC: ER 16:50 → MS 16:59
PROVIDERS: Admitting Provider Internal Medicine; Emergency Provider Student in an Organized Health Care Education/Training Program; PCP Family Medicine; Visit Provider Internal Medicine
DX: K92.2 Gastrointestinal hemorrhage, unspecified (principal); I69.354 Hemiplegia and hemiparesis following cerebral infarction affecting left non-dominant side; R53.1 Weakness; I25.10 Atherosclerotic heart disease of native coronary artery without angina pectoris; E11.22 Type 2 diabetes mellitus with diabetic chronic kidney disease; Z79.4 Long term (current) use of insulin; N18.9 Chronic kidney disease, unspecified; I12.9 Hypertensive chronic kidney disease with stage 1 through stage 4 chronic kidney disease, or unspecified chronic kidney disease; I48.0 Paroxysmal atrial fibrillation; Z79.01 Long term (current) use of anticoagulants; I69.392 Facial weakness following cerebral infarction
CPT/HCPCS: 36415; 80048; 80053; 86850; 86900; 86901; 87081; 93005; 99223; 99239; 99285; 81003; 83735; 83880; 84484; 85014; 85018; 85025; 93010; J3490

== ENCOUNTER 2018-07-14 12:46 | Outpatient (REF) | payer MEDICARE, SELFPAY ==
[2018-07-14 13:01] LABS: HCT 33.3 % (40.0-50.0); HGB 10.5 g/dL (13.5-17.5)
== END 2018-07-14 13:06 ==
LOC: LBN 12:46
PROVIDERS: PCP Family Medicine; Visit Provider Family Medicine
DX: D64.9 Anemia, unspecified (principal); K92.2 Gastrointestinal hemorrhage, unspecified
CPT/HCPCS: 85014; 85018

== ENCOUNTER 2018-07-18 11:41 | Outpatient (REF) | payer MEDICARE, SELFPAY ==
[2018-07-18 12:08] LABS: HCT 31.1 % (40.0-50.0); HGB 9.5 g/dL (13.5-17.5)
== END 2018-07-18 12:01 ==
LOC: LBN 11:41
PROVIDERS: PCP Family Medicine; Visit Provider Family Medicine
DX: D64.9 Anemia, unspecified (principal); I10 Essential (primary) hypertension; E78.5 Hyperlipidemia, unspecified
CPT/HCPCS: 85014; 85018

== ENCOUNTER → 2018-08-01 00:22 | Outpatient (CLI) | payer MEDICARE, SELFPAY ==
--- NOTE | 2018-08-01 13:08 | DI.CT_ITS ---
SYMPTOMS/DIAGNOSIS: DIZZINESS CRANIAL CT: The noncontrast enhanced examination was carried out according to the usual protocol. There is an evident old right parietal occipital CVA. There is no evidence of an intra or extra-axial hemorrhage. Moderate generalized atrophy is demonstrated and there is evidence of small vessel disease. There is no evidence of a skull fracture. Mild inflammatory changes are noted in the inferior portion of the maxillary sinuses. The sinuses are otherwise unremarkable. There is no evidence of a mastoid effusion. SUMMARY: Old right parietal occipital CVA. Atrophy and evidence of small vessel disease. No acute intracranial abnormality is identified.
== END ==
PROVIDERS: PCP Family Medicine; Visit Provider Nurse Practitioner Family
DX: R42 Dizziness and giddiness (principal); I63.9 Cerebral infarction, unspecified
CPT/HCPCS: 70450

== ENCOUNTER 2018-09-02 12:27 | Outpatient (REF) | payer MEDICAID, MEDICARE, SELFPAY ==
[2018-09-02 13:58] LABS: Absolute Basophil Count 0.02 k/cumm (0.0-0.2); Absolute Eosinophil Count 0.08 k/cumm (0.0-0.7); Absolute Monocyte Count 0.21 k/cumm (0.11-0.7); Absolute Neutrophil Count 2.18 k/cumm (1.2-6.7); Basophils % 0.6; Eosinophils % 2.5; HCT 30.7 % (40.0-50.0); HGB 9.2 g/dL (13.5-17.5); Lymphocytes % 21.9; Mean Corpuscular Hemoglobin 23.3 pg (27.0-33.0); Mean Corpuscular Volume 77.7 fL (80-95); Mean Platelet Volume 9.3 fL (8.0-11.0); Monocytes % 6.6; Neutrophils % 68.4; Platelet Count 247 x1000/uL (130-400); RBC 3.95 m/cumm (4.50-6.00); RBC Distribution Width 17.7 % (11.8-14.1); White Blood Cell Count 3.19 k/cumm (4.4-10.8)
[2018-09-02 14:09] LABS: Diff Comment RBC Morph Reviewed
[2018-09-02 14:10] LABS: Anisocytosis 1+; Hypochromasia 2+; Microcytosis 2+; Polychromasia Present
[2018-09-02 14:11] LABS: Poikilocytes 2+
[2018-09-02 14:21] LABS: Anion Gap 9.8 mmol/L (3-11); BUN 26 mg/dL (7-18); CO2 28.2 mmol/L (21.0-32.0); CREATININE 1.71 mg/dL (0.70-1.30); Calcium 8.5 mg/dL (8.5-10.1); Chloride 103 mmol/L (98-107); Estimated GFR 40.13 (mL/min/1.73m2); Glucose 162 mg/dL (70-100); NT-proBNP 1832 pg/mL; Potassium 4.2 mmol/L (3.5-5.1); Sodium 141 mmol/L (136-145)
== END 2018-09-02 12:47 ==
LOC: LBN 12:27
PROVIDERS: PCP Family Medicine; Visit Provider Family Medicine
DX: I50.9 Heart failure, unspecified (principal); D64.9 Anemia, unspecified; N18.3 Chronic kidney disease, stage 3 (moderate)
CPT/HCPCS: 80048; 83880; 85025

== ENCOUNTER 2018-09-06 10:02 | Outpatient (REF) | payer MEDICAID, MEDICARE, SELFPAY ==
[2018-09-06 10:59] LABS: Anion Gap 8.9 mmol/L (3-11); BUN 27 mg/dL (7-18); CO2 29.1 mmol/L (21.0-32.0); CREATININE 1.78 mg/dL (0.70-1.30); Calcium 8.7 mg/dL (8.5-10.1); Chloride 101 mmol/L (98-107); Estimated GFR 38.31 (mL/min/1.73m2); Glucose 188 mg/dL (70-100); NT-proBNP 1217 pg/mL; Potassium 4.1 mmol/L (3.5-5.1); Sodium 139 mmol/L (136-145)
== END 2018-09-06 10:22 ==
LOC: LBN 10:02
PROVIDERS: PCP Family Medicine; Visit Provider Family Medicine
DX: I50.9 Heart failure, unspecified (principal)
CPT/HCPCS: 80048; 83880; 84443

== ENCOUNTER 2018-09-06 11:01 | Outpatient (CLI) | payer MEDICAID, MEDICARE, SELFPAY ==
--- NOTE | 2018-09-06 10:14 | DI.RAD_ITS ---
SYMPTOM/DIAGNOSIS: CHF PA AND LATERAL CHEST: Comparison is made with 02 Jul 2018. The heart is again noted to be enlarged. The patient is status post CABG. There are small bilateral pleural effusions, not significantly changed from the previous exam. No focal infiltrate is seen. There is no pulmonary edema. IMPRESSION: Cardiomegaly and stable bilateral small pleural effusions.
== END 2018-09-06 11:21 ==
PROVIDERS: PCP Family Medicine; Visit Provider Family Medicine
DX: I50.9 Heart failure, unspecified (principal); I51.7 Cardiomegaly; J90 Pleural effusion, not elsewhere classified; Z95.1 Presence of aortocoronary bypass graft
CPT/HCPCS: 71046

== ENCOUNTER 2018-09-11 14:42 | Outpatient (REF) | payer MEDICAID, MEDICARE, SELFPAY ==
[2018-09-11 15:07] LABS: HCT 28.4 % (40.0-50.0); HGB 8.5 g/dL (13.5-17.5); Mean Corp. HGB Concentration 29.9 g/dL (32.0-36.0); Mean Corpuscular Hemoglobin 23.1 pg (27.0-33.0); Mean Corpuscular Volume 77.2 fL (80-95); Platelet Count 232 x1000/uL (130-400); RBC 3.68 m/cumm (4.50-6.00); RBC Distribution Width 17.5 % (11.8-14.1); White Blood Cell Count 4.01 k/cumm (4.4-10.8)
[2018-09-11 15:23] LABS: BUN 32 mg/dL (7-18); CREATININE 1.85 mg/dL (0.70-1.30); Calcium 8.5 mg/dL (8.5-10.1); Chloride 102 mmol/L (98-107); Estimated GFR 36.65 (mL/min/1.73m2); Glucose 154 mg/dL (70-100); NT-proBNP 1233 pg/mL; Potassium 4.3 mmol/L (3.5-5.1); Sodium 139 mmol/L (136-145)
== END 2018-09-11 15:02 ==
LOC: LBN 14:42
PROVIDERS: PCP Family Medicine; Visit Provider Family Medicine
DX: D64.9 Anemia, unspecified (principal); I50.9 Heart failure, unspecified
CPT/HCPCS: 80048; 85027; 83880

== ENCOUNTER 2018-09-14 13:38 | Outpatient (REF) | payer MEDICAID, MEDICARE, SELFPAY ==
[2018-09-14 15:05] LABS: BUN 27 mg/dL (7-18); CREATININE 1.83 mg/dL (0.70-1.30); Calcium 8.9 mg/dL (8.5-10.1); Chloride 104 mmol/L (98-107); Estimated GFR 37.11 (mL/min/1.73m2); Glucose 191 mg/dL (70-100); Potassium 4.5 mmol/L (3.5-5.1); Sodium 142 mmol/L (136-145)
== END 2018-09-14 13:58 ==
LOC: LBN 13:38
PROVIDERS: PCP Family Medicine; Visit Provider Family Medicine
DX: D64.9 Anemia, unspecified (principal); E11.9 Type 2 diabetes mellitus without complications; E78.5 Hyperlipidemia, unspecified; I10 Essential (primary) hypertension; I48.91 Unspecified atrial fibrillation; N18.3 Chronic kidney disease, stage 3 (moderate)
CPT/HCPCS: 80048

== ENCOUNTER 2018-09-20 13:26 | Outpatient (REF) | payer MEDICARE, MEDICAID, SELFPAY ==
[2018-09-20 14:59] LABS: Abs Immature Grans 0.01 k/cumm (0.0-0.09); Absolute Basophil Count 0.01 k/cumm (0.0-0.2); Absolute Eosinophil Count 0.14 k/cumm (0.0-0.7); Absolute Lymphocyte Count 0.72 k/cumm (1.2-3.4); Absolute Monocyte Count 0.33 k/cumm (0.11-0.7); Absolute Neutrophil Count 2.42 k/cumm (1.2-6.7); Basophils % 0.3; Eosinophils % 3.9; HCT 31.1 % (40.0-50.0); HGB 9.2 g/dL (13.5-17.5); Immature Grans % 0.3; Lymphocytes % 19.8; Mean Corp. HGB Concentration 29.6 g/dL (32.0-36.0); Mean Corpuscular Hemoglobin 22.9 pg (27.0-33.0); Mean Corpuscular Volume 77.6 fL (80-95); Mean Platelet Volume 9.1 fL (8.0-11.0); Monocytes % 9.1; Neutrophils % 66.6; Platelet Count 222 x1000/uL (130-400); RBC 4.01 m/cumm (4.50-6.00); RBC Distribution Width 16.9 % (11.8-14.1); White Blood Cell Count 3.63 k/cumm (4.4-10.8)
[2018-09-20 15:12] LABS: Anion Gap 8.2 mmol/L (3-11); BUN 27 mg/dL (7-18); CO2 28.8 mmol/L (21.0-32.0); CREATININE 1.91 mg/dL (0.70-1.30); Calcium 8.7 mg/dL (8.5-10.1); Chloride 103 mmol/L (98-107); Estimated GFR 35.32 (mL/min/1.73m2); Glucose 196 mg/dL (70-100); NT-proBNP 1135 pg/mL; Potassium 4.1 mmol/L (3.5-5.1); Sodium 140 mmol/L (136-145)
== END 2018-09-20 13:46 ==
LOC: LBN 13:26
PROVIDERS: PCP Family Medicine; Visit Provider Family Medicine
DX: I50.9 Heart failure, unspecified (principal); E11.9 Type 2 diabetes mellitus without complications; E78.5 Hyperlipidemia, unspecified; R07.9 Chest pain, unspecified; D64.9 Anemia, unspecified; R06.00 Dyspnea, unspecified; I10 Essential (primary) hypertension
CPT/HCPCS: 80048; 83880; 85025

== ENCOUNTER 2018-09-22 08:00 | Outpatient (REF) | payer MEDICARE, MEDICAID, SELFPAY ==
[2018-09-23 11:32] LABS: CLEAVED CELLS 74 mmol/24h (40-220); Sodium, Urine 87 mmol/L; Total Volume 850 ml
== END 2018-09-22 08:20 ==
LOC: LBN 08:00
PROVIDERS: PCP Family Medicine; Visit Provider Family Medicine
DX: I50.9 Heart failure, unspecified (principal); D64.9 Anemia, unspecified; E11.9 Type 2 diabetes mellitus without complications; E78.5 Hyperlipidemia, unspecified; I10 Essential (primary) hypertension
CPT/HCPCS: 81050; 84300

== ENCOUNTER 2018-09-25 15:15 | Outpatient (REF) | payer MEDICARE, MEDICAID, SELFPAY ==
[2018-09-25 16:38] LABS: Abs Immature Grans 0.01 k/cumm (0.0-0.09); Absolute Basophil Count 0.02 k/cumm (0.0-0.2); Absolute Eosinophil Count 0.13 k/cumm (0.0-0.7); Absolute Lymphocyte Count 0.68 k/cumm (1.2-3.4); Absolute Monocyte Count 0.49 k/cumm (0.11-0.7); Basophils % 0.4; Eosinophils % 2.4; Immature Grans % 0.2; Lymphocytes % 12.8; Mean Corpuscular Hemoglobin 23.1 pg (27.0-33.0); Mean Corpuscular Volume 77.1 fL (80-95); Mean Platelet Volume 9.4 fL (8.0-11.0); Monocytes % 9.2; Platelet Count 219 x1000/uL (130-400); RBC 3.89 m/cumm (4.50-6.00); RBC Distribution Width 16.9 % (11.8-14.1); White Blood Cell Count 5.33 k/cumm (4.4-10.8)
[2018-09-25 16:52] LABS: BUN 34 mg/dL (7-18); CREATININE 2.04 mg/dL (0.70-1.30); Calcium 8.6 mg/dL (8.5-10.1); Chloride 107 mmol/L (98-107); Estimated GFR 32.74 (mL/min/1.73m2); Glucose 173 mg/dL (70-100); NT-proBNP 1223 pg/mL; Potassium 4.8 mmol/L (3.5-5.1); Sodium 144 mmol/L (136-145)
[2018-09-25 17:04] LABS: Anisocytosis 2+; Diff Comment RBC Morph Reviewed; Hypochromasia 2+
[2018-09-25 17:05] LABS: Macrocytosis 1+; Microcytosis 3+; Poikilocytes 2+
== END 2018-09-25 15:35 ==
LOC: LBN 15:15
PROVIDERS: PCP Family Medicine; Visit Provider Family Medicine
DX: D62 Acute posthemorrhagic anemia (principal); I50.9 Heart failure, unspecified
CPT/HCPCS: 80048; 83880; 85025

== ENCOUNTER 2018-10-02 08:28 | Outpatient (REF) | payer MEDICARE, MEDICAID, SELFPAY ==
[2018-10-02 08:51] LABS: HGB 9.6 g/dL (13.5-17.5)
[2018-10-02 09:40] LABS: BUN 32 mg/dL (7-18); CREATININE 2.07 mg/dL (0.70-1.30); Calcium 9.1 mg/dL (8.5-10.1); Chloride 103 mmol/L (98-107); Estimated GFR 32.19 (mL/min/1.73m2); Glucose 156 mg/dL (70-100); NT-proBNP 1097 pg/mL; Sodium 142 mmol/L (136-145)
== END 2018-10-02 08:48 ==
LOC: LBN 08:28
PROVIDERS: PCP Family Medicine; Visit Provider Family Medicine
DX: I50.9 Heart failure, unspecified (principal)
CPT/HCPCS: 80048; 83880; 85014; 85018

== ENCOUNTER 2018-10-14 10:12 | Outpatient (REF) | payer MEDICARE, MEDICAID, SELFPAY ==
[2018-10-14 15:00] LABS: Anion Gap 9.9 mmol/L (3-11); BUN 35 mg/dL (7-18); CO2 30.1 mmol/L (21.0-32.0); Calcium 8.9 mg/dL (8.5-10.1); Chloride 103 mmol/L (98-107); Estimated GFR 35.54 (mL/min/1.73m2); Glucose 233 mg/dL (70-100); NT-proBNP 1113 pg/mL; Potassium 3.9 mmol/L (3.5-5.1); Sodium 143 mmol/L (136-145)
[2018-10-16 13:22] LABS: TSH 3.81 uIU/mL (0.358-3.74)
== END 2018-10-14 10:32 ==
LOC: NCHCN 10:12
PROVIDERS: PCP Family Medicine; Visit Provider Family Medicine
DX: I50.9 Heart failure, unspecified (principal); D64.9 Anemia, unspecified; E11.9 Type 2 diabetes mellitus without complications; E78.5 Hyperlipidemia, unspecified; N18.3 Chronic kidney disease, stage 3 (moderate); I10 Essential (primary) hypertension
CPT/HCPCS: 80048; 83880; 84443

== ENCOUNTER 2018-10-30 13:58 | Outpatient (REF) | payer MEDICARE, MEDICAID, SELFPAY ==
[2018-10-30 14:37] LABS: Anion Gap 7.4 mmol/L (3-11); BUN 39 mg/dL (7-18); CO2 28.6 mmol/L (21.0-32.0); Calcium 8.8 mg/dL (8.5-10.1); Chloride 100 mmol/L (98-107); Estimated GFR 31.66 (mL/min/1.73m2); Glucose 292 mg/dL (70-100); NT-proBNP 1255 pg/mL; Potassium 4.9 mmol/L (3.5-5.1); Sodium 136 mmol/L (136-145)
== END 2018-10-30 14:18 ==
LOC: LBN 13:58
PROVIDERS: PCP Family Medicine; Visit Provider Family Medicine
DX: R06.09 Other forms of dyspnea (principal); N18.3 Chronic kidney disease, stage 3 (moderate); I48.91 Unspecified atrial fibrillation; I10 Essential (primary) hypertension; F41.9 Anxiety disorder, unspecified; E78.5 Hyperlipidemia, unspecified; E11.9 Type 2 diabetes mellitus without complications
CPT/HCPCS: 80048; 83880

== ENCOUNTER 2018-11-01 13:55 | Outpatient (REF) | payer MEDICARE, MEDICAID, SELFPAY | END 2018-11-01 14:15 | LOC: LBN 13:55 | PROVIDERS: PCP Family Medicine; Visit Provider Family Medicine | DX: T87.43 Infection of amputation stump, right lower extremity (principal); I73.9 Peripheral vascular disease, unspecified; Z89.431 Acquired absence of right foot | CPT/HCPCS: 87077; 87070; 87186; 87205 ==

== ENCOUNTER 2018-11-06 14:01 | Outpatient (REF) | payer MEDICARE, MEDICAID, SELFPAY ==
[2018-11-06 15:12] LABS: Anion Gap 8.7 mmol/L (3-11); BUN 30 mg/dL (7-18); CO2 30.3 mmol/L (21.0-32.0); CREATININE 1.78 mg/dL (0.70-1.30); Chloride 100 mmol/L (98-107); Estimated GFR 38.31 (mL/min/1.73m2); Glucose 228 mg/dL (70-100); NT-proBNP 1565 pg/mL; Potassium 4.5 mmol/L (3.5-5.1); Sodium 139 mmol/L (136-145)
== END 2018-11-06 14:21 ==
LOC: LBN 14:01
PROVIDERS: PCP Family Medicine; Visit Provider Family Medicine
DX: I50.9 Heart failure, unspecified (principal); D64.9 Anemia, unspecified; E78.5 Hyperlipidemia, unspecified; I70.1 Atherosclerosis of renal artery; S91.309D Unspecified open wound, unspecified foot, subsequent encounter
CPT/HCPCS: 80048; 83880; 85025

== ENCOUNTER 2018-11-13 11:31 | Outpatient (REF) | payer MEDICARE, MEDICAID, SELFPAY ==
[2018-11-13 13:19] LABS: Anion Gap 8.5 mmol/L (3-11); BUN 34 mg/dL (7-18); CO2 30.5 mmol/L (21.0-32.0); Calcium 8.6 mg/dL (8.5-10.1); Chloride 97 mmol/L (98-107); Glucose 439 mg/dL (70-100); Sodium 136 mmol/L (136-145)
== END 2018-11-13 11:51 ==
LOC: LBN 11:31
PROVIDERS: PCP Family Medicine; Visit Provider Family Medicine
DX: I50.9 Heart failure, unspecified (principal)
CPT/HCPCS: 80048

== ENCOUNTER 2018-11-20 12:10 | Outpatient (REF) | payer MEDICARE, MEDICAID, SELFPAY ==
[2018-11-20 13:46] LABS: Abs Immature Grans 0.01 k/cumm (0.0-0.09); Absolute Basophil Count 0.01 k/cumm (0.0-0.2); Absolute Eosinophil Count 0.15 k/cumm (0.0-0.7); Absolute Lymphocyte Count 0.91 k/cumm (1.2-3.4); Absolute Monocyte Count 0.28 k/cumm (0.11-0.7); Absolute Neutrophil Count 3.73 k/cumm (1.2-6.7); Basophils % 0.2; Eosinophils % 2.9; HCT 38.9 % (40.0-50.0); HGB 12.3 g/dL (13.5-17.5); Immature Grans % 0.2; Lymphocytes % 17.9; Mean Corp. HGB Concentration 31.6 g/dL (32.0-36.0); Mean Corpuscular Hemoglobin 24.3 pg (27.0-33.0); Mean Corpuscular Volume 76.7 fL (80-95); Mean Platelet Volume 9.2 fL (8.0-11.0); Monocytes % 5.5; Neutrophils % 73.3; Platelet Count 214 x1000/uL (130-400); RBC 5.07 m/cumm (4.50-6.00); RBC Distribution Width 21.5 % (11.8-14.1); White Blood Cell Count 5.09 k/cumm (4.4-10.8)
[2018-11-20 15:36] LABS: Diff Comment Diff Reviewed
[2018-11-20 15:37] LABS: Anisocytosis 3+; Microcytosis 1+
== END 2018-11-20 12:30 ==
LOC: LBN 12:10
PROVIDERS: PCP Family Medicine; Visit Provider Family Medicine
DX: D64.9 Anemia, unspecified (principal); I10 Essential (primary) hypertension
CPT/HCPCS: 85025

== ENCOUNTER 2018-11-22 13:49 | Outpatient (REF) | payer MEDICARE, MEDICAID, SELFPAY | END 2018-11-22 14:09 | LOC: LBN 13:49 | PROVIDERS: PCP Family Medicine; Visit Provider Family Medicine | DX: K92.2 Gastrointestinal hemorrhage, unspecified (principal) | CPT/HCPCS: 82272 ==

== ENCOUNTER 2018-11-23 11:05 | Outpatient (REF) | payer MEDICARE, MEDICAID, SELFPAY | END 2018-11-23 11:25 | LOC: LBN 11:05 | PROVIDERS: PCP Family Medicine; Visit Provider Family Medicine | DX: K92.2 Gastrointestinal hemorrhage, unspecified (principal) | CPT/HCPCS: 82272 ==

== ENCOUNTER 2018-11-23 20:52 | Outpatient (REF) | payer MEDICARE, MEDICAID, SELFPAY | END 2018-11-23 21:12 | LOC: LBN 20:52 | PROVIDERS: PCP Family Medicine; Visit Provider Family Medicine | DX: K92.2 Gastrointestinal hemorrhage, unspecified (principal) | CPT/HCPCS: 82272 ==

== ENCOUNTER 2018-12-04 19:19 | Outpatient (REF) | payer MEDICARE, MEDICAID, SELFPAY ==
[2018-12-04 16:58] LABS: Abs Immature Grans 0.01 k/cumm (0.0-0.09); Absolute Basophil Count 0.02 k/cumm (0.0-0.2); Absolute Eosinophil Count 0.18 k/cumm (0.0-0.7); Absolute Lymphocyte Count 1.02 k/cumm (1.2-3.4); Absolute Monocyte Count 0.33 k/cumm (0.11-0.7); Basophils % 0.4; Eosinophils % 3.6; HCT 37.3 % (40.0-50.0); HGB 12.1 g/dL (13.5-17.5); Immature Grans % 0.2; Lymphocytes % 20.2; Mean Corp. HGB Concentration 32.4 g/dL (32.0-36.0); Mean Corpuscular Hemoglobin 25.1 pg (27.0-33.0); Mean Corpuscular Volume 77.4 fL (80-95); Mean Platelet Volume 8.6 fL (8.0-11.0); Monocytes % 6.5; Neutrophils % 69.1; Platelet Count 192 x1000/uL (130-400); RBC 4.82 m/cumm (4.50-6.00); RBC Distribution Width 20.8 % (11.8-14.1); White Blood Cell Count 5.06 k/cumm (4.4-10.8)
[2018-12-04 18:27] LABS: Anisocytosis 1+
== END 2018-12-04 19:39 ==
LOC: LBN 19:19
PROVIDERS: PCP Family Medicine; Visit Provider Family Medicine
DX: K92.2 Gastrointestinal hemorrhage, unspecified (principal)
CPT/HCPCS: 85025

== ENCOUNTER 2018-12-12 14:24 | Outpatient (REF) | payer MEDICARE, MEDICAID, SELFPAY ==
[2018-12-12 16:12] LABS: Anion Gap 9.1 mmol/L (3-11); BUN 35 mg/dL (7-18); CO2 26.9 mmol/L (21.0-32.0); CREATININE 2.01 mg/dL (0.70-1.30); Calcium 9.1 mg/dL (8.5-10.1); Chloride 101 mmol/L (98-107); Glucose 298 mg/dL (70-100); Potassium 4.5 mmol/L (3.5-5.1); Sodium 137 mmol/L (136-145)
== END 2018-12-12 14:44 ==
LOC: LBN 14:24
PROVIDERS: PCP Family Medicine; Visit Provider Family Medicine
DX: N18.9 Chronic kidney disease, unspecified (principal)
CPT/HCPCS: 80048

== ENCOUNTER 2018-12-18 14:34 | Outpatient (REF) | payer MEDICARE, MEDICAID, SELFPAY ==
[2018-12-18 15:00] LABS: Absolute Basophil Count 0.02 k/cumm (0.0-0.2); Absolute Eosinophil Count 0.16 k/cumm (0.0-0.7); Absolute Lymphocyte Count 0.97 k/cumm (1.2-3.4); Absolute Monocyte Count 0.25 k/cumm (0.11-0.7); Absolute Neutrophil Count 3.05 k/cumm (1.2-6.7); Basophils % 0.4; Eosinophils % 3.6; HCT 37.5 % (40.0-50.0); HGB 12.2 g/dL (13.5-17.5); Lymphocytes % 21.8; Mean Corp. HGB Concentration 32.5 g/dL (32.0-36.0); Mean Corpuscular Hemoglobin 25.7 pg (27.0-33.0); Mean Corpuscular Volume 79.1 fL (80-95); Mean Platelet Volume 9.1 fL (8.0-11.0); Monocytes % 5.6; Neutrophils % 68.6; Platelet Count 177 x1000/uL (130-400); RBC 4.74 m/cumm (4.50-6.00); RBC Distribution Width 19.9 % (11.8-14.1); White Blood Cell Count 4.45 k/cumm (4.4-10.8)
[2018-12-18 15:26] LABS: Anion Gap 9.1 mmol/L (3-11); BUN 55 mg/dL (7-18); CO2 29.9 mmol/L (21.0-32.0); CREATININE 2.33 mg/dL (0.70-1.30); Calcium 8.9 mg/dL (8.5-10.1); Chloride 101 mmol/L (98-107); Estimated GFR 28.08 (mL/min/1.73m2); Glucose 293 mg/dL (70-100); Potassium 4.4 mmol/L (3.5-5.1); Sodium 140 mmol/L (136-145)
[2018-12-18 16:18] LABS: Anisocytosis 1+; Diff Comment RBC Morph Reviewed; Hypochromasia 2+
== END 2018-12-18 14:54 ==
LOC: LBN 14:34
PROVIDERS: PCP Family Medicine; Visit Provider Family Medicine
DX: D64.9 Anemia, unspecified (principal); E11.9 Type 2 diabetes mellitus without complications; Z79.4 Long term (current) use of insulin; N18.3 Chronic kidney disease, stage 3 (moderate)
CPT/HCPCS: 80048; 85025

== ENCOUNTER 2018-12-24 15:26 | Outpatient (REF) | payer MEDICARE, MEDICAID, SELFPAY ==
[2018-12-24 16:14] LABS: Anion Gap 8.4 mmol/L (3-11); BUN 43 mg/dL (7-18); CO2 28.6 mmol/L (21.0-32.0); CREATININE 2.13 mg/dL (0.70-1.30); Calcium 8.7 mg/dL (8.5-10.1); Chloride 102 mmol/L (98-107); Estimated GFR 31.15 (mL/min/1.73m2); Glucose 224 mg/dL (70-100); Potassium 4.2 mmol/L (3.5-5.1); Sodium 139 mmol/L (136-145)
[2018-12-24 16:21] LABS: Hemoglobin A1C 8.9 % (4.5-6.2)
== END 2018-12-24 15:46 ==
LOC: LBN 15:26
PROVIDERS: PCP Family Medicine; Visit Provider Family Medicine
DX: E11.9 Type 2 diabetes mellitus without complications (principal)
CPT/HCPCS: 80048; 83036

== ENCOUNTER 2018-12-31 15:04 | Outpatient (REF) | payer MEDICARE, MEDICAID, SELFPAY ==
[2018-12-31 15:47] LABS: Anion Gap 7.5 mmol/L (3-11); BUN 42 mg/dL (7-18); CO2 28.5 mmol/L (21.0-32.0); CREATININE 1.97 mg/dL (0.70-1.30); Calcium 8.8 mg/dL (8.5-10.1); Chloride 103 mmol/L (98-107); Estimated GFR 34.08 (mL/min/1.73m2); Glucose 138 mg/dL (70-100); Potassium 4.6 mmol/L (3.5-5.1); Sodium 139 mmol/L (136-145)
[2018-12-31 15:57] LABS: Abs Immature Grans 0.01 k/cumm (0.0-0.09); Absolute Basophil Count 0.02 k/cumm (0.0-0.2); Absolute Eosinophil Count 0.18 k/cumm (0.0-0.7); Absolute Lymphocyte Count 1.11 k/cumm (1.2-3.4); Absolute Monocyte Count 0.39 k/cumm (0.11-0.7); Basophils % 0.4; Eosinophils % 3.3; HCT 38.5 % (40.0-50.0); HGB 12.5 g/dL (13.5-17.5); Immature Grans % 0.2; Lymphocytes % 20.5; Mean Corp. HGB Concentration 32.5 g/dL (32.0-36.0); Mean Corpuscular Volume 80.2 fL (80-95); Mean Platelet Volume 8.9 fL (8.0-11.0); Monocytes % 7.2; Neutrophils % 68.4; Platelet Count 208 x1000/uL (130-400); RBC Distribution Width 18.7 % (11.8-14.1); White Blood Cell Count 5.41 k/cumm (4.4-10.8)
[2018-12-31 18:55] LABS: Anisocytosis 1+
== END 2018-12-31 15:24 ==
LOC: LBN 15:04
PROVIDERS: PCP Family Medicine; Visit Provider Family Medicine
DX: D64.9 Anemia, unspecified (principal); Z79.01 Long term (current) use of anticoagulants; I48.0 Paroxysmal atrial fibrillation
CPT/HCPCS: 80048; 85025

== ENCOUNTER 2019-01-07 13:00 | Outpatient (REF) | payer MEDICARE, MEDICAID, SELFPAY ==
[2019-01-07 13:16] LABS: Anion Gap 6.8 mmol/L (3-11); BUN 36 mg/dL (7-18); CO2 29.2 mmol/L (21.0-32.0); CREATININE 1.73 mg/dL (0.70-1.30); Calcium 8.9 mg/dL (8.5-10.1); Chloride 102 mmol/L (98-107); Estimated GFR 39.59 (mL/min/1.73m2); Glucose 260 mg/dL (70-100); Potassium 4.3 mmol/L (3.5-5.1); Sodium 138 mmol/L (136-145)
== END 2019-01-07 13:20 ==
LOC: LBN 13:00
PROVIDERS: PCP Family Medicine; Visit Provider Family Medicine
DX: N18.3 Chronic kidney disease, stage 3 (moderate) (principal)
CPT/HCPCS: 80048

== ENCOUNTER 2019-01-14 10:20 | Outpatient (CLI) | payer MEDICARE, MEDICAID, SELFPAY ==
[2019-01-14 11:53] LABS: Anion Gap 11.8 mmol/L (3-11); BUN 33 mg/dL (7-18); CO2 26.2 mmol/L (21.0-32.0); CREATININE 1.99 mg/dL (0.70-1.30); Chloride 99 mmol/L (98-107); Estimated GFR 33.69 (mL/min/1.73m2); Glucose 259 mg/dL (70-100); Sodium 137 mmol/L (136-145)
== END 2019-01-14 10:40 ==
PROVIDERS: PCP Family Medicine; Visit Provider Nurse Practitioner Adult Health
DX: N18.3 Chronic kidney disease, stage 3 (moderate) (principal)
CPT/HCPCS: 80048

== ENCOUNTER 2019-01-17 16:28 | Outpatient (REF) | payer MEDICARE, MEDICAID, SELFPAY ==
[2019-01-17 16:54] LABS: Bilirubin Negative (Negative); Blood Trace-lysed (Negative); Clarity Clear; Glucose Negative (Negative); Ketones Negative (Negative); Leukocyte Esterase Small (Negative); Nitrite Negative (Negative); Urobilinogen 0.2 EU/dL (Up TO 0.2)
[2019-01-17 17:04] LABS: WBC >50 HPF (0-5)
[2019-01-17 17:05] LABS: Bacteria Many HPF (Negative); C & S Indicated? C&S Done As Ordered; Casts Negative LPF (Negative); Crystals Negative HPF (Negative); Epithelial Cells Rare HPF (Negative); Mucus Negative (Negative)
== END 2019-01-17 16:48 ==
LOC: LBN 16:28
PROVIDERS: PCP Family Medicine; Visit Provider Nurse Practitioner Adult Health
DX: R50.9 Fever, unspecified (principal)
CPT/HCPCS: 87077; 81003; 81015; 87086; 87186

== ENCOUNTER 2019-01-18 09:41 | Emergency (ER) | payer MEDICARE, MEDICAID, SELFPAY ==
[2019-01-18] VITALS (24 sets, daily range): BP systolic 127–199; BP diastolic 58–178; PULSE 74–121; RESP 15–29; TEMP 37.9; O2SAT 92–98
--- NOTE | 2019-01-18 09:55 | W.ED.GENAD ---
Discharge Plan Disposition Patient Disposition: SNF (LEVEL 1) [facility] Condition: Improving Discharge Details Chief Complaint: RespSymp Clinical Impression: Congestive heart failure (CHF), UTI (urinary tract infection), Pneumonia, Hypoxia Primary Care Provider: Kory Sierra ED Provider: Odalis Sheridan Home Meds and New Rx's Prescriptions: Continued atorvastatin [Lipitor] 80 MG tablet 40 mg PO HS RF: 0 amiodarone [Cordarone] 200 MG tablet 200 mg PO QAM RF: 0 amlodipine 10 MG tablet 10 mg PO QAM RF: 0 acetaminophen 325 mg Tablet 650 mg PO Q6H RF: 0 albuterol sulfate 2.5 mg /3 mL (0.083 %) Solution For Nebulization 2.5 mg INHALATION Q4H PRNRF: 0 bisacodyl [Dulcolax (bisacodyl)] 10 mg Suppository 10 mg NM DIRECTED PRNRF: 0 Fleet Enema 19-7 gram/118 mL Enema 197 ml NM DIRECTED PRNRF: 0 multivitamin [Multiple Vitamins] Tablet 1 tab PO QAM RF: 0 isosorbide mononitrate 30 mg Tablet Extended Release 24 Hr 30 mg PO DAILY RF: 0 magnesium hydroxide [Milk of Magnesia] 400 mg/5 mL Suspension 30 ml PO PRN PRNRF: 0 losartan 25 mg Tablet 25 mg PO DAILY RF: 0 alum-mag hydroxide-simeth [Maalox Advanced] 200-200-20 mg/5 mL Suspension 30 ml PO QID PRNRF: 0 hydralazine 25 mg tablet 25 mg PO TID RF: 0 Lantus Solostar U-100 Insulin 100 UNIT/ML insulin pen 22 unit Sub-Q HS RF: 0 potassium chloride 20 MEQ tablet extended release 40 meq PO QAM RF: 0 melatonin 3 MG tablet 3 mg PO HS RF: 0 Glucagon Emergency Kit (human) 1 MG kit 1 mg IM Q15M PRN (Reason: Severe hypoglycemia) RF: 0 gabapentin 100 MG capsule 200 cap PO TID RF: 0 carvedilol 25 mg Tablet 25 mg PO BID RF: 0 ipratropium-albuterol 0.5 mg-3 mg(2.5 mg base)/3 mL Solution For Nebulization 3 ml INHALATION Q4H PRN PRNRF: 0 torsemide 20 mg Tablet 70 mg PO DAILY RF: 0 sucralfate 1 gram Tablet 1 g PO BID RF: 0 carvedilol 3.125 mg Tablet 3.125 mg PO BID RF: 0 ascorbic acid (vitamin C) 500 mg Tablet 500 mg PO DAILY RF: 0 terazosin 2 mg Capsule 2 mg PO BID RF: 0 Novolog U-100 Insulin aspart 100 unit/mL Solution 1 sliding scale dose SUBCUT UD RF: 0 levothyroxine 50 mcg Tablet 50 mcg PO DAILY RF: 0 pantoprazole 40 mg Tablet,Delayed Release (Dr/Ec) 40 mg PO BID RF: 0 ferrous sulfate 325 mg (65 mg iron) Tablet 325 mg PO BID RF: 0 nitroglycerin 0.4 mg Tablet, Sublingual 0.4 mg SUBLINGUAL Q5-15M PRNRF: 0 polyethylene glycol 3350 17 gram/dose Powder 17 g PO DAILY RF: 0 albuterol sulfate [Proventil HFA] 90 mcg/actuation Hfa Aerosol Inhaler 2 puff INHALATION Q4H PRN PRNRF: 0 doxycycline hyclate 100 mg Tablet 100 mg PO BID RF: 0 docusate sodium 100 mg Tablet 100 mg PO Q8H PRN PRNRF: 0 Novolog Flexpen U-100 Insulin 100 unit/mL Insulin Pen 5 unit SUBCUT AC RF: 0 apixaban 2.5 mg Tablet 2.5 mg PO BID RF: 0 Stiolto Respimat 2.5-2.5 mcg/actuation Mist 2 puff INHALATION DAILY RF: 0 Discharge Instructions Instructions: Heart Failure (ED), Urinary Tract Infection in Men (ED), Pneumonia (ED) Additional Instructions: Patient will be need to be monitored closely, will remain on oxygen to maintain oxygen above 94%. Concern the patient will need to continue to hydrate but should be monitored for continued fluid overload. He was given IV Lasix here and may need to continue with this orally. Please continue with doxycycline orally. Dr. Nunez will order further IV ceftriaxone as well as Lasix if needed. Blood cultures are pending. Patient develops any new or worsening symptoms please seek care urgently once again peer Referrals: Kory Sierra [Primary Care Provider] - Medical Decision Making Patient is 88-year-old male presents today with chief complaint of fever and shortness of breath. Symptoms began yesterday. She is also endorsing generalized weakness. On exam, patient appears both chronically and acutely ill. He does appear short of breath with nasal flaring feeling and pursed lip breathing. No tripoding or chest accessory muscles. Patient is obese. He has crackles in the right lower lobe, scattered wheezes. He appears fluid overloaded with edematous lower extremities which patient reports is typical. He has frothy, thick white sputum in his posterior oropharynx. He reports a mild cough that started this morning but states this was not present yesterday. He denies any chest pain. Reports that shortness of breath is made worse with exertion which is limited his ability to care for himself. This is really concerning for possible CHF exacerbation with underlying pneumonia as well. Also considering other cardiac pulmonary sources. Plan to obtain chest x-ray, laboratory evaluation, EKG. Urinalysis that was completed yesterday is also highly suggestive of urinary tract infection. Patient is on doxycycline already for this. EKG reviewed by Dr. Trimble and compared to previous with no acute changes noted. Patient in sinus rhythm with 89. X-ray reviewed by myself, concerning for pneumonia in the right upper and right lower lobes. Plan to begin ceftriaxone. Lactate is elevated at 2. Blood cultures are pending. White count within normal limits. Patient is minimally anemic but this is story for the patient. It is elevated at 2.89. While patient has history of known kidney disease and if this is been elevated historically, this is higher than the patient's typical. Troponin is 0.04. This troponin is typical for the patient on review of chart. Gently hydrating the patient with concern for possible sepsis but also concerned for fluid overload. Will give IV Lasix. CXR reviewed by radiologist: FINDINGS: Lungs: Stable hyperaerated lungs consistent with deep inspiratory effort vs reactive airway disease vs mild COPD . Mild left basilar atelectasis and/or infiltrate and/or effusion. Pleural space: Unremarkable. No pleural effusion. No pneumothorax. Heart/Mediastinum: Unremarkable. No cardiomegaly. Bones/joints: Stable sternotomy. IMPRESSION: 1. Stable hyperaerated lungs consistent with deep inspiratory effort vs reactive airway disease vs mild COPD . 2. Mild left basilar atelectasis and/or infiltrate and/or effusion. Influenza negative. Discussed my concerns with the patient. He continues to need oxygen supplementation. Advised inpatient stay for diuresis and continued care for infection. However, patient is refusing. [facility] Discussed risks and benefits as well as my concerns prompting inpatient stay. He voices understanding and continues to refuse in patient hospitalization. Requests brief treatment in the ED with return as soon as possible. Will consult with their electronic tech phsyician. Spoke with Dr. Perea. She will speak with the nursing staff about coming back to facility and will continue to monitor. Nursing staff is able to take the patient. We will continue to monitor hypoxia and maintain oxygen levels with nasal cannula. Dr. Nunez will order further ceftriaxone, patient will continue on oral doxycycline. We will also continue to closely monitor fluid levels and order further oral Lasix as needed. Advised patient may return with any new or worsening symptoms reviewed at any time. All the patient's questions and concerns were addressed and he is in agreement with this plan HPI General Mode of arrival: EMS. Date/Time Provider Initiated Documentation: 01/18/19 09:54. Limitations to Documentation: no limitations. Information obtained by: patient and RN notes reviewed. HPI Narrative: Patient is a 68-year-old male in via EMS from [facility], chief complaint fever and shortness of breath. 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 Surgical history pertinent for CABG x3. Patient was yesterday he began feeling febrile and weak. Also noted increased shortness of breath. Concern be febrile by nursing staff he was begun on doxycycline empirically. Urinalysis was sent. This morning for mild weakness in joints of breath was increased. Patient had difficulty feeding himself secondary to his increased weakness. Denies any chest pain. Denies abdominal pain. Denies any change in his urinary or bowel habits. Is endorsing chronic pain in his feet but reports that this is unchanged from previous. Related Data Home Medications Medication Instructions Recorded Confirmed amiodarone [Cordarone] 200 mg PO QAM 09/27/17 01/18/19 amlodipine 10 mg PO QAM 09/27/17 01/18/19 atorvastatin [Lipitor] 40 mg PO HS 09/27/17 01/18/19 Lantus Solostar U-100 Insulin 22 unit SUB-Q HS 03/07/18 01/18/19 potassium chloride 40 meq PO QAM 03/07/18 01/18/19 melatonin 3 mg PO HS 03/13/18 01/18/19 Glucagon Emergency Kit (human) 1 mg IM Q15M PRN 03/14/18 01/18/19 gabapentin 200 cap PO TID 03/14/18 07/11/18 Fleet Enema 197 ml NM DIRECTED PRN 06/05/18 01/18/19 acetaminophen 650 mg PO Q6H 06/05/18 01/18/19 albuterol sulfate 2.5 mg INHALATION Q4H PRN 06/05/18 01/18/19 bisacodyl [Dulcolax (bisacodyl)] 10 mg NM DIRECTED PRN 06/05/18 01/18/19 isosorbide mononitrate 30 mg PO DAILY 06/05/18 01/18/19 losartan 25 mg PO DAILY 06/05/18 01/18/19 magnesium hydroxide [Milk of 30 ml PO PRN PRN 06/05/18 01/18/19 Magnesia] multivitamin [Multiple Vitamins] 1 tab PO QAM 06/05/18 01/18/19 alum-mag hydroxide-simeth [Maalox 30 ml PO QID PRN 07/02/18 01/18/19 Advanced] hydralazine 25 mg PO TID 07/02/18 01/18/19 Novolog Flexpen U-100 Insulin 5 unit SUBCUT AC 01/18/19 01/18/19 Novolog U-100 Insulin aspart 1 sliding scale dose SUBCUT UD 01/18/19 01/18/19 Stiolto Respimat 2 puff INHALATION DAILY 01/18/19 01/18/19 albuterol sulfate [Proventil HFA] 2 puff INHALATION Q4H PRN PRN 01/18/19 01/18/19 apixaban 2.5 mg PO BID 01/18/19 01/18/19 ascorbic acid (vitamin C) 500 mg PO DAILY 01/18/19 01/18/19 carvedilol 3.125 mg PO BID 01/18/19 01/18/19 carvedilol 25 mg PO BID 01/18/19 01/18/19 docusate sodium 100 mg PO Q8H PRN PRN 01/18/19 01/18/19 doxycycline hyclate 100 mg PO BID 01/18/19 01/18/19 ferrous sulfate 325 mg PO BID 01/18/19 01/18/19 ipratropium-albuterol 3 ml INHALATION Q4H PRN PRN 01/18/19 01/18/19 levothyroxine 50 mcg PO DAILY 01/18/19 01/18/19 nitroglycerin 0.4 mg SUBLINGUAL Q5-15M PRN 01/18/19 01/18/19 pantoprazole 40 mg PO BID 01/18/19 01/18/19 polyethylene glycol 3350 17 g PO DAILY 01/18/19 01/18/19 sucralfate 1 g PO BID 01/18/19 01/18/19 terazosin 2 mg PO BID 01/18/19 01/18/19 torsemide 70 mg PO DAILY 01/18/19 01/18/19 Allergies Allergy/AdvReac Type Severity Reaction Status Date / Time enalaprilat [From Vasotec] Allergy Severe Hives Unverified 01/18/19 11:05 Latex, Natural Rubber Allergy Intermediate Skin Rash Unverified 01/18/19 11:05 sertraline AdvReac Severe pychosis Unverified 01/18/19 11:05 codeine AdvReac Nausea Unverified 01/18/19 11:05 General Stated Complaint: RespSymp VIKASH: 3 Review of Systems Constitutional Reports as per HPI, Reports chills, Reports fatigue, Reports fever(s), Denies headache(s), Reports lethargy, Denies poor appetite and Reports weakness Eyes Denies change in vision ENT Denies dizziness and Denies headache(s) Cardiovascular Reports as per HPI, Denies chest pain, Denies chest pain at rest, Denies syncope, Reports leg edema, Denies lightheadedness, Denies radiating jaw, neck or arm pain, Denies palpitations, Reports dyspnea and Reports dyspnea on exertion Respiratory Reports as per HPI, Reports chest congestion, Reports cough (today), Denies hemoptysis, Denies pain on inspiration, Denies pain with cough, Reports dyspnea, Reports dyspnea on exertion, Denies stridor and Denies wheezing Gastrointestinal Reports as per HPI, Denies abdominal pain, Denies diarrhea, Denies nausea and Denies vomiting Genitourinary Denies system reviewed and no additional complaints, except as docu (denies change in urinary habits) Musculoskeletal Reports as per HPI, Denies back pain and Reports other (hx of chronic wounds bilateral feet s/p amputation) Integumentary/Breasts Reports as per HPI and Denies rash Neurologic Reports as per HPI, Denies dizziness, Denies syncope, Denies headache(s) and Reports weakness Endocrine Reports fatigue and Denies palpitations Allergic/Immunologic Denies wheezing [facility] Medical History CAD (coronary artery disease) (Chronic) Insulin dependent diabetes mellitus (Chronic) GI bleed (Acute) Chronic renal disease (Chronic) Abdominal aortic aneurysm (Chronic) Peripheral angiopathy due to DM (Chronic) CVA, old, alterations of sensations (Chronic) Pulmonary hypertension (Chronic) Tricuspid regurgitation (Chronic) Mitral regurgitation (Chronic) Atrial fibrillation (Chronic) Heart failure with preserved ejection fraction (Chronic) Congestive heart failure (CHF) (Chronic) CAD (coronary artery disease), bypass graft transplanted heart (Chronic) Diabetes mellitus (Chronic) Hypertension (Chronic) Diabetic neuropathy (Chronic) Anxiety (Chronic) Paroxysmal A-fib (Chronic) Anemia (Chronic) Anticoagulant long-term use (Acute) Bilateral hearing loss (Acute) Dystrophic nail (Acute) Folate deficiency anemia (Acute) Former smoker (Acute) Hemiparesis affecting left side as late effect of cerebrovascular accident (Acute) History of amputation of great toe of both feet (Acute) Recurrent falls (Acute) CAD (coronary artery disease) (Chronic) COPD (chronic obstructive pulmonary disease) (Chronic) CVA (cerebral vascular accident) (Chronic) Depression (Chronic) PVD (peripheral vascular disease) (Chronic) Renal artery stenosis (Chronic) 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) Amputation foot, bilat (Resolved) History of stent insertion of renal artery (Resolved) Pneumonia (Resolved) Surgical History Chronic pain (Chronic ~07/04/18) History of esophagogastroduodenoscopy (EGD) (Chronic) Hx of CABG (Chronic 2017) History of amputation of great toe of both feet (Resolved) S/P CABG x 3 (Resolved) Social History Smoking/Tobacco Use Status: Former Tobacco Use Tobacco: How many years used: 50 Alcohol Intake: former Details: Heavy alcohol use in the past, quit a few years ago Drug use: Never Substance use type: does not use 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 Do you feel safe at home: Yes Do you feel safe in your relationship?: Yes Exam Const General: cooperative, comfortable, no acute distress and ill appearing (appears SOB acutely but chronically ill) acutely and chronically Nutritional Appearance: well nourished, obese and edematous Orientation: alert, awake and oriented x3 HENMT Head: normal to inspection Ears: hearing grossly normal bilaterally General nose exam: external nose normal Face and sinus: normal facial exam and sinuses nontender Mouth: lip normal and tongue normal Throat: posterior oropharynx abnormal (frothy white sputum in posterior oropharynx), tonsils normal and uvula midline Chest Chest: normal inspection of the chest, normal palpation of entire chest wall and no crepitus Resp Effort & Inspection: able to speak in complete sentences, nasal flaring, pursed lip breathing, no respiratory distress, no tripod positioning and uses accessory muscles Auscultation: crackles (RLL), no rales, no rhonchi and wheezes expiratory wheezes and scattered wheezes Cardio Rate: regular rate Rhythm: regular rhythm Heart Sounds: S1 normal and S2 normal GI Inspection: normal to inspection, no edema, non-distended and obesity Palpation: soft, no hepatosplenomegaly, not firm, no guarding, not rigid and nontender Auscultation: normal bowel sounds Back/Spine/Pelvis Back: no CVA tenderness Thoracic/Lumbar Spine: thoracic and lumbar spine normal to inspection Skin Wounds: amputation site (bilateral toes, granulation to the right, healing left. No evidence of infe) Neuro General: alert, awake and oriented x3 Cognition: normal cognition Speech: speech normal Extrem General: normal to inspection, normal capillary refill, no pedal edema, no calf tenderness and normal gait Psych Appearance: grossly normal and well kempt Mental Status: mental status grossly normal Speech and Movement: speech and movement normal Course Vital Signs Temperature 37.9 C H 01/18/19 09:43 Pulse 87 01/18/19 09:43 Respiratory Rate 20 01/18/19 09:43 Blood Pressure 130/85 01/18/19 09:43 Pulse Oximetry 97 01/18/19 09:43 Temperature 37.9 C H 01/18/19 09:43 Temperature Source Skin 01/18/19 09:43 Pulse 87 01/18/19 09:43 Respiratory Rate 20 01/18/19 09:43 Respiratory Effort 01/18/19 09:51 Blood Pressure 130/85 01/18/19 09:43 Blood Pressure Position Supine 01/18/19 09:43 Pulse Oximetry 97 01/18/19 09:43 Oxygen Delivery Method Nasal Cannula 01/18/19 09:43 Oxygen Flow Rate 2 01/18/19 09:43 Pain Level 4 01/18/19 09:43 Comment 01/18/19 09:43
--- NOTE | 2019-01-18 10:01 | DI.RAD_ITS ---
SYMPTOM/DIAGNOSIS: SOB AP AND LATERAL CHEST: Comparison is made with 09/06/18. The heart size appears stable. There are sternal wires in place. The pulmonary vasculature appears stable. The lungs appear hyperinflated with flattened diaphragms suggesting underlying COPD. Reactive airway disease cannot be excluded. There are bilateral basilar infiltrates. Blunting of the left costophrenic angle is noted. This may be chronic versus a small pleural effusion. IMPRESSION: 1. Bilateral basilar infiltrates which may represent atelectasis or pneumonia. 2. Question of a small left pleural effusion versus scarring.
[2019-01-18] MEDS: Albuterol/Ipratropium 3 ML UPD VIAL UPD (10:05)
--- NOTE | 2019-01-18 10:10 | ED.GENADUL_ITS ---
Discharge Plan Disposition Patient Disposition: SNF (LEVEL 1) [facility] Condition: Improving Discharge Details Chief Complaint: RespSymp Clinical Impression: Congestive heart failure (CHF), UTI (urinary tract infection), Pneumonia, Hypoxia Primary Care Provider: Kory Sierra ED Provider: Odalis Sheridan Home Meds and New Rx's Prescriptions: Continued atorvastatin [Lipitor] 80 MG tablet 40 mg PO HS RF: 0 amiodarone [Cordarone] 200 MG tablet 200 mg PO QAM RF: 0 amlodipine 10 MG tablet 10 mg PO QAM RF: 0 acetaminophen 325 mg Tablet 650 mg PO Q6H RF: 0 albuterol sulfate 2.5 mg /3 mL (0.083 %) Solution For Nebulization 2.5 mg INHALATION Q4H PRNRF: 0 bisacodyl [Dulcolax (bisacodyl)] 10 mg Suppository 10 mg IA DIRECTED PRNRF: 0 Fleet Enema 19-7 gram/118 mL Enema 197 ml IA DIRECTED PRNRF: 0 multivitamin [Multiple Vitamins] Tablet 1 tab PO QAM RF: 0 isosorbide mononitrate 30 mg Tablet Extended Release 24 Hr 30 mg PO DAILY RF: 0 magnesium hydroxide [Milk of Magnesia] 400 mg/5 mL Suspension 30 ml PO PRN PRNRF: 0 losartan 25 mg Tablet 25 mg PO DAILY RF: 0 alum-mag hydroxide-simeth [Maalox Advanced] 200-200-20 mg/5 mL Suspension 30 ml PO QID PRNRF: 0 hydralazine 25 mg tablet 25 mg PO TID RF: 0 Lantus Solostar U-100 Insulin 100 UNIT/ML insulin pen 22 unit Sub-Q HS RF: 0 potassium chloride 20 MEQ tablet extended release 40 meq PO QAM RF: 0 melatonin 3 MG tablet 3 mg PO HS RF: 0 Glucagon Emergency Kit (human) 1 MG kit 1 mg IM Q15M PRN (Reason: Severe hypoglycemia) RF: 0 gabapentin 100 MG capsule 200 cap PO TID RF: 0 carvedilol 25 mg Tablet 25 mg PO BID RF: 0 ipratropium-albuterol 0.5 mg-3 mg(2.5 mg base)/3 mL Solution For Nebulization 3 ml INHALATION Q4H PRN PRNRF: 0 torsemide 20 mg Tablet 70 mg PO DAILY RF: 0 sucralfate 1 gram Tablet 1 g PO BID RF: 0 carvedilol 3.125 mg Tablet 3.125 mg PO BID RF: 0 ascorbic acid (vitamin C) 500 mg Tablet 500 mg PO DAILY RF: 0 terazosin 2 mg Capsule 2 mg PO BID RF: 0 Novolog U-100 Insulin aspart 100 unit/mL Solution 1 sliding scale dose SUBCUT UD RF: 0 levothyroxine 50 mcg Tablet 50 mcg PO DAILY RF: 0 pantoprazole 40 mg Tablet,Delayed Release (Dr/Ec) 40 mg PO BID RF: 0 ferrous sulfate 325 mg (65 mg iron) Tablet 325 mg PO BID RF: 0 nitroglycerin 0.4 mg Tablet, Sublingual 0.4 mg SUBLINGUAL Q5-15M PRNRF: 0 polyethylene glycol 3350 17 gram/dose Powder 17 g PO DAILY RF: 0 albuterol sulfate [Proventil HFA] 90 mcg/actuation Hfa Aerosol Inhaler 2 puff INHALATION Q4H PRN PRNRF: 0 doxycycline hyclate 100 mg Tablet 100 mg PO BID RF: 0 docusate sodium 100 mg Tablet 100 mg PO Q8H PRN PRNRF: 0 Novolog Flexpen U-100 Insulin 100 unit/mL Insulin Pen 5 unit SUBCUT AC RF: 0 apixaban 2.5 mg Tablet 2.5 mg PO BID RF: 0 Stiolto Respimat 2.5-2.5 mcg/actuation Mist 2 puff INHALATION DAILY RF: 0 Discharge Instructions Instructions: Heart Failure (ED), Urinary Tract Infection in Men (ED), Pneumonia (ED) Additional Instructions: Patient will be need to be monitored closely, will remain on oxygen to maintain oxygen above 94%. Concern the patient will need to continue to hydrate but should be monitored for continued fluid overload. He was given IV Lasix here and may need to continue with this orally. Please continue with doxycycline orally. Dr. Nunez will order further IV ceftriaxone as well as Lasix if n eeded. Blood cultures are pending. Patient develops any new or worsening symptoms please seek care urgently once again peer Referrals: Kory Sierra [Primary Care Provider] - Medical Decision Making Patient is 88-year-old male presents today with chief complaint of fever and shortness of breath. Symptoms began yesterday. She is also endorsing generalized weakness. On exam, patient appears both chronically and acutely ill. He does appear short of breath with nasal flaring feeling and pursed lip breathing. No tripoding or chest accessory muscles. Patient is obese. He has crackles in the right lower lobe, scattered wheezes. He appears fluid overloaded with edematous lower extremities which patient reports is typical. He has frothy, thick white sputum in his posterior oropharynx. He reports a mild cough that started this morning but states this was not present yesterday. He denies any chest pain. Reports that shortness of breath is made worse with exertion which is limited his ability to care for himself. This is really concerning for possible CHF exacerbation with underlying pneumonia as well. Also considering other cardiac pulmonary sources. Plan to obtain chest x-ray, laboratory evaluation, EKG. Urinalysis that was completed yesterday is also highly suggestive of urinary tract infection. Patient is on doxycycline already for this. EKG reviewed by Dr. Trimble and compared to previous with no acute changes noted. Patient in sinus rhythm with 89. X-ray reviewed by myself, concerning for pneumonia in the right upper and right lower lobes. Plan to begin ceftriaxone. Lactate is elevated at 2. Blood cultures are pending. White count within normal limits. Patient is minimally anemic but this is story for the patient. It is elevated at 2.89. While patient has history of known kidney disease and if this is been elevated historically, this is higher than the patient's typical. Troponin is 0.04. This troponin is typical for the patient on review of chart. Gently hydrating the patient with concern for possible sepsis but also concerned for fluid overload. Will give IV Lasix. CXR reviewed by radiologist: FINDINGS: Lungs: Stable hyperaerated lungs consistent with deep inspiratory effort vs reactive airway disease vs mild COPD . Mild left basilar atelectasis and/or infiltrate and/or effusion. Pleural space: Unremarkable. No pleural effusion. No pneumothorax. Heart/Mediastinum: Unremarkable. No cardiomegaly. Bones/joints: Stable sternotomy. IMPRESSION: 1. Stable hyperaerated lungs consistent with deep inspiratory effort vs reactive airway disease vs mild COPD . 2. Mild left basilar atelectasis and/or infiltrate and/or effusion. Influenza negative. Discussed my concerns with the patient. He continues to need oxygen supplementation. Advised inpatient stay for diuresis and continued care for infection. However, patient is refusing. [facility] Discussed risks and benefits as well as my concerns prompting inpatient stay. He voices understanding and continues to refuse in patient hospitalization. Requests brief treatment in the ED with return as soon as possible. Will consult with their digital production artist phsyician. Spoke with Dr. Perea. She will speak with the nursing staff about coming back to facility and will continue to monitor. Nursing staff is able to take the patient. We will continue to monitor hypoxia and maintain oxygen levels with nasal cannula. Dr. Nunez will order further ceftriaxone, patient will continue on oral doxycycline. We will also continue to closely monitor fluid levels and order further oral Lasix as needed. Advised patient may return with any new or worsening symptoms reviewed at any time. All the patient's questions and concerns were addressed and he is in agreement with this plan HPI General Mode of arrival: EMS . Date/Time Provider Initiated Documentation: 01/18/19 09:54 . Limitations to Documentation: no limitations . Information obtained by: patient and RN notes reviewed . HPI Narrative: Patient is a 68-year-old male in via EMS from [facility], chief complaint fever and shortness of breath. 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 Surgical history pertinent for CABG x3. Patient was yesterday he began feeling febrile and weak. Also noted increased shortness of breath. Concern be febrile by nursing staff he was begun on doxycycline empirically. Urinalysis was sent. This morning for mild weakness in joints of breath was increased. Patient had difficulty feeding himself secondary to his increased weakness. Denies any chest pain. Denies abdominal pain. Denies any change in his urinary or bowel habits. Is endorsing chronic pain in his feet but reports that this is unchanged from previous. Related Data Home Medications Medication Instructions Recorded Confirmed amiodarone [Cordarone] 200 mg PO QAM 09/27/17 01/18/19 amlodipine 10 mg PO QAM 09/27/17 01/18/19 atorvastatin [Lipitor] 40 mg PO HS 09/27/17 01/18/19 Lantus Solostar U-100 Insulin 22 unit SUB-Q HS 03/07/18 01/18/19 potassium chloride 40 meq PO QAM 03/07/18 01/18/19 melatonin 3 mg PO HS 03/13/18 01/18/19 Glucagon Emergency Kit (human) 1 mg IM Q15M PRN 03/14/18 01/18/19 gabapentin 200 cap PO TID 03/14/18 07/11/18 Fleet Enema 197 ml IA DIRECTED PRN 06/05/18 01/18/19 acetaminophen 650 mg PO Q6H 06/05/18 01/18/19 albuterol sulfate 2.5 mg INHALATION Q4H PRN 06/05/18 01/18/19 bisacodyl [Dulcolax (bisacodyl)] 10 mg IA DIRECTED PRN 06/05/18 01/18/19 isosorbide mononitrate 30 mg PO DAILY 06/05/18 01/18/19 losartan 25 mg PO DAILY 06/05/18 01/18/19 magnesium hydroxide [Milk of 30 ml PO PRN PRN 06/05/18 01/18/19 Magnesia] multivitamin [Multiple Vitamins] 1 tab PO QAM 06/05/18 01/18/19 alum-mag hydroxide-simeth [Maalox 30 ml PO QID PRN 07/02/18 01/18/19 Advanced] hydralazine 25 mg PO TID 07/02/18 01/18/19 Novolog Flexpen U-100 Insulin 5 unit SUBCUT AC 01/18/19 01/18/19 Novolog U-100 Insulin aspart 1 sliding scale dose SUBCUT UD 01/18/19 01/18/19 Stiolto Respimat 2 puff INHALATION DAILY 01/18/19 01/18/19 albuterol sulfate [Proventil HFA] 2 puff INHALATION Q4H PRN PRN 01/18/19 01/18/19 apixaban 2.5 mg PO BID 01/18/19 01/18/19 ascorbic acid (vitamin C) 500 mg PO DAILY 01/18/19 01/18/19 carvedilol 3.125 mg PO BID 01/18/19 01/18/19 carvedilol 25 mg PO BID 01/18/19 01/18/19 docusate sodium 100 mg PO Q8H PRN PRN 01/18/19 01/18/19 doxycycline hyclate 100 mg PO BID 01/18/19 01/18/19 ferrous sulfate 325 mg PO BID 01/18/19 01/18/19 ipratropium-albuterol 3 ml INHALATION Q4H PRN PRN 01/18/19 01/18/19 levothyroxine 50 mcg PO DAILY 01/18/19 01/18/19 nitroglycerin 0.4 mg SUBLINGUAL Q5-15M PRN 01/18/19 01/18/19 pantoprazole 40 mg PO BID 01/18/19 01/18/19 polyethylene glycol 3350 17 g PO DAILY 01/18/19 01/18/19 sucralfate 1 g PO BID 01/18/19 01/18/19 terazosin 2 mg PO BID 01/18/19 01/18/19 torsemide 70 mg PO DAILY 01/18/19 01/18/19 Allergies Allergy/AdvReac Type Severity Reaction Status Date / Time enalaprilat [From Vasotec] Allergy Severe Hives Unverified 01/18/19 11:05 Latex, Natural Rubber Allergy Intermediate Skin Rash Unverified 01/18/19 11:05 sertraline AdvReac Severe pychosis Unverified 01/18/19 11:05 codeine AdvReac Nausea Unverified 01/18/19 11:05 General Stated Complaint: RespSymp VIKASH: 3 Review of Systems Constitutional Reports as per HPI, Reports chills, Reports fatigue, Reports fever(s), Denies headache(s), Reports lethargy, Denies poor appetite and Reports weakness Eyes Denies change in vision ENT Denies dizziness and Denies headache(s) Cardiovascular Reports as per HPI, Denies chest pain, Denies chest pain at rest, Denies syncope, Reports leg edema, Denies lightheadedness, Denies radiating jaw, neck or arm pain, Denies palpitations, Reports dyspnea and Reports dyspnea on exertion Respiratory Reports as per HPI, Reports chest congestion, Reports cough (today), Denies hemoptysis, Denies pain on inspiration, Denies pain with cough, Reports dyspnea, Reports dyspnea on exertion, Denies stridor and Denies wheezing Gastrointestinal Reports as per HPI, Denies abdominal pain, Denies diarrhea, Denies nausea and Denies vomiting Genitourinary Denies system reviewed and no additional complaints, except as docu (denies change in urinary habits) Musculoskeletal Reports as per HPI, Denies back pain and Reports other (hx of chronic wounds bilateral feet s/p amputation) Integumentary/Breasts Reports as per HPI and Denies rash Neurologic Reports as per HPI, Denies dizziness, Denies syncope, Denies headache(s) and Reports weakness Endocrine Reports fatigue and Denies palpitations Allergic/Immunologic Denies wheezing ON LICENSE OF [facility] Medical History CAD (coronary artery disease) (Chronic) Insulin dependent diabetes mellitus (Chronic) GI bleed (Acute) Chronic renal disease (Chronic) Abdominal aortic aneurysm (Chronic) Peripheral angiopathy due to DM (Chronic) CVA, old, alterations of sensations (Chronic) Pulmonary hypertension (Chronic) Tricuspid regurgitation (Chronic) Mitral regurgitation (Chronic) Atrial fibrillation (Chronic) Heart failure with preserved ejection fraction (Chronic) Congestive heart failure (CHF) (Chronic) CAD (coronary artery disease), bypass graft transplanted heart (Chronic) Diabetes mellitus (Chronic) Hypertension (Chronic) Diabetic neuropathy (Chronic) Anxiety (Chronic) Paroxysmal A-fib (Chronic) Anemia (Chronic) Anticoagulant long-term use (Acute) Bilateral hearing loss (Acute) Dystrophic nail (Acute) Folate deficiency anemia (Acute) Former smoker (Acute) Hemiparesis affecting left side as late effect of cerebrovascular accident (Acute) History of amputation of great toe of both feet (Acute) Recurrent falls (Acute) CAD (coronary artery disease) (Chronic) COPD (chronic obstructive pulmonary disease) (Chronic) CVA (cerebral vascular accident) (Chronic) Depression (Chronic) PVD (peripheral vascular disease) (Chronic) Renal artery stenosis (Chronic) 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) Amputation foot, bilat (Resolved) History of stent insertion of renal artery (Resolved) Pneumonia (Resolved) Surgical History Chronic pain (Chronic ~07/04/18) History of esophagogastroduodenoscopy (EGD) (Chronic) Hx of CABG (Chronic 2017) History of amputation of great toe of both feet (Resolved) S/P CABG x 3 (Resolved) Social History Smoking/Tobacco Use Status: Former Tobacco Use Tobacco: How many years used: 50 Alcohol Intake: former Details: Heavy alcohol use in the past, quit a few years ago Drug use: Never Substance use type: does not use 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 Do you feel safe at home: Yes Do you feel safe in your relationship?: Yes Exam Const General: cooperative, comfortable, no acute distress and ill appearing (appears SOB acutely but chronically ill) acutely and chronically Nutritional Appearance: well nourished, obese and edematous Orientation: alert, awake and oriented x3 HENMT Head: normal to inspection Ears: hearing grossly normal bilaterally General nose exam: external nose normal Face and sinus: normal facial exam and sinuses nontender Mouth: lip normal and tongue normal Throat: posterior oropharynx abnormal (frothy white sputum in posterior oropharynx), tonsils normal and uvula midline Chest Chest: normal inspection of the chest, normal palpation of entire chest wall and no crepitus Resp Effort & Inspection: able to speak in complete sentences, nasal flaring, pursed lip breathing, no respiratory distress, no tripod positioning and uses accessory muscles Auscultation: crackles (RLL), no rales, no rhonchi and wheezes expiratory wheezes and scattered wheezes Cardio Rate: regular rate Rhythm: regular rhythm Heart Sounds: S1 normal and S2 normal GI Inspection: normal to inspection, no edema, non-distended and obesity Palpation: soft, no hepatosplenomegaly, not firm, no guarding, not rigid and nontender Auscultation: normal bowel sounds Back/Spine/Pelvis Back: no CVA tenderness Thoracic/Lumbar Spine: thoracic and lumbar spine normal to inspection Skin Wounds: amputation site (bilateral toes, granulation to the right, healing left. No evidence of infe) Neuro General: alert, awake and oriented x3 Cognition: normal cognition Speech: speech normal Extrem General: normal to inspection, normal capillary refill, no pedal edema, no calf tenderness and normal gait Psych Appearance: grossly normal and well kempt Mental Status: mental status grossly normal Speech and Movement: speech and movement normal Course Vital Signs Temperature 37.9 C H 01/18/19 09:43 Pulse 87 01/18/19 09:43 Respiratory Rate 20 01/18/19 09:43 Blood Pressure 130/85 01/18/19 09:43 Pulse Oximetry 97 01/18/19 09:43 Temperature 37.9 C H 01/18/19 09:43 Temperature Source Skin 01/18/19 09:43 Pulse 87 01/18/19 09:43 Respiratory Rate 20 01/18/19 09:43 Respiratory Effort 01/18/19 09:51 Blood Pressure 130/85 01/18/19 09:43 Blood Pressure Position Supine 01/18/19 09:43 Pulse Oximetry 97 01/18/19 09:43 Oxygen Delivery Method Nasal Cannula 01/18/19 09:43 Oxygen Flow Rate 2 01/18/19 09:43 Pain Level 4 01/18/19 09:43 Comment 01/18/19 09:43
[2019-01-18 10:48] LABS: Abs Immature Grans 0.02 k/cumm (0.0-0.09); Absolute Basophil Count 0.01 k/cumm (0.0-0.2); Absolute Eosinophil Count 0.01 k/cumm (0.0-0.7); Absolute Lymphocyte Count 0.38 k/cumm (1.2-3.4); Basophils % 0.1; Eosinophils % 0.1; HCT 38.9 % (40.0-50.0); HGB 12.7 g/dL (13.5-17.5); Immature Grans % 0.2; Lymphocytes % 4.5; Mean Corp. HGB Concentration 32.6 g/dL (32.0-36.0); Mean Corpuscular Hemoglobin 26.7 pg (27.0-33.0); Mean Corpuscular Volume 81.9 fL (80-95); Mean Platelet Volume 8.5 fL (8.0-11.0); Monocytes % 1.2; Neutrophils % 93.9; Platelet Count 134 x1000/uL (130-400); RBC 4.75 m/cumm (4.50-6.00); RBC Distribution Width 16.7 % (11.8-14.1); White Blood Cell Count 8.52 k/cumm (4.4-10.8)
[2019-01-18 11:03] LABS: ALT 16 U/L (12-78); AST 12 U/L (15-37); Albumin 3.2 g/dL (3.4-5.0); Alkaline Phosphatase 88 U/L (46-116); Anion Gap 10.2 mmol/L (3-11); BUN 47 mg/dL (7-18); Bilirubin, Total 0.7 mg/dL (0.2-1.0); CO2 28.8 mmol/L (21.0-32.0); CREATININE 2.89 mg/dL (0.70-1.30); Calcium 8.9 mg/dL (8.5-10.1); Chloride 98 mmol/L (98-107); Glucose 215 mg/dL (70-100); Sodium 137 mmol/L (136-145); Total Protein 7.5 g/dL (6.4-8.2)
[2019-01-18 11:08] LABS: Troponin I 0.04 ng/mL (0.00-0.06)
--- NOTE | 2019-01-18 11:34 | DI.VRAD_ITS ---
EXAM: XR Chest, 2 Views EXAM DATE/TIME: 01/18/2019 10:04 AM CLINICAL HISTORY: 68 years old, male; Signs and symptoms; Shortness of breath TECHNIQUE: Imaging protocol: XR of the chest, 2 views. COMPARISON: CR XR CHEST 2V PA LATERAL 09/06/2018 10:07 AM FINDINGS: Lungs: Stable hyperaerated lungs consistent with deep inspiratory effort vs reactive airway disease vs mild COPD . Mild left basilar atelectasis and/or infiltrate and/or effusion. Pleural space: Unremarkable. No pleural effusion. No pneumothorax. Heart/Mediastinum: Unremarkable. No cardiomegaly. Bones/joints: Stable sternotomy. IMPRESSION: 1. Stable hyperaerated lungs consistent with deep inspiratory effort vs reactive airway disease vs mild COPD . 2. Mild left basilar atelectasis and/or infiltrate and/or effusion. Dictated and Authenticated by: Elder Vergara MD. Ordering:JAMES Jacobo MD
[2019-01-18] MEDS: Normal Saline 1,000 ML 150 ML IV (11:35)
[2019-01-18] MEDS: Furosemide 20 MG/2 ML VIAL IVP (11:35)
[2019-01-18] MEDS: cefTRIAXone 1 GM/50 ML BAG IVPB (11:35)
[2019-01-18 11:47] LABS: NT-proBNP 5206 pg/mL
== END 2019-01-18 12:52 | disposition skilled nursing facility (03) ==
PROVIDERS: Emergency Provider Physician Assistant; PCP Family Medicine
DX: J18.9 Pneumonia, unspecified organism (principal); Y95 Nosocomial condition; I50.9 Heart failure, unspecified; I13.0 Hypertensive heart and chronic kidney disease with heart failure and stage 1 through stage 4 chronic kidney disease, or unspecified chronic kidney disease; N18.9 Chronic kidney disease, unspecified; E11.22 Type 2 diabetes mellitus with diabetic chronic kidney disease; Z79.4 Long term (current) use of insulin; R09.02 Hypoxemia; N39.0 Urinary tract infection, site not specified; R60.0 Localized edema; R53.1 Weakness
CPT/HCPCS: 36415; 80053; 87040; 87077; 87449; 93005; 94640; 96361; 96365; 96375; 99285; 71046; 83605; 83735; 83880; 84484; 85025; 87186; 93010; J0696; J1941; J7620

== ENCOUNTER 2019-01-20 09:40 | Outpatient (REF) | payer MEDICARE, MEDICAID, SELFPAY ==
[2019-01-20 09:58] LABS: Abs Immature Grans 0.01 k/cumm (0.0-0.09); Absolute Basophil Count 0.01 k/cumm (0.0-0.2); Absolute Eosinophil Count 0.06 k/cumm (0.0-0.7); Absolute Lymphocyte Count 0.54 k/cumm (1.2-3.4); Absolute Monocyte Count 0.49 k/cumm (0.11-0.7); Absolute Neutrophil Count 3.45 k/cumm (1.2-6.7); Basophils % 0.2; Eosinophils % 1.3; HCT 33.8 % (40.0-50.0); HGB 10.9 g/dL (13.5-17.5); Immature Grans % 0.2; Lymphocytes % 11.8; Mean Corp. HGB Concentration 32.2 g/dL (32.0-36.0); Mean Corpuscular Hemoglobin 26.3 pg (27.0-33.0); Mean Corpuscular Volume 81.4 fL (80-95); Mean Platelet Volume 9.4 fL (8.0-11.0); Monocytes % 10.7; Neutrophils % 75.8; Platelet Count 146 x1000/uL (130-400); RBC 4.15 m/cumm (4.50-6.00); RBC Distribution Width 16.7 % (11.8-14.1); White Blood Cell Count 4.56 k/cumm (4.4-10.8)
[2019-01-20 10:23] LABS: Anion Gap 9.9 mmol/L (3-11); BUN 79 mg/dL (7-18); CO2 26.1 mmol/L (21.0-32.0); CREATININE 3.02 mg/dL (0.70-1.30); Calcium 8.5 mg/dL (8.5-10.1); Chloride 102 mmol/L (98-107); Estimated GFR 20.82 (mL/min/1.73m2); Glucose 214 mg/dL (70-100); NT-proBNP 3008 pg/mL; Potassium 3.7 mmol/L (3.5-5.1); Sodium 138 mmol/L (136-145)
== END 2019-01-20 10:00 ==
LOC: LBN 09:40
PROVIDERS: PCP Family Medicine; Visit Provider Internal Medicine
DX: I13.0 Hypertensive heart and chronic kidney disease with heart failure and stage 1 through stage 4 chronic kidney disease, or unspecified chronic kidney disease (principal)
CPT/HCPCS: 80048; 83880; 85025

== ENCOUNTER 2019-01-21 15:27 | Outpatient (REF) | payer MEDICARE, MEDICAID, SELFPAY ==
[2019-01-21 11:20] LABS: BUN 67 mg/dL (7-18); CREATININE 2.44 mg/dL (0.70-1.30); Calcium 8.7 mg/dL (8.5-10.1); Chloride 103 mmol/L (98-107); Estimated GFR 26.63 (mL/min/1.73m2); Glucose 262 mg/dL (70-100); Potassium 3.9 mmol/L (3.5-5.1); Sodium 141 mmol/L (136-145)
== END 2019-01-21 15:47 ==
LOC: LBO 15:27
PROVIDERS: PCP Family Medicine; Visit Provider Nurse Practitioner Adult Health
DX: I10 Essential (primary) hypertension (principal); N18.3 Chronic kidney disease, stage 3 (moderate); I48.91 Unspecified atrial fibrillation; I25.10 Atherosclerotic heart disease of native coronary artery without angina pectoris; F41.9 Anxiety disorder, unspecified; E78.5 Hyperlipidemia, unspecified; E11.9 Type 2 diabetes mellitus without complications
CPT/HCPCS: 36415; 80048

== ENCOUNTER 2019-01-23 09:08 | Outpatient (REF) | payer MEDICARE, MEDICAID, SELFPAY ==
[2019-01-23 09:21] LABS: Abs Immature Grans 0.05 k/cumm (0.0-0.09); Absolute Basophil Count 0.01 k/cumm (0.0-0.2); Absolute Eosinophil Count 0.12 k/cumm (0.0-0.7); Absolute Monocyte Count 0.47 k/cumm (0.11-0.7); Absolute Neutrophil Count 3.41 k/cumm (1.2-6.7); Basophils % 0.2; Eosinophils % 2.5; HCT 39.7 % (40.0-50.0); Lymphocytes % 16.5; Mean Corp. HGB Concentration 32.7 g/dL (32.0-36.0); Mean Corpuscular Hemoglobin 26.3 pg (27.0-33.0); Mean Corpuscular Volume 80.4 fL (80-95); Mean Platelet Volume 9.1 fL (8.0-11.0); Monocytes % 9.7; Neutrophils % 70.1; Platelet Count 217 x1000/uL (130-400); RBC 4.94 m/cumm (4.50-6.00); RBC Distribution Width 16.4 % (11.8-14.1); White Blood Cell Count 4.86 k/cumm (4.4-10.8)
[2019-01-23 09:28] LABS: Anion Gap 11.6 mmol/L (3-11); BUN 59 mg/dL (7-18); CO2 28.4 mmol/L (21.0-32.0); CREATININE 2.14 mg/dL (0.70-1.30); Chloride 99 mmol/L (98-107); Estimated GFR 30.98 (mL/min/1.73m2); Glucose 253 mg/dL (70-100); Potassium 3.7 mmol/L (3.5-5.1); Sodium 139 mmol/L (136-145)
== END 2019-01-23 09:28 ==
LOC: LBN 09:08
PROVIDERS: PCP Family Medicine; Visit Provider Nurse Practitioner Adult Health
DX: I50.9 Heart failure, unspecified (principal); N18.3 Chronic kidney disease, stage 3 (moderate)
CPT/HCPCS: 80048; 85025

== ENCOUNTER 2019-01-27 07:00 | Outpatient (CLI) | payer MEDICARE, MEDICAID, SELFPAY ==
--- NOTE | 2019-01-27 13:28 | DI.RAD_ITS ---
SYMPTOMS/DIAGNOSIS: DISTAL RIGHT FOOT WOUND RIGHT FOOT: Three views were obtained and show amputation at the mid metatarsal level. There are hypertrophic spurs of the Achilles and plantar fascia attachments on the calcaneus. Mild degenerative changes of the joints of the hindfoot and mid foot are noted. There is an apparent old healed tibiofibular fracture. LEFT FOOT: Three views were obtained. There is a previous amputation at the proximal to mid metatarsal level. There is apparently degenerative deformity at the ankle joint, which is incompletely visualized. Mild degenerative changes of the joints of the mid foot and hindfoot are noted. Small osteophytes of plantar fascia and Achilles attachments on the calcaneus.
== END 2019-01-27 07:20 ==
PROVIDERS: PCP Family Medicine; Visit Provider Podiatrist Foot & Ankle Surgery
DX: M77.31 Calcaneal spur, right foot (principal); M77.32 Calcaneal spur, left foot; M19.072 Primary osteoarthritis, left ankle and foot; Z89.421 Acquired absence of other right toe(s); Z89.422 Acquired absence of other left toe(s); S91.301D Unspecified open wound, right foot, subsequent encounter
CPT/HCPCS: 73630

== ENCOUNTER 2019-01-28 12:40 | Outpatient (CLI) | payer MEDICARE, MEDICAID, SELFPAY ==
[2019-01-28 13:26] LABS: Abs Immature Grans 0.05 k/cumm (0.0-0.09); Absolute Basophil Count 0.02 k/cumm (0.0-0.2); Absolute Eosinophil Count 0.11 k/cumm (0.0-0.7); Absolute Lymphocyte Count 0.99 k/cumm (1.2-3.4); Absolute Monocyte Count 0.26 k/cumm (0.11-0.7); Absolute Neutrophil Count 4.79 k/cumm (1.2-6.7); Basophils % 0.3; Eosinophils % 1.8; HCT 37.1 % (40.0-50.0); HGB 12.2 g/dL (13.5-17.5); Immature Grans % 0.8; Lymphocytes % 15.9; Mean Corp. HGB Concentration 32.9 g/dL (32.0-36.0); Mean Corpuscular Hemoglobin 26.8 pg (27.0-33.0); Mean Corpuscular Volume 81.5 fL (80-95); Mean Platelet Volume 8.8 fL (8.0-11.0); Monocytes % 4.2; Platelet Count 349 x1000/uL (130-400); RBC 4.55 m/cumm (4.50-6.00); RBC Distribution Width 15.6 % (11.8-14.1); White Blood Cell Count 6.22 k/cumm (4.4-10.8)
[2019-01-28 13:41] LABS: BUN 34 mg/dL (7-18); CREATININE 1.66 mg/dL (0.70-1.30); Calcium 9.3 mg/dL (8.5-10.1); Chloride 102 mmol/L (98-107); Estimated GFR 41.53 (mL/min/1.73m2); Glucose 231 mg/dL (70-100); Potassium 4.2 mmol/L (3.5-5.1); Sodium 140 mmol/L (136-145)
== END 2019-01-28 13:00 ==
PROVIDERS: PCP Family Medicine; Visit Provider Nurse Practitioner Adult Health
DX: N18.3 Chronic kidney disease, stage 3 (moderate) (principal)
CPT/HCPCS: 36415; 80048; 85025

== ENCOUNTER 2019-02-11 11:33 | Outpatient (CLI) | payer MEDICARE, MEDICAID, SELFPAY ==
[2019-02-11 12:40] LABS: Anion Gap 9.9 mmol/L (3-11); BUN 41 mg/dL (7-18); CO2 28.1 mmol/L (21.0-32.0); CREATININE 1.96 mg/dL (0.70-1.30); Calcium 9.1 mg/dL (8.5-10.1); Chloride 100 mmol/L (98-107); Estimated GFR 34.28 (mL/min/1.73m2); Glucose 215 mg/dL (70-100); Potassium 3.7 mmol/L (3.5-5.1); Sodium 138 mmol/L (136-145)
== END 2019-02-11 11:53 ==
PROVIDERS: PCP Family Medicine; Visit Provider Nurse Practitioner Adult Health
DX: I13.0 Hypertensive heart and chronic kidney disease with heart failure and stage 1 through stage 4 chronic kidney disease, or unspecified chronic kidney disease (principal)
CPT/HCPCS: 36415; 80048

== ENCOUNTER 2019-02-18 10:55 | Outpatient (REF) | payer MEDICARE, MEDICAID, SELFPAY ==
[2019-02-18 13:17] LABS: Anion Gap 8.6 mmol/L (3-11); BUN 45 mg/dL (7-18); CO2 28.4 mmol/L (21.0-32.0); CREATININE 1.96 mg/dL (0.70-1.30); Calcium 9.2 mg/dL (8.5-10.1); Chloride 101 mmol/L (98-107); Estimated GFR 34.28 (mL/min/1.73m2); Glucose 265 mg/dL (70-100); Sodium 138 mmol/L (136-145)
== END 2019-02-18 11:15 ==
LOC: LBO 10:55
PROVIDERS: PCP Family Medicine; Visit Provider Nurse Practitioner Adult Health
DX: N18.3 Chronic kidney disease, stage 3 (moderate) (principal)
CPT/HCPCS: 36415; 80048

== ENCOUNTER 2019-02-25 10:43 | Outpatient (CLI) | payer MEDICARE, MEDICAID, SELFPAY ==
[2019-02-25 12:35] LABS: Anion Gap 7.7 mmol/L (3-11); BUN 43 mg/dL (7-18); CO2 30.3 mmol/L (21.0-32.0); Calcium 9.3 mg/dL (8.5-10.1); Chloride 101 mmol/L (98-107); Estimated GFR 35.54 (mL/min/1.73m2); Glucose 199 mg/dL (70-100); Potassium 3.6 mmol/L (3.5-5.1); Sodium 139 mmol/L (136-145)
== END 2019-02-25 11:03 ==
PROVIDERS: PCP Family Medicine; Visit Provider Nurse Practitioner Adult Health
DX: N18.3 Chronic kidney disease, stage 3 (moderate) (principal)
CPT/HCPCS: 36415; 80048

== ENCOUNTER 2019-03-04 10:50 | Outpatient (CLI) | payer MEDICARE, MEDICAID, SELFPAY ==
[2019-03-04 13:37] LABS: BUN 43 mg/dL (7-18); CREATININE 1.92 mg/dL (0.70-1.30); Calcium 9.1 mg/dL (8.5-10.1); Chloride 101 mmol/L (98-107); Estimated GFR 35.11 (mL/min/1.73m2); Glucose 127 mg/dL (70-100); Potassium 3.6 mmol/L (3.5-5.1); Sodium 141 mmol/L (136-145)
== END 2019-03-04 11:10 ==
PROVIDERS: PCP Family Medicine; Visit Provider Nurse Practitioner Adult Health
DX: N18.3 Chronic kidney disease, stage 3 (moderate) (principal)
CPT/HCPCS: 80048

== ENCOUNTER 2019-03-25 10:46 | Outpatient (REF) | payer MEDICARE, SELFPAY ==
[2019-03-25 11:11] LABS: Anion Gap 9.6 mmol/L (3-11); BUN 32 mg/dL (7-18); CO2 30.4 mmol/L (21.0-32.0); CREATININE 1.85 mg/dL (0.70-1.30); Calcium 8.9 mg/dL (8.5-10.1); Chloride 102 mmol/L (98-107); Estimated GFR 36.65 (mL/min/1.73m2); Glucose 171 mg/dL (70-100); Potassium 3.5 mmol/L (3.5-5.1); Sodium 142 mmol/L (136-145)
== END 2019-03-25 11:06 ==
LOC: LBO 10:46
PROVIDERS: PCP Family Medicine; Visit Provider Nurse Practitioner Adult Health
DX: N17.9 Acute kidney failure, unspecified (principal); E11.9 Type 2 diabetes mellitus without complications; I10 Essential (primary) hypertension; E78.5 Hyperlipidemia, unspecified
CPT/HCPCS: 36415; 80048

== ENCOUNTER 2019-04-15 10:37 | Outpatient (REF) | payer MEDICARE, SELFPAY ==
[2019-04-15 12:45] LABS: Hemoglobin A1C 7.5 % (4.5-6.2)
== END 2019-04-15 10:57 ==
LOC: LBO 10:37
PROVIDERS: PCP Family Medicine; Visit Provider Nurse Practitioner Adult Health
DX: E11.9 Type 2 diabetes mellitus without complications (principal)
CPT/HCPCS: 36415; 83036

== ENCOUNTER 2019-04-22 09:30 | Outpatient (CLI) | payer MEDICARE, SELFPAY ==
[2019-04-22 10:37] LABS: BUN 46 mg/dL (7-18); CREATININE 1.91 mg/dL (0.70-1.30); Chloride 102 mmol/L (98-107); Estimated GFR 35.32 (mL/min/1.73m2); Glucose 277 mg/dL (70-100); Potassium 3.4 mmol/L (3.5-5.1); Sodium 142 mmol/L (136-145)
== END 2019-04-22 09:50 ==
PROVIDERS: PCP Family Medicine; Visit Provider Family Medicine
DX: D64.9 Anemia, unspecified (principal); N17.9 Acute kidney failure, unspecified
CPT/HCPCS: 36415; 80048

== ENCOUNTER 2019-04-29 10:40 | Outpatient (CLI) | payer MEDICARE, SELFPAY ==
[2019-04-29 12:04] LABS: TSH 3.89 uIU/mL (0.36-3.74)
== END 2019-04-29 11:00 ==
PROVIDERS: PCP Family Medicine; Visit Provider Nurse Practitioner Adult Health
DX: E03.9 Hypothyroidism, unspecified (principal)
CPT/HCPCS: 36415; 84443

== ENCOUNTER 2019-05-27 10:05 | Outpatient (CLI) | payer MEDICARE, MEDICAID, SELFPAY ==
--- NOTE | 2019-05-27 12:14 | DI.RAD_ITS ---
SYMPTOMS/DIAGNOSIS: COUGH, ? PNEUMONIA VS CHF PA AND LATERAL CHEST: Comparison is made with [id number]. The heart is enlarged. The patient is status post CABG. There is minimal blunting at the costophrenic angles. There is some vasculature prominence and increased interstitial markings suspicious for CHF. No focal area of consolidation is seen. IMPRESSION: Cardiomegaly and mild CHF.
[2019-05-27 13:36] LABS: Anion Gap 9.7 mmol/L (3-11); BUN 38 mg/dL (7-18); CO2 30.3 mmol/L (21.0-32.0); CREATININE 2.03 mg/dL (0.70-1.30); Calcium 8.7 mg/dL (8.5-10.1); Chloride 101 mmol/L (98-107); Estimated GFR 32.92 (mL/min/1.73m2); Glucose 243 mg/dL (70-100); Potassium 3.7 mmol/L (3.5-5.1); Sodium 141 mmol/L (136-145)
== END 2019-05-27 10:25 ==
PROVIDERS: PCP Family Medicine; Visit Provider Nurse Practitioner Adult Health
DX: N18.3 Chronic kidney disease, stage 3 (moderate) (principal); R05 Cough; I51.7 Cardiomegaly; I50.9 Heart failure, unspecified
CPT/HCPCS: 36415; 80048; 71046

== ENCOUNTER 2019-06-03 09:50 | Outpatient (CLI) | payer MEDICARE, MEDICAID, SELFPAY ==
[2019-06-03 10:27] LABS: Abs Immature Grans 0.05 k/cumm (0.0-0.09); Absolute Basophil Count 0.01 k/cumm (0.0-0.2); Absolute Eosinophil Count 0.11 k/cumm (0.0-0.7); Absolute Monocyte Count 0.42 k/cumm (0.11-0.7); Absolute Neutrophil Count 6.25 k/cumm (1.2-6.7); Basophils % 0.1; Eosinophils % 1.4; HCT 36.2 % (40.0-50.0); HGB 11.3 g/dL (13.5-17.5); Immature Grans % 0.7; Lymphocytes % 10.5; Mean Corp. HGB Concentration 31.2 g/dL (32.0-36.0); Mean Corpuscular Hemoglobin 26.7 pg (27.0-33.0); Mean Corpuscular Volume 85.6 fL (80-95); Mean Platelet Volume 8.8 fL (8.0-11.0); Monocytes % 5.5; Neutrophils % 81.8; Platelet Count 280 x1000/uL (130-400); RBC 4.23 m/cumm (4.50-6.00); RBC Distribution Width 13.9 % (11.8-14.1); White Blood Cell Count 7.64 k/cumm (4.4-10.8)
[2019-06-03 10:37] LABS: Anion Gap 9.6 mmol/L (3-11); BUN 50 mg/dL (7-18); CO2 29.4 mmol/L (21.0-32.0); CREATININE 2.52 mg/dL (0.70-1.30); Calcium 8.4 mg/dL (8.5-10.1); Chloride 103 mmol/L (98-107); Estimated GFR 25.65 (mL/min/1.73m2); Glucose 229 mg/dL (70-100); Hemoglobin A1C 8.1 % (4.5-6.2); Sodium 142 mmol/L (136-145)
== END 2019-06-03 10:10 ==
PROVIDERS: PCP Family Medicine; Visit Provider Nurse Practitioner Adult Health
DX: E11.9 Type 2 diabetes mellitus without complications (principal); D64.9 Anemia, unspecified; N17.9 Acute kidney failure, unspecified; J06.9 Acute upper respiratory infection, unspecified; E78.5 Hyperlipidemia, unspecified; I10 Essential (primary) hypertension
CPT/HCPCS: 36415; 80048; 83036; 85025

== ENCOUNTER 2019-07-08 12:39 | Outpatient (CLI) | payer MEDICARE, MEDICAID, SELFPAY ==
[2019-07-08 13:59] LABS: Anion Gap 9.8 mmol/L (3-11); BUN 44 mg/dL (7-18); CO2 30.2 mmol/L (21.0-32.0); CREATININE 2.21 mg/dL (0.70-1.30); Calcium 8.8 mg/dL (8.5-10.1); Chloride 102 mmol/L (98-107); Estimated GFR 29.85 (mL/min/1.73m2); Glucose 212 mg/dL (70-100); Potassium 3.9 mmol/L (3.5-5.1); Sodium 142 mmol/L (136-145)
== END 2019-07-08 12:59 ==
PROVIDERS: PCP Family Medicine; Visit Provider Nurse Practitioner Adult Health
DX: E11.9 Type 2 diabetes mellitus without complications (principal); N17.9 Acute kidney failure, unspecified
CPT/HCPCS: 36415; 80048

== ENCOUNTER 2019-07-22 10:12 | Outpatient (CLI) | payer MEDICARE, MEDICAID, SELFPAY ==
[2019-07-22 11:52] LABS: BUN 61 mg/dL (7-18); CREATININE 2.31 mg/dL (0.70-1.30); Calcium 8.7 mg/dL (8.5-10.1); Chloride 103 mmol/L (98-107); Estimated GFR 28.36 (mL/min/1.73m2); Glucose 202 mg/dL (70-100); Potassium 4.2 mmol/L (3.5-5.1); Sodium 143 mmol/L (136-145)
== END 2019-07-22 10:32 ==
LOC: LBN 10:14 → LBO 11:20
PROVIDERS: PCP Family Medicine; Visit Provider Nurse Practitioner Adult Health
DX: D62 Acute posthemorrhagic anemia (principal); I50.9 Heart failure, unspecified; I13.0 Hypertensive heart and chronic kidney disease with heart failure and stage 1 through stage 4 chronic kidney disease, or unspecified chronic kidney disease
CPT/HCPCS: 36415; 80048

== ENCOUNTER 2019-07-30 11:10 | Outpatient (CLI) | payer MEDICARE, MEDICAID, SELFPAY ==
--- NOTE | 2019-07-30 11:10 | DI.RAD_ITS ---
EXAM: XR CHEST 2V PA LATERAL CLINICAL HISTORY: COUGH TECHNIQUE: The study was performed according to the usual protocol. COMPARISON: XR CHEST 2V PA LATERAL from 05/27/2019 FINDINGS: There are multiple sternal sutures and mediastinal vascular clips consistent with prior CABG surgery. Heart is mildly enlarged. There is a moderate sized left pleural effusion and a small right pleura l effusion. Lungs appear grossly clear although portions of the left lower lobe are obscured by the pleural effusion. IMPRESSION: Bilateral pleural effusions, left greater than right, mild cardiomegaly also noted, the findings are consistent with CHF, appropriate follow-up studies requested.
== END 2019-07-30 11:30 ==
PROVIDERS: PCP Family Medicine; Visit Provider Nurse Practitioner Adult Health
DX: R05 Cough (principal); J90 Pleural effusion, not elsewhere classified; I51.7 Cardiomegaly; I50.9 Heart failure, unspecified
CPT/HCPCS: 71046

== ENCOUNTER 2019-08-05 11:15 | Outpatient (CLI) | payer MEDICARE, MEDICAID, SELFPAY ==
[2019-08-05 12:32] LABS: Anion Gap 8.7 mmol/L (3-11); BUN 61 mg/dL (7-18); CO2 32.3 mmol/L (21.0-32.0); CREATININE 2.32 mg/dL (0.70-1.30); Calcium 8.9 mg/dL (8.5-10.1); Chloride 98 mmol/L (98-107); Estimated GFR 28.22 (mL/min/1.73m2); Glucose 289 mg/dL (70-100); Potassium 3.9 mmol/L (3.5-5.1); Sodium 139 mmol/L (136-145)
== END 2019-08-05 11:35 ==
PROVIDERS: PCP Family Medicine; Visit Provider Nurse Practitioner Adult Health
DX: D62 Acute posthemorrhagic anemia (principal); I50.9 Heart failure, unspecified; I13.0 Hypertensive heart and chronic kidney disease with heart failure and stage 1 through stage 4 chronic kidney disease, or unspecified chronic kidney disease
CPT/HCPCS: 80048

== ENCOUNTER 2019-08-12 11:10 | Outpatient (CLI) | payer MEDICARE, MEDICAID, SELFPAY ==
[2019-08-12 11:46] LABS: Abs Immature Grans 0.03 k/cumm (0.0-0.09); Absolute Basophil Count 0.01 k/cumm (0.0-0.2); Absolute Eosinophil Count 0.28 k/cumm (0.0-0.7); Absolute Lymphocyte Count 0.66 k/cumm (1.2-3.4); Absolute Monocyte Count 0.43 k/cumm (0.11-0.7); Absolute Neutrophil Count 6.61 k/cumm (1.2-6.7); Basophils % 0.1; Eosinophils % 3.5; HGB 12.8 g/dL (13.5-17.5); Immature Grans % 0.4; Lymphocytes % 8.2; Mean Corpuscular Hemoglobin 26.7 pg (27.0-33.0); Mean Corpuscular Volume 83.5 fL (80-95); Mean Platelet Volume 9.3 fL (8.0-11.0); Monocytes % 5.4; Neutrophils % 82.4; Platelet Count 254 x1000/uL (130-400); RBC 4.79 m/cumm (4.50-6.00); RBC Distribution Width 15.2 % (11.8-14.1); White Blood Cell Count 8.02 k/cumm (4.4-10.8)
[2019-08-12 12:37] LABS: Anion Gap 10.6 mmol/L (3-11); CO2 32.4 mmol/L (21.0-32.0); CREATININE 3.01 mg/dL (0.70-1.30); Calcium 8.8 mg/dL (8.5-10.1); Chloride 95 mmol/L (98-107); Glucose 234 mg/dL (74-106); Potassium 3.7 mmol/L (3.5-5.1); Sodium 138 mmol/L (136-145)
[2019-08-12 12:44] LABS: BUN 108 mg/dL (7-18)
== END 2019-08-12 11:30 ==
PROVIDERS: PCP Family Medicine; Visit Provider Nurse Practitioner Adult Health
DX: I10 Essential (primary) hypertension (principal); N18.3 Chronic kidney disease, stage 3 (moderate); E78.5 Hyperlipidemia, unspecified; N17.9 Acute kidney failure, unspecified; I71.4 Abdominal aortic aneurysm, without rupture; K92.2 Gastrointestinal hemorrhage, unspecified
CPT/HCPCS: 36415; 80048; 85025

== ENCOUNTER 2019-08-18 14:46 | Outpatient (REF) | payer MEDICARE, MEDICAID, SELFPAY ==
[2019-08-18 16:48] LABS: Bilirubin Negative (Negative); Blood Negative (Negative); Clarity Clear (Clear); Glucose Negative (Negative); Ketones Negative (Negative); Leukocyte Esterase Large (Negative); Nitrite Negative (Negative); Specific Gravity 1.015 (1.005-1.025); Urobilinogen 0.2 EU/dL (Up TO 0.2); pH >= 9.0 (5-8)
[2019-08-18 17:51] LABS: Epithelial Cells Negative HPF (Negative); Other Cells Negative (Negative); RBC 0-2 HPF (0-2)
[2019-08-18 17:52] LABS: Bacteria Many HPF (Negative); C & S Indicated? C&S Done As Ordered; Casts Negative LPF (Negative); Crystals Moderate Triple Phos HPF (Negative); Mucus Negative (Negative)
== END 2019-08-18 15:06 ==
LOC: LBN 14:46
PROVIDERS: PCP Family Medicine; Visit Provider Nurse Practitioner Adult Health
DX: N18.3 Chronic kidney disease, stage 3 (moderate) (principal); R82.90 Unspecified abnormal findings in urine
CPT/HCPCS: 87077; 81003; 81015; 87086; 87186

== ENCOUNTER 2019-09-16 10:14 | Outpatient (REF) | payer MEDICARE, MEDICAID, SELFPAY ==
[2019-09-16 11:37] LABS: Anion Gap 6.9 mmol/L (3-11); BUN 55 mg/dL (7-18); CO2 33.1 mmol/L (21.0-32.0); CREATININE 2.17 mg/dL (0.70-1.30); Calcium 8.4 mg/dL (8.5-10.1); Chloride 103 mmol/L (98-107); Estimated GFR 30.39 (mL/min/1.73m2); Glucose 217 mg/dL (74-106); Sodium 143 mmol/L (136-145)
== END 2019-09-16 10:34 ==
LOC: LBO 10:14
PROVIDERS: PCP Family Medicine; Visit Provider Nurse Practitioner Adult Health
DX: N17.9 Acute kidney failure, unspecified (principal); D64.9 Anemia, unspecified; E11.9 Type 2 diabetes mellitus without complications; I10 Essential (primary) hypertension
CPT/HCPCS: 36415; 80048

== ENCOUNTER 2019-10-03 08:21 | Outpatient (REF) | payer MEDICARE, MEDICAID, SELFPAY ==
[2019-10-03 08:41] LABS: Abs Immature Grans 0.02 k/cumm (0.0-0.09); Absolute Basophil Count 0.01 k/cumm (0.0-0.2); Absolute Eosinophil Count 0.23 k/cumm (0.0-0.7); Absolute Lymphocyte Count 0.77 k/cumm (1.2-3.4); Absolute Monocyte Count 0.32 k/cumm (0.11-0.7); Absolute Neutrophil Count 5.63 k/cumm (1.2-6.7); Basophils % 0.1; Eosinophils % 3.3; HCT 40.2 % (40.0-50.0); HGB 12.2 g/dL (13.5-17.5); Immature Grans % 0.3 %; Mean Corp. HGB Concentration 30.3 g/dL (32.0-36.0); Mean Corpuscular Hemoglobin 26.4 pg (27.0-33.0); Mean Platelet Volume 8.7 fL (8.0-11.0); Monocytes % 4.6; Neutrophils % 80.7; Platelet Count 235 x1000/uL (130-400); RBC 4.62 m/cumm (4.50-6.00); RBC Distribution Width 15.4 % (11.8-14.1); White Blood Cell Count 6.98 k/cumm (4.4-10.8)
[2019-10-03 08:55] LABS: Anion Gap 6.5 mmol/L (3-11); BUN 39 mg/dL (7-18); CO2 33.5 mmol/L (21.0-32.0); CREATININE 1.83 mg/dL (0.70-1.30); Calcium 8.8 mg/dL (8.5-10.1); Chloride 104 mmol/L (98-107); Glucose 182 mg/dL (74-106); Magnesium 2.2 mg/dL (1.8-2.4); NT-proBNP 1123 pg/mL (<300); Potassium 4.1 mmol/L (3.5-5.1); Sodium 144 mmol/L (136-145)
[2019-10-03 09:05] LABS: Hemoglobin A1C 8.1 % (3.8-5.6)
== END 2019-10-03 08:41 ==
LOC: LBN 08:21
PROVIDERS: PCP Family Medicine; Visit Provider Family Medicine
DX: E11.9 Type 2 diabetes mellitus without complications (principal); N17.9 Acute kidney failure, unspecified; I50.9 Heart failure, unspecified; D62 Acute posthemorrhagic anemia
CPT/HCPCS: 80048; 83036; 83735; 83880; 85025

== ENCOUNTER 2019-10-05 23:19 | Outpatient (REF) | payer MEDICARE, MEDICAID, SELFPAY | END 2019-10-05 23:39 | LOC: LBN 23:19 | PROVIDERS: PCP Family Medicine; Visit Provider Family Medicine | DX: L02.512 Cutaneous abscess of left hand (principal) | CPT/HCPCS: 87077; 87070; 87186; 87205 ==

== ENCOUNTER 2019-10-14 10:24 | Outpatient (CLI) | payer MEDICARE, MEDICAID, SELFPAY ==
[2019-10-14 12:37] LABS: Anion Gap 6.9 mmol/L (3-11); BUN 74 mg/dL (7-18); CO2 36.1 mmol/L (21.0-32.0); CREATININE 2.49 mg/dL (0.70-1.30); Calcium 9.3 mg/dL (8.5-10.1); Chloride 100 mmol/L (98-107); Estimated GFR 25.93 (mL/min/1.73m2); Glucose 219 mg/dL (74-106); Potassium 3.8 mmol/L (3.5-5.1); Sodium 143 mmol/L (136-145)
== END 2019-10-14 10:44 ==
PROVIDERS: PCP Family Medicine; Visit Provider Nurse Practitioner Adult Health
DX: B95.62 Methicillin resistant Staphylococcus aureus infection as the cause of diseases classified elsewhere (principal)
CPT/HCPCS: 36415; 80048

== ENCOUNTER 2019-10-16 12:16 | Emergency (ER) | payer MEDICARE, MEDICAID, SELFPAY ==
[2019-10-16] VITALS (29 sets, daily range): BP systolic 125–158; BP diastolic 49–72; PULSE 55–78; RESP 4–31; TEMP 36.4–36.7; O2SAT 91–100
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
[2019-10-16 12:35] LABS: Abs Immature Grans 0.07 k/cumm (0.0-0.09); Absolute Basophil Count 0.01 k/cumm (0.0-0.2); Absolute Eosinophil Count 0.04 k/cumm (0.0-0.7); Absolute Lymphocyte Count 0.69 k/cumm (1.2-3.4); Absolute Monocyte Count 0.34 k/cumm (0.11-0.7); Absolute Neutrophil Count 8.48 k/cumm (1.2-6.7); Basophils % 0.1; Eosinophils % 0.4; HCT 40.3 % (40.0-50.0); HGB 12.5 g/dL (13.5-17.5); Immature Grans % 0.7 %; Lymphocytes % 7.2; Mean Corpuscular Hemoglobin 26.3 pg (27.0-33.0); Mean Corpuscular Volume 84.8 fL (80-95); Mean Platelet Volume 8.6 fL (8.0-11.0); Monocytes % 3.5; Neutrophils % 88.1; Platelet Count 229 x1000/uL (130-400); RBC 4.75 m/cumm (4.50-6.00); RBC Distribution Width 15.4 % (11.8-14.1); White Blood Cell Count 9.63 k/cumm (4.4-10.8)
[2019-10-16 12:49] LABS: PTT Activated 22.4 sec (21.0-31.4); Prothrombin Time 10.4 sec (9.3-11.0)
[2019-10-16] MEDS: Albuterol/Ipratropium 3 ML UPD VIAL UPD (12:55)
[2019-10-16] MEDS: methylPREDNISolone SUCC 125 MG VIAL IM (12:56)
[2019-10-16 13:00] LABS: ALT 35 U/L (16-63); AST 16 U/L (15-37); Albumin 3.5 g/dL (3.4-5.0); Alkaline Phosphatase 87 U/L (46-116); Anion Gap 8.3 mmol/L (3-11); BUN 77 mg/dL (7-18); Bilirubin, Total 0.4 mg/dL (0.2-1.0); CO2 34.7 mmol/L (21.0-32.0); CREATININE 2.82 mg/dL (0.70-1.30); Calcium 8.9 mg/dL (8.5-10.1); Chloride 98 mmol/L (98-107); Estimated GFR 22.46 (mL/min/1.73m2); Glucose 266 mg/dL (74-106); Magnesium 2.1 mg/dL (1.8-2.4); NT-proBNP 428 pg/mL (<300); Potassium 4.1 mmol/L (3.5-5.1); Sodium 141 mmol/L (136-145); Total Protein 7.4 g/dL (6.4-8.2); Troponin I < 0.05 ng/Ml (<0.06)
[2019-10-16 13:17] LABS: Lactate 1.7 mmol/L (0.6-1.4)
--- NOTE | 2019-10-16 13:46 | DI.RAD_ITS ---
EXAM: XR CHEST 2V PA LATERAL INDICATION: cough, COPD. COMPARISON: XR CHEST 2V PA LATERAL from 05/27/2019 XR CHEST 2V PA LATERAL from 07/30/2019 TECHNIQUE: 2D digital imaging was performed. FINDINGS: The heart size is within normal limits. There is tortuosity of the thoracic aorta. On the lateral v iew, there do appear to be small pleural effusions and retrocardiac infiltrate. The lungs are hyperi nflated consistent with underlying COPD. Sternal wires are in place. Degenerative changes are seen in the spine. IMPRESSION: 1. Small pleural effusions. 2. Retrocardiac infiltrate.
[2019-10-16] MEDS: Doxycycline Hyclate 100 MG CAP PO (14:17)
[2019-10-16] MEDS: cefTRIAXone 1 GM/50 ML BAG IVPB (14:18)
[2019-10-16 14:27] LABS: Bilirubin Negative (Negative); Blood Negative (Negative); Clarity Clear (Clear); Glucose Negative (Negative); Ketones Negative (Negative); Leukocyte Esterase Large (Negative); Nitrite Negative (Negative); Specific Gravity 1.015 (1.005-1.025); Urobilinogen 0.2 EU/dL (Up TO 0.2); pH 8.5 (5-8)
[2019-10-16 14:49] LABS: Bacteria Few HPF (Negative); Epithelial Cells Rare HPF (Negative); RBC Negative HPF (0-2)
[2019-10-16 14:50] LABS: C & S Indicated? Yes; Casts Negative LPF (Negative); Crystals Few Triple Phos HPF (Negative); Mucus Negative (Negative)
--- NOTE | 2019-10-19 08:35 | W.ED.FU ---
Follow Up Plan: Follow-up on urine culture. Urine culture reveals Proteus growth which is sensitive to Keflex. Patient was not discharged on an antibiotic. Reviewed patient's chart and allergies. Recommendation to start Keflex 3 times daily x7 days. Patient's creatinine clearance is calculated to be 45. Recommend patient follow-up with primary care doctor, have a repeat urine culture in 1 week and return for any worsening symptoms.
--- NOTE | 2019-10-19 09:06 | NUR.NOTE ---
Nursing Note: Urine culture result with recommendations by FILOMENA Haywood to [facility]. Spoke with Arielle who will consult with physician for orders. Dahlia Burgos.
== END 2019-10-16 15:45 | disposition skilled nursing facility (03) ==
PROVIDERS: Emergency Provider Physician Assistant; PCP Family Medicine
DX: J44.1 Chronic obstructive pulmonary disease with (acute) exacerbation (principal); J18.9 Pneumonia, unspecified organism; N39.0 Urinary tract infection, site not specified; B96.4 Proteus (mirabilis) (morganii) as the cause of diseases classified elsewhere; I12.9 Hypertensive chronic kidney disease with stage 1 through stage 4 chronic kidney disease, or unspecified chronic kidney disease; E11.9 Type 2 diabetes mellitus without complications; Z79.4 Long term (current) use of insulin; I50.20 Unspecified systolic (congestive) heart failure
CPT/HCPCS: 80053; 87077; 87449; 93005; 94640; 96365; 96372; 99285; 71046; 81003; 81015; 83605; 83735; 83880; 84484; 85025; 85610; 85730; 87086; 87186; 93010; J0696; J2930; J7620

== ENCOUNTER 2019-11-04 10:09 | Outpatient (CLI) | payer MEDICARE, MEDICAID, SELFPAY ==
[2019-11-04 11:04] LABS: Anion Gap 6.4 mmol/L (3-11); BUN 33 mg/dL (7-18); CO2 33.6 mmol/L (21.0-32.0); CREATININE 1.99 mg/dL (0.70-1.30); Calcium 8.5 mg/dL (8.5-10.1); Chloride 101 mmol/L (98-107); Estimated GFR 33.59 (mL/min/1.73m2); Glucose 251 mg/dL (74-106); Potassium 3.5 mmol/L (3.5-5.1); Sodium 141 mmol/L (136-145)
== END 2019-11-04 10:29 ==
PROVIDERS: PCP Family Medicine; Visit Provider Family Medicine
DX: N18.3 Chronic kidney disease, stage 3 (moderate) (principal); I13.0 Hypertensive heart and chronic kidney disease with heart failure and stage 1 through stage 4 chronic kidney disease, or unspecified chronic kidney disease
CPT/HCPCS: 36415; 80048

== ENCOUNTER 2019-11-13 11:55 | Outpatient (CLI) | payer MEDICARE, MEDICAID, SELFPAY ==
--- NOTE | 2019-11-13 | DI.RAD_ITS ---
EXAM: XR CHEST 2V PA LATERAL CLINICAL HISTORY: LOW O2 SATS TECHNIQUE: 2D digital imaging. The exam is limited by the patient's body habitus. COMPARISON: XR CHEST 2V PA LATERAL from 10/16/2019 FINDINGS: The heart is enlarged. The patient is status post CABG. There are small bilateral pleural effusion s. The abdominal soft tissues somewhat obscure visualization of the lung bases on the AP view. It m ay be mild vascular prominence. The findings could indicate mild CHF. IMPRESSION: Cardiomegaly and mild CHF. Small bilateral pleural effusions.
== END 2019-11-13 12:15 ==
PROVIDERS: PCP Family Medicine; Visit Provider Nurse Practitioner Adult Health
DX: I51.7 Cardiomegaly (principal); Z95.1 Presence of aortocoronary bypass graft; J90 Pleural effusion, not elsewhere classified; I50.9 Heart failure, unspecified
CPT/HCPCS: 71046

== ENCOUNTER 2019-11-18 09:57 | Outpatient (CLI) | payer MEDICARE, MEDICAID, SELFPAY ==
[2019-11-18 10:59] LABS: Abs Immature Grans 0.06 k/cumm (0.0-0.09); Absolute Basophil Count 0.01 k/cumm (0.0-0.2); Absolute Eosinophil Count 0.01 k/cumm (0.0-0.7); Absolute Lymphocyte Count 1.19 k/cumm (1.2-3.4); Absolute Monocyte Count 0.27 k/cumm (0.11-0.7); Absolute Neutrophil Count 4.93 k/cumm (1.2-6.7); Basophils % 0.2; Eosinophils % 0.2; HCT 40.6 % (40.0-50.0); HGB 12.7 g/dL (13.5-17.5); Immature Grans % 0.9 %; Lymphocytes % 18.4; Mean Corp. HGB Concentration 31.3 g/dL (32.0-36.0); Mean Corpuscular Hemoglobin 27.1 pg (27.0-33.0); Mean Corpuscular Volume 86.6 fL (80-95); Mean Platelet Volume 9.2 fL (8.0-11.0); Monocytes % 4.2; Neutrophils % 76.1; Platelet Count 228 x1000/uL (130-400); RBC 4.69 m/cumm (4.50-6.00); RBC Distribution Width 14.9 % (11.8-14.1); White Blood Cell Count 6.47 k/cumm (4.4-10.8)
[2019-11-18 11:26] LABS: ALT 29 U/L (16-63); AST 13 U/L (15-37); Albumin 3.4 g/dL (3.4-5.0); Alkaline Phosphatase 92 U/L (46-116); Anion Gap 6.1 mmol/L (3-11); BUN 58 mg/dL (7-18); Bilirubin, Total 0.4 mg/dL (0.2-1.0); CO2 38.9 mmol/L (21.0-32.0); Chloride 97 mmol/L (98-107); Estimated GFR 31.56 (mL/min/1.73m2); Glucose 298 mg/dL (74-106); Potassium 4.1 mmol/L (3.5-5.1); Sodium 142 mmol/L (136-145); Total Protein 6.7 g/dL (6.4-8.2)
== END 2019-11-18 10:17 ==
PROVIDERS: PCP Family Medicine; Visit Provider Nurse Practitioner Adult Health
DX: D64.9 Anemia, unspecified (principal); N17.9 Acute kidney failure, unspecified; N18.3 Chronic kidney disease, stage 3 (moderate); E78.5 Hyperlipidemia, unspecified
CPT/HCPCS: 36415; 80053; 85025

== ENCOUNTER 2019-12-09 10:48 | Outpatient (CLI) | payer MEDICARE, MEDICAID, SELFPAY ==
[2019-12-09 11:45] LABS: Anion Gap 6.3 mmol/L (3-11); BUN 54 mg/dL (7-18); CO2 35.7 mmol/L (21.0-32.0); CREATININE 2.06 mg/dL (0.70-1.30); Calcium 8.6 mg/dL (8.5-10.1); Chloride 98 mmol/L (98-107); Estimated GFR 32.27 (mL/min/1.73m2); Glucose 256 mg/dL (74-106); Potassium 3.6 mmol/L (3.5-5.1); Sodium 140 mmol/L (136-145)
== END 2019-12-09 11:08 ==
PROVIDERS: PCP Family Medicine; Visit Provider Nurse Practitioner Adult Health
DX: D64.9 Anemia, unspecified (principal); N17.9 Acute kidney failure, unspecified; I13.0 Hypertensive heart and chronic kidney disease with heart failure and stage 1 through stage 4 chronic kidney disease, or unspecified chronic kidney disease; E78.5 Hyperlipidemia, unspecified
CPT/HCPCS: 36415; 80048

== ENCOUNTER 2019-12-15 11:10 | Outpatient (REF) | payer MEDICARE, MEDICAID, SELFPAY ==
[2019-12-15 12:02] LABS: ALT 28 U/L (16-63); AST 16 U/L (15-37); Albumin 3.2 g/dL (3.4-5.0); Alkaline Phosphatase 95 U/L (46-116); Anion Gap 3.4 mmol/L (3-11); BUN 59 mg/dL (7-18); Bilirubin, Total 0.3 mg/dL (0.2-1.0); CO2 38.6 mmol/L (21.0-32.0); Calcium 8.5 mg/dL (8.5-10.1); Chloride 98 mmol/L (98-107); Estimated GFR 33.39 (mL/min/1.73m2); Glucose 294 mg/dL (74-106); Sodium 140 mmol/L (136-145); Total Protein 6.4 g/dL (6.4-8.2)
[2019-12-15 12:03] LABS: Abs Immature Grans 0.03 k/cumm (0.0-0.09); Absolute Basophil Count 0.01 k/cumm (0.0-0.2); Absolute Eosinophil Count 0.17 k/cumm (0.0-0.7); Absolute Lymphocyte Count 0.81 k/cumm (1.2-3.4); Absolute Monocyte Count 0.35 k/cumm (0.11-0.7); Absolute Neutrophil Count 4.63 k/cumm (1.2-6.7); Basophils % 0.2; Eosinophils % 2.8; HCT 39.6 % (40.0-50.0); HGB 12.5 g/dL (13.5-17.5); Immature Grans % 0.5 %; Lymphocytes % 13.5; Mean Corp. HGB Concentration 31.6 g/dL (32.0-36.0); Mean Corpuscular Hemoglobin 27.1 pg (27.0-33.0); Mean Corpuscular Volume 85.9 fL (80-95); Mean Platelet Volume 9.6 fL (8.0-11.0); Monocytes % 5.8; Neutrophils % 77.2; Platelet Count 213 x1000/uL (130-400); RBC 4.61 m/cumm (4.50-6.00); RBC Distribution Width 14.5 % (11.8-14.1)
== END 2019-12-15 11:30 ==
LOC: LBN 11:10
PROVIDERS: PCP Family Medicine; Visit Provider Nurse Practitioner Adult Health
DX: J06.9 Acute upper respiratory infection, unspecified (principal)
CPT/HCPCS: 80053; 85025

== ENCOUNTER 2019-12-30 16:39 | Outpatient (REF) | payer MEDICARE, MEDICAID, SELFPAY | END 2019-12-30 16:59 | LOC: LBN 16:39 | PROVIDERS: PCP Family Medicine; Visit Provider Nurse Practitioner Adult Health | DX: D64.9 Anemia, unspecified (principal); Z53.8 Procedure and treatment not carried out for other reasons | CPT/HCPCS: 85025 ==

== ENCOUNTER 2019-12-31 13:43 | Outpatient (REF) | payer MEDICARE, MEDICAID, SELFPAY ==
[2019-12-31 14:01] LABS: Abs Immature Grans 0.01 k/cumm (0.0-0.09); Absolute Basophil Count 0.01 k/cumm (0.0-0.2); Absolute Eosinophil Count 0.12 k/cumm (0.0-0.7); Absolute Neutrophil Count 4.99 k/cumm (1.2-6.7); Basophils % 0.2; HCT 42.8 % (40.0-50.0); HGB 13.4 g/dL (13.5-17.5); Immature Grans % 0.2 %; Lymphocytes % 11.6; Mean Corp. HGB Concentration 31.3 g/dL (32.0-36.0); Mean Corpuscular Hemoglobin 26.9 pg (27.0-33.0); Mean Corpuscular Volume 85.8 fL (80-95); Mean Platelet Volume 9.4 fL (8.0-11.0); Monocytes % 3.3; Neutrophils % 82.7; Platelet Count 226 x1000/uL (130-400); RBC 4.99 m/cumm (4.50-6.00); RBC Distribution Width 14.8 % (11.8-14.1); White Blood Cell Count 6.03 k/cumm (4.4-10.8)
[2019-12-31 14:05] LABS: Anion Gap 6.4 mmol/L (3-11); BUN 61 mg/dL (7-18); CO2 33.6 mmol/L (21.0-32.0); CREATININE 2.15 mg/dL (0.70-1.30); Calcium 8.9 mg/dL (8.5-10.1); Chloride 101 mmol/L (98-107); Estimated GFR 30.72 (mL/min/1.73m2); Glucose 312 mg/dL (74-106); Potassium 3.9 mmol/L (3.5-5.1); Sodium 141 mmol/L (136-145)
== END 2019-12-31 14:03 ==
LOC: LBN 13:43
PROVIDERS: PCP Family Medicine; Visit Provider Nurse Practitioner Adult Health
DX: D64.9 Anemia, unspecified (principal); N17.9 Acute kidney failure, unspecified; I13.0 Hypertensive heart and chronic kidney disease with heart failure and stage 1 through stage 4 chronic kidney disease, or unspecified chronic kidney disease
CPT/HCPCS: 80048; 85025

== ENCOUNTER 2020-02-24 12:56 | Outpatient (REF) | payer MEDICARE, MEDICAID, SELFPAY ==
[2020-02-24 13:57] LABS: Abs Immature Grans 0.02 k/cumm (0.0-0.09); Absolute Basophil Count 0.01 k/cumm (0.0-0.2); Absolute Eosinophil Count 0.24 k/cumm (0.0-0.7); Absolute Lymphocyte Count 0.75 k/cumm (1.2-3.4); Absolute Monocyte Count 0.31 k/cumm (0.11-0.7); Absolute Neutrophil Count 5.06 k/cumm (1.2-6.7); Basophils % 0.2; Eosinophils % 3.8; HCT 37.2 % (40.0-50.0); HGB 11.4 g/dL (13.5-17.5); Immature Grans % 0.3 %; Lymphocytes % 11.7; Mean Corp. HGB Concentration 30.6 g/dL (32.0-36.0); Mean Corpuscular Hemoglobin 26.7 pg (27.0-33.0); Mean Corpuscular Volume 87.1 fL (80-95); Mean Platelet Volume 9.5 fL (8.0-11.0); Monocytes % 4.9; Neutrophils % 79.1; Platelet Count 225 x1000/uL (130-400); RBC 4.27 m/cumm (4.50-6.00); RBC Distribution Width 14.3 % (11.8-14.1); White Blood Cell Count 6.39 k/cumm (4.4-10.8)
[2020-02-24 14:14] LABS: Anion Gap 2.6 mmol/L (3-11); BUN 77 mg/dL (7-18); CO2 36.4 mmol/L (21.0-32.0); CREATININE 2.53 mg/dL (0.70-1.30); Calcium 8.8 mg/dL (8.5-10.1); Chloride 100 mmol/L (98-107); Estimated GFR 25.46 (mL/min/1.73m2); Glucose 268 mg/dL (74-106); NT-proBNP 668 pg/mL (<300); Potassium 4.5 mmol/L (3.5-5.1); Sodium 139 mmol/L (136-145)
[2020-02-24 14:32] LABS: Hemoglobin A1C 9.3 % (3.8-5.6)
== END 2020-02-24 13:16 ==
LOC: LBN 12:56
PROVIDERS: PCP Family Medicine; Visit Provider Nurse Practitioner Adult Health
DX: D64.9 Anemia, unspecified (principal); N17.9 Acute kidney failure, unspecified; I13.0 Hypertensive heart and chronic kidney disease with heart failure and stage 1 through stage 4 chronic kidney disease, or unspecified chronic kidney disease; E11.9 Type 2 diabetes mellitus without complications; E78.5 Hyperlipidemia, unspecified; N18.3 Chronic kidney disease, stage 3 (moderate); I50.20 Unspecified systolic (congestive) heart failure
CPT/HCPCS: 80048; 83036; 83880; 85025

== ENCOUNTER 2020-03-28 14:13 | Outpatient (REF) | payer MEDICARE, MEDICAID, SELFPAY | END 2020-03-28 14:33 | LOC: LBN 14:13 | PROVIDERS: PCP Family Medicine; Visit Provider Family Medicine | DX: L03.116 Cellulitis of left lower limb (principal) | CPT/HCPCS: 87077; 87070; 87186; 87205 ==

== ENCOUNTER 2020-04-02 16:46 | Outpatient (REF) | payer MEDICARE, MEDICAID, SELFPAY ==
[2020-04-02 18:12] LABS: HCT 36.3 % (40.0-50.0); HGB 10.9 g/dL (13.5-17.5); Mean Corpuscular Hemoglobin 25.6 pg (27.0-33.0); Mean Corpuscular Volume 85.4 fL (80-95); Mean Platelet Volume 9.1 fL (8.0-11.0); Platelet Count 252 x1000/uL (130-400); RBC 4.25 m/cumm (4.50-6.00); RBC Distribution Width 14.4 % (11.8-14.1)
[2020-04-02 18:37] LABS: Anion Gap 6.4 mmol/L (3-11); BUN 72 mg/dL (7-18); C-Reactive Protein 2.01 mg/dL (0.0-0.3); CO2 33.6 mmol/L (21.0-32.0); CREATININE 2.37 mg/dL (0.70-1.30); Calcium 8.4 mg/dL (8.5-10.1); Chloride 100 mmol/L (98-107); Estimated GFR 27.45 (mL/min/1.73m2); Glucose 323 mg/dL (74-106); NT-proBNP 940 pg/mL (<300); Potassium 3.9 mmol/L (3.5-5.1); Sodium 140 mmol/L (136-145)
== END 2020-04-02 17:06 ==
LOC: LBN 16:46
PROVIDERS: PCP Family Medicine; Visit Provider Family Medicine
DX: D64.9 Anemia, unspecified (principal); N18.3 Chronic kidney disease, stage 3 (moderate); I50.9 Heart failure, unspecified; J44.9 Chronic obstructive pulmonary disease, unspecified
CPT/HCPCS: 80048; 85027; 83880; 86140

== ENCOUNTER 2020-04-20 10:21 | Outpatient (REF) | payer MEDICARE, MEDICAID, SELFPAY ==
[2020-04-20 11:24] LABS: ALT 23 U/L (16-63); AST 17 U/L (15-37); Albumin 3.1 g/dL (3.4-5.0); Alkaline Phosphatase 96 U/L (46-116); Anion Gap 7.2 mmol/L (3-11); Bilirubin, Total 0.3 mg/dL (0.2-1.0); CO2 35.8 mmol/L (21.0-32.0); Calcium 8.2 mg/dL (8.5-10.1); Chloride 95 mmol/L (98-107); Estimated GFR 23.62 (mL/min/1.73m2); Glucose 392 mg/dL (74-106); Potassium 3.3 mmol/L (3.5-5.1); Sodium 138 mmol/L (136-145); Total Protein 6.7 g/dL (6.4-8.2)
[2020-04-20 11:31] LABS: BUN 101 mg/dL (7-18)
[2020-04-20 12:10] LABS: Abs Immature Grans 0.03 10^3/uL (0.0-0.06); Absolute Basophil Count 0.03 10^3/uL (0.0-0.2); Absolute Eosinophil Count 0.11 10^3/uL (0.0-0.7); Absolute Lymphocyte Count 0.59 10^3/uL (1.2-3.4); Absolute Monocyte Count 0.42 10^3/uL (0.1-0.8); Absolute Neutrophil Count 6.29 10^3/uL (1.2-6.7); Basophils % 0.4; Eosinophils % 1.5; HCT 35.3 % (40.0-50.0); HGB 10.9 g/dL (13.5-17.5); Immature Grans % 0.4; Lymphocytes % 7.9; MCH 25.6 pg (27.0-33.0); MCHC 30.9 % (32.0-36.0); MCV 83.1 fL (80-95); MPV 9.4 fL (8.0-11.0); Monocytes % 5.6; Neutrophils % 84.2 %; Platelet Count 221 10^3/uL (130-400); RBC 4.25 10^6/uL (4.36-5.78); RDW 14.4 % (11.8-14.1); WBC 7.47 10^3/uL (4.4-10.8)
== END 2020-04-20 10:41 ==
LOC: LBN 10:21
PROVIDERS: PCP Family Medicine; Visit Provider Nurse Practitioner Adult Health
DX: R53.83 Other fatigue (principal); J44.9 Chronic obstructive pulmonary disease, unspecified; R06.00 Dyspnea, unspecified; I50.9 Heart failure, unspecified
CPT/HCPCS: 80053; 85025

== ENCOUNTER 2020-05-11 15:27 | Outpatient (REF) | payer MEDICARE, MEDICAID, SELFPAY ==
[2020-05-11 15:46] LABS: BUN 59 mg/dL (7-18); CREATININE 2.36 mg/dL (0.70-1.30); Calcium 8.4 mg/dL (8.5-10.1); Chloride 100 mmol/L (98-107); Estimated GFR 27.59 (mL/min/1.73m2); Glucose 377 mg/dL (74-106); Potassium 4.4 mmol/L (3.5-5.1); Sodium 142 mmol/L (136-145)
== END 2020-05-11 15:47 ==
LOC: LBN 15:27
PROVIDERS: PCP Family Medicine; Visit Provider Nurse Practitioner Adult Health
DX: N18.3 Chronic kidney disease, stage 3 (moderate) (principal); E11.9 Type 2 diabetes mellitus without complications
CPT/HCPCS: 80048

== ENCOUNTER 2020-05-18 16:12 | Outpatient (REF) | payer MEDICARE, MEDICAID, SELFPAY ==
[2020-05-18 16:14] LABS: Abs Immature Grans 0.05 10^3/uL (0.0-0.06); Absolute Basophil Count 0.01 10^3/uL (0.0-0.2); Absolute Eosinophil Count 0.13 10^3/uL (0.0-0.7); Absolute Lymphocyte Count 0.77 10^3/uL (1.2-3.4); Absolute Neutrophil Count 6.07 10^3/uL (1.2-6.7); Basophils % 0.1; Eosinophils % 1.7; HCT 34.8 % (40.0-50.0); HGB 10.1 g/dL (13.5-17.5); Immature Grans % 0.7; Lymphocytes % 10.4; MCH 25.5 pg (27.0-33.0); MCV 87.9 fL (80-95); MPV 9.4 fL (8.0-11.0); Monocytes % 5.4; Neutrophils % 81.7; Nucleated RBC 0 %; Platelet Count 213 10^3/uL (130-400); RBC 3.96 10^6/uL (4.36-5.78); RDW 15.4 % (11.8-14.1); RDW-SD 49.3 fL; WBC 7.43 10^3/uL (4.4-10.8)
[2020-05-18 16:47] LABS: Anion Gap -1.7 mmol/L (3-11); BUN 68 mg/dL (7-18); CO2 40.7 mmol/L (21.0-32.0); CREATININE 2.17 mg/dL (0.70-1.30); Chloride 104 mmol/L (98-107); Estimated GFR 30.39 (mL/min/1.73m2); Glucose 230 mg/dL (74-106); Potassium 4.5 mmol/L (3.5-5.1); Sodium 143 mmol/L (136-145)
[2020-05-18 18:25] LABS: Calcium 8.2 mg/dL (8.5-10.1)
== END 2020-05-18 16:32 ==
LOC: LBN 16:12
PROVIDERS: PCP Family Medicine; Visit Provider Nurse Practitioner Adult Health
DX: E11.22 Type 2 diabetes mellitus with diabetic chronic kidney disease (principal); N18.3 Chronic kidney disease, stage 3 (moderate)
CPT/HCPCS: 80048; 85025

== ENCOUNTER 2020-05-25 18:43 | Emergency (ER) | payer MEDICARE, MEDICAID, SELFPAY ==
[2020-05-25 18:45] VITALS: BP 119/59; PULSE 66; RESP 14; TEMP 36.8; O2SAT 92
--- NOTE | 2020-05-25 18:45 | RT.EKG_ITS ---
APPROVED REPORT Exam: Resting ECG Patient Location: E HR:69 bpm ECG Measurements Heart Rate [address] [id number] P [id number] QRSd 182 QRS -55 QT 476 T 79 QTc 511 Conclusion Junctional rhythm...absent P waves, slow V-rate RBBB and LAFB...QRSd >120mS, axis(-40,240) Probable left ventricular hypertrophy...(RaVL+SV3)xQRSd >280
--- NOTE | 2020-05-25 19:00 | DI.RAD_ITS ---
EXAM: XR PORTABLE CHEST AP CLINICAL HISTORY: weak TECHNIQUE: 2D digital imaging was performed. COMPARISON: No exams were available for comparison FINDINGS: MEDIASTINUM: Normal. HEART: Normal. PULMONARY VASCULATURE: Normal. LUNGS: Bilateral basilar infiltrates. PLEURAL SPACE: Small bilateral pleural effusions. No pneumothorax. BONE:Within normal limits for the patient's age. Status post sternotomy. OTHER FINDINGS:Normal. IMPRESSION: Bilateral basilar infiltrates and/or atelectasis. Small bilateral pleural effusions. DATA REPOSITORY: RADIATION DOSE DELIVERED:
[2020-05-25 19:12] LABS: Abs Immature Grans 0.03 10^3/uL (0.0-0.06); Absolute Basophil Count 0.02 10^3/uL (0.0-0.2); Absolute Eosinophil Count 0.11 10^3/uL (0.0-0.7); Absolute Lymphocyte Count 0.67 10^3/uL (1.2-3.4); Absolute Monocyte Count 0.38 10^3/uL (0.1-0.8); Absolute Neutrophil Count 6.51 10^3/uL (1.2-6.7); Basophils % 0.3; Eosinophils % 1.4; HCT 37.2 % (40.0-50.0); HGB 10.8 g/dL (13.5-17.5); Immature Grans % 0.4; Lymphocytes % 8.7; MCH 25.7 pg (27.0-33.0); MCV 88.6 fL (80-95); Monocytes % 4.9; Neutrophils % 84.3; Nucleated RBC 0 %; Platelet Count 193 10^3/uL (130-400); RDW 15.9 % (11.8-14.1); RDW-SD 51.2 fL; WBC 7.72 10^3/uL (4.4-10.8)
[2020-05-25 19:27] LABS: ALT 16 U/L (16-63); AST 12 U/L (15-37); Alkaline Phosphatase 94 U/L (46-116); Anion Gap 2.6 mmol/L (3-11); BUN 62 mg/dL (7-18); Bilirubin, Total 0.3 mg/dL (0.2-1.0); CO2 39.4 mmol/L (21.0-32.0); CREATININE 2.31 mg/dL (0.70-1.30); Calcium 8.6 mg/dL (8.5-10.1); Chloride 101 mmol/L (98-107); Estimated GFR 28.28 (mL/min/1.73m2); Glucose 303 mg/dL (74-106); Potassium 4.2 mmol/L (3.5-5.1); Sodium 143 mmol/L (136-145); Total Protein 7.3 g/dL (6.4-8.2)
[2020-05-25 19:37] VITALS: RESP 22
--- NOTE | 2020-05-25 19:40 | ED.GENADUL_ITS ---
Discharge Plan Disposition Patient Disposition: HOME Condition: Stable Discharge Details Chief Complaint: GenMedical Clinical Impression: Congestive heart failure (CHF) Primary Care Provider: Kory Sierra ED Provider: Elder Dominguez [place] Meds and New Rx's Prescriptions: New levofloxacin 750 mg tablet 750 mg PO DAILY Qty: 5 RF: 0 Continued atorvastatin [Lipitor] 80 MG tablet 40 mg PO HS RF: 0 amiodarone [Cordarone] 200 MG tablet 200 mg PO QAM RF: 0 amlodipine 10 MG tablet 10 mg PO QPM RF: 0 acetaminophen 325 mg Tablet 650 mg PO Q4H PRN PRNRF: 0 albuterol sulfate 2.5 mg /3 mL (0.083 %) Solution For Nebulization 2.5 mg INHALATION Q4H PRNRF: 0 bisacodyl [Dulcolax (bisacodyl)] 10 mg Suppository 10 mg [place] DIRECTED PRNRF: 0 multivitamin [Multiple Vitamins] Tablet 1 tab PO QAM RF: 0 isosorbide mononitrate 30 mg Tablet Extended Release 24 Hr 30 mg PO DAILY RF: 0 losartan 25 mg Tablet 50 mg PO DAILY RF: 0 alum-mag hydroxide-simeth [Maalox Advanced] 200-200-20 mg/5 mL Suspension 30 ml PO QID PRNRF: 0 hydralazine 25 mg tablet 100 mg PO TID RF: 0 Lantus Solostar U-100 Insulin 100 UNIT/ML insulin pen 22 unit Sub-Q HS RF: 0 potassium chloride 20 MEQ tablet extended release 40 meq PO QAM RF: 0 melatonin 3 MG tablet 3 mg PO HS RF: 0 Glucagon Emergency Kit (human) 1 MG kit 1 mg IM Q15M PRN (Reason: Severe hypoglycemia) RF: 0 torsemide 20 mg Tablet 120 mg PO DAILY RF: 0 ascorbic acid (vitamin C) 500 mg Tablet 500 mg PO DAILY RF: 0 levothyroxine 50 mcg Tablet 50 mcg PO DAILY RF: 0 pantoprazole 40 mg Tablet,Delayed Release (Dr/Ec) 40 mg PO BID RF: 0 ferrous sulfate 325 mg (65 mg iron) Tablet 325 mg PO BID RF: 0 nitroglycerin 0.4 mg Tablet, Sublingual 0.4 mg SUBLINGUAL Q5-15M PRNRF: 0 albuterol sulfate [Proventil HFA] 90 mcg/actuation Hfa Aerosol Inhaler 2 puff INHALATION Q4H PRN PRNRF: 0 docusate sodium 100 mg Tablet 100 mg PO Q8H PRN PRNRF: 0 apixaban 2.5 mg Tablet 2.5 mg PO BID RF: 0 Stiolto Respimat 2.5-2.5 mcg/actuation Mist 2 puff INHALATION DAILY RF: 0 carvedilol 25 mg Tablet 25 mg PO BID RF: 0 albuterol sulfate 2.5 mg /3 mL (0.083 %) Solution For Nebulization 2.5 mg INHALATION TID RF: 0 gabapentin 300 mg Capsule 300 mg PO QID RF: 0 Gel-Larry 0.4 % Gel 1 applic DENTAL QHS RF: 0 insulin lispro [Humalog U-100 Insulin] 100 unit/mL Solution 5 unit SUBCUT TID RF: 0 insulin lispro [Humalog U-100 Insulin] 100 unit/mL Solution 1 sliding scale dose SUBCUT USEASDIRECTD RF: 0 fluticasone propionate [Flonase Allergy Relief] 50 mcg/actuation [place],Suspension 1 spray INTRANASAL BID RF: 0 guaifenesin 400 mg Tablet 400 mg PO QID PRNRF: 0 terazosin 5 mg Capsule 5 mg PO QPM RF: 0 prednisone 10 mg Tablet See Rx Instructions .ROUTE .COMPLEX RF: 0 torsemide 20 mg Tablet 60 mg PO QNOON RF: 0 meclizine 12.5 mg Tablet 12.5 mg PO Q8H PRN PRNRF: 0 Refresh Tears 0.5 % Drops 1 drp OPHTHALMIC (EYE) 4-6XD PRNRF: 0 polyethylene glycol 3350 [Miralax] 17 gram/dose Powder 17 g PO DAILY PRNRF: 0 fluoxetine [Prozac] 20 mg Capsule 20 mg PO QPM RF: 0 cholecalciferol (vitamin D3) [Vitamin D3] 400 unit Capsule 800 unit PO DAILY RF: 0 sodium chloride [Saline Nasal] 0.65 % Aerosol,[place] 2 spray INTRANASAL Q2H PRNRF: 0 Discharge Instructions Additional Instructions: your xray showed a small amount of fluid in the lungs and a possible pneumonia follow up with your primary care provider this week if you feel more ill, have worsening difficulty breathing or severe worsening pain return to the emergency department Medical Decision Making 69 yo male with multiple medical problems comes in with ems [facility] with reported increased confusion per staff. He arrives HD stable, is on 3L which is baseline for him. When asked he states he is not sure why he was sent here and that his complaint is he has trouble sleeping. He is caox4 with no focal deficits, is a bilateral leg amputee. He denies chest pain, fevers, cough, dyspnea, n/v. HE does have crackles on exam and mild edema of the legs withotu warmth or tenderness and unclear if the swelling is new or not. He doesn't feel it is worse than normal. Unclear cause for his reported confusion earlier, will evaluate for electrolyte abnormalities, pna and anemia. Given no headache, fevers, and is caox4 and CN II-XII intact do not feel ct imaging indicated at this time of the head labs show no acute findings, xray shows infiltrate vs atelectasis as well as small pleural effusions. He denies fevers or cough so doubt pna but given findings on xray will cover with abx. He is HD stable and feel he can be treated at the [facility]. Will give dose of lasix and have him f/u with pcp return precautions given Differential Diagnosis Differential Diagnosis: chf, pna, copd Imaging Data Radiologic Study: Attestation: I personally reviewed and interpreted this imaging study as follows: Imaging: X-Ray Radiologist's impression: IMPRESSION: 1. Bibasilar infiltrates and/or atelectasis. 2. Small bilateral pleural fluid collections ECG Data Attestation: I personally reviewed and interpreted this ECG (s) as follows: Prior ECG tracings: not available for review Interpretation: junctional rhythm, rate of 70, qtc 511 HPI General Mode of arrival: EMS . Date/Time Provider Initiated Documentation: 05/25/20 19:27 . Limitations to Documentation: no limitations . Information obtained by: patient . History of Present Illness 69 year old M presents to the emergency department with the chief complaint of can't sleep at night, described as mild, and it has been intermittent. No relieving factors improve symptom(s), No exacerbating factors reported . Related Data Home Medications Medication Instructions Recorded Confirmed amiodarone [Cordarone] 200 mg PO QAM 09/27/17 10/16/19 amlodipine 10 mg PO QPM 09/27/17 05/25/20 atorvastatin [Lipitor] 40 mg PO HS 09/27/17 05/25/20 Lantus Solostar U-100 Insulin 22 unit SUB-Q HS 03/07/18 10/16/19 potassium chloride 40 meq PO QAM 03/07/18 10/16/19 melatonin 3 mg PO HS 03/13/18 10/16/19 Glucagon Emergency Kit (human) 1 mg IM Q15M PRN 03/14/18 10/16/19 acetaminophen 650 mg PO Q4H PRN PRN 06/05/18 10/16/19 albuterol sulfate 2.5 mg INHALATION Q4H PRN 06/05/18 05/25/20 bisacodyl [Dulcolax (bisacodyl)] 10 mg [place] DIRECTED PRN 06/05/18 05/25/20 isosorbide mononitrate 30 mg PO DAILY 06/05/18 05/25/20 losartan 50 mg PO DAILY 06/05/18 10/16/19 multivitamin [Multiple Vitamins] 1 tab PO QAM 06/05/18 10/16/19 alum-mag hydroxide-simeth [Maalox 30 ml PO QID PRN 07/02/18 05/25/20 Advanced] hydralazine 100 mg PO TID 07/02/18 10/16/19 Stiolto Respimat 2 puff INHALATION DAILY 01/18/19 10/16/19 albuterol sulfate [Proventil HFA] 2 puff INHALATION Q4H PRN PRN 01/18/19 05/25/20 apixaban 2.5 mg PO BID 01/18/19 05/25/20 ascorbic acid (vitamin C) 500 mg PO DAILY 01/18/19 10/16/19 docusate sodium 100 mg PO Q8H PRN PRN 01/18/19 10/16/19 ferrous sulfate 325 mg PO BID 01/18/19 05/25/20 levothyroxine 50 mcg PO DAILY 01/18/19 10/16/19 nitroglycerin 0.4 mg SUBLINGUAL Q5-15M PRN 01/18/19 10/16/19 pantoprazole 40 mg PO BID 01/18/19 10/16/19 torsemide 120 mg PO DAILY 01/18/19 10/16/19 Gel-Larry 1 applic DENTAL QHS 10/16/19 10/16/19 Refresh Tears 1 drp OPHTHALMIC (EYE) 4-6XD PRN 10/16/19 10/16/19 albuterol sulfate 2.5 mg INHALATION TID 10/16/19 05/25/20 carvedilol 25 mg PO BID 10/16/19 10/16/19 cholecalciferol (vitamin D3) 800 unit PO DAILY 10/16/19 10/16/19 [Vitamin D3] fluoxetine [Prozac] 20 mg PO QPM 10/16/19 10/16/19 fluticasone propionate [Flonase 1 spray INTRANASAL BID 10/16/19 05/25/20 Allergy Relief] gabapentin 300 mg PO QID 10/16/19 05/25/20 guaifenesin 400 mg PO QID PRN 10/16/19 05/25/20 insulin lispro [Humalog U-100 1 sliding scale dose SUBCUT 10/16/19 10/16/19 Insulin] USEASDIRECTD insulin lispro [Humalog U-100 5 unit SUBCUT TID 10/16/19 10/16/19 Insulin] meclizine 12.5 mg PO Q8H PRN PRN 10/16/19 05/25/20 polyethylene glycol 3350 [Miralax] 17 g PO DAILY PRN 10/16/19 10/16/19 prednisone See Rx Instructions .ROUTE .COMPLEX 10/16/19 sodium chloride [Saline Nasal] 2 spray INTRANASAL Q2H PRN 10/16/19 10/16/19 terazosin 5 mg PO QPM 10/16/19 05/25/20 torsemide 60 mg PO QNOON 10/16/19 10/16/19 levofloxacin 750 mg PO DAILY #5 tab 05/25/20 Previous Rx's Medication Instructions Recorded levofloxacin 750 mg PO DAILY #5 tab 05/25/20 Allergies Allergy/AdvReac Type Severity Reaction Status Date / Time enalaprilat [From Vasotec] Allergy Severe Hives Unverified 05/25/20 19:11 Latex, Natural Rubber Allergy Intermediate Skin Rash Unverified 05/25/20 19:11 sertraline AdvReac Severe pychosis Unverified 05/25/20 19:11 codeine AdvReac Nausea Unverified 05/25/20 19:11 General Stated Complaint: GenMedical VIKASH: 3 Review of Systems All systems reviewed & are unremarkable except as noted in HPI and below Constitutional Constitutional: Denies chills, Denies fever(s) and Denies weakness Cardiovascular Cardiovascular: Denies chest pain and Denies dyspnea Respiratory Respiratory: Denies cough and Denies dyspnea Gastrointestinal Gastrointestinal: Denies abdominal pain, Denies nausea and Denies vomiting Musculoskeletal Musculoskeletal: Denies joint swelling Neurologic Neurologic: Denies weakness Psychiatric Psychiatric: Denies depression [facility] Medical History (Updated 05/25/20 @ 20:11 by Elder Dominguez MD) Abdominal aortic aneurysm (Chronic) Amputation foot, bilat (Resolved) Anemia (Chronic) Anticoagulant long-term use (Acute) Anxiety (Chronic) Atrial fibrillation (Chronic) Bilateral hearing loss (Acute) CAD (coronary artery disease) (Chronic) CAD (coronary artery disease) (Chronic) CAD (coronary artery disease), bypass graft transplanted heart (Chronic) Chronic renal disease (Chronic) Congestive heart failure (CHF) (Chronic) COPD (chronic obstructive pulmonary disease) (Chronic) CVA (cerebral vascular accident) (Chronic) CVA, old, alterations of sensations (Chronic) Depression (Chronic) Diabetes mellitus (Chronic) Diabetic neuropathy (Chronic) Dystrophic nail (Acute) Folate deficiency anemia (Acute) Former smoker (Acute) GI bleed (Acute) Heart failure with preserved ejection fraction (Chronic) Hemiparesis affecting left side as late effect of cerebrovascular accident (Acute) History of amputation of great toe of both feet (Acute) amputation of all toes of both feet History of stent insertion of renal artery (Resolved) Hypertension (Chronic) Insulin dependent diabetes mellitus (Chronic) Mitral regurgitation (Chronic) Paroxysmal A-fib (Chronic) Peripheral angiopathy due to DM (Chronic) Pneumonia (Resolved) Pulmonary hypertension (Chronic) PVD (peripheral vascular disease) (Chronic) Recurrent falls (Acute) Renal artery stenosis (Chronic) Tricuspid regurgitation (Chronic) 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) Surgical History Chronic pain (Chronic ~07/04/18) History of amputation of great toe of both feet (Resolved) History of esophagogastroduodenoscopy (EGD) (Chronic) Hx of CABG (Chronic 2017) S/P CABG x 3 (Resolved) Social History Smoking/Tobacco Use Status: Former Tobacco Use Tobacco: How many years used: 50 Alcohol Intake: former Details: Heavy alcohol use in the past, quit a few years ago Drug use: Occasionally Substance use type: marijuana 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 Do you feel safe at home: Yes Do you feel safe in your relationship?: Yes Exam Const General: no acute distress Orientation: alert HENMT Head: normal to inspection Ears: external ears normal General nose exam: external nose normal Mouth: moist mucous membranes Eyes General: appearance normal, both eyes and all related structures Neck Neck: normal visual inspection Resp Effort & Inspection: normal respiratory effort and able to speak in complete sentences Cardio Rate: regular rate Skin General skin exam: elasticity normal Neuro General: patient alert and patient oriented x3 Extrem General: no joint enlargement Psych Mental Status: mental status grossly normal Course Vital Signs Vital signs: Vital Signs Temperature 36.8 C 05/25/20 18:45 Pulse 66 05/25/20 18:45 Respiratory Rate 14 05/25/20 18:45 Blood Pressure 119/59 L 05/25/20 18:45 Pulse Oximetry 92 L 05/25/20 18:45 Temperature 36.8 C 05/25/20 18:45 Pulse 66 05/25/20 18:45 Respiratory Rate 14 05/25/20 18:45 Respiratory Effort 05/25/20 18:49 Blood Pressure 119/59 L 05/25/20 18:45 Blood Pressure Position Sitting 05/25/20 18:45 Pulse Oximetry 92 L 05/25/20 18:45 Oxygen Delivery Method Room Air 05/25/20 18:45 Oxygen Flow Rate 0 05/25/20 18:45 Pain Level 0 05/25/20 18:45 Lab/Test Results Lab/Test Results: Laboratory Tests Range/Units 05/25/20 05/25/20 19:00 19:00 WBC (4.4-10.8) 10^3/uL 7.72 RBC (4.36-5.78) 10^6/uL 4.20 L Hgb (13.5-17.5) g/dL 10.8 L Hct (40.0-50.0) % 37.2 L MCV (80-95) fL 88.6 MCH (27.0-33.0) pg 25.7 L MCHC (32.0-36.0) % 29.0 L RDW (11.8-14.1) % 15.9 H Plt Count (130-400) 10^3/uL 193 MPV (8.0-11.0) fL 9.0 Immature Gran % 0.4 Neutrophils % 84.3 Lymphocytes % 8.7 Monocytes % 4.9 Eosinophils % 1.4 Basophils % 0.3 Nucleated RBC % % 0 Absolute Neutrophils (1.2-6.7) 10^3/uL 6.51 Absolute Lymphocytes (1.2-3.4) 10^3/uL 0.67 L Absolute Monocytes (0.1-0.8) 10^3/uL 0.38 Absolute Eosinophils (0.0-0.7) 10^3/uL 0.11 Absolute Basophils (0.0-0.2) 10^3/uL 0.02 Sodium (136-145) mmol/L 143 Potassium (3.5-5.1) mmol/L 4.2 Chloride (98-107) mmol/L 101 Carbon Dioxide (21.0-32.0) mmol/L 39.4 H Anion Gap (3-11) mmol/L 2.6 L BUN (7-18) mg/dL 62 H Creatinine (0.70-1.30) mg/dL 2.31 H Estimated GFR/1.73 m2 (mL/min/1.73m2) 28.28 Glucose (74-106) mg/dL 303 H Calcium (8.5-10.1) mg/dL 8.6 Total Bilirubin (0.2-1.0) mg/dL 0.3 AST (15-37) U/L 12 L ALT (16-63) U/L 16 Alkaline Phosphatase (46-116) U/L 94 Total Protein (6.4-8.2) g/dL 7.3 Albumin (3.4-5.0) g/dL 3.0 L
--- NOTE | 2020-05-25 19:45 | DI.VRAD_ITS ---
PROCEDURE INFORMATION: Exam: XR Chest, 1 View Exam date and time: 05/25/2020 7:11 PM Age: 69 years old Clinical indication: Weakness TECHNIQUE: Imaging protocol: XR of the chest Views: 1 view. COMPARISON: CR XR CHEST 2V PA LATERAL 11/13/2019 11:40 AM FINDINGS: Tubes, catheters and devices: Cardiac leads superimposed over the chest bilaterally. Lungs: Bibasilar infiltrates and/or atelectasis. Pleural space: Small bilateral pleural fluid collections. Heart/Mediastinum: Normal heart size. Bones/joints: Multiple sternal suture wires from previous CABG procedure. IMPRESSION: 1. Bibasilar infiltrates and/or atelectasis. 2. Small bilateral pleural fluid collections. Dictated and Authenticated by: Alex London MD. Ordering:BRENTON Davis MD
[2020-05-25] MEDS: Furosemide 40 MG/4 ML VIAL IVP (20:00)
[2020-05-25 20:20] LABS: Bilirubin Negative (Negative); Blood Negative (Negative); Clarity Clear (Clear); Glucose Negative (Negative); Ketones Negative (Negative); Leukocyte Esterase Negative (Negative); Nitrite Negative (Negative); Specific Gravity 1.015 (1.005-1.025); Urobilinogen 0.2 EU/dL (Up TO 0.2); pH 5.5 (5-8)
[2020-05-25] MEDS: Acetaminophen 500 MG TAB 1000 MG PO (20:23)
[2020-05-25] MEDS: levoFLOXacin 500 MG, levoFLOXacin 250 MG 750 MG PO (20:27)
[2020-05-25 20:28] VITALS: BP 149/87; PULSE 67; RESP 23; O2SAT 92
[2020-05-25 20:41] VITALS: BP 149/87; PULSE 67; RESP 23; TEMP 36.6; O2SAT 92
== END 2020-05-25 20:40 | disposition home or self-care (01) ==
PROVIDERS: Emergency Provider Emergency Medicine; PCP Family Medicine
DX: I13.0 Hypertensive heart and chronic kidney disease with heart failure and stage 1 through stage 4 chronic kidney disease, or unspecified chronic kidney disease (principal); I50.9 Heart failure, unspecified; N18.9 Chronic kidney disease, unspecified; E11.22 Type 2 diabetes mellitus with diabetic chronic kidney disease; Z79.4 Long term (current) use of insulin; J44.9 Chronic obstructive pulmonary disease, unspecified; Z87.891 Personal history of nicotine dependence; Z99.81 Dependence on supplemental oxygen
CPT/HCPCS: 36415; 80053; 87040; 93005; 96374; 99285; 71045; 81003; 85025; 93010; 99284; J1940

== ENCOUNTER 2020-05-30 09:48 | Outpatient (REF) | payer MEDICARE, MEDICAID, SELFPAY ==
[2020-06-01 17:18] LABS: COVID-19 RT-PCR Result Not Detected ((See Note))
== END 2020-05-30 10:08 ==
LOC: LBN 09:48
PROVIDERS: PCP Family Medicine; Visit Provider Nurse Practitioner Adult Health
DX: Z11.59 Encounter for screening for other viral diseases (principal)
CPT/HCPCS: U0003

== ENCOUNTER 2020-06-05 10:56 | Outpatient (REF) | payer MEDICARE, MEDICAID, SELFPAY ==
[2020-06-07 15:57] LABS: COVID-19 RT-PCR Result Not Detected ((See Note))
== END 2020-06-05 11:16 ==
LOC: LBN 10:56
PROVIDERS: PCP Family Medicine; Visit Provider Nurse Practitioner Adult Health
DX: Z11.59 Encounter for screening for other viral diseases (principal)
CPT/HCPCS: U0003

== ENCOUNTER 2020-06-21 07:07 | Emergency (ER) | payer MEDICARE, MEDICAID, SELFPAY ==
[2020-06-21] VITALS (16 sets, daily range): BP systolic 150–169; BP diastolic 61–77; PULSE 60–68; RESP 14; TEMP 36.6; O2SAT 97–100
--- NOTE | 2020-06-21 07:30 | DI.CT_ITS ---
EXAM: CT HEAD WO CLINICAL HISTORY: Fall, L frontal trauma. On apixaban. TECHNIQUE: Imaging Protocol: Axial computed tomography images with coronal and sagittal reformatted images were created and reviewed COMPARISON: CT CT HEAD WO from 08/01/2018 FINDINGS: Ventricles and Extra axial spaces: Normal in size and morphology for the patient's age. Hemorrhage: None. Cerebral parenchyma: Atrophy. White matter changes consistent with small vessel disease. 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 Brainstem/Cerebellum: Normal. Calvarium: Normal. Visualized Paranasal sinuses/Mastoids: Clear. 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 No acute abnormality. RADIATION DOSE DELIVERED: 1,001.88mGy.cm Total DLP 1,001.88mGy.cm Total DLP DATA REPOSITORY: All CT scans at this facility are submitted to the National Radiology Data Registry (NRDR) Dose Index Registry (DIR) with the [employer] ([employer]). RADIATION OPTIMIZATION: All CT scans at this facility use at least one of these dose optimization te chniques: automated exposure control; mA and/or kV adjustment per patient size (includes targeted exa ms where dose is matched to clinical indication); or iterative reconstruction.
--- NOTE | 2020-06-21 07:36 | ED.GENADUL_ITS ---
Discharge Plan Disposition Patient Disposition: [facility] (LEVEL 2) [facility] Condition: Stable Discharge Details Clinical Impression: Contusion of face, Laceration of left leg Primary Care Provider: Kory Sierra ED Provider: Jaun Tanner Home Meds and New Rx's Prescriptions: Continued atorvastatin [Lipitor] 80 MG tablet 40 mg PO HS RF: 0 amiodarone [Cordarone] 200 MG tablet 200 mg PO QAM RF: 0 amlodipine 10 MG tablet 10 mg PO QPM RF: 0 acetaminophen 325 mg Tablet 650 mg PO Q4H PRN PRNRF: 0 albuterol sulfate 2.5 mg /3 mL (0.083 %) Solution For Nebulization 2.5 mg INHALATION Q4H PRNRF: 0 bisacodyl [Dulcolax (bisacodyl)] 10 mg Suppository 10 mg UT DIRECTED PRNRF: 0 multivitamin [Multiple Vitamins] Tablet 1 tab PO QAM RF: 0 isosorbide mononitrate 30 mg Tablet Extended Release 24 Hr 30 mg PO DAILY RF: 0 losartan 25 mg Tablet 50 mg PO DAILY RF: 0 alum-mag hydroxide-simeth [Maalox Advanced] 200-200-20 mg/5 mL Suspension 30 ml PO QID PRNRF: 0 hydralazine 25 mg tablet 100 mg PO TID RF: 0 levofloxacin 750 mg tablet 750 mg PO DAILY Qty: 5 RF: 0 Lantus Solostar U-100 Insulin 100 UNIT/ML insulin pen 22 unit Sub-Q HS RF: 0 potassium chloride 20 MEQ tablet extended release 40 meq PO QAM RF: 0 melatonin 3 MG tablet 3 mg PO HS RF: 0 Glucagon Emergency Kit (human) 1 MG kit 1 mg IM Q15M PRN (Reason: Severe hypoglycemia) RF: 0 torsemide 20 mg Tablet 120 mg PO DAILY RF: 0 ascorbic acid (vitamin C) 500 mg Tablet 500 mg PO DAILY RF: 0 levothyroxine 50 mcg Tablet 50 mcg PO DAILY RF: 0 pantoprazole 40 mg Tablet,Delayed Release (Dr/Ec) 40 mg PO BID RF: 0 ferrous sulfate 325 mg (65 mg iron) Tablet 325 mg PO BID RF: 0 nitroglycerin 0.4 mg Tablet, Sublingual 0.4 mg SUBLINGUAL Q5-15M PRNRF: 0 albuterol sulfate [Proventil HFA] 90 mcg/actuation Hfa Aerosol Inhaler 2 puff INHALATION Q4H PRN PRNRF: 0 docusate sodium 100 mg Tablet 100 mg PO Q8H PRN PRNRF: 0 apixaban 2.5 mg Tablet 2.5 mg PO BID RF: 0 Stiolto Respimat 2.5-2.5 mcg/actuation Mist 2 puff INHALATION DAILY RF: 0 carvedilol 25 mg Tablet 25 mg PO BID RF: 0 albuterol sulfate 2.5 mg /3 mL (0.083 %) Solution For Nebulization 2.5 mg INHALATION TID RF: 0 gabapentin 300 mg Capsule 300 mg PO QID RF: 0 Gel-Larry 0.4 % Gel 1 applic DENTAL QHS RF: 0 insulin lispro [Humalog U-100 Insulin] 100 unit/mL Solution 5 unit SUBCUT TID RF: 0 insulin lispro [Humalog U-100 Insulin] 100 unit/mL Solution 1 sliding scale dose SUBCUT USEASDIRECTD RF: 0 fluticasone propionate [Flonase Allergy Relief] 50 mcg/actuation [place],Suspension 1 spray INTRANASAL BID RF: 0 guaifenesin 400 mg Tablet 400 mg PO QID PRNRF: 0 terazosin 5 mg Capsule 5 mg PO QPM RF: 0 prednisone 10 mg Tablet See Rx Instructions .ROUTE .COMPLEX RF: 0 torsemide 20 mg Tablet 60 mg PO QNOON RF: 0 meclizine 12.5 mg Tablet 12.5 mg PO Q8H PRN PRNRF: 0 Refresh Tears 0.5 % Drops 1 drp OPHTHALMIC (EYE) 4-6XD PRNRF: 0 polyethylene glycol 3350 [Miralax] 17 gram/dose Powder 17 g PO DAILY PRNRF: 0 fluoxetine [Prozac] 20 mg Capsule 20 mg PO QPM RF: 0 cholecalciferol (vitamin D3) [Vitamin D3] 400 unit Capsule 800 unit PO DAILY RF: 0 sodium chloride [Saline Nasal] 0.65 % Aerosol,[place] 2 spray INTRANASAL Q2H PRNRF: 0 Discharge Instructions Instructions: Laceration (ED), Contusion in Adults (ED) Additional Instructions: Resume normal routine, diet, previously prescribed medications. You underwent CAT scan of the head which was unremarkable. You may develop further bruising of the left side of the face. Your leg wound was seen in consultation with Dr. Fletcher from general surgery and we placed a debo wound VAC dressing. She would like you to be seen in clinic on . Please call the general surgery office to confirm an appointment time. The wound VAC should stay in place until your follow-up in clinic. Return to the ER for any acute concerns. Medical Decision Making 69-year-old male who is chronically ill with oxygen dependent tendency, diabetes, chronic lower extremity venous stasis and poor wound healing, who is on apixaban. He states that he fell asleep in his recliner and then startled awake. He tumbled out and struck his left head on the floor without loss of consciousness. He has a heater register next to the chair with screws that protrude and he believes he caught his left lower leg on this as he fell to the floor. Denies neck/head/chest/back or abdominal discomfort. Complains of the left lower leg laceration. He is bedbound and currently residing at [facility] and rehab. His exam notes ecchymosis in the left periorbital region as well as gaping approximately 8 to 10 cm wound left tibia. Patient underwent CT scan of head which did not show any acute traumatic injury. The patient's left lower leg anterior tibial laceration was seen in consultation by Dr. Fletcher, who agrees with healing by secondary intention, and we obtained and placed a DEBO dressing for negative pressure wound therapy. We will have the patient follow-up in general surgery clinic on . [facility] General Mode of arrival: ambulatory . Date/Time Provider Initiated Documentation: 06/21/20 07:26 . Limitations to Documentation: no limitations . Information obtained by: patient . History of Present Illness 69 year old M presents to the emergency department with the chief complaint of Fall from recliner, head wound, left leg laceration, described as moderate, Quality is described as dull and constant, and is localized to the head, left and lower extremity. Patient reports no radiation. Patient started experiencing this minute(s) and it has been constant. No relieving factors improve symptom(s), No exacerbating factors reported . Patient notes no other symptoms.. Patient did receive the following treatments prior to arrival, none Related Data Home Medications Medication Instructions Recorded Confirmed amiodarone [Cordarone] 200 mg PO QAM 09/27/17 10/16/19 amlodipine 10 mg PO QPM 09/27/17 05/25/20 atorvastatin [Lipitor] 40 mg PO HS 09/27/17 05/25/20 Lantus Solostar U-100 Insulin 22 unit SUB-Q HS 03/07/18 10/16/19 potassium chloride 40 meq PO QAM 03/07/18 10/16/19 melatonin 3 mg PO HS 03/13/18 10/16/19 Glucagon Emergency Kit (human) 1 mg IM Q15M PRN 03/14/18 10/16/19 acetaminophen 650 mg PO Q4H PRN PRN 06/05/18 10/16/19 albuterol sulfate 2.5 mg INHALATION Q4H PRN 06/05/18 05/25/20 bisacodyl [Dulcolax (bisacodyl)] 10 mg UT DIRECTED PRN 06/05/18 05/25/20 isosorbide mononitrate 30 mg PO DAILY 06/05/18 05/25/20 losartan 50 mg PO DAILY 06/05/18 10/16/19 multivitamin [Multiple Vitamins] 1 tab PO QAM 06/05/18 10/16/19 alum-mag hydroxide-simeth [Maalox 30 ml PO QID PRN 07/02/18 05/25/20 Advanced] hydralazine 100 mg PO TID 07/02/18 10/16/19 Stiolto Respimat 2 puff INHALATION DAILY 01/18/19 10/16/19 albuterol sulfate [Proventil HFA] 2 puff INHALATION Q4H PRN PRN 01/18/19 05/25/20 apixaban 2.5 mg PO BID 01/18/19 05/25/20 ascorbic acid (vitamin C) 500 mg PO DAILY 01/18/19 10/16/19 docusate sodium 100 mg PO Q8H PRN PRN 01/18/19 10/16/19 ferrous sulfate 325 mg PO BID 01/18/19 05/25/20 levothyroxine 50 mcg PO DAILY 01/18/19 10/16/19 nitroglycerin 0.4 mg SUBLINGUAL Q5-15M PRN 01/18/19 10/16/19 pantoprazole 40 mg PO BID 01/18/19 10/16/19 torsemide 120 mg PO DAILY 01/18/19 10/16/19 Gel-Larry 1 applic DENTAL QHS 10/16/19 10/16/19 Refresh Tears 1 drp OPHTHALMIC (EYE) 4-6XD PRN 10/16/19 10/16/19 albuterol sulfate 2.5 mg INHALATION TID 10/16/19 05/25/20 carvedilol 25 mg PO BID 10/16/19 10/16/19 cholecalciferol (vitamin D3) 800 unit PO DAILY 10/16/19 10/16/19 [Vitamin D3] fluoxetine [Prozac] 20 mg PO QPM 10/16/19 10/16/19 fluticasone propionate [Flonase 1 spray INTRANASAL BID 10/16/19 05/25/20 Allergy Relief] gabapentin 300 mg PO QID 10/16/19 05/25/20 guaifenesin 400 mg PO QID PRN 10/16/19 05/25/20 insulin lispro [Humalog U-100 1 sliding scale dose SUBCUT 10/16/19 10/16/19 Insulin] USEASDIRECTD insulin lispro [Humalog U-100 5 unit SUBCUT TID 10/16/19 10/16/19 Insulin] meclizine 12.5 mg PO Q8H PRN PRN 10/16/19 05/25/20 polyethylene glycol 3350 [Miralax] 17 g PO DAILY PRN 10/16/19 10/16/19 prednisone See Rx Instructions .ROUTE .COMPLEX 10/16/19 sodium chloride [Saline Nasal] 2 spray INTRANASAL Q2H PRN 10/16/19 10/16/19 terazosin 5 mg PO QPM 10/16/19 05/25/20 torsemide 60 mg PO QNOON 10/16/19 10/16/19 levofloxacin 750 mg PO DAILY #5 tab 05/25/20 Previous Rx's Medication Instructions Recorded levofloxacin 750 mg PO DAILY #5 tab 05/25/20 Allergies Allergy/AdvReac Type Severity Reaction Status Date / Time enalaprilat [From Vasotec] Allergy Severe Hives Unverified 05/25/20 19:11 Latex, Natural Rubber Allergy Intermediate Skin Rash Unverified 05/25/20 19:11 sertraline AdvReac Severe pychosis Unverified 05/25/20 19:11 codeine AdvReac Nausea Unverified 05/25/20 19:11 General Stated Complaint: Laceration VIKASH: 3 Review of Systems Narrative: Diabetes with chronic lower extremity edema, poor wound healing, status post partial bilateral foot amputation. Chronic oxygen dependency at home. No new chest pain, no fever, no new shortness of breath. 8 systems r eviewed and otherwise negative. Patient unsure of tetanus status. [facility] Medical History (Updated 06/21/20 @ 09:09 by Jaun Tanner MD) Abdominal aortic aneurysm Amputation foot, bilat Anemia Anticoagulant long-term use Anxiety Atrial fibrillation Bilateral hearing loss CAD (coronary artery disease) CAD (coronary artery disease) CAD (coronary artery disease), bypass graft transplanted heart Chronic renal disease Congestive heart failure (CHF) COPD (chronic obstructive pulmonary disease) CVA (cerebral vascular accident) CVA, old, alterations of sensations Depression Diabetes mellitus Diabetic neuropathy Dystrophic nail Folate deficiency anemia Former smoker GI bleed Heart failure with preserved ejection fraction Hemiparesis affecting left side as late effect of cerebrovascular accident History of amputation of great toe of both feet amputation of all toes of both feet History of stent insertion of renal artery Hypertension Insulin dependent diabetes mellitus Mitral regurgitation Paroxysmal A-fib Peripheral angiopathy due to DM Pneumonia Pulmonary hypertension PVD (peripheral vascular disease) Recurrent falls Renal artery stenosis Tricuspid regurgitation 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 Pleasant, well groomed, interactive. HEAD: Normocephalic, left temporal and infraorbital ecchymosis. ENT: Mucous membranes moist, edentulous upper. No midface instability, no facial anesthesia, no significant swelling. EYES: PERRL, EOMI in all cardinal movements NECK: Full ROM, no NERY, no menigismus CHEST/RESP: Nontender, few scattered wheezes, normal respiratory effort CARDIOVASCULAR: Distant, regular, no murmur, rub austyn appreciated. 2+ Rad pulse bilateral ABDOMEN: Soft, nontender, no mass. +Bowel sounds EXT: Bilateral feet are status post partial amputation. Chronic venous stasis with 3+ edema bilaterally. The left anterior tibia has a approximately 8 cm gaping laceration through subcutaneous tissues. Distal motor function unremarkable. Neuro: Grossly normal neurologic exam, conversant, interactive. Psych: Speech fluent, thoughts congruent, affect normal Course Vital Signs Vital signs: Vital Signs Temperature 36.6 C 06/21/20 07:08 Pulse 60 06/21/20 07:08 Respiratory Rate 14 06/21/20 07:08 Blood Pressure 150/70 H 06/21/20 07:08 Pulse Oximetry 98 06/21/20 07:08 Temperature 36.6 C 06/21/20 07:08 Temperature Source Tympanic 06/21/20 07:08 Pulse 60 06/21/20 07:08 Respiratory Rate 14 06/21/20 07:08 Respiratory Effort Non-Labored 06/21/20 07:19 Blood Pressure 150/70 H 06/21/20 07:08 Pulse Oximetry 98 06/21/20 07:08 Oxygen Delivery Method Nasal Cannula 06/21/20 07:08 Pain Level 5 06/21/20 07:19
--- NOTE | 2020-06-21 08:05 | DI.VRAD_ITS ---
PROCEDURE INFORMATION: Exam: CT Head Without Contrast Exam date and time: 06/21/2020 7:53 AM Age: 69 years old Clinical indication: Injury or trauma; Initial encounter; Sprain or strain; Patient HX: Fall, L frontal trauma. TECHNIQUE: Imaging protocol: Computed tomography of the head without contrast. Radiation optimization: All CT scans at this facility use at least one of these dose optimization techniques: automated exposure control; mA and/or kV adjustment per patient size (includes targeted exams where dose is matched to clinical indication); or iterative reconstruction. COMPARISON: CT HEAD WO 08/01/2018 1:05 PM FINDINGS: Brain: Age- related chronic microvascular changes are noted within the white matter. Right parietal encephalomalacia compatible with old infarct Cerebral ventricles: The ventricles and sulci are prominent compatible with age-appropriate atrophy. Bones/joints: Unremarkable. No acute fracture. Paranasal sinuses: Visualized sinuses are unremarkable. No fluid levels. Mastoid air cells: Bilateral mastoid effusions Soft tissues: Unremarkable. IMPRESSION: Age-appropriate atrophy and chronic microvascular change. Dictated and Authenticated by: Yonathan Ron MD. Ordering:JUS Zamorano MD
--- NOTE | 2020-06-21 10:10 | NUR.NOTE ---
Nursing Note: Wound Vac applied by Juventino BARFIELD). Report called to [facility], all information provided regarding wound vac and DC instructions. Vitals stable.
--- NOTE | 2020-06-21 10:39 | WOUNDCARE ---
Wound Care Report. I was contacted by Dr. Tanner in the ED. He asked for help applying a tayo dressing to a laceration on the left lower leg, which was ordered by Dr. Fletcher on a surgical consult. I greeted Dr. Tanner and the patient. Patient had fallen asleep in his recliner and slumped forward, with his left leg being deeply lacerated on the heating vent. Patient agreed to have the dressing applied. First wound and evelin wound skin were cleansed with gauze and and normal saline. Skin prep was applied to the evelin skin as a protectant. wound was measured by ed staff prior to arrival. Tayo dressing was applied over the wound. Edges of wound were secured with drape. Vacuum was applied. No leakage was noted. Patient did have minor sdiscomfort with the cleaning of the wound. Instructions for dressing care was given to Dr. Tanner to include on his discharge instructions.Patient is to have follow up with surgical on , and for now to be discharged back to [facility]
== END 2020-06-21 10:45 | disposition intermediate care facility (04) ==
PROVIDERS: Emergency Provider Emergency Medicine; PCP Family Medicine
DX: S81.812A Laceration without foreign body, left lower leg, initial encounter (principal); S00.83XA Contusion of other part of head, initial encounter; W07.XXXA Fall from chair, initial encounter; I87.8 Other specified disorders of veins; E11.22 Type 2 diabetes mellitus with diabetic chronic kidney disease; Z79.4 Long term (current) use of insulin; Z99.81 Dependence on supplemental oxygen; J44.9 Chronic obstructive pulmonary disease, unspecified; I12.9 Hypertensive chronic kidney disease with stage 1 through stage 4 chronic kidney disease, or unspecified chronic kidney disease; N18.9 Chronic kidney disease, unspecified; Z79.01 Long term (current) use of anticoagulants; Z74.01 Bed confinement status; Z87.891 Personal history of nicotine dependence
CPT/HCPCS: 90471; 99285; 70450

== ENCOUNTER 2020-06-22 19:37 | Emergency (ER) | payer MEDICARE, MEDICAID, SELFPAY ==
[2020-06-22] VITALS (20 sets, daily range): BP systolic 49–119; BP diastolic 33–107; PULSE 64–175; RESP 2–34; TEMP 38.4–39.3; O2SAT 95–100
--- NOTE | 2020-06-22 19:30 | RT.EKG_ITS ---
APPROVED REPORT Exam: Resting ECG Patient Location: E HR:78 bpm ECG Measurements Heart Rate 78 AXIS NV 205 P 58 QRSd 169 QRS -70 QT 438 T 43 QTc 499 Conclusion Sinus rhythm...normal P axis, V-rate 60- 99 RBBB and LAFB...QRSd >120mS, axis(-40,240) Probable left ventricular hypertrophy...(RaVL+SV3)xQRSd >280 There are no significant changes compared to prior EKG performed on 05/25/2020 at 18:59.
--- NOTE | 2020-06-22 20:00 | DI.RAD_ITS ---
EXAM: XR PORTABLE CHEST AP CLINICAL HISTORY: cough/fever TECHNIQUE: 2D digital imaging was performed. COMPARISON: CR,XR XR PORTABLE CHEST AP from 05/25/2020 FINDINGS: Exam is limited by patient positioning and body habitus as well as poor pulmonary inflation. The hea rt is again noted to be enlarged. Patient is status post CABG. There are small bilateral pleural ef fusions. No definite focal area of consolidation is seen. IMPRESSION: Extremely limited exam. Small bilateral pleural effusions and cardiomegaly.
--- NOTE | 2020-06-22 20:11 | ED.GENADUL_ITS ---
Discharge Plan Disposition Patient Disposition: [facility] INPATIENT Condition: Serious Discharge Details Clinical Impression: Sepsis, Pneumonia Primary Care Provider: Kory Sierra ED Provider: Ishan Lovell [place] Meds and New Rx's Prescriptions: No Action atorvastatin [Lipitor] 80 MG tablet 40 mg PO HS RF: 0 amiodarone [Cordarone] 200 MG tablet 200 mg PO QAM RF: 0 amlodipine 10 MG tablet 10 mg PO QPM RF: 0 acetaminophen 325 mg Tablet 650 mg PO Q4H PRN PRNRF: 0 albuterol sulfate 2.5 mg /3 mL (0.083 %) Solution For Nebulization 2.5 mg INHALATION Q4H PRNRF: 0 bisacodyl [Dulcolax (bisacodyl)] 10 mg Suppository 10 mg ME DIRECTED PRNRF: 0 multivitamin [Multiple Vitamins] Tablet 1 tab PO QAM RF: 0 isosorbide mononitrate 30 mg Tablet Extended Release 24 Hr 30 mg PO DAILY RF: 0 losartan 25 mg Tablet 50 mg PO DAILY RF: 0 alum-mag hydroxide-simeth [Maalox Advanced] 200-200-20 mg/5 mL Suspension 30 ml PO QID PRNRF: 0 hydralazine 25 mg tablet 100 mg PO TID RF: 0 Breo Ellipta 100-25 mcg/dose Blister With Device 1 inh INHALATION DAILY RF: 0 albuterol sulfate [ProAir HFA] 90 mcg/actuation Hfa Aerosol Inhaler 2 puff INHALATION QID PRNRF: 0 Lantus Solostar U-100 Insulin 100 UNIT/ML insulin pen 30 unit Sub-Q HS RF: 0 potassium chloride 20 MEQ tablet extended release 40 meq PO QAM RF: 0 melatonin 3 MG tablet 3 mg PO HS RF: 0 Glucagon Emergency Kit (human) 1 MG kit 1 mg IM Q15M PRN (Reason: Severe hypoglycemia) RF: 0 torsemide 20 mg Tablet 120 mg PO DAILY RF: 0 ascorbic acid (vitamin C) 500 mg Tablet 500 mg PO DAILY RF: 0 levothyroxine 50 mcg Tablet 50 mcg PO DAILY RF: 0 pantoprazole 40 mg Tablet,Delayed Release (Dr/Ec) 40 mg PO BID RF: 0 ferrous sulfate 325 mg (65 mg iron) Tablet 325 mg PO BID RF: 0 nitroglycerin 0.4 mg Tablet, Sublingual 0.4 mg SUBLINGUAL Q5-15M PRNRF: 0 albuterol sulfate [Proventil HFA] 90 mcg/actuation Hfa Aerosol Inhaler 2 puff INHALATION Q4H PRN PRNRF: 0 docusate sodium 100 mg Tablet 100 mg PO Q8H PRN PRNRF: 0 apixaban 2.5 mg Tablet 2.5 mg PO BID RF: 0 Stiolto Respimat 2.5-2.5 mcg/actuation Mist 2 puff INHALATION DAILY RF: 0 carvedilol 25 mg Tablet 25 mg PO BID RF: 0 gabapentin 300 mg Capsule 600 mg PO TID RF: 0 Gel-Larry 0.4 % Gel 1 applic DENTAL QHS RF: 0 insulin lispro [Humalog U-100 Insulin] 100 unit/mL Solution 6 unit SUBCUT TID RF: 0 insulin lispro [Humalog U-100 Insulin] 100 unit/mL Solution 1 sliding scale dose SUBCUT USEASDIRECTD RF: 0 fluticasone propionate [Flonase Allergy Relief] 50 mcg/actuation [place],Suspension 1 spray INTRANASAL BID RF: 0 guaifenesin 400 mg Tablet 400 mg PO QID PRNRF: 0 terazosin 5 mg Capsule 5 mg PO QPM RF: 0 prednisone 10 mg Tablet See Rx Instructions .ROUTE .COMPLEX RF: 0 meclizine 12.5 mg Tablet 12.5 mg PO Q8H PRN PRNRF: 0 Refresh Tears 0.5 % Drops 1 drp OPHTHALMIC (EYE) 4-6XD PRNRF: 0 polyethylene glycol 3350 [Miralax] 17 gram/dose Powder 17 g PO DAILY PRNRF: 0 fluoxetine [Prozac] 20 mg Capsule 20 mg PO QPM RF: 0 cholecalciferol (vitamin D3) [Vitamin D3] 400 unit Capsule 800 unit PO DAILY RF: 0 sodium chloride [Saline Nasal] 0.65 % Aerosol,[place] 2 spray INTRANASAL Q2H PRNRF: 0 Medical Decision Making Patient presenting with fever and hypotension consistent with sepsis. He is altered but does open his eyes and acknowledge me when spoken to. He is tachypneic with prolonged expiratory phase. DuoNeb ordered. IV established and fluid bolus started 500 mL's of LR. He has history of CHF but has a normal ejection fraction. Candelario catheter placed to monitor urine output. Flu and COVID swab sent. Blood cultures and urine culture sent. Laboratory studies sent. Portable chest x-ray ordered. Patient pressure does respond to fluid. Breathing better with DuoNeb. Laboratory studies significant for elevated white count to 17,000. Lactate below 2. pH normal. Kidney function baseline. Troponin negative. Urine negative. Flu swab negative. Chest x-ray suspicious for left lower lobe pneumonia. Because of his recent treatment for pneumonia earlier this month and [facility] will treat as hospital-acquired pneumonia for now. He is on amiodarone so I am going to avoid Levaquin though he was on that earlier this month. Will be ordered for ceftazidime, aztreonam, vancomycin. Case discussed with hospitalist. Patient will be admitted to the ICU for further management. He is a full code. He is in guarded condition with sepsis and pneumonia. He should be considered a PUI. Medical Records Medical records reviewed: Yes I reviewed the patient's medical records. Lab Data Lab results reviewed: Yes I reviewed the patient's lab results. ECG Data Attestation: I personally reviewed and interpreted this ECG (s) as follows: Interpretation: see EKG HPI General Mode of arrival: EMS . Date/Time Provider Initiated Documentation: 06/22/20 20:11 . Limitations to Documentation: no limitations . Information obtained by: RN notes reviewed and old records reviewed . HPI Narrative: Patient sent from [facility] for fever and mental status changes. Patient was here yesterday after fall out of his wheelchair. Head CT negative. Wound to his left lower extremity treated with wound VAC. There was no complaint of fever, cough, difficulty breathing or such last night. Over the course of today he is become more lethargic, confused, weak. Tonight he developed fever. He is on chronic O2 and continues to be maintained at baseline. Patient does open his eyes when I say his name and at least acknowledges me when I am in the room. However, at this point he is not conversant. Related Data Home Medications Medication Instructions Recorded Confirmed amiodarone [Cordarone] 200 mg PO QAM 09/27/17 06/22/20 amlodipine 10 mg PO QPM 09/27/17 06/22/20 atorvastatin [Lipitor] 40 mg PO HS 09/27/17 06/22/20 Lantus Solostar U-100 Insulin 30 unit SUB-Q HS 03/07/18 06/22/20 potassium chloride 40 meq PO QAM 03/07/18 06/22/20 melatonin 3 mg PO HS 03/13/18 06/22/20 Glucagon Emergency Kit (human) 1 mg IM Q15M PRN 03/14/18 06/22/20 acetaminophen 650 mg PO Q4H PRN PRN 06/05/18 06/22/20 albuterol sulfate 2.5 mg INHALATION Q4H PRN 06/05/18 06/22/20 bisacodyl [Dulcolax (bisacodyl)] 10 mg ME DIRECTED PRN 06/05/18 06/22/20 isosorbide mononitrate 30 mg PO DAILY 06/05/18 06/22/20 losartan 50 mg PO DAILY 06/05/18 06/22/20 multivitamin [Multiple Vitamins] 1 tab PO QAM 06/05/18 06/22/20 alum-mag hydroxide-simeth [Maalox 30 ml PO QID PRN 07/02/18 06/22/20 Advanced] hydralazine 100 mg PO TID 07/02/18 06/22/20 Stiolto Respimat 2 puff INHALATION DAILY 01/18/19 10/16/19 albuterol sulfate [Proventil HFA] 2 puff INHALATION Q4H PRN PRN 01/18/19 05/25/20 apixaban 2.5 mg PO BID 01/18/19 06/22/20 ascorbic acid (vitamin C) 500 mg PO DAILY 01/18/19 06/22/20 docusate sodium 100 mg PO Q8H PRN PRN 01/18/19 06/22/20 ferrous sulfate 325 mg PO BID 01/18/19 06/22/20 levothyroxine 50 mcg PO DAILY 01/18/19 06/22/20 nitroglycerin 0.4 mg SUBLINGUAL Q5-15M PRN 01/18/19 06/22/20 pantoprazole 40 mg PO BID 01/18/19 06/22/20 torsemide 120 mg PO DAILY 01/18/19 06/22/20 Gel-Larry 1 applic DENTAL QHS 10/16/19 06/22/20 Refresh Tears 1 drp OPHTHALMIC (EYE) 4-6XD PRN 10/16/19 06/22/20 carvedilol 25 mg PO BID 10/16/19 06/22/20 cholecalciferol (vitamin D3) 800 unit PO DAILY 10/16/19 06/22/20 [Vitamin D3] fluoxetine [Prozac] 20 mg PO QPM 10/16/19 06/22/20 fluticasone propionate [Flonase 1 spray INTRANASAL BID 10/16/19 06/22/20 Allergy Relief] gabapentin 600 mg PO TID 10/16/19 06/22/20 guaifenesin 400 mg PO QID PRN 10/16/19 06/22/20 insulin lispro [Humalog U-100 1 sliding scale dose SUBCUT 10/16/19 06/22/20 Insulin] USEASDIRECTD insulin lispro [Humalog U-100 6 unit SUBCUT TID 10/16/19 06/22/20 Insulin] meclizine 12.5 mg PO Q8H PRN PRN 10/16/19 06/22/20 polyethylene glycol 3350 [Miralax] 17 g PO DAILY PRN 10/16/19 06/22/20 prednisone See Rx Instructions .ROUTE .COMPLEX 10/16/19 sodium chloride [Saline Nasal] 2 spray INTRANASAL Q2H PRN 10/16/19 06/22/20 terazosin 5 mg PO QPM 10/16/19 06/22/20 albuterol sulfate [ProAir HFA] 2 puff INHALATION QID PRN 06/22/20 06/22/20 fluticasone furoate-vilanterol 1 inh INHALATION DAILY 06/22/20 06/22/20 [Breo Ellipta] Allergies Allergy/AdvReac Type Severity Reaction Status Date / Time enalaprilat [From Vasotec] Allergy Severe Hives Unverified 05/25/20 19:11 Latex, Natural Rubber Allergy Intermediate Skin Rash Unverified 05/25/20 19:11 sertraline AdvReac Severe pychosis Unverified 05/25/20 19:11 codeine AdvReac Nausea Unverified 05/25/20 19:11 General Stated Complaint: Fever VIKASH: 2 Review of Systems Unobtainable due to mental status [facility] Medical History Abdominal aortic aneurysm Amputation foot, bilat Anemia Anticoagulant long-term use Anxiety Atrial fibrillation Bilateral hearing loss CAD (coronary artery disease) Chronic renal disease Congestive heart failure (CHF) COPD (chronic obstructive pulmonary disease) CVA (cerebral vascular accident) Depression Dystrophic nail Folate deficiency anemia Former smoker GI bleed Heart failure with preserved ejection fraction Hemiparesis affecting left side as late effect of cerebrovascular accident Hypertension Mitral regurgitation Peripheral angiopathy due to DM Pneumonia Pulmonary hypertension PVD (peripheral vascular disease) Recurrent falls Renal artery stenosis Tricuspid regurgitation 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 Hypotensive and tachypneic but normal O2 saturation on his baseline nasal cannula oxygen. Const: Morbidly obese elderly male with tachypnea and prolonged expiration. HEENT: NC/AT. Normal facial exam. Eyes: Normal conjunctiva and sclera. Neck: Supple. Trachea midline. Lungs: Tachypneic. Prolonged expiration. Decreased breath sounds and rhonchi throughout. Cor: RRR with murmur. Good radial pulses. GI: Soft. NT/ND. No guarding or rebound. Neuro: Opens eyes and looks at me when spoken to. Cranial nerves grossly intact. Generalized weakness. Does not follow commands well. Ext: Bilateral lower extremity edema and venous stasis changes. Bilateral toe amputations. Wound VAC on left ku. Skin: Warm and dry. Course Vital Signs Vital signs: Vital Signs Temperature 102.5 F H 06/22/20 19:39 Pulse 81 06/22/20 19:39 Respiratory Rate 26 H 06/22/20 19:39 Blood Pressure 95/39 L 06/22/20 19:39 Pulse Oximetry 100 06/22/20 19:39 Temperature 102.5 F H 06/22/20 19:39 Temperature Source Axillary 06/22/20 19:39 Pulse 81 06/22/20 19:39 Respiratory Rate 26 H 06/22/20 19:39 Respiratory Effort 06/22/20 19:47 Blood Pressure 95/39 L 06/22/20 19:39 Pulse Oximetry 100 06/22/20 19:39 Oxygen Delivery Method Nasal Cannula 06/22/20 19:39 Oxygen Flow Rate 2 06/22/20 19:39 Critical Care Time Critical Care Time Critical Care Time: Yes Total Critical Care Time: 60 Attestation: Upon my evaluation, this patient had a high probability of imminent or life- threatening deterioration, which required my direct attention, intervention, and personal management. I have personally provided 60 minutes of critical care time exclusive of time spent on separately billable procedures. Time includes review of laboratory data, radiology results, discussion with consultants, and monitoring for potential decompensation. Interventions performed as documented above.
[2020-06-22] MEDS: Lactated Ringers 500 ML IV ×2 (20:27→21:39)
[2020-06-22] MEDS: Albuterol/Ipratropium 3 ML UPD VIAL UPD (20:28)
[2020-06-22 20:33] LABS: Abs Immature Grans 0.14 10^3/uL (0.0-0.06); BE (Venous) 8 mmol/L (-2-3); Basophils % 0.1; Eosinophils % 0.1; HCO3 (Venous) 33 mmol/L (23-28); HCT 37.9 % (40.0-50.0); HGB 11.3 g/dL (13.5-17.5); Immature Grans % 0.8; Lymphocytes % 1.5; MCH 24.8 pg (27.0-33.0); MCHC 29.8 % (32.0-36.0); MCV 83.1 fL (80-95); MPV 9.2 fL (8.0-11.0); Monocytes % 4.7; Neutrophils % 92.8; Nucleated RBC 0 %; O2 Sat (Venous) 93 %; Platelet Count 184 10^3/uL (130-400); RBC 4.56 10^6/uL (4.36-5.78); RDW 15.2 % (11.8-14.1); RDW-SD 46.2 fL; TCO2 (Venous) 31 mmol/L (24-29); WBC 16.98 10^3/uL (4.4-10.8); pCO2 (Venous) 57 mmHg (41-51); pH (Venous) 7.37 (7.31-7.41); pO2 (Venous) 66 mmHg
[2020-06-22 20:35] LABS: Lactate 1.9 mmol/L (0.6-1.4)
[2020-06-22 20:48] LABS: Absolute Basophil Count 0.02 10^3/uL (0.0-0.2); Absolute Eosinophil Count 0.02 10^3/uL (0.0-0.7); Absolute Lymphocyte Count 0.25 10^3/uL (1.2-3.4); Absolute Neutrophil Count 15.76 10^3/uL (1.2-6.7)
[2020-06-22 20:49] LABS: Bilirubin Negative (Negative); Blood Negative (Negative); Clarity Clear (Clear); Glucose Negative (Negative); Ketones Negative (Negative); Leukocyte Esterase Negative (Negative); Nitrite Negative (Negative); Specific Gravity 1.015 (1.005-1.025); Urobilinogen 0.2 EU/dL (Up TO 0.2)
[2020-06-22 20:50] LABS: ALT 13 U/L (16-63); AST 15 U/L (15-37); Albumin 2.9 g/dL (3.4-5.0); Alkaline Phosphatase 86 U/L (46-116); Anion Gap 6.5 mmol/L (3-11); BUN 66 mg/dL (7-18); Bilirubin, Total 0.4 mg/dL (0.2-1.0); CO2 32.5 mmol/L (21.0-32.0); Calcium 8.5 mg/dL (8.5-10.1); Chloride 99 mmol/L (98-107); Estimated GFR 25.81 (mL/min/1.73m2); Glucose 157 mg/dL (74-106); Magnesium 1.8 mg/dL (1.8-2.4); Potassium 4.3 mmol/L (3.5-5.1); Sodium 138 mmol/L (136-145); Troponin I < 0.05 ng/mL (<0.06)
--- NOTE | 2020-06-22 21:29 | NUR.NOTE ---
Nursing Note: Error, please disregard blood pressure.
[2020-06-22] MEDS: AZTREONAM 2,000 MG in Normal Saline 100 ML 200 MG IVPB (21:37)
--- NOTE | 2020-06-22 21:38 | HPE_ITS ---
Date of service: 06/22/20 Time of Service: 21:38 COUNTS INCLUDE 234 BEDS AT THE [facility] Medical History Abdominal aortic aneurysm Amputation foot, bilat Anemia Anticoagulant long-term use Anxiety Atrial fibrillation Bilateral hearing loss CAD (coronary artery disease) Chronic renal disease Congestive heart failure (CHF) COPD (chronic obstructive pulmonary disease) CVA (cerebral vascular accident) Depression Dystrophic nail Folate deficiency anemia Former smoker GI bleed Heart failure with preserved ejection fraction Hemiparesis affecting left side as late effect of cerebrovascular accident Hypertension Mitral regurgitation Peripheral angiopathy due to DM Pneumonia Pulmonary hypertension PVD (peripheral vascular disease) Recurrent falls Renal artery stenosis Tricuspid regurgitation 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 Surgical History History of amputation of great toe of both feet amputation of all toes of both feet History of esophagogastroduodenoscopy (EGD) History of stent insertion of renal artery S/P CABG x 3 Social History Smoking/Tobacco Use Status: Unknown Tobacco: How many years used: 50 Alcohol Intake: former Details: Heavy alcohol use in the past, quit a few years ago Drug use: Occasionally Substance use type: marijuana 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 Do you feel safe at home: Yes Meds Home Medications and Allergies Home Medications Medication Instructions Recorded Confirmed Type amiodarone [Cordarone] 200 mg PO QAM 09/27/17 06/22/20 History amlodipine 10 mg PO QPM 09/27/17 06/22/20 History atorvastatin [Lipitor] 40 mg PO HS 09/27/17 06/22/20 History Lantus Solostar U-100 Insulin 30 unit SUB-Q HS 03/07/18 06/22/20 History potassium chloride 40 meq PO QAM 03/07/18 06/22/20 History melatonin 3 mg PO HS 03/13/18 06/22/20 History Glucagon Emergency Kit (human) 1 mg IM Q15M PRN 03/14/18 06/22/20 History acetaminophen 650 mg PO Q4H PRN PRN 06/05/18 06/22/20 History albuterol sulfate 2.5 mg INHALATION Q4H PRN 06/05/18 06/22/20 History bisacodyl [Dulcolax (bisacodyl)] 10 mg RI DIRECTED PRN 06/05/18 06/22/20 History isosorbide mononitrate 30 mg PO DAILY 06/05/18 06/22/20 History losartan 50 mg PO DAILY 06/05/18 06/22/20 History multivitamin [Multiple Vitamins] 1 tab PO QAM 06/05/18 06/22/20 History alum-mag hydroxide-simeth [Maalox 30 ml PO QID PRN 07/02/18 06/22/20 History Advanced] hydralazine 100 mg PO TID 07/02/18 06/22/20 History Stiolto Respimat 2 puff INHALATION DAILY 01/18/19 10/16/19 History albuterol sulfate [Proventil HFA] 2 puff INHALATION Q4H PRN PRN 01/18/19 05/25/20 History apixaban 2.5 mg PO BID 01/18/19 06/22/20 History ascorbic acid (vitamin C) 500 mg PO DAILY 01/18/19 06/22/20 History docusate sodium 100 mg PO Q8H PRN PRN 01/18/19 06/22/20 History ferrous sulfate 325 mg PO BID 01/18/19 06/22/20 History levothyroxine 50 mcg PO DAILY 01/18/19 06/22/20 History nitroglycerin 0.4 mg SUBLINGUAL Q5-15M PRN 01/18/19 06/22/20 History pantoprazole 40 mg PO BID 01/18/19 06/22/20 History torsemide 120 mg PO DAILY 01/18/19 06/22/20 History Gel-Larry 1 applic DENTAL QHS 10/16/19 06/22/20 History Refresh Tears 1 drp OPHTHALMIC (EYE) 4-6XD PRN 10/16/19 06/22/20 History carvedilol 25 mg PO BID 10/16/19 06/22/20 History cholecalciferol (vitamin D3) 800 unit PO DAILY 10/16/19 06/22/20 History [Vitamin D3] fluoxetine [Prozac] 20 mg PO QPM 10/16/19 06/22/20 History fluticasone propionate [Flonase 1 spray INTRANASAL BID 10/16/19 06/22/20 History Allergy Relief] gabapentin 600 mg PO TID 10/16/19 06/22/20 History guaifenesin 400 mg PO QID PRN 10/16/19 06/22/20 History insulin lispro [Humalog U-100 1 sliding scale dose SUBCUT 10/16/19 06/22/20 History Insulin] USEASDIRECTD insulin lispro [Humalog U-100 6 unit SUBCUT TID 10/16/19 06/22/20 History Insulin] meclizine 12.5 mg PO Q8H PRN PRN 10/16/19 06/22/20 History polyethylene glycol 3350 [Miralax] 17 g PO DAILY PRN 10/16/19 06/22/20 History prednisone See Rx Instructions .ROUTE .COMPLEX 10/16/19 History sodium chloride [Saline Nasal] 2 spray INTRANASAL Q2H PRN 10/16/19 06/22/20 History terazosin 5 mg PO QPM 10/16/19 06/22/20 History albuterol sulfate [ProAir HFA] 2 puff INHALATION QID PRN 06/22/20 06/22/20 History fluticasone furoate-vilanterol 1 inh INHALATION DAILY 06/22/20 06/22/20 History [Breo Ellipta] Allergies Allergy/AdvReac Type Severity Reaction Status Date / Time enalaprilat [From Vasotec] Allergy Severe Hives Unverified 05/25/20 19:11 Latex, Natural Rubber Allergy Intermediate Skin Rash Unverified 05/25/20 19:11 sertraline AdvReac Severe pychosis Unverified 05/25/20 19:11 codeine AdvReac Nausea Unverified 05/25/20 19:11 Results Imaging Imaging Studies: Exam: XR Chest, 1 View Exam date and time: 06/22/2020 9:07 PM Age: 69 years old Clinical indication: Cough and fever; Prior surgery; Surgery date: 6+ months; Surgery type: Cabg x3; Patient HX: Cough fever TECHNIQUE: Imaging protocol: XR of the chest Views: 1 view. Delete that Other technique: Limited due to rotation and side bending to the right. COMPARISON: CR XR PORTABLE CHEST AP 05/25/2020 7:04 PM FINDINGS: Lungs: Ill-defined densities overlie both lower hemithoraces. That on the left obscures left heart border. Pleural space: No pneumothorax. Heart/Mediastinum: Allowing for rotation, the heart appears normal in size. Bones/joints: Prior median sternotomy. Bones/joints: Unremarkable. IMPRESSION: 1. Limited study. 2. Densities overlie both lower hemithoraces in could represent intra fissural fluid, areas of atelectasis or infiltrates. Dictated and Authenticated by: Basil Abbott MD. Labs Result diagrams: 06/22/20 19:50 06/22/20 19:50 Labs: Laboratory Results - last 24 hr 06/22/20 06/22/20 06/22/20 19:50 19:50 19:50 WBC 16.98 H RBC 4.56 Hgb 11.3 L Hct 37.9 L MCV 83.1 MCH 24.8 L MCHC 29.8 L RDW 15.2 H Plt Count 184 MPV 9.2 Immature Gran % 0.8 Neutrophils % 92.8 Lymphocytes % 1.5 Monocytes % 4.7 Eosinophils % 0.1 Basophils % 0.1 Nucleated RBC % 0 Absolute Neutrophils 15.76 H Absolute Lymphocytes 0.25 L Absolute Monocytes 0.80 Absolute Eosinophils 0.02 Absolute Basophils 0.02 VBG pH VBG pCO2 VBG pO2 VBG HCO3 VBG Total CO2 VBG O2 Saturation VBG Base Excess VBG Lactate 1.9 H Sodium 138 Potassium 4.3 Chloride 99 Carbon Dioxide 32.5 H Anion Gap 6.5 BUN 66 H Creatinine 2.50 H Estimated GFR/1.73 m2 25.81 Glucose 157 H Calcium 8.5 Magnesium 1.8 Total Bilirubin 0.4 AST 15 ALT 13 L Alkaline Phosphatase 86 Troponin I < 0.05 Total Protein 7.0 Albumin 2.9 L Urine Color Urine Clarity Urine pH Ur Specific [place] Urine Protein Urine Ketones Urine Blood Urine Nitrite Urine Bilirubin Urine Urobilinogen Ur Leukocyte Esterase Urine Glucose 06/22/20 06/22/20 19:50 20:30 WBC RBC Hgb Hct MCV MCH MCHC RDW Plt Count MPV Immature Gran % Neutrophils % Lymphocytes % Monocytes % Eosinophils % Basophils % Nucleated RBC % Absolute Neutrophils Absolute Lymphocytes Absolute Monocytes Absolute Eosinophils Absolute Basophils VBG pH 7.37 VBG pCO2 57 H VBG pO2 66 VBG HCO3 33 H VBG Total CO2 31 H VBG O2 Saturation 93 VBG Base Excess 8 H VBG Lactate Sodium Potassium Chloride Carbon Dioxide Anion Gap BUN Creatinine Estimated GFR/1.73 m2 Glucose Calcium Magnesium Total Bilirubin AST ALT Alkaline Phosphatase Troponin I Total Protein Albumin Urine Color Yellow Urine Clarity Clear Urine pH 5.0 Ur Specific [place] 1.015 Urine Protein Negative Urine Ketones Negative Urine Blood Negative Urine Nitrite Negative Urine Bilirubin Negative Urine Urobilinogen 0.2 Ur Leukocyte Esterase Negative Urine Glucose Negative Last Vital Signs Temp 39.2 C H 06/22/20 21:25 Pulse 76 06/22/20 21:24 Resp 24 06/22/20 21:25 BP 49/33 L 06/22/20 21:24 Pulse Ox 95 06/22/20 21:25 COVID-19 Screening Have you,or household,traveled outside [place] in last 14 days?: No Had IN PERSON contact w/suspected or confirmed C-19 person: No
--- NOTE | 2020-06-22 21:49 | DI.VRAD_ITS ---
PROCEDURE INFORMATION: Exam: XR Chest, 1 View Exam date and time: 06/22/2020 9:07 PM Age: 69 years old Clinical indication: Cough and fever; Prior surgery; Surgery date: 6+ months; Surgery type: Cabg x3; Patient HX: Cough fever TECHNIQUE: Imaging protocol: XR of the chest Views: 1 view. Delete that Other technique: Limited due to rotation and side bending to the right. COMPARISON: CR XR PORTABLE CHEST AP 05/25/2020 7:04 PM FINDINGS: Lungs: Ill-defined densities overlie both lower hemithoraces. That on the left obscures left heart border. Pleural space: No pneumothorax. Heart/Mediastinum: Allowing for rotation, the heart appears normal in size. Bones/joints: Prior median sternotomy. Bones/joints: Unremarkable. IMPRESSION: 1. Limited study. 2. Densities overlie both lower hemithoraces in could represent intra fissural fluid, areas of atelectasis or infiltrates. Dictated and Authenticated by: Basil Abbott MD. Ordering:GLENROY Olmstead MD
[2020-06-22] MEDS: cefTAZidime 2,000 MG in Normal Saline 100 ML 200 MG IVPB (22:09)
--- NOTE | 2020-06-22 22:10 | NUR.NOTE ---
Nursing Note: Patient sitting up in bed. Audible wheeze from upper airway, rattle sounding. Patient more alert than when arrived to the department. Reports my whole body hurts.
[2020-06-22] MEDS: Lactated Ringers 1,000 ML 125 ML IV (22:35)
[2020-06-22] MEDS: VANCOMYCIN 2,000 MG in Normal Saline 500 ML 250 MG IVPB (22:37)
[2020-06-22 22:56] LABS: C-Reactive Protein 7.99 mg/dL (0.0-0.3)
[2020-06-22 23:04] LABS: TSH 3.63 uIU/mL (0.36-3.74)
[2020-06-22] MEDS: EPINEPHrine 1 MG/10 ML SYR IVP ×4 (23:18→23:58)
--- NOTE | 2020-06-22 23:30 | DI.RAD_ITS ---
EXAM: XR PORTABLE CHEST AP POST LINE CLINICAL HISTORY: INTUBATION TECHNIQUE: 2D digital imaging was performed. COMPARISON: CR XR CHEST 2V PA LATERAL from 11/13/2019 CR,XR XR PORTABLE CHEST AP from 05/25/2020 CR,XR XR PORTABLE CHEST AP from 06/22/2020 FINDINGS: The heart is again noted to be enlarged. The patient is status post CABG. An endotracheal tube has been inserted which lies at the the aorta. Nasogastric tube projects below the diaphragm. There are bilateral pleural effusions, not well evaluated on a supine exam. Multiple leads overlie the chest. There is pulmonary vascular prominence. IMPRESSION: Satisfactory position endotracheal tube and nasogastric tube. Bilateral pleural effusions.
[2020-06-22 23:40] LABS: Procalcitonin 4.1 ng/mL
[2020-06-22] MEDS: DOPamine 400 MG/250 ML BAG 5.325 MG IV (23:52)
--- NOTE | 2020-06-22 23:57 | DI.VRAD_ITS ---
PROCEDURE INFORMATION: Exam: XR Chest, 1 View Exam date and time: 06/22/2020 11:36 PM Age: 69 years old Clinical indication: Device placement; Other: S/P intubation; Prior surgery; Surgery date: 6+ months; Surgery type: Cabg TECHNIQUE: Imaging protocol: XR of the chest Views: 1 view. COMPARISON: CR XR PORTABLE CHEST AP 06/22/2020 8:59 PM FINDINGS: Tubes, catheters and devices: Tip of ET tube projects over trachea, approximately 4.5 cm above cindy. Marker for NG tube followed to left upper quadrant of abdomen. Lungs: There is no more than minimal interstitial prominence. Pleural space: Bilateral pleural effusions. No pneumothorax demonstrated. Heart/Mediastinum: Cardiomegaly. Bones/joints: Prior median sternotomy. IMPRESSION: 1. ET tube appears in satisfactory position. 2. Bilateral pleural effusions. 3. Cardiomegaly. Dictated and Authenticated by: Basil Abbott MD. Ordering:GLENROY Olmstead MD
[2020-06-23] MEDS: fentaNYL 1,000 MCG/20 ML VIAL 1000 MCG (00:10)
[2020-06-23 00:14] LABS: BE (Venous) 1 mmol/L (-2-3); HCO3 (Venous) 29 mmol/L (23-28); O2 Sat (Venous) 83 %; TCO2 (Venous) 28 mmol/L (24-29); pH (Venous) 7.23 (7.31-7.41); pO2 (Venous) 55 mmHg
[2020-06-23 00:15] VITALS: RESP 23; RESP 31; O2SAT 99
[2020-06-23 00:17] LABS: pCO2 (Venous) 69 mmHg (41-51)
[2020-06-23 00:25] VITALS: BP 104/72; PULSE 70; RESP 19; TEMP 39.1; O2SAT 97
[2020-06-23 00:28] LABS: Anion Gap 10.8 mmol/L (3-11); BUN 68 mg/dL (7-18); CO2 28.2 mmol/L (21.0-32.0); CREATININE 3.26 mg/dL (0.70-1.30); Calcium 8.1 mg/dL (8.5-10.1); Chloride 99 mmol/L (98-107); Glucose 256 mg/dL (74-106); Potassium 4.5 mmol/L (3.5-5.1); Sodium 138 mmol/L (136-145)
[2020-06-23 00:35] VITALS: BP 90/64; PULSE 70; RESP 21; TEMP 39; O2SAT 96
[2020-06-23 00:37] LABS: Troponin I < 0.05 ng/mL (<0.06)
[2020-06-23 00:45] VITALS: BP 95/45; PULSE 70; RESP 21; TEMP 38.9; O2SAT 98
--- NOTE | 2020-06-23 00:55 | W.ED.PROC ---
Date of service: 06/22/20 Time of Service: 23:15 Procedures Intubation Time out performed: No sedative: none Laryngoscope: fiberoptic video scope Assist Device Used: fiberoptic device ET Tube Size: 8 ET Tube Uncuffed: Yes Tube Secured Depth (cm): 23 Tube Secured Location: lips Tube Placement Confirmation: visualized tube passing through cords, equal breath sounds bilaterally and confirmation by capnometry Patient Tolerated Procedure: no complications Intubation Complications: none
--- NOTE | 2020-06-23 00:59 | RESPIRATORY ---
Code blue stat was paged overhead and RT paged to come ED. Upon arriving at ED, RT found patient was already intubated with an 8 ETT 23 @ the lips. RT helped staff get inline CO2 monitor, filter and inline suction connected for patient to be placed on vent. Patient placed on vent and transcuteous pacing. RT pulled from room to attend to a different patient, transfered to [facility].
[2020-06-23 01:05] VITALS: BP 102/50; PULSE 70; RESP 21; TEMP 38.8; O2SAT 97
--- NOTE | 2020-06-23 01:08 | NUR.NOTE ---
Nursing Note: 2315: Asystole on monitor lips cyanotic, pulseless CPR started. 2317: Attempting intubation. 2318: 1mg epi RAC. Spontaneous respirations. 8.0 ET 24 cm lip, CO2 change. 2322: 1mg Atropine, 1mg Epi RAC, asystole. 2327: 1mg Epi RAC, bilateral breathsounds. Sinus winston 25 with pulse 1mg of Atropine given. 2331: Pads applied paced at 70 bpm, captured at 130 mA. 2333- 116/102 70 27 42 2334: Vent rate 16, FIO2 100, CMV. 2335: Vent changed to ASV. 2340: 16F OG, 56 at the lip. PXR at bedside. 2342: Positive radial pulse, remains paced at 70. RR 16 ETco2 29 2344: LR wide open. 2345: Manual systolic 86, unknown diastolic. 2352: 20 LAC, labs obtained, dopamine started at 1mcg/kg/min. 2356: Patient repositioned in bed, leads to pad broke and pacing stopped. Pulse lost, New pads placed, pacing restarted. 2358: 1mg of Epi. 0003: BP 210/85 ASV mode rate 20, RR 22, HR 70, Etco2 41. 0007: Dr Lovell arranging transfer. 0010: Fentanyl drip started for patient comfort at 1mcg/kg/hr. 0015: BP 82/48 HR 70 RR 23 O2 97 ETco2 30. Decreased fentanyl to 0.5 mcg/kg/hr. 0035: Dr Lovell interpreted event prior to code, patient was sinus on monitor and then changed to 3rd degree block, then asystole. 0057: BP 92/48. Accepted to MICU at [facility]. Jo Ann arrived. 0108: Report to Jo Ann.
[2020-06-23 13:31] LABS: COVID-19 RT-PCR UVMMC Result Negative (Negative)
--- NOTE | 2020-06-23 15:14 | NUR.NOTE ---
FLU AND COVID RESULTS FA[place] [facility] [place] [facility] [phone].Nursing Note:
== END 2020-06-23 01:30 | disposition short-term general hospital (02) ==
PROVIDERS: Family Medicine; Emergency Provider Emergency Medicine; PCP Family Medicine
DX: I46.9 Cardiac arrest, cause unspecified (principal); I44.2 Atrioventricular block, complete; A41.9 Sepsis, unspecified organism; R65.20 Severe sepsis without septic shock; J18.9 Pneumonia, unspecified organism; Y95 Nosocomial condition; J96.00 Acute respiratory failure, unspecified whether with hypoxia or hypercapnia; I13.0 Hypertensive heart and chronic kidney disease with heart failure and stage 1 through stage 4 chronic kidney disease, or unspecified chronic kidney disease; N18.9 Chronic kidney disease, unspecified; I50.9 Heart failure, unspecified; Z03.818 Encounter for observation for suspected exposure to other biological agents ruled out; E11.22 Type 2 diabetes mellitus with diabetic chronic kidney disease; Z79.4 Long term (current) use of insulin; Z99.81 Dependence on supplemental oxygen
CPT/HCPCS: 31500; 36415; 51702; 71045; 80048; 80053; 82805; 84145; 87040; 87449; 92950; 92953; 93005; 94640; 96361; 96365; 96367; 96368; 96374; 96375; 96376; 99291; 99292; U0003; 81003; 83605; 83735; 84443; 84484; 85025; 86140; 93010; 94002; J0713; J1265; J3010; J7620